=== PATIENT | male | born 1945 | race Caucasian/White ===

== ENCOUNTER → 2024-02-03 07:32 | Outpatient (REF) | payer OTHER, SELFPAY | LOC: MRI 07:32 | PROVIDERS: ATTENDING PHYSICIAN Podiatrist Foot & Ankle Surgery; FAMILY PHYSICIAN Family Medicine | DX: M86.171 Other acute osteomyelitis, right ankle and foot (principal); L97.413 Non-pressure chronic ulcer of right heel and midfoot with necrosis of muscle; L03.115 Cellulitis of right lower limb | CPT/HCPCS: 73720; A9575 ==

== ENCOUNTER → 2024-03-04 12:30 | Outpatient (REF) | payer OTHER, SELFPAY | LOC: WOUND 12:30 | PROVIDERS: ATTENDING PHYSICIAN Surgery; FAMILY PHYSICIAN Family Medicine | DX: L97.413 Non-pressure chronic ulcer of right heel and midfoot with necrosis of muscle (principal); M14.671 Charcot's joint, right ankle and foot; I87.2 Venous insufficiency (chronic) (peripheral); I73.9 Peripheral vascular disease, unspecified; I48.21 Permanent atrial fibrillation; Z79.01 Long term (current) use of anticoagulants | CPT/HCPCS: 99204 ==

== ENCOUNTER → 2024-03-04 13:36 | Outpatient (REF) | payer OTHER, SELFPAY | LOC: RAD 13:36 | PROVIDERS: ATTENDING PHYSICIAN Surgery; FAMILY PHYSICIAN Family Medicine | DX: L97.413 Non-pressure chronic ulcer of right heel and midfoot with necrosis of muscle (principal); M14.671 Charcot's joint, right ankle and foot | CPT/HCPCS: 73630 ==

== ENCOUNTER → 2024-03-05 10:43 | Outpatient (REF) | payer OTHER, SELFPAY ==
[2024-03-05 15:26] LABS: INR 2.66; PT 28.3 Sec (11.4-14.6)
== END ==
LOC: HWLAB 10:43
PROVIDERS: ATTENDING PHYSICIAN Student in an Organized Health Care Education/Training Program; FAMILY PHYSICIAN Family Medicine
DX: I48.0 Paroxysmal atrial fibrillation (principal)
CPT/HCPCS: 36415; 85610

== ENCOUNTER → 2024-03-12 10:28 | Outpatient (REF) | payer OTHER, SELFPAY ==
[2024-03-12 12:28] LABS: INR 1.78; PT 20.9 Sec (11.4-14.6)
== END ==
LOC: HWLAB 10:28
PROVIDERS: ATTENDING PHYSICIAN Student in an Organized Health Care Education/Training Program; FAMILY PHYSICIAN Family Medicine
DX: I48.0 Paroxysmal atrial fibrillation (principal)
CPT/HCPCS: 85610

== ENCOUNTER → 2024-04-16 09:59 | Outpatient (REF) | payer OTHER, SELFPAY | LOC: RAD 09:59 | PROVIDERS: ATTENDING PHYSICIAN Surgery; FAMILY PHYSICIAN Family Medicine | DX: L97.413 Non-pressure chronic ulcer of right heel and midfoot with necrosis of muscle (principal); I87.2 Venous insufficiency (chronic) (peripheral); I73.9 Peripheral vascular disease, unspecified | CPT/HCPCS: 93922; 93971 ==

== ENCOUNTER → 2024-04-27 10:22 | Outpatient (REF) | payer OTHER, SELFPAY | LOC: WOUND 10:22 | PROVIDERS: ATTENDING PHYSICIAN Surgery; FAMILY PHYSICIAN Family Medicine | DX: L97.413 Non-pressure chronic ulcer of right heel and midfoot with necrosis of muscle (principal); M14.671 Charcot's joint, right ankle and foot; I87.2 Venous insufficiency (chronic) (peripheral); I73.9 Peripheral vascular disease, unspecified; I48.21 Permanent atrial fibrillation; Z79.01 Long term (current) use of anticoagulants | CPT/HCPCS: 99214 ==

== ENCOUNTER → 2024-09-13 10:22 | Outpatient (REF) | payer OTHER, SELFPAY | LOC: HWRAD 10:22 | PROVIDERS: ATTENDING PHYSICIAN Podiatrist Foot & Ankle Surgery; FAMILY PHYSICIAN Family Medicine | DX: M14.671 Charcot's joint, right ankle and foot (principal) | CPT/HCPCS: 73600; 73630 ==

== ENCOUNTER → 2024-09-23 10:35 | Outpatient (REF) | payer OTHER, SELFPAY | LOC: PAVMRI 10:35 | PROVIDERS: ATTENDING PHYSICIAN Podiatrist Foot & Ankle Surgery; FAMILY PHYSICIAN Family Medicine | DX: M14.671 Charcot's joint, right ankle and foot (principal) | CPT/HCPCS: 73723; A9575 ==

== ENCOUNTER 2024-09-30 17:28 | Inpatient (IN) | payer OTHER, SELFPAY ==
[2024-09-30] VITALS (19 sets, daily range): BP systolic 40–163; BP diastolic 71–108; BMI 29.4
--- NOTE | 2024-09-30 11:58 | ED.GENMED ---
History of Present Illness
<Doroteo Garcia Jr., PA-C - Last Filed: 09/30/24 14:17>
General
Chief Complaint: Swelling
Source: patient, spouse and family
Exam Limitations: none
Time Seen by Provider: 09/30/24 11:46
Nursing documentation reviewed up to this point in time: agreed with
History of Present Illness
History of Present Illness:
The patient is a 78-year-old male with a past medical history of atrial fibrillation managed with warfarin, hypertension, and hyperlipidemia, who presents with left leg pain and swelling. He reports falling last night due to imbalance and noted
swelling and burning pain on the left side upon waking this morning. The pain is exacerbated by touch, and there is significant bruising noted. The leg is described as unusually hard compared to the non-affected side. The patient also mentions a
history of Charcot foot and a wound on the bottom of the foot, along with peripheral neuropathy limiting sensation.
Review of Systems
<Doroteo Garcia Jr., PA-C - Last Filed: 09/30/24 14:17>
Review of Systems
Allergies reviewed?: Yes
All Other Systems: ROS reviewed and negative except as documented in HPI and ROS
Phy Exam
<Doroteo Garcia Jr., PA-C - Last Filed: 09/30/24 14:17>
Physical Exam
Physical Exam:
GENERAL: Alert , in no apparent distress
EYE: pupils equal and reactive
NECK: Supple, no significant adenopathy.
ENT: o/p clr, mmm.
CARDIAC: Regular rate and rhythm .
LUNGS: Clear breath sounds bilaterally, no acute respiratory distress, no wheezes/rales/rhonchi
ABDOMEN: Soft, without focal tenderness, no r/g, no cvat
NEUROLOGICAL: Alert and oriented, no focal neuro deficits
SKIN: Warm and dry, skin intact.
MUSCULOSKELETAL: Significant swelling to the left lower extremity from the posterior knee into the circumferential lower leg sparing the ankle and foot. Tender to palpation throughout slightly ecchymotic mainly posteriorly somewhat firm to
palpation circumferentially of the lower leg. Able to bend at the knee able to move his toes does have general sensation distally does have distal pulses of dorsalis pedis and posterior tibialis.
PSYCH: Normal and appropriate interaction.
Scores
<Doroteo Garcia Jr., PA-C - Last Filed: 09/30/24 14:17>
Heart Failure Risk
Heart Failure Risk Score: Not Applicable
Course
<Doroteo Garcia Jr., PA-C - Last Filed: 09/30/24 14:17>
Orders/Labs/Results
Orders:
Orders
09/30/24 12:12
CBC/With Diff [Complete Blood Count/With Diff] Urgent
CMP [Comprehensive Metabolic Panel] Urgent
Creatine Phosphokinase Urgent
PT/INR [Prothrombin Time] Urgent
09/30/24 12:48
CT Angio Lower Ext W/Wo Iv Contrast [CT Lower Ext Angio W/wo Iv Con] Stat
Comment:
Reason For Exam: LLE swelling eval for active bleed
09/30/24 14:00
Fentanyl Citrate/Pf [Sublimaze] 100 mcg .ROUTE .STK-MED ONE
Lidocaine HCl/Pf [Xylocaine-Mpf 1% Vial] 50 mg .ROUTE .STK-MED ONE
Midazolam HCl [Versed] 2 mg .ROUTE .STK-MED ONE
Propofol [Diprivan] 40 ml .ROUTE .STK-MED
09/30/24 14:12
Protamine 50 mg .ROUTE .STK-MED ONE
09/30/24 14:20
EKG [Electrocardiogram (*1)] Stat
Reason for Study: PreOp
09/30/24 14:21
CeFAZolin 2 GRAM [Ancef] 2 grams in 10 ml IV PRE PROCEDURE
Chlorhexidine Oral Rinse 0.12% [Peridex 0.12% Oral Rinse] 15 ml PO ONCE ONE
Mupirocin [Bactroban 2% Ointment] See Dose Instructions NASAL ONCE ONE
09/30/24 14:24
Mupirocin Nasal [Bactroban Nasal] 1 gram .ROUTE .STK-MED ONE
09/30/24 14:59
Admit/Transfer Patient As Directed
Co-Sign Provider:
Level of Care: Inpatient admission
Assign to:: Telemetry
Physician / Group: htay
Diagnosis: large Large left calf soft tissue hematoma without evidence for active blee
Reason for Telemetry: Arrhythmia
Date to Stop Telemetry: 10/03/24
Time to Stop Telemetry: 11:00
Reason for Hospitalization: large Large left calf soft tissue hematoma without evidence for active bleeding.
Warfarin induced coagulopathy for AF
Expected length of stay greater than two midnights?: Yes
ELOS- Estimated Length of Stay in days: 5
I certify the patient meets the requirements for IP care: Yes
09/30/24 15:02
Code Status As Directed
Resuscitation Status: Full Code
10/03/24 11:00
DC Protocol for Telemetry ONCE
Abnormal Lab Results
09/30/24
12:12
RBC 3.60 L 10^6/uL
(4.70-6.10)
Hgb 11.4 L g/dL
(13.0-18.0)
Hct 34.1 L %
(39.0-52.0)
MCV 94.7 H fL
(80.0-94.0)
MCH 31.7 H pg
(27.0-31.0)
Absolute Lymphs (auto) 0.8 L 10^3/uL
(1.2-3.4)
Absolute Monos (auto) 1.3 H 10^3/uL
(0.1-0.6)
Lymphocytes % 11.4 L %
(20.5-51.1)
Monocytes % 19.5 H %
(1.7-9.3)
PT 23.3 H Sec
(11.4-14.6)
BUN 21 H mg/dl
(9-20)
Glucose 115 H mg/dl
(70-99)
09/30/24 12:12
09/30/24 12:12
Vital Signs
Initial and Last Documented VS:
Initial Vital Signs
Temp Pulse Resp BP Pulse Ox
97.7 F 82 15 153/88 97
09/30/24 11:44 09/30/24 11:44 09/30/24 11:44 09/30/24 11:44 09/30/24 11:44
Last Documented Vital Signs
Temp Pulse Resp BP Pulse Ox
97.3 F 80 15 163/91 100
09/30/24 14:39 09/30/24 15:15 09/30/24 15:15 09/30/24 14:39 09/30/24 15:00
<Dani Beltre, DO - Last Filed: 09/30/24 15:41>
Orders/Labs/Results
Orders:
Orders
09/30/24 12:12
CBC/With Diff [Complete Blood Count/With Diff] Urgent
CMP [Comprehensive Metabolic Panel] Urgent
Creatine Phosphokinase Urgent
PT/INR [Prothrombin Time] Urgent
09/30/24 12:48
CT Angio Lower Ext W/Wo Iv Contrast [CT Lower Ext Angio W/wo Iv Con] Stat
Comment:
Reason For Exam: LLE swelling eval for active bleed
09/30/24 14:00
Fentanyl Citrate/Pf [Sublimaze] 100 mcg .ROUTE .STK-MED ONE
Lidocaine HCl/Pf [Xylocaine-Mpf 1% Vial] 50 mg .ROUTE .STK-MED ONE
Midazolam HCl [Versed] 2 mg .ROUTE .STK-MED ONE
Propofol [Diprivan] 40 ml .ROUTE .STK-MED
09/30/24 14:12
Protamine 50 mg .ROUTE .STK-MED ONE
09/30/24 14:20
EKG [Electrocardiogram (*1)] Stat
Reason for Study: PreOp
09/30/24 14:21
CeFAZolin 2 GRAM [Ancef] 2 grams in 10 ml IV PRE PROCEDURE
Chlorhexidine Oral Rinse 0.12% [Peridex 0.12% Oral Rinse] 15 ml PO ONCE ONE
Mupirocin [Bactroban 2% Ointment] See Dose Instructions NASAL ONCE ONE
09/30/24 14:24
Mupirocin Nasal [Bactroban Nasal] 1 gram .ROUTE .STK-MED ONE
09/30/24 14:59
Admit/Transfer Patient As Directed
Co-Sign Provider:
Level of Care: Inpatient admission
Assign to:: Telemetry
Physician / Group: htay
Diagnosis: large Large left calf soft tissue hematoma without evidence for active blee
Reason for Telemetry: Arrhythmia
Date to Stop Telemetry: 10/03/24
Time to Stop Telemetry: 11:00
Reason for Hospitalization: large Large left calf soft tissue hematoma without evidence for active bleeding.
Warfarin induced coagulopathy for AF
Expected length of stay greater than two midnights?: Yes
ELOS- Estimated Length of Stay in days: 5
I certify the patient meets the requirements for IP care: Yes
09/30/24 15:02
Code Status As Directed
Resuscitation Status: Full Code
10/03/24 11:00
DC Protocol for Telemetry ONCE
Abnormal Lab Results
09/30/24
12:12
RBC 3.60 L 10^6/uL
(4.70-6.10)
Hgb 11.4 L g/dL
(13.0-18.0)
Hct 34.1 L %
(39.0-52.0)
MCV 94.7 H fL
(80.0-94.0)
MCH 31.7 H pg
(27.0-31.0)
Absolute Lymphs (auto) 0.8 L 10^3/uL
(1.2-3.4)
Absolute Monos (auto) 1.3 H 10^3/uL
(0.1-0.6)
Lymphocytes % 11.4 L %
(20.5-51.1)
Monocytes % 19.5 H %
(1.7-9.3)
PT 23.3 H Sec
(11.4-14.6)
BUN 21 H mg/dl
(9-20)
Glucose 115 H mg/dl
(70-99)
09/30/24 12:12
09/30/24 12:12
Vital Signs
Initial and Last Documented VS:
Initial Vital Signs
Temp Pulse Resp BP Pulse Ox
97.7 F 82 15 153/88 97
09/30/24 11:44 09/30/24 11:44 09/30/24 11:44 09/30/24 11:44 09/30/24 11:44
Last Documented Vital Signs
Temp Pulse Resp BP Pulse Ox
97.3 F 80 15 163/91 100
09/30/24 14:39 09/30/24 15:15 09/30/24 15:15 09/30/24 14:39 09/30/24 15:00
<Doroteo Garcia Jr., PA-C - Last Filed: 09/30/24 14:17>
MDM/Problems Addressed
MDM/Problems Addressed:
78-year-old male presenting to the emergency department today with concerns of left lower extremity swelling did not fall yesterday felt it was very mild injury at the time this morning woke up with worsening swelling and discomfort difficulty
ambulating. Last INR 1 week ago was normal.
Patient had some firmness to his distal lower extremity. This raises concerns of possible early compartment syndrome Case was then discussed with attending physician who also saw the case recommending discussing case with vascular. Vascular was
consulted came to see the patient recommending initial CT angiogram as well as going directly to the OR for drainage there. He was stable throughout ER stay did have distal pulses throughout ER stay.
<Doroteo Garcia Jr., PA-C - Last Filed: 09/30/24 14:17>
*Pulse Oximetry
SaO2: 97
Oxygen Mode of Delivery: Room air
*Critical Care Note
Total Time (30-74mins, 75-104mins- exclusive of procedures): See attending note
<Dani Beltre DO - Last Filed: 09/30/24 15:41>
*Critical Care Note
Total Time (30-74mins, 75-104mins- exclusive of procedures): 35
comment:
Critical care statement: A total of 35 minutes of critical care time was provided for this patient. This includes management of unstable vital signs, evaluation of the patient at bedside, reviewing the patient's pertinent medical records, discussion
with consultants, review of old EKGs and review of pertinent medical records. This time with separate from time utilized to perform the aforementioned documented procedures
ED Attending Note
<Doroteo Garcia Jr., PA-C - Last Filed: 09/30/24 14:17>
-
Portions of this chart may have been created with voice recognition software.� Occasional wrong word or��sound alike� substitutions may have occurred due to the inherent limitations of voice recognition software.
<DO Carmen Loaiza Last Filed: 09/30/24 15:41>
ED Attending Note
Patient seen and examined by attending physician: Yes
ED Attending Note:
I reviewed and agree with history and treatment plan by Chris Garcia. My exam revealed firm left lower extremity compartments normal pulses and lower leg sensation. Vascular surgery to take 2 OR for debridement of compartment syndrome.
Discharge Plan
Departure
Patient Disposition: Admit
Date of Disposition: 09/30/24
Time of Disposition: 14:11
Admit to: IMU
Admit to doctor: Kishorey
Presentation/result/management discussed w/ accepting MD/DO: Hospitalist
Patient with high blood pressure during this ER visit?: No
Condition: Good
Covid-19: Not Applicable
Discharge Problem:
Acute leg pain
Interventions
Interventions:
*Risk Screen - Suicide Last Done: 09/30/24 11:44
*General Assessment Last Done: 09/30/24 11:44
*Neglect/Abuse Screening Last Done: 09/30/24 11:44
*ED- Fall Risk Assessment Last Done: 09/30/24 12:17
*ED COVID-19 Vaccine History Last Done: 09/30/24 11:44
*Nursing Disposition Last Done: 09/30/24 14:21
ED- Cardiac Assessment Last Done: 09/30/24 12:17
ED- Pulmonary Assessment Last Done: 09/30/24 12:17
ED-Skin Assessment Last Done: 09/30/24 12:17
Discharge Date and Time
Discharge Date/Time: 09/30/24 14:21
[2024-09-30 12:21] LABS: % Basophils 0.7 % (0-2); % Eosinophils 0.9 % (0-6); % Immature Granulocytes 0.1 % (0-0.5); % Lymphocytes 11.4 % (20.5-51.1); % Monocytes 19.5 % (1.7-9.3); % Neutrophils 67.4 % (42.2-75.2); Absolute Basophils 0.1 10^3/uL (0-0.2); Absolute Eosinophils 0.1 10^3/uL (0-0.7); Absolute Lymphocytes 0.8 10^3/uL (1.2-3.4); Absolute Monocytes 1.3 10^3/uL (0.1-0.6); Absolute Neutrophils 4.6 10^3/uL (1.4-6.5); Hematocrit 34.1 % (39.0-52.0); Hemoglobin 11.4 g/dL (13.0-18.0); Mean Corp Hgb Conc. 33.4 g/dL (33.0-37.0); Mean Corpuscular Hgb 31.7 pg (27.0-31.0); Mean Corpuscular Volume 94.7 fL (80.0-94.0); Mean Platelet Volume 9.2 fL (7.4-10.4); Nucleated Red Blood Cells % 0 % (-); Platelet Count 190 10^3/uL (130-400); Red Cell Dist. Width 13.7 % (11.5-14.5); White Blood Cell Count 6.8 10^3/uL (4.8-10.8)
[2024-09-30 12:31] LABS: INR 2.05; PT 23.3 Sec (11.4-14.6)
[2024-09-30 12:47] LABS: ALT (SGPT) 24 U/L (0-50); AST (SGOT) 32 U/L (17-59); Albumin 3.8 g/dl (3.5-5.0); Alkaline Phosphatase 84 U/L (38-126); Blood Urea Nitrogen 21 mg/dl (9-20); Calcium 8.9 mg/dl (8.4-10.2); Carbon Dioxide 28 mmol/L (22-30); Chloride 105 mmol/L (98-107); Creatine Phosphokinase 95 U/L (55-170); Glucose 115 mg/dl (70-99); Potassium 4.2 mmol/L (3.5-5.1); Sodium 140 mmol/L (135-145); Total Bilirubin 0.6 mg/dl (0.2-1.3); Total Protein 7.2 g/dl (6.3-8.2); eGFR > 60.00
--- NOTE | 2024-09-30 13:34 | CON.VAS ---
Addendum entered and electronically signed by Denver Galvin MD 09/30/24 15:17:
Seen and examined with POWDERER. Agree with findings as noted below. 78-year-old male on anticoagulation injury to left leg with tense hematoma and subcutaneous tissues. Exam demonstrates no evidence of acute compartment syndrome (subcutaneous
hematoma). The hematoma is fairly tense with blistering of the overlying skin. I have reviewed his CT scan imaging that demonstrates no clear evidence of extravasation but does demonstrate a large left subcutaneous calf hematoma. I am
recommending urgent hematoma evacuation for prevention of further skin blistering/necrosis of the skin. Discussed this with the patient and his family at the bedside. Discussed plan for incision with evacuation hematoma and likely closure over
drains. Discussed possible concerns for wound healing when skin becomes necrotic/blistering. He understands that there could be long-term wound care problems, need for plastic surgery evaluation down the line. Discussed also possible placement of
wound VAC, but less likely. Urgent left calf hematoma plan. He is in agreement.
Original Note:
Consultation
Consultation Request
Date/Time Consultation Performed: 09/30/24 1230
Requesting Provider: Doroteo Garcia Jr., KURT-C
Performing Provider: Charlotte Patel NP-C for Denver Galvin M.D.
Reason for Consultation: Left lower extremity edema
Medical History
-
Chief Complaint: Left lower extremity edema
History of Present Illness:
This is a 78-year-old male with significant past medical history for hypertension, atrial fibrillation, Charcot foot, obesity, and hyperlipidemia who presents to [facility] ED reporting continued worsening of left lower extremity edema following
mechanical fall yesterday evening around roughly 11 PM. Patient endorses that he has been dealing with surgical interventions and nonhealing right foot from Charcot and is recently in a boot at the right lower extremity this caused him to have
imbalance and only fall bumping his left leg. Initially pain was mild as well as swelling so he was able to go back to sleep but upon awakening today and attempting to ambulate he noticed worsening pain prompting him to seek ED evaluation. He does
endorse history of atrial fibrillation and due to financial constraints utilizes Coumadin for oral anticoagulation. He does endorse that he has been recently started on a PO antibiotic (cannot recall name at this time) and is unsure if that might
have reacted with his Coumadin. He currently endorses full motor and sensation, denies pain at rest or at left foot. Does endorse that calf is tender to palpation at area of swelling, otherwise he is comfortable. Denies history of rest pain or
claudication. Denies prior vascular surgical intervention.
Past Medical History
Past Medical History: Arrhythmias (Atrial fibrillation), HTN, Valvular Disease (Nonrheumatic tricuspid valve vegetation) and Other (Obesity, hyperlipidemia, right foot Charcot)
Past Surgical History: Orthopedic (ORIF right distal radius.) and Other (Surgical repair of Charcot foot right lower extremity)
Social History
Tobacco: Non-Smoker
Allergies / Home Medications
Allergy/AdvReac Type Severity Reaction Status Date / Time
almond Allergy Anaphylaxis Verified 12/04/20 09:08
cats Allergy runny Uncoded 12/04/20 09:08
eyes,
sneeze
�Medication �Instructions �Recorded �Confirmed �Type
atenolol 50 mg tablet 50 mg PO DAILY 11/28/20 12/04/20 History
atorvastatin 20 mg tablet 20 mg PO DAILY 11/28/20 12/04/20 History
diltiazem HCl 120 mg 120 mg PO HS 11/28/20 12/04/20 History
capsule,extended release 24 hr
famotidine 20 mg tablet (Acid 20 mg PO HS 11/28/20 12/04/20 History
Controller)
hydrochlorothiazide 25 mg tablet 25 mg PO DAILY 11/28/20 12/04/20 History
warfarin 2.5 mg tablet (Jantoven) 2.5 mg PO TUFR 11/28/20 12/04/20 History
warfarin 5 mg tablet (Jantoven) 5 mg PO SUMOWETHSA 11/28/20 12/04/20 History
Review of Systems
-
History Source: Patient
Constitutional: Reports No Symptoms
EENT: Reports No Symptoms
Respiratory: Reports No Symptoms
Cardiac: Reports No Symptoms
Vascular: Denies Leg Pain / Claudication
Abdomen/GI: Reports No Symptoms
: Reports No Symptoms
Musculoskeletal: Reports Edema (Left lower extremity edema)
Skin: Reports Other (Left lower extremity calf with blistering skin evidence of serous weeping)
Physical Exam
Vital Signs
Temp Pulse Resp BP Pulse Ox
97.7 F 81 18 140/80 95
09/30/24 11:44 09/30/24 13:14 09/30/24 13:14 09/30/24 13:00 09/30/24 13:00
Lab Results
09/30/24 12:12
09/30/24 12:12
Physical Exam
General: No Apparent Distress
HEENT: Normocephalic, Anicteric and Atraumatic
Respiratory: Non Labored Respirations
Cardiac: Negative JVD
GI: Soft, Non Tender and Non Distended
Musculoskeletal: Edema (Left lower extremity with +2 Edema, skin taut, blistering evident with serous drainage)
Skin: Warm and Dry
Neuro: AO x 3, No Motor Deficits and Nonfocal/Grossly Intact
Pulses: Bilateral Femoral: +1, Bilateral Dorsalis Pedis: +1 (Confirmed by Doppler) and Bilateral Posterior Tibial: Doppler
Assessment / Plan
-
Assessment: 78-year-old male with significant past medical history of atrial fibrillation on oral anticoagulation with mechanical fall and subsequent left lower extremity edema suspect hematoma
Plan:
Stat CTA of left lower extremity to rule out active extravasation, final surgical plan pending results of CT although suspect he will need at least hematoma washout and evacuation given degree of tightness at cath and skin breakdown already
occurring with serous drainage. If active extravasation present may also require fasciotomy.
N.p.o.
Hospitalist admission given significant comorbidities
Reviewed plan with on-call attending. I performed this shared service with the attending. I evaluated the patient [id number] and have entered clinical documentation as shown in the encounter note. I performed the following component(s):�history
and physical exam. Note that medical decision making is not final until attested by vascular attending.
[2024-09-30] MEDS: BACTROBAN 2% OINTMENT 1 APPLIC NASAL (14:29)
[2024-09-30] MEDS: PERIDEX 0.12% ORAL RINSE 15 ML PO (14:29)
--- NOTE | 2024-09-30 14:33 | HPS.HSE ---
Family Physician
-
Family Physician: Boo Waite
Chief Complaint
-
Rt leg swelling
History of Present Illness
78M HX r hypertension, atrial fibrillation, Charcot foot, obesity, and hyperlipidemia seen at ER :
- worsening of left lower extremity edema following mechanical fall yesterday evening
- has been dealing with surgical interventions and nonhealing right foot from Charcot
- recently in a boot at the right lower extremity this caused him to have imbalance and only fall bumping his left leg.
- pain was mild as well as swelling so he was able to go back to sleep
- noticed worsening pain prompting him to seek ED evaluation.
- due to financial constraints utilizes Coumadin for AF
- recently started on a PO antibiotic (cannot recall name at this time) and is unsure if that might have reacted with his Coumadin. - full motor and sensation
- denies pain at rest or at left foot.
- Rt calf is tender to palpation at area of swelling, otherwise he is comfortable.
Medical History
Past Medical History
Past Medical History: Reports Arrhythmia (A Fib on Warfarin ), GERD, HTN, Hypercholesterolemia, Valvular Disease (Nonrheumatic tricuspid valve vegetation) ) and Other ((Obesity, right foot Charcot)
Past Surgical History: Reports Orthopedic (ORIF right distal radius.Surgical repair of Charcot foot right lower extremity)
Social History
Tobacco: Non-smoker
Alcohol: Occasional
Family History
Family History: Not pertinent
Allergies / Home Medications
Allergies reflects when Allergies were last updated in [employer].
Home Medications with original date entered in [employer]
Allergy/Medication List:
Allergies
Allergy/AdvReac Type Severity Reaction Status Date / Time
almond Allergy Anaphylaxis Verified 12/04/20 09:08
cats Allergy runny Uncoded 12/04/20 09:08
eyes,
sneeze
Home Medications
atenolol 50 mg tablet 50 mg PO DAILY 11/28/20
atorvastatin 20 mg tablet 20 mg PO DAILY 11/28/20
diltiazem HCl 120 mg capsule,extended release 24 hr 120 mg PO HS 11/28/20
famotidine 20 mg tablet (Acid Controller) 20 mg PO HS 11/28/20
hydrochlorothiazide 25 mg tablet 25 mg PO DAILY 11/28/20
warfarin 2.5 mg tablet (Jantoven) 2.5 mg PO TUFR 11/28/20
warfarin 5 mg tablet (Jantoven) 5 mg PO SUMOWETHSA 11/28/20
Review of Systems
-
Constitutional: Reports No Symptoms
EENT: Reports No Symptoms
Respiratory: Reports No Symptoms
Cardiac: Reports No Symptoms
Abdomen/GI: Reports No Symptoms
: Reports No Symptoms
Musculoskeletal: Reports See HPI
Skin: Reports No Symptoms
Neurological: Reports No Symptoms
Endocrine: Reports No Symptoms
Hematologic/Lymphatic: Reports No Symptoms
Psych: Reports No Symptoms
Physical Exam
Vital Signs
Vital Signs
Temp Pulse Resp BP Pulse Ox
97.7 F 77 18 161/96 99
09/30/24 11:44 09/30/24 14:18 09/30/24 13:14 09/30/24 14:00 09/30/24 14:18
Physical Exam
General: Well Developed, Well Nourished, No Apparent Distress, Comfortable and Conversant
HEENT: NormoCephalic, Moist mucous membranes and Atraumatic
Respiratory: Clear
Cardiac: S1/S2 and Regular Rhythm; No Murmur, Rub or JVD
GI: Soft, Non Tender, Non Distended and Normal Bowel Sounds; No Organomegaly
Rectal: Deferred by Provider
Musculoskeletal: No Clubbing, No Cyanosis, Edema, Left Lower Extremity (Left lower extremity with +2 Edema, skin taut, blistering evident with serous drainage) and No Edema
Skin: No Rash
Neuro: Nonfocal/grossly intact
Psych: Calm
Laboratory Results
-
09/30/24 12:12
09/30/24 12:12
Laboratory Results
PT 23.3 Sec (11.4-14.6) H 09/30/24 12:12
INR 2.05 09/30/24 12:12
Total Bilirubin 0.6 mg/dl (0.2-1.3) 09/30/24 12:12
AST 32 U/L (17-59) 09/30/24 12:12
ALT 24 U/L (0-50) 09/30/24 12:12
Alkaline Phosphatase 84 U/L (38-126) 09/30/24 12:12
Data Reviewed
-
CT Scan: Report Reviewed by me
Lab Data: Labs Reviewed by me
Impression/Plan
-
Selected Entries
09/30/24
11:44
Temp 97.7 F
Pulse 82
Resp Rate 15
Blood pressure 153/88
SaO2 97
Oxygen Mode of Delivery Room air
Laboratory Tests
09/30/24
12:12
WBC 6.8
Hgb 11.4 L
MCV 94.7 H
Plt Count 190
INR 2.05
Potassium 4.2
Carbon Dioxide 28
BUN 21 H
Creatinine 0.8
eGFR > 60.00
Total Bilirubin 0.6
AST 32
ALT 24
Alkaline Phosphatase 84
Creatine Kinase 95
CT Lower Ext Angio W/wo Iv Con
- Large left calf soft tissue hematoma without evidence for active bleeding.
NO Prior hospitalist admission:
ASSESSMENT & PLAN
large Large left calf soft tissue hematoma without evidence for active bleeding.
Associated with blunt trauma due to mechanical fall
Concern for compartment syndrome
- Vascular evaluated and consulted at ER- [place] as below
- for hematoma washout and evacuation given degree of tightness at cath and skin breakdown already occurring with serous drainage
- NPO and IVF
- PRN Narcotic analgesia
- INR is 2 - will give Vit K
Warfarin induced coagulopathy for AF
HX AF
- Hold Warfarin
- Vit K to reveres INR for OR
- daily INR
Pre exiting conditions
Benign HTN
HX Valvular Disease (Nonrheumatic tricuspid valve vegetation)
Obesity
hyperlipidemia
right foot Charcot under boot
- Pending Rx reconciliation
DVT Px: contraindicated
Code:Full
IP TLM
--- NOTE | 2024-09-30 15:18 | W.SUR.PREOP ---
Pre-Operative Surgical Note
-
I have examined this patient prior to the performance of the scheduled procedure.
The patient's condition is unchanged from the time of the current History and
Physical and the patient is able to undergo the scheduled procedure.
--- NOTE | 2024-09-30 16:38 | W.SUR.POST ---
Surgical Immediate Post Op
Note
Pre Op Diagnosis: Left lower extremity hematoma
Post Op Diagnosis: Same
Procedure Performed: Left lower extremity hematoma evacuation/washout
Primary Surgeon: Kamar
Assist: Kobe FARR
Anesthesia: LMA
Estimated Blood Loss: 45 cc
Fluids: See seizure flowsheet
Drains/Shunts: 2 MELODIE drains to the left leg
Specimens/Cultures: Hematoma
Doppler/Duplex/Angio (Y/N): No
Complications: None
Operative Findings: Successful hematoma evacuation
--- NOTE | 2024-09-30 17:04 | OR.RPT ---
Operative Report
Operative Report
PROCEDURE DATE: 09/30/2024
Preoperative diagnosis: Tense subcutaneous hematoma left calf.
Postoperative diagnosis: Same
Procedure:
1. Emergent evacuation left calf hematoma with closure over drains.
2. Pulse lavage irrigation left calf subcutaneous hematoma cavity with 3 L saline solution.
Surgeon: Kamar
Auto Body Estimator: CIELO Bullock, required prospects of procedure including assistance with traction/countertraction, assistance with closure.
Complications: None
Anesthesia: General
Indications for procedure:
Tense left calf hematoma. Patient on Coumadin for anticoagulation. Blistering skin changes noted. CT showed no active extravasation. Appeared to be in the subcutaneous space rather than the muscular compartment. Risk/benefits/alternatives also
discussed. Patient understood and wished to proceed.
Description of procedure:
Patient was identified brought to the operating room placed on the table in supine position. After the adequate administration of anesthesia he was prepped and draped in the standard surgical fashion. A standard preoperative timeout was undertaken
and everybody was in agreement the plan. I elected to make an incision in the medial calf as it appeared that the hematoma connected to both the medial and the lateral aspect posteriorly. And I felt staying away from the lateral skin may be
better. A longitudinal incision was made in the medial/posterior proximal left calf. This was carried through skin subcutaneous tissue. There was bulging of the muscles. However in the subcutaneous space I could not express a hematoma from this
vantage point even as I tracked more posteriorly. Now I was slightly confused as to whether the hematoma was in the muscular space or not. Therefore entering the muscle space, however, I elected to make a incision laterally/posteriorly as I
initially intended to do, but had to do it through the blistered skin (which I was trying to avoid). This incision was a longitudinal incision was carried through the skin subcutaneous tissue with electrocautery. I immediately in the subcutaneous
tissue encountered a large hematoma. I scooped out a large 1 inch ball sized hematoma. And then there was additional hematoma that I scooped out as well. Once I scooped all this out the cavities were all soft. All compartments were noted to be
very soft now. Even the medial side was very soft. I did not see any active extravasation. There is just diffuse mild oozing throughout the tissues. I pulse lavage irrigated 3 L of saline solution through the space. Next, I brought out to
drains (MELODIE and round Bill) through separate stab incisions in the skin and placed these drains in the subcutaneous hematoma space. Drains were secured to the skin with nylon suture. Next the medial calf incision was closed with 3-0 Vicryl deep
dermal layer followed by 4 Monocryl subcuticular stitch. The lateral incision site was closed with interrupted vertical mattress nylon suture. Dressings were applied. Compression wrap was applied. The patient tolerated procedure well.
[2024-09-30] MEDS: DILAUDID 0.5 MG IV (17:16)
[2024-09-30] MEDS: DILAUDID 0.25 MG IV (17:42)
[2024-09-30] MEDS: NSS 1000 IV (17:44)
[2024-09-30] MEDS: MEPHYTON 5 MG PO (18:29)
[2024-09-30] MEDS: TYLENOL 650 MG PO (20:37)
[2024-09-30] MEDS: PEPCID 20 MG PO (22:02)
[2024-09-30] MEDS: CARDIZEM CD 120 MG PO (22:02)
[2024-10-01 03:00] VITALS: BP 142/84
[2024-10-01] MEDS: DILAUDID 0.5 MG IV (04:54)
[2024-10-01] MEDS: NSS 1000 IV (07:12)
[2024-10-01 07:15] VITALS: BP 132/82
[2024-10-01 07:19] LABS: INR 1.57
[2024-10-01 07:20] LABS: APTT 40.1 Sec (23.4-35.0)
[2024-10-01 07:43] LABS: Blood Urea Nitrogen 17 mg/dl (9-20); Calcium 8.3 mg/dl (8.4-10.2); Carbon Dioxide 23 mmol/L (22-30); Chloride 108 mmol/L (98-107); Estimated Creatinine Clearance 84 ml/min; Glucose 150 mg/dl (70-99); Potassium 4.4 mmol/L (3.5-5.1); Sodium 137 mmol/L (135-145); eGFR > 60.00
[2024-10-01 08:41] LABS: Hematocrit 24.6 % (39.0-52.0); Hemoglobin 8.3 g/dL (13.0-18.0); Mean Corp Hgb Conc. 33.7 g/dL (33.0-37.0); Mean Corpuscular Hgb 31.8 pg (27.0-31.0); Mean Corpuscular Volume 94.3 fL (80.0-94.0); Mean Platelet Volume 9.6 fL (7.4-10.4); Platelet Count 175 10^3/uL (130-400); Red Blood Cell Count 2.61 10^6/uL (4.70-6.10); Red Cell Dist. Width 13.5 % (11.5-14.5); White Blood Cell Count 11.6 10^3/uL (4.8-10.8)
--- NOTE | 2024-10-01 08:56 | W.PN.HOSP.TC ---
Today's Communication/Plan
-
see bold
Assessment / Plan
Assessment / Plan
HPI: 78-year-old male with significant past medical history for hypertension, atrial fibrillation, Charcot foot, obesity, and hyperlipidemia who presents to [facility] ED reporting continued worsening of left lower extremity edema following
mechanical fall yesterday evening around roughly 11 PM. Patient endorses that he has been dealing with surgical interventions and nonhealing right foot from Charcot and is recently in a boot at the right lower extremity this caused him to have
imbalance and only fall bumping his left leg. Initially pain was mild as well as swelling so he was able to go back to sleep but upon awakening today and attempting to ambulate he noticed worsening pain prompting him to seek ED evaluation. He does
endorse history of atrial fibrillation and due to financial constraints utilizes Coumadin for oral anticoagulation. He does endorse that he has been recently started on a PO antibiotic (cannot recall name at this time) and is unsure if that might
have reacted with his Coumadin.
CT Lower Ext Angio W/wo Iv Con
- Large left calf soft tissue hematoma without evidence for active bleeding.
Assessment/plan:
Large Large left calf soft tissue hematoma without evidence for active bleeding
Associated with blunt trauma due to mechanical fall
- Appreciate vascular surgery input, status post emergent evacuation of left calf hematoma with closure over drains 09/30/2024
- Status post vitamin K for INR 2.0
- Vascular surgery recommends holding Coumadin for 24-48 hours
- Continue Reid wraps to left lower extremity as tolerated
- PT/OT, pain control, continue home gabapentin
Acute blood loss anemia
- From hematoma, trend hemoglobin, transfuse as needed
Chronic atrial fibrillation
- Status post vitamin K for INR 2.0
- Coumadin held due to the above
- Continue atenolol and diltiazem for rate control
Right foot Charcot arthropathy status post surgery
- Cast was due to be removed 10/01
- Discussed with podiatry, Dr. Waite, who recommends follow-up with patient's usual middle school resource teacher in the office for removal - Dr. Paresh George #[phone]
Essential hypertension
- Continue atenolol and diltiazem
Gastroesophageal reflux disease
- Continue Pepcid
Hyperlipidemia
- Continue statin
DVT prophylaxis�SCDs, resume Coumadin when okay with vascular surgery
Full code
Total time spent to see the patient on the floor, examine the patient, review data and lab results, discuss treatment plan with patient, nursing staff around 50 minutes.
Physical Exam
General: No acute distress
HEENT: Normocephalic, Atraumatic, EOMI, MMM
Respiratory: Clear to Auscultation bilaterally
Cardiac: Normal S1/S2, Regular Rate and Rhythm
GI: Soft, Nontender, Nondistended, Normal Bowel Sounds
Extremities: No Clubbing, Cyanosis
Right ankle casted and in boot
Left lower extremity dressed with drain in place
Neuro: Nonfocal/Grossly Intact
Psych: Calm, Cooperative
Anticipated Discharge: > 48 hours
Subjective/Interval History
-
Date of Service: October 01, 2024
Patient reports that his left calf pain is tolerable. Denies weakness. No chest pain, no shortness of breath. No fever, no vomiting.
Objective Data
-
Labs:
Laboratory Results
10/01/24 10/01/24
06:42 08:15
WBC Cancelled 11.6 H
Hgb Cancelled 8.3 L D
Hct Cancelled 24.6 L
Plt Count Cancelled 175
PT 19.0 H
INR 1.57
APTT 40.1 H
Sodium 137
Potassium 4.4
Chloride 108 H
Carbon Dioxide 23
BUN 17
Creatinine 0.8
Glucose 150 H
Calcium 8.3 L
Vital Signs:
Vital Signs
Temp Pulse Resp BP Pulse Ox
97.8 F 83 16 132/82 97
10/01/24 07:15 10/01/24 07:15 10/01/24 07:15 10/01/24 07:15 10/01/24 07:15
I&O
09/30/24 10/01/24 10/02/24
06:59 06:59 06:59
Intake Total 2370 / 2370
Output Total 1345 / 1345
Balance 1025 / 1025
--- NOTE | 2024-10-01 09:06 | W.PN.VS ---
Today's Communication / Plan
-
Discussed with Dr. Vazquez
Assessment/Plan
-
POD 1 left calf hematoma washout
Plan:
Keep JPs, patient education ordered
If okay with medical team recommend holding Coumadin for 24 to 48 hours
Continue Reid wraps to left lower extremity as tolerated
Out of bed/ambulate as tolerated
Subjective Data
-
Date of Service: October 01, 2024
Patient seen at bedside this a.m. Patient offers no complaints at this time. Dressing with moderate amount of serosanguineous drainage. Leg softer than prior. Patient denies pain at this time.
Objective Data
-
Vital Signs
Temp Pulse Resp BP Pulse Ox
97.8 F 83 16 132/82 97
10/01/24 07:15 10/01/24 07:15 10/01/24 07:15 10/01/24 07:15 10/01/24 07:15
Intake and Output
09/30/24 10/01/24 10/02/24
06:59 06:59 06:59
Intake Total 2370 / 2370
Output Total 1345 / 1345
Balance 1025 / 1025
Intake:
Oral fluids 1260 / 1260
IV fluids (Total) 1110 / 1110
Normosal 150 / 150
Output:
Drain Output (Total) 270 / 270
Left Lower Leg Sagar-Gary A 135 / 135
Left Lower Leg Sagar-Gary B 135 / 135
Urine, Voided 1075 / 1075
Lab Results
10/01/24 08:15
10/01/24 06:42
Calcium 8.3 mg/dl (8.4-10.2) L 10/01/24 06:42
Total Bilirubin 0.6 mg/dl (0.2-1.3) 09/30/24 12:12
AST 32 U/L (17-59) 09/30/24 12:12
ALT 24 U/L (0-50) 09/30/24 12:12
Alkaline Phosphatase 84 U/L (38-126) 09/30/24 12:12
Total Protein 7.2 g/dl (6.3-8.2) 09/30/24 12:12
Albumin 3.8 g/dl (3.5-5.0) 09/30/24 12:12
Physical Exam
-
AAO x 3
No tachypnea on room air
No tachycardia
Lower leg dressing removed
Sutures all intact with no drainage noted, lateral incision well-approximated. Skin all intact, coloring improved.
+2 edema to the foot, warm and pink, palpable pulses
MELODIE drains about 130 cc out of each since OR
[2024-10-01] MEDS: FLEXERIL 5 MG PO ×2 (09:47→17:00)
[2024-10-01] MEDS: NEURONTIN 300 MG PO ×3 (09:49→22:15)
[2024-10-01] MEDS: LIPITOR 20 MG PO (09:49)
[2024-10-01] MEDS: TENORMIN 50 MG PO (09:50)
--- NOTE | 2024-10-01 11:12 | CM ---
CM following re: discharge planning.
Reviewed pt's chart, met with pt.
Pt is a 78 year old male, admitted with primary dx of POD 1 left calf hematoma washout. Continue supportive care.
Pt reports he lives with spouse 2SH, 2 steps to enter, has 3 supportive children. Pt reports he is known to [facility] and was at [facility]. Pt expressed to me his negative feelings regarding his experience being in a longterm
environment. Pt stated that [facility] staff was wonderful, he just does not like longterm environment. Pt expressed his desire to return back home at discharge and expressed his oneness to discuss SNF level of care if strongly
recommended.
PT and OT will evaluate the pt to determine a level of care at discharge.
PCP: Tanner Waite
Pharmacy: [facility]
D/C plan: most likely home with [facility] vs preferred SNF if pt agrees and strongly recommended.
CM will follow with discharge plan updates as hospitalization progresses
[2024-10-01 11:22] VITALS: BP 135/78
--- NOTE | 2024-10-01 12:07 | PTCARENOTE ---
[address] Whitley regarding cast. is here stating per Sal/buffy we need to remove cast on RIGHT foot today. Dr. Paresh George #[phone] (this is the office) I spoke to a Lorena but she said to also ask for a [place]...I was not sure how
you wanted to proceed. It is a hard cast for a chronic wound. Dr. Waite was contacted after TT from Orthopedics (Gayle Donahue) Physician On-Call...Our ortho PAs don�t take casts off of other surgeons work while the patient is in the hospital.
Please have Dr. Waite call and let the railroad car truck builder know that he�ll follow up after he�s discharged for cast removal.....Dr. Waite LM with Dr. George regarding care after he is discharged and to please call pt.
[2024-10-01] MEDS: TYLENOL 1000 MG PO (14:57)
[2024-10-01 15:31] VITALS: BP 135/65
--- NOTE | 2024-10-01 16:43 | PTCARENOTE ---
spoke with and pt at lengthen regarding MELODIE drains and care of, what they are.... Use of wheelchair not recommended to keep up mobility but ok for appts longer trips, safety.
[2024-10-01 21:25] VITALS: BP 128/70
[2024-10-01] MEDS: CARDIZEM CD 180 MG PO (22:15)
[2024-10-01] MEDS: PEPCID 20 MG PO (22:15)
[2024-10-01] MEDS: SENOKOT-S 1 TABLET PO (22:15)
[2024-10-01 23:43] VITALS: BP 137/70
[2024-10-02 03:12] VITALS: BP 124/70
[2024-10-02 06:08] LABS: Hematocrit 22.5 % (39.0-52.0); Hemoglobin 7.6 g/dL (13.0-18.0); Mean Corp Hgb Conc. 33.8 g/dL (33.0-37.0); Mean Corpuscular Hgb 32.5 pg (27.0-31.0); Mean Corpuscular Volume 96.2 fL (80.0-94.0); Mean Platelet Volume 9.8 fL (7.4-10.4); Platelet Count 147 10^3/uL (130-400); Red Blood Cell Count 2.34 10^6/uL (4.70-6.10); Red Cell Dist. Width 14.1 % (11.5-14.5); White Blood Cell Count 8.1 10^3/uL (4.8-10.8)
[2024-10-02 06:18] LABS: INR 1.21; PT 15.6 Sec (11.4-14.6)
--- NOTE | 2024-10-02 06:59 | W.PN.HOSP.TC ---
Today's Communication/Plan
-
Monitor H&H
pain control
wound care
Lidocaine patches bengay-like cream lower back pain
Assessment / Plan
Assessment / Plan
Physical Exam
General: No acute distress
HEENT: Normocephalic, Atraumatic, EOMI, MMM
Respiratory: Clear to Auscultation bilaterally
Cardiac: Normal S1/S2, Regular Rate and Rhythm
GI: Soft, Nontender, Nondistended, Normal Bowel Sounds
Extremities: No Clubbing, Cyanosis
Right ankle casted and in boot
Left lower extremity dressed with drain in place
Neuro: AOx3 conversant coherent
Psych: Calm, Cooperative
HPI: 78-year-old male with significant past medical history for hypertension, atrial fibrillation, Charcot foot, obesity, and hyperlipidemia who presents to [place] ED reporting continued worsening of left lower extremity edema following
mechanical fall yesterday evening around roughly 11 PM. Patient endorses that he has been dealing with surgical interventions and nonhealing right foot from Charcot and is recently in a boot at the right lower extremity this caused him to have
imbalance and only fall bumping his left leg. Initially pain was mild as well as swelling so he was able to go back to sleep but upon awakening today and attempting to ambulate he noticed worsening pain prompting him to seek ED evaluation. He does
endorse history of atrial fibrillation and due to financial constraints utilizes Coumadin for oral anticoagulation. He does endorse that he has been recently started on a PO antibiotic (cannot recall name at this time) and is unsure if that might
have reacted with his Coumadin.
CT Lower Ext Angio W/wo Iv Con
- Large left calf soft tissue hematoma without evidence for active bleeding.
Assessment/plan:
Large Large left calf soft tissue hematoma without evidence for active bleeding
Associated with blunt trauma due to mechanical fall
- Appreciate vascular surgery input, status post emergent evacuation of left calf hematoma with closure over drains 09/30/2024
- Status post vitamin K for INR 2.0
- Vascular surgery recommends holding Coumadin for 24-48 hours
- Continue Reid wraps to left lower extremity as tolerated
- PT/OT, pain control, continue home gabapentin
Acute blood loss anemia
- From hematoma, trend hemoglobin, transfuse as needed
Chronic atrial fibrillation
- Status post vitamin K for INR 2.0
- Coumadin held due to the above
- Continue atenolol and diltiazem for rate control
Lower Back Pain
-lidocaine patches
-bengay cream
-cont pain control
Right foot Charcot arthropathy status post surgery
- Cast was due to be removed 10/01
- Discussed with podiatry, Dr. Waite, who recommends follow-up with patient's usual government documents librarian in the office for removal - Dr. Paresh George #[phone]
Essential hypertension
- Continue atenolol and diltiazem
Gastroesophageal reflux disease
- Continue Pepcid
Hyperlipidemia
- Continue statin
DVT prophylaxis�SCDs, resume Coumadin when okay with vascular surgery
Full code
Total time spent to see the patient on the floor, examine the patient, review data and lab results, discuss treatment plan with patient, nursing staff around 40 minutes.
Anticipated Discharge: > 48 hours
Subjective/Interval History
-
Date of Service: October 02, 2024
No acute distress, appears comfortable at this time. Overall reports feeling well. LLE pain well controlled at rest. Reports lower back pain.
Objective Data
-
Labs:
Laboratory Results
10/02/24
05:27
WBC 8.1
Hgb 7.6 L
Hct 22.5 L
Plt Count 147
PT 15.6 H
INR 1.21
Vital Signs:
Vital Signs
Temp Pulse Resp BP Pulse Ox
97.8 F 75 16 124/70 99
10/02/24 03:12 10/02/24 03:12 10/02/24 03:12 10/02/24 03:12 10/02/24 03:12
I&O
09/30/24 10/01/24 10/02/24
06:59 06:59 06:59
Intake Total 2370 / 2370 1620 / 1620
Output Total 1345 / 1345 773 / 773
Balance 1025 / 1025 847 / 847
[2024-10-02 07:25] VITALS: BP 134/78
[2024-10-02] MEDS: NEURONTIN 300 MG PO ×3 (07:46→22:15)
[2024-10-02] MEDS: TENORMIN 50 MG PO (07:46)
[2024-10-02] MEDS: LIPITOR 20 MG PO (07:46)
[2024-10-02] MEDS: MIRALAX 17 GRAMS PO (07:46)
[2024-10-02 11:20] VITALS: BP 136/68
[2024-10-02] MEDS: ROXICODONE 5 MG PO (11:29)
[2024-10-02] MEDS: LIDOCAINE 4% PATCH 2 PATCH TOPICAL (11:30)
[2024-10-02 11:46] LABS: Iron 52 ug/dl (49-181)
[2024-10-02 11:55] LABS: Percent Saturation 20 % (20-50); Total Iron Binding Capacity 253 ug/dl (261-462)
[2024-10-02 12:24] LABS: Hematocrit 24.4 % (39.0-52.0); Hemoglobin 8.2 g/dL (13.0-18.0)
[2024-10-02] MEDS: BenGay-Like 1 APPLIC TOPICAL ×3 (12:49→22:15)
--- NOTE | 2024-10-02 15:05 | W.PN.VS ---
Today's Communication / Plan
-
See plan below for today 10/02/2024.
Assessment/Plan
-
POD 1 left calf hematoma washout
Plan:
Continue JPs. Leg rewrapped by me. Continue Reid bandage. Likely okay to reinitiate Coumadin today. Hemoglobin appears stable. Would resume slowly. PT/OT.
-
Total Time Spent with Patient (in minutes): 15
Subjective Data
-
Date of Service: October 02, 2024
Patient without any new complaints.
Objective Data
-
Vital Signs
Temp Pulse Resp BP Pulse Ox
97.8 F 72 16 136/68 98
10/02/24 11:20 10/02/24 11:20 10/02/24 11:20 10/02/24 11:20 10/02/24 11:20
Intake and Output
10/01/24 10/02/24 10/03/24
06:59 06:59 06:59
Intake Total 2370 / 2370 1620 / 1620 720 / 720
Output Total 1345 / 1345 773 / 773 1379 / 1379
Balance 1025 / 1025 847 / 847 -659 / -659
Intake:
Oral fluids 1260 / 1260 1460 / 1460 720 / 720
IV fluids (Total) 1110 / 1110 160 / 160
Normosal 150 / 150
Output:
Drain Output (Total) 270 / 270 23 / 23 4 / 4
Left Lower Leg Sagar-Gary A 135 / 135 20 / 20 2 / 2
Left Lower Leg Sagar-Gary B 135 / 135 3 / 3 2 / 2
Urine, Vazquez 775 / 775
Urine, Voided 1075 / 1075 750 / 750 600 / 600
Other:
Number of approximated MODERATE 3
amounts of urine
Lab Results
10/02/24 11:47
10/01/24 06:42
Calcium 8.3 mg/dl (8.4-10.2) L 10/01/24 06:42
Total Bilirubin 0.6 mg/dl (0.2-1.3) 09/30/24 12:12
AST 32 U/L (17-59) 09/30/24 12:12
ALT 24 U/L (0-50) 09/30/24 12:12
Alkaline Phosphatase 84 U/L (38-126) 09/30/24 12:12
Total Protein 7.2 g/dl (6.3-8.2) 09/30/24 12:12
Albumin 3.8 g/dl (3.5-5.0) 09/30/24 12:12
Physical Exam
-
Afebrile.
Awake and alert.
Left lower extremity dressings all removed and site examined by me. Medial calf incision is clean dry and intact. Lateral calf incision is also clean dry and intact. Skin edges and skin blistering somewhat stable, not worsened. No obvious skin
necrosis. The calf is soft with mild fullness but very soft. JPs serosanguineous/scant. JPs have put out 22 and 5 cc.
[2024-10-02 15:30] VITALS: BP 112/59
[2024-10-02 19:05] VITALS: BP 124/66
[2024-10-02] MEDS: SENOKOT-S 1 TABLET PO (20:00)
[2024-10-02] MEDS: DILAUDID 0.5 MG IV (20:20)
[2024-10-02] MEDS: PEPCID 20 MG PO (21:15)
[2024-10-02] MEDS: CARDIZEM CD 180 MG PO (22:15)
[2024-10-02 23:05] VITALS: BP 123/68
[2024-10-03] VITALS (10 sets, daily range): BP systolic 107–151; BP diastolic 61–83; PULSE 88; O2SAT 98
[2024-10-03 04:59] LABS: Hematocrit 22.3 % (39.0-52.0); Hemoglobin 7.2 g/dL (13.0-18.0); Mean Corp Hgb Conc. 32.3 g/dL (33.0-37.0); Mean Corpuscular Hgb 31.3 pg (27.0-31.0); Mean Platelet Volume 9.5 fL (7.4-10.4); Platelet Count 153 10^3/uL (130-400); Red Cell Dist. Width 14.1 % (11.5-14.5)
[2024-10-03 05:08] LABS: INR 1.07; PT 14.2 Sec (11.4-14.6)
--- NOTE | 2024-10-03 07:02 | W.PN.HOSP.TC ---
Today's Communication/Plan
-
Pain Control
PT/OT
transfuse 1 PRBC for goal hgb 8, follow up post-transfusion response with AM labs
start low dose Coumadin
cont monitoring INR daily
check lumbar X-ray
Assessment / Plan
Assessment / Plan
Physical Exam
General: No acute distress, appears comfortable at this time
HEENT: Normocephalic, Atraumatic, EOMI, MMM
Respiratory: Clear to Auscultation bilaterally
Cardiac: Normal S1/S2, Regular Rate and Rhythm
GI: Soft, Nontender, Nondistended, Normal Bowel Sounds
Extremities:Right ankle casted and in boot, Left lower extremity dressed with drains in place
Neuro: AOx3 conversant coherent
Psych: Calm, Cooperative
HPI: 78-year-old male with significant past medical history for hypertension, atrial fibrillation, Charcot foot, obesity, and hyperlipidemia who presents to [place] ED reporting continued worsening of left lower extremity edema following
mechanical fall yesterday evening around roughly 11 PM. Patient endorses that he has been dealing with surgical interventions and nonhealing right foot from Charcot and is recently in a boot at the right lower extremity this caused him to have
imbalance and only fall bumping his left leg. Initially pain was mild as well as swelling so he was able to go back to sleep but upon awakening today and attempting to ambulate he noticed worsening pain prompting him to seek ED evaluation. He does
endorse history of atrial fibrillation and due to financial constraints utilizes Coumadin for oral anticoagulation. He does endorse that he has been recently started on a PO antibiotic (cannot recall name at this time) and is unsure if that might
have reacted with his Coumadin.
CT Lower Ext Angio W/wo Iv Con
- Large left calf soft tissue hematoma without evidence for active bleeding.
Assessment/plan:
Large Large left calf soft tissue hematoma without evidence for active bleeding
Associated with blunt trauma due to mechanical fall
- Appreciate vascular surgery input, status post emergent evacuation of left calf hematoma with closure over drains 09/30/2024
- received Vit K prior to surgical procedure as above
- Vascular surgery recommended holding Coumadin for 24-48 hours post-procedure since cleared to resume
- Continue Reid wraps to left lower extremity as tolerated
- PT/OT appreciated home health
- pain control, continue home gabapentin
Acute blood loss anemia
- From hematoma, trend hemoglobin, transfuse for goal hgb 8.0
-1prbc transfusion given 10/03/24 follow up post-transfusion cbc with AM labs
Chronic atrial fibrillation
- received Vit K for surgical procedure as above
- Coumadin held due to the above, since resumed following vascular clearance, starting low dose for now 2.5 mg qpm
- Continue atenolol and diltiazem for rate control
Lower Back Pain
-lidocaine patches
-bengay cream
-cont pain control
-check Lumbar X-ray
Right foot Charcot arthropathy status post surgery
- Cast was due to be removed 10/01
- Discussed with podiatry, Dr. Waite, who recommends follow-up with patient's usual tool or die drawing checker in the office for removal - Dr. Paresh George #[phone]
Essential hypertension
- Continue atenolol and diltiazem
Gastroesophageal reflux disease
- Continue Pepcid
Hyperlipidemia
- Continue statin
DVT prophylaxis�SCDs, Coumadin resumed low dose
Full code
Total time spent to see the patient on the floor, examine the patient, review data and lab results, discuss treatment plan with patient, nursing staff around 40 minutes.
Anticipated Discharge: 24 - 48 hours
Subjective/Interval History
-
Date of Service: October 03, 2024
No acute distress sitting up comfortably in chair. Pain relatively well controlled at this time with current pain regimen.
Objective Data
-
Labs:
Laboratory Results
10/03/24
04:16
WBC 7.0
Hgb 7.2 L
Hct 22.3 L
Plt Count 153
PT 14.2
INR 1.07
Vital Signs:
Vital Signs
Temp Pulse Resp BP Pulse Ox
97.9 F 82 18 128/64 100
10/03/24 03:00 10/03/24 03:00 10/03/24 03:00 10/03/24 03:00 10/03/24 03:00
I&O
10/02/24 10/03/24 10/04/24
06:59 06:59 06:59
Intake Total 1620 / 1620 970 / 970
Output Total 773 / 773 1389 / 1389
Balance 847 / 847 -419 / -419
[2024-10-03] MEDS: MIRALAX 17 GRAMS PO (08:04)
[2024-10-03] MEDS: BenGay-Like 1 APPLIC TOPICAL ×4 (08:05→22:12)
[2024-10-03] MEDS: THERAGRAN 1 TABLET PO (08:05)
[2024-10-03] MEDS: TENORMIN 50 MG PO (08:05)
[2024-10-03] MEDS: NEURONTIN 300 MG PO ×3 (08:05→22:11)
[2024-10-03] MEDS: LIPITOR 20 MG PO (08:05)
[2024-10-03] MEDS: LIDOCAINE 4% PATCH 2 PATCH TOPICAL (08:06)
--- NOTE | 2024-10-03 10:00 | W.PN.VS ---
Today's Communication / Plan
-
See plan below for today 10/03/2024.
Assessment/Plan
-
POD 2 left calf hematoma washout
Plan:
Continue JPs. Okay to ambulate. PT/OT. Agree with transfusion 1 unit blood. No signs of active bleeding.If scant drainage still tomorrow, will likely discontinue one of the JPs so he can go home with only 1.
-
Total Time Spent with Patient (in minutes): 15
Subjective Data
-
Date of Service: October 03, 2024
Seen and evaluated. Without complaints. Hemoglobin trended down, transfusion 1 unit packed red blood cells.
Objective Data
-
Vital Signs
Temp Pulse Resp BP Pulse Ox
97.9 F 81 12 131/78 98
10/03/24 07:00 10/03/24 08:05 10/03/24 07:00 10/03/24 08:05 10/03/24 08:26
Intake and Output
10/02/24 10/03/24 10/04/24
06:59 06:59 06:59
Intake Total 1620 / 1620 970 / 970
Output Total 773 / 773 1389 / 1389 500 / 500
Balance 847 / 847 -419 / -419 -500 / -500
Intake:
Oral fluids 1460 / 1460 970 / 970
IV fluids (Total) 160 / 160
Output:
Drain Output (Total)
Left Lower Leg Sagar-Gary A
Left Lower Leg Sagar-Gary B / 2 / 2
Urine, Vazquez 775 / 775
Urine, Voided 750 / 750 600 / 600 500 / 500
Other:
Number of approximated MODERATE 3
amounts of urine
How many times incontinent 2
MODERATE amount urine
Lab Results
10/01/24 06:42
Calcium 8.3 mg/dl (8.4-10.2) L 10/01/24 06:42
Total Bilirubin 0.6 mg/dl (0.2-1.3) 09/30/24 12:12
AST 32 U/L (17-59) 09/30/24 12:12
ALT 24 U/L (0-50) 09/30/24 12:12
Alkaline Phosphatase 84 U/L (38-126) 09/30/24 12:12
Total Protein 7.2 g/dl (6.3-8.2) 09/30/24 12:12
Albumin 3.8 g/dl (3.5-5.0) 09/30/24 12:12
Physical Exam
-
Afebrile.
Awake and alert.
Left lower extremity dressing is clean dry and intact. Calf is soft. MELODIE drainage is scant.
[2024-10-03 11:59] LABS: Hemoglobin 7.7 g/dL (13.0-18.0)
[2024-10-03] MEDS: COUMADIN 2.5 MG PO (17:02)
[2024-10-03] MEDS: ROXICODONE 5 MG PO ×2 (17:17→22:10)
[2024-10-03] MEDS: FLEXERIL 5 MG PO (22:08)
[2024-10-03] MEDS: SENOKOT-S 1 TABLET PO (22:08)
[2024-10-03] MEDS: PEPCID 20 MG PO (22:11)
[2024-10-03] MEDS: CARDIZEM CD 180 MG PO (22:11)
[2024-10-04 06:15] LABS: Hematocrit 24.5 % (39.0-52.0); Hemoglobin 8.2 g/dL (13.0-18.0); Mean Corp Hgb Conc. 33.5 g/dL (33.0-37.0); Mean Corpuscular Hgb 30.3 pg (27.0-31.0); Mean Corpuscular Volume 90.4 fL (80.0-94.0); Mean Platelet Volume 9.3 fL (7.4-10.4); Platelet Count 176 10^3/uL (130-400); Red Blood Cell Count 2.71 10^6/uL (4.70-6.10); Red Cell Dist. Width 19.1 % (11.5-14.5); White Blood Cell Count 6.3 10^3/uL (4.8-10.8)
[2024-10-04 06:22] LABS: INR 1.09; PT 14.4 Sec (11.4-14.6)
[2024-10-04 06:46] LABS: Blood Urea Nitrogen 14 mg/dl (9-20); Calcium 8.7 mg/dl (8.4-10.2); Carbon Dioxide 26 mmol/L (22-30); Chloride 106 mmol/L (98-107); Estimated Creatinine Clearance 84 ml/min; Glucose 110 mg/dl (70-99); Phosphorus 4.1 mg/dl (2.5-4.5); Potassium 4.1 mmol/L (3.5-5.1); Sodium 138 mmol/L (135-145); eGFR > 60.00
[2024-10-04 07:05] VITALS: BP 149/77
--- NOTE | 2024-10-04 07:25 | W.PN.HOSP.TC ---
Today's Communication/Plan
-
Pain control
coumadin increased to 5mg
PT/OT
monitor H&H INR
Assessment / Plan
Assessment / Plan
Physical Exam
General: No acute distress, appears comfortable at this time
HEENT: Normocephalic, Atraumatic, EOMI, MMM
Respiratory: Clear to Auscultation bilaterally
Cardiac: Normal S1/S2, Regular Rate and Rhythm
GI: Soft, Nontender, Nondistended, Normal Bowel Sounds
Extremities:Right ankle casted and in boot, Left lower extremity dressed with drains in place
Neuro: AOx3 conversant coherent
Psych: Calm, Cooperative
HPI: 78-year-old male with significant past medical history for hypertension, atrial fibrillation, Charcot foot, obesity, and hyperlipidemia who presents to [place] ED reporting continued worsening of left lower extremity edema following
mechanical fall yesterday evening around roughly 11 PM. Patient endorses that he has been dealing with surgical interventions and nonhealing right foot from Charcot and is recently in a boot at the right lower extremity this caused him to have
imbalance and only fall bumping his left leg. Initially pain was mild as well as swelling so he was able to go back to sleep but upon awakening today and attempting to ambulate he noticed worsening pain prompting him to seek ED evaluation. He does
endorse history of atrial fibrillation and due to financial constraints utilizes Coumadin for oral anticoagulation. He does endorse that he has been recently started on a PO antibiotic (cannot recall name at this time) and is unsure if that might
have reacted with his Coumadin.
CT Lower Ext Angio W/wo Iv Con
- Large left calf soft tissue hematoma without evidence for active bleeding.
Assessment/plan:
Large Large left calf soft tissue hematoma without evidence for active bleeding
Associated with blunt trauma due to mechanical fall
- Appreciate vascular surgery input, status post emergent evacuation of left calf hematoma with closure over drains 09/30/2024
- received Vit K prior to surgical procedure as above
- Vascular surgery recommended hold Coumadin for 24-48 hours post-procedure, since cleared to resume
- Continue Reid wraps to left lower extremity as tolerated
- PT/OT appreciated home health
- pain control, continue home gabapentin
Acute blood loss anemia
- From hematoma, trend hemoglobin, transfuse for goal hgb 8.0
-1prbc transfusion given 10/03/24 follow up post-transfusion cbc with AM labs
Chronic atrial fibrillation
- received Vit K for surgical procedure as above
- Coumadin held due to the above, since resumed following vascular clearance, starting low dose 2.5 mg increased to 5 mg qpm
- Continue atenolol and diltiazem for rate control
Lower Back Pain
-lidocaine patches
-bengay cream
-cont pain control
-Lumbar X-ray appreciated moderate discogenic degenerative dz, severe facet joint arthrosis, diffuse bone demineralization, severe calcific atherosclerotic plaque abd aorta and common iliac arteries
Right foot Charcot arthropathy status post surgery
- Cast was due to be removed 10/01
- Discussed with podiatry, Dr. Waite, who recommends follow-up with patient's usual spout tender in the office for removal - Dr. Paresh George #[phone]
Essential hypertension
- Continue atenolol and diltiazem
Gastroesophageal reflux disease
- Continue Pepcid
Hyperlipidemia
- Continue statin
DVT prophylaxis�SCDs, Coumadin
Full code
Total time spent to see the patient on the floor, examine the patient, review data and lab results, discuss treatment plan with patient, nursing staff around 40 minutes.
Anticipated Discharge: 24 - 48 hours
Subjective/Interval History
-
Date of Service: October 04, 2024
no acute distress resting comfortably in bed. back pain persists but relatively well controlled at this time with current pain regimen
Objective Data
-
Labs:
Laboratory Results
10/04/24
05:30
WBC 6.3
Hgb 8.2 L
Hct 24.5 L
Plt Count 176
PT 14.4
INR 1.09
Sodium 138
Potassium 4.1
Chloride 106
Carbon Dioxide 26
BUN 14
Creatinine 0.8
Glucose 110 H
Calcium 8.7
Vital Signs:
Vital Signs
Temp Pulse Resp BP Pulse Ox
97.1 F 91 17 147/83 96
10/03/24 23:05 10/03/24 23:05 10/03/24 23:05 10/03/24 23:05 10/03/24 23:05
I&O
10/03/24 10/04/24 10/05/24
06:59 06:59 06:59
Intake Total 970 / 970 1450 / 1450
Output Total 1389 / 1389 1415 / 1415
Balance -419 / -419 35 / 35
[2024-10-04] MEDS: ROXICODONE 5 MG PO ×2 (07:45→20:52)
[2024-10-04] MEDS: LIPITOR 20 MG PO (07:45)
[2024-10-04] MEDS: LIDOCAINE 4% PATCH 2 PATCH TOPICAL (07:46)
[2024-10-04] MEDS: THERAGRAN 1 TABLET PO (07:46)
[2024-10-04] MEDS: TENORMIN 50 MG PO (07:46)
[2024-10-04] MEDS: NEURONTIN 300 MG PO ×3 (07:47→21:00)
[2024-10-04] MEDS: BenGay-Like 1 APPLIC TOPICAL ×3 (07:47→21:00)
[2024-10-04] MEDS: MIRALAX 17 GRAMS PO (07:47)
--- NOTE | 2024-10-04 08:16 | W.PN.VS ---
Today's Communication / Plan
-
Seen and assessed with Dr. Galvin
Assessment/Plan
-
POD 4 left calf hematoma washout
Plan:
MELODIE B removed at bedside by Dr. Galvin
Continue MELODIE A
Patient okay for discharge from vascular standpoint, we will add follow-up to discharge instructions
Subjective Data
-
Date of Service: October 04, 2024
Patient seen at bedside this a.m. with Dr. Galvin. Patient offers no complaints. No events overnight.
Objective Data
-
Vital Signs
Temp Pulse Resp BP Pulse Ox
97.8 F 73 14 149/77 97
10/04/24 07:05 10/04/24 07:46 10/04/24 07:05 10/04/24 07:46 10/04/24 07:05
Intake and Output
10/03/24 10/04/24 10/05/24
06:59 06:59 06:59
Intake Total 970 / 970 1450 / 1450
Output Total 1389 / 1389 1415 / 1415
Balance -419 / -419 35 / 35
Intake:
Oral fluids 970 / 970 1200 / 1200
Blood Product Amount Infused ( 250 / 250
mL)
Packed Rbc Leukoreduced Unit 250 / 250
[id number]
Output:
Drain Output (Total)
Left Lower Leg Sagar-Gary A
Left Lower Leg Sagar-Gary B 2 / 2 0 / 0
Urine, Vazquez 775 / 775
Urine, Voided 600 / 600 1400 / 1400
Other:
Number of approximated SMALL 1
amounts of urine
Number of approximated MODERATE 2
amounts of urine
How many times incontinent 2
MODERATE amount urine
Lab Results
10/04/24 05:30
10/04/24 05:30
Calcium 8.7 mg/dl (8.4-10.2) 10/04/24 05:30
Phosphorus 4.1 mg/dl (2.5-4.5) 10/04/24 05:30
Magnesium 2.0 mg/dl (1.6-2.3) 10/04/24 05:30
Total Bilirubin 0.6 mg/dl (0.2-1.3) 09/30/24 12:12
AST 32 U/L (17-59) 09/30/24 12:12
ALT 24 U/L (0-50) 09/30/24 12:12
Alkaline Phosphatase 84 U/L (38-126) 09/30/24 12:12
Total Protein 7.2 g/dl (6.3-8.2) 09/30/24 12:12
Albumin 3.8 g/dl (3.5-5.0) 09/30/24 12:12
Physical Exam
-
AAO x 3
No tachypnea on room air
No tachycardia
Lower leg dressing removed
Sutures all intact with no drainage noted, lateral incision well-approximated. Skin all intact, small amount of blistering on the posterior knee
+1 edema to the foot, warm and pink, palpable pulses
MELODIE drains with minimal output
--- NOTE | 2024-10-04 10:40 | CM ---
Patient seen at bedside on . Patient stated that he would like [facility] as he did not want to go to a [facility]. CM will continue to follow for discharge planning needs.
Plan; home with [facility] pending acceptance
[2024-10-04 11:23] LABS: Vitamin D, 25-OH*** 32.8 ng/mL (30-80)
[2024-10-04] MEDS: BenGay-Like TOPICAL (14:04)
[2024-10-04 14:45] LABS: Folate 15.3 ng/ml (2.76-20); Vitamin B12 402 pg/ml (239-931)
[2024-10-04 15:05] VITALS: BP 126/74
[2024-10-04] MEDS: COUMADIN 5 MG PO (17:34)
[2024-10-04] MEDS: SENOKOT-S 1 TABLET PO (20:45)
[2024-10-04] MEDS: PEPCID 20 MG PO (21:00)
[2024-10-04] MEDS: CARDIZEM CD 180 MG PO (21:00)
[2024-10-04] MEDS: FLEXERIL 5 MG PO (22:13)
[2024-10-04 23:05] VITALS: BP 141/80
[2024-10-05 06:30] LABS: Hematocrit 25.2 % (39.0-52.0); Hemoglobin 8.4 g/dL (13.0-18.0); Mean Corp Hgb Conc. 33.3 g/dL (33.0-37.0); Mean Corpuscular Hgb 29.9 pg (27.0-31.0); Mean Corpuscular Volume 89.7 fL (80.0-94.0); Mean Platelet Volume 9.2 fL (7.4-10.4); Platelet Count 209 10^3/uL (130-400); Red Blood Cell Count 2.81 10^6/uL (4.70-6.10); White Blood Cell Count 6.6 10^3/uL (4.8-10.8)
[2024-10-05] MEDS: MILK OF MAGNESIA 30 ML PO (06:39)
[2024-10-05 06:45] LABS: INR 1.14; PT 14.9 Sec (11.4-14.6)
[2024-10-05 06:55] LABS: Blood Urea Nitrogen 15 mg/dl (9-20); Calcium 9.1 mg/dl (8.4-10.2); Carbon Dioxide 27 mmol/L (22-30); Chloride 106 mmol/L (98-107); Estimated Creatinine Clearance 74 ml/min; Glucose 114 mg/dl (70-99); Phosphorus 4.1 mg/dl (2.5-4.5); Sodium 136 mmol/L (135-145); eGFR > 60.00
[2024-10-05 07:00] VITALS: BP 141/85
--- NOTE | 2024-10-05 07:38 | W.PN.HOSP.TC ---
Today's Communication/Plan
-
cont pain control
coumadin
monitor H&H and INR
possible discharge tomorrow home with home services
Assessment / Plan
Assessment / Plan
Physical Exam
General: No acute distress, appears comfortable at this time
HEENT: Normocephalic, Atraumatic, EOMI, MMM
Respiratory: Clear to Auscultation bilaterally
Cardiac: Normal S1/S2, Regular Rate and Rhythm
GI: Soft, Nontender, Nondistended, Normal Bowel Sounds
Extremities:Right ankle casted and in boot, Left lower extremity dressed with drains in place
Neuro: AOx3 conversant coherent
Psych: Calm, Cooperative
HPI: 78-year-old male with significant past medical history for hypertension, atrial fibrillation, Charcot foot, obesity, and hyperlipidemia who presents to [place] ED reporting continued worsening of left lower extremity edema following
mechanical fall yesterday evening around roughly 11 PM. Patient endorses that he has been dealing with surgical interventions and nonhealing right foot from Charcot and is recently in a boot at the right lower extremity this caused him to have
imbalance and only fall bumping his left leg. Initially pain was mild as well as swelling so he was able to go back to sleep but upon awakening today and attempting to ambulate he noticed worsening pain prompting him to seek ED evaluation. He does
endorse history of atrial fibrillation and due to financial constraints utilizes Coumadin for oral anticoagulation. He does endorse that he has been recently started on a PO antibiotic (cannot recall name at this time) and is unsure if that might
have reacted with his Coumadin.
CT Lower Ext Angio W/wo Iv Con
- Large left calf soft tissue hematoma without evidence for active bleeding.
Assessment/plan:
Large Large left calf soft tissue hematoma without evidence for active bleeding
Associated with blunt trauma due to mechanical fall
- Appreciate vascular surgery input, status post emergent evacuation of left calf hematoma with closure over drains 09/30/2024
- received Vit K prior to surgical procedure as above
- Vascular surgery recommended hold Coumadin for 24-48 hours post-procedure, since cleared to resume
- Continue Reid wraps to left lower extremity as tolerated
- PT/OT appreciated home health
- pain control, continue home gabapentin
Acute blood loss anemia
- From hematoma, trend hemoglobin, transfuse for goal hgb 8.0
-1prbc transfusion given 10/03/24 follow up post-transfusion cbc with AM labs
Chronic atrial fibrillation
- received Vit K for surgical procedure as above
- Coumadin held due to the above, since resumed following vascular clearance, starting low dose 2.5 mg increased to 5 mg qpm
- Continue atenolol and diltiazem for rate control
Lower Back Pain
-lidocaine patches
-bengay cream
-K-pad
-cont pain control
-Lumbar X-ray appreciated moderate discogenic degenerative dz, severe facet joint arthrosis, diffuse bone demineralization, severe calcific atherosclerotic plaque abd aorta and common iliac arteries
Right foot Charcot arthropathy status post surgery
- Cast was due to be removed 10/01
- Discussed with podiatry, Dr. Waite, who recommends follow-up with patient's usual psych arnp in the office for removal - Dr. Paresh George #[phone]
- Case was also discussed with Dr. Paresh George 10/05/24 in agreement with current care and plan for outpt follow up.
Essential hypertension
- Continue atenolol and diltiazem
Gastroesophageal reflux disease
- Continue Pepcid
Hyperlipidemia
- Continue statin
DVT prophylaxis�SCDs, Coumadin
Full code
Total time spent to see the patient on the floor, examine the patient, review data and lab results, discuss treatment plan with patient, nursing staff around 40 minutes.
Anticipated Discharge: Within 24 hours
Subjective/Interval History
-
Date of Service: October 05, 2024
No acute distress. Back pain persists but improving. Appears comfortable at rest
Objective Data
-
Labs:
Laboratory Results
10/05/24
05:39
WBC 6.6
Hgb 8.4 L
Hct 25.2 L
Plt Count 209
PT 14.9 H
INR 1.14
Sodium 136
Potassium 4.0
Chloride 106
Carbon Dioxide 27
BUN 15
Creatinine 0.9
Glucose 114 H
Calcium 9.1
Vital Signs:
Vital Signs
Temp Pulse Resp BP Pulse Ox
98.1 F 90 16 141/85 97
10/05/24 07:00 10/05/24 07:00 10/05/24 07:00 10/05/24 07:00 10/05/24 07:00
I&O
10/04/24 10/05/24 10/06/24
06:59 06:59 06:59
Intake Total 1450 / 1450 1380 / 1380
Output Total 1415 / 1415 1375 / 1375 575 / 575
Balance 35 / 35 5 / 5 -575 / -575
[2024-10-05] MEDS: THERAGRAN 1 TABLET PO (07:51)
[2024-10-05] MEDS: TENORMIN 50 MG PO (07:51)
[2024-10-05] MEDS: NEURONTIN 300 MG PO ×3 (07:51→20:58)
[2024-10-05] MEDS: LIPITOR 20 MG PO (07:51)
[2024-10-05] MEDS: BenGay-Like 1 APPLIC TOPICAL ×4 (07:52→22:37)
[2024-10-05] MEDS: LIDOCAINE 4% PATCH 2 PATCH TOPICAL (07:52)
[2024-10-05] MEDS: MIRALAX 17 GRAMS PO (07:52)
[2024-10-05] MEDS: FLEXERIL 5 MG PO (14:59)
[2024-10-05 15:00] VITALS: BP 125/70
[2024-10-05] MEDS: DULCOLAX 10 MG RECTAL (16:48)
[2024-10-05] MEDS: COUMADIN 5 MG PO (17:43)
[2024-10-05] MEDS: TYLENOL 1000 MG PO (17:53)
[2024-10-05] MEDS: PEPCID 20 MG PO (20:58)
[2024-10-05] MEDS: CARDIZEM CD 180 MG PO (20:59)
[2024-10-05] MEDS: ROXICODONE 5 MG PO (22:37)
[2024-10-05 23:10] VITALS: BP 127/76
[2024-10-06 06:06] LABS: Hematocrit 26.2 % (39.0-52.0); Hemoglobin 8.7 g/dL (13.0-18.0); Mean Corp Hgb Conc. 33.2 g/dL (33.0-37.0); Mean Corpuscular Hgb 30.6 pg (27.0-31.0); Mean Corpuscular Volume 92.3 fL (80.0-94.0); Mean Platelet Volume 9.3 fL (7.4-10.4); Platelet Count 223 10^3/uL (130-400); Red Blood Cell Count 2.84 10^6/uL (4.70-6.10); Red Cell Dist. Width 18.7 % (11.5-14.5); White Blood Cell Count 6.8 10^3/uL (4.8-10.8)
[2024-10-06 06:15] LABS: INR 1.19; PT 15.6 Sec (11.4-14.6)
[2024-10-06 06:37] LABS: Blood Urea Nitrogen 17 mg/dl (9-20); Calcium 9.2 mg/dl (8.4-10.2); Carbon Dioxide 28 mmol/L (22-30); Chloride 106 mmol/L (98-107); Estimated Creatinine Clearance 74 ml/min; Glucose 107 mg/dl (70-99); Magnesium 2.2 mg/dl (1.6-2.3); Potassium 4.2 mmol/L (3.5-5.1); Sodium 139 mmol/L (135-145); eGFR > 60.00
[2024-10-06 07:20] VITALS: BP 137/69
[2024-10-06] MEDS: LIDOCAINE 4% PATCH 2 PATCH TOPICAL (07:47)
[2024-10-06] MEDS: MIRALAX 17 GRAMS PO (07:47)
[2024-10-06] MEDS: LIPITOR 20 MG PO (07:48)
[2024-10-06] MEDS: NEURONTIN 300 MG PO ×3 (07:48→22:07)
--- NOTE | 2024-10-06 07:48 | W.PN.HOSP.TC ---
Today's Communication/Plan
-
cont pain control
scheduled Tylenol and Baclofen
K-pad
cont coumadin dosing monitor cbc INR daily
Discussed with podiatry sales consultant residential manager and pt's outpt nitro man, tentative plan for cast removal 10/08 while pt is here
Assessment / Plan
Assessment / Plan
Physical Exam
General: No acute distress, appears comfortable at this time
HEENT: Normocephalic, Atraumatic, EOMI, MMM
Respiratory: Clear to Auscultation bilaterally
Cardiac: Normal S1/S2, Regular Rate and Rhythm
GI: Soft, Nontender, Nondistended, Normal Bowel Sounds
Extremities:Right ankle casted and in boot, Left lower extremity dressed with drain in place
Neuro: AOx3 conversant coherent
Psych: Calm, Cooperative
HPI: 78-year-old male with significant past medical history for hypertension, atrial fibrillation, Charcot foot, obesity, and hyperlipidemia who presents to [place] ED reporting continued worsening of left lower extremity edema following
mechanical fall yesterday evening around roughly 11 PM. Patient endorses that he has been dealing with surgical interventions and nonhealing right foot from Charcot and is recently in a boot at the right lower extremity this caused him to have
imbalance and only fall bumping his left leg. Initially pain was mild as well as swelling so he was able to go back to sleep but upon awakening today and attempting to ambulate he noticed worsening pain prompting him to seek ED evaluation. He does
endorse history of atrial fibrillation and due to financial constraints utilizes Coumadin for oral anticoagulation. He does endorse that he has been recently started on a PO antibiotic (cannot recall name at this time) and is unsure if that might
have reacted with his Coumadin.
CT Lower Ext Angio W/wo Iv Con
- Large left calf soft tissue hematoma without evidence for active bleeding.
Assessment/plan:
Large Large left calf soft tissue hematoma without evidence for active bleeding
Associated with blunt trauma due to mechanical fall
- Appreciate vascular surgery input, status post emergent evacuation of left calf hematoma with closure over drains 09/30/2024
- received Vit K prior to surgical procedure as above
- Vascular surgery recommended hold Coumadin for 24-48 hours post-procedure, since cleared to resume
- Continue Reid wraps to left lower extremity as tolerated
- PT/OT appreciated home health
- pain control, continue home gabapentin
Acute blood loss anemia
- From hematoma, trend hemoglobin, transfuse for goal hgb 8.0
-1prbc transfusion given 10/03/24 follow up post-transfusion cbc with AM labs
Chronic atrial fibrillation
- received Vit K for surgical procedure as above
- Coumadin held due to the above, since resumed following vascular clearance, starting low dose 2.5 mg increased to 5 mg qpm
- Continue atenolol and diltiazem for rate control
Lower Back Pain
-lidocaine patches
-bengay cream
-K-pad
-Tylenol Q4HWA
-Baclofen 5mg TID
-Oxycodone 5mg Q4HPRN moderate pain
-Dilaudid 0.5 mg Q4HPRN severe pain (has not required)
-cont pain control
-Lumbar X-ray appreciated moderate discogenic degenerative dz, severe facet joint arthrosis, diffuse bone demineralization, severe calcific atherosclerotic plaque abd aorta and common iliac arteries
Right foot Charcot arthropathy status post surgery
- Prolonged stay subtherapeutic INR, case discussed with on-call podiatry Dr Jennings and patient's outpt nitro man Dr. Paresh George #[phone], cast removal tentatively planned for Friday10/08/24 while patient is here.
Essential hypertension
- Continue atenolol and diltiazem
Gastroesophageal reflux disease
- Continue Pepcid
Hyperlipidemia
- Continue statin
DVT prophylaxis�SCDs, Coumadin
Full code
Total time spent to see the patient on the floor, examine the patient, review data and lab results, discuss treatment plan with patient, nursing staff around 40 minutes.
Anticipated Discharge: 24 - 48 hours
Subjective/Interval History
-
Date of Service: October 06, 2024
No acute distress sitting up comfortably in bed. Back pain tolerable with current pain regimen.
Objective Data
-
Labs:
Laboratory Results
10/06/24
05:24
WBC 6.8
Hgb 8.7 L
Hct 26.2 L
Plt Count 223
PT 15.6 H
INR 1.19
Sodium 139
Potassium 4.2
Chloride 106
Carbon Dioxide 28
BUN 17
Creatinine 0.9
Glucose 107 H
Calcium 9.2
Vital Signs:
Vital Signs
Temp Pulse Resp BP Pulse Ox
98.2 F 85 17 127/76 97
10/05/24 23:10 10/05/24 23:10 10/05/24 23:10 10/05/24 23:10 10/05/24 23:10
I&O
10/05/24 10/06/24 10/07/24
06:59 06:59 06:59
Intake Total 1380 / 1380 2100 / 2100
Output Total 1378 / 1378 1423 / 1423
Balance 2 / 677 / 677
[2024-10-06] MEDS: THERAGRAN 1 TABLET PO (07:49)
[2024-10-06] MEDS: TENORMIN 50 MG PO (07:49)
[2024-10-06] MEDS: BenGay-Like 1 APPLIC TOPICAL ×4 (08:10→22:09)
--- NOTE | 2024-10-06 09:57 | CM ---
Addendum entered by Dania Rodriguez 10/06/24 12:39:
IMM completed and placed on chart. Patient also present and comfortable with plan for discharge and VN with [facility].
Original Note:
Patient seen at bedside, possible discharge home with VN; [facility] and IMM provided to patient for review. Family to provide transportation home. CM will continue to follow for discharge planning needs.
Plan; home with [facility]; referral form pending acceptance.
[2024-10-06] MEDS: TYLENOL 650 MG PO ×3 (11:57→19:58)
[2024-10-06 15:15] VITALS: BP 105/58
[2024-10-06] MEDS: LIORESAL 5 MG PO ×2 (16:21→22:07)
[2024-10-06] MEDS: COUMADIN 5 MG PO (17:45)
[2024-10-06] MEDS: MILK OF MAGNESIA 30 ML PO (20:06)
[2024-10-06] MEDS: CARDIZEM CD 180 MG PO (22:07)
[2024-10-06] MEDS: PEPCID 20 MG PO (22:08)
[2024-10-06 23:10] VITALS: BP 133/79
[2024-10-07] MEDS: TYLENOL PO ×2 (01:01→04:02)
[2024-10-07 06:45] LABS: INR 1.16; PT 15.3 Sec (11.4-14.6)
[2024-10-07 06:49] LABS: Hematocrit 28.5 % (39.0-52.0); Hemoglobin 9.3 g/dL (13.0-18.0); Mean Corp Hgb Conc. 32.6 g/dL (33.0-37.0); Mean Corpuscular Volume 91.9 fL (80.0-94.0); Mean Platelet Volume 9.3 fL (7.4-10.4); Platelet Count 274 10^3/uL (130-400); Red Cell Dist. Width 18.3 % (11.5-14.5); White Blood Cell Count 7.5 10^3/uL (4.8-10.8)
[2024-10-07 07:10] LABS: Blood Urea Nitrogen 16 mg/dl (9-20); Calcium 9.1 mg/dl (8.4-10.2); Carbon Dioxide 24 mmol/L (22-30); Chloride 107 mmol/L (98-107); Estimated Creatinine Clearance 74 ml/min; Glucose 106 mg/dl (70-99); Magnesium 2.5 mg/dl (1.6-2.3); Phosphorus 3.6 mg/dl (2.5-4.5); Potassium 4.5 mmol/L (3.5-5.1); Sodium 140 mmol/L (135-145); eGFR > 60.00
[2024-10-07 07:20] VITALS: BP 142/75
[2024-10-07] MEDS: LIORESAL 5 MG PO ×3 (08:03→21:15)
[2024-10-07] MEDS: TENORMIN 50 MG PO (08:03)
[2024-10-07] MEDS: TYLENOL 650 MG PO ×5 (08:03→23:31)
[2024-10-07] MEDS: THERAGRAN 1 TABLET PO (08:03)
[2024-10-07] MEDS: LIDOCAINE 4% PATCH 2 PATCH TOPICAL (08:04)
[2024-10-07] MEDS: LIPITOR 20 MG PO (08:04)
[2024-10-07] MEDS: BenGay-Like 1 APPLIC TOPICAL ×4 (08:04→21:15)
[2024-10-07] MEDS: MIRALAX 17 GRAMS PO (08:04)
[2024-10-07] MEDS: NEURONTIN 300 MG PO ×3 (08:05→21:15)
--- NOTE | 2024-10-07 09:17 | W.PN.HOSP.TC ---
Today's Communication/Plan
-
see a/p
Assessment / Plan
Assessment / Plan
Physical Exam
General: No acute distress, appears comfortable at this time
HEENT: Normocephalic, Atraumatic, EOMI, MMM
Respiratory: Clear to Auscultation bilaterally
Cardiac: Normal S1/S2, Regular Rate and Rhythm
GI: Soft, Nontender, Nondistended, Normal Bowel Sounds
Extremities:Right ankle casted and in boot, Left lower extremity dressed with drain in place
Neuro: AOx3 conversant coherent
Psych: Calm, Cooperative
HPI: 78-year-old male with significant past medical history for hypertension, atrial fibrillation, Charcot foot, obesity, and hyperlipidemia who presents to [place] ED reporting continued worsening of left lower extremity edema following
mechanical fall yesterday evening around roughly 11 PM. Patient endorses that he has been dealing with surgical interventions and nonhealing right foot from Charcot and is recently in a boot at the right lower extremity this caused him to have
imbalance and only fall bumping his left leg. Initially pain was mild as well as swelling so he was able to go back to sleep but upon awakening today and attempting to ambulate he noticed worsening pain prompting him to seek ED evaluation. He does
endorse history of atrial fibrillation and due to financial constraints utilizes Coumadin for oral anticoagulation. He does endorse that he has been recently started on a PO antibiotic (cannot recall name at this time) and is unsure if that might
have reacted with his Coumadin.
CT Lower Ext Angio W/wo Iv Con
- Large left calf soft tissue hematoma without evidence for active bleeding.
Assessment/plan:
Large Large left calf soft tissue hematoma without evidence for active bleeding
Associated with blunt trauma due to mechanical fall
- Appreciate vascular surgery input, status post emergent evacuation of left calf hematoma with closure over drains 09/30/2024
- received Vit K prior to surgical procedure as above
- Vascular surgery recommended hold Coumadin for 24-48 hours post-procedure, since cleared to resume
- Continue Reid wraps to left lower extremity as tolerated
- PT/OT appreciated home health
- pain control, continue home gabapentin
Acute blood loss anemia
- From hematoma, trend hemoglobin, transfuse for goal hgb 8.0
-1prbc transfusion given 10/03/24 follow up post-transfusion cbc with AM labs
Chronic atrial fibrillation
- received Vit K for surgical procedure as above
- Coumadin held due to the above, since resumed following vascular clearance, starting low dose 2.5 mg increased to 5 mg qpm
- Continue atenolol and diltiazem for rate control
Lower Back Pain
-lidocaine patches
-bengay cream
-K-pad
-Tylenol Q4HWA
-Baclofen 5mg TID
-Oxycodone 5mg Q4HPRN moderate pain
-Dilaudid 0.5 mg Q4HPRN severe pain (has not required)
-K-pad
-cont pain control
-Lumbar X-ray appreciated moderate discogenic degenerative dz, severe facet joint arthrosis, diffuse bone demineralization, severe calcific atherosclerotic plaque abd aorta and common iliac arteries
Constipation
bowel regimen
consider enema if patient agreeable
Right foot Charcot arthropathy status post surgery
- Prolonged stay subtherapeutic INR, case discussed with on-call podiatry Dr Jennings and patient's outpt eligibility supervisor Dr. Paresh George #[phone], cast removal tentatively planned for Friday10/08/24 while patient is here.
Essential hypertension
- Continue atenolol and diltiazem
Gastroesophageal reflux disease
- Continue Pepcid
Hyperlipidemia
- Continue statin
DVT prophylaxis�SCDs, Coumadin
Full code
discussed with patient and patient's Dania
Total time spent to see the patient on the floor, examine the patient, review data and lab results, discuss treatment plan with patient, nursing staff around 40 minutes.
Anticipated Discharge: Within 24 hours
Subjective/Interval History
-
Date of Service: October 07, 2024
No acute distress sitting up comfortably in chair. Constipation persists.
Objective Data
-
Labs:
Laboratory Results
10/07/24 10/07/24
05:44 05:45
WBC 7.5
Hgb 9.3 L
Hct 28.5 L
Plt Count 274 D
PT 15.3 H
INR 1.16
Sodium 140
Potassium 4.5
Chloride 107
Carbon Dioxide 24
BUN 16
Creatinine 0.9
Glucose 106 H
Calcium 9.1
Vital Signs:
Vital Signs
Temp Pulse Resp BP Pulse Ox
98.0 F 73 18 133/79 98
10/07/24 07:20 10/07/24 08:03 10/07/24 07:20 10/07/24 08:03 10/07/24 07:20
I&O
10/06/24 10/07/24 10/08/24
06:59 06:59 06:59
Intake Total 2099 / 2099 2960 / 2960
Output Total 1423 / 1423 1100 / 1100
Balance 677 / 677 1860 / 1860
[2024-10-07 15:00] VITALS: BP 121/56
--- NOTE | 2024-10-07 16:04 | CM ---
CM following re:L discharge planning.
Reviewed pt's chart, met with pt.
PT and OT continue recommending home PT/OT. Pt is known to [facility]. A referral to [facility] noted. [facility] accepted the pt. CM asked to whether or not [facility] needs [facility] approval or pt is resumptions of VN services. .
[facility]. Spouse to transport at discharge.
[2024-10-07] MEDS: COUMADIN 5 MG PO (17:30)
--- NOTE | 2024-10-07 19:10 | CON.MD ---
Consultation - Medical
-
Chief Complaint
Rt leg Total Contact Cast
History of Present Illness
78M HX atrial fibrillation, Charcot foot w/neurotrophic ulcers, obesity, and hyperlipidemia asked to see to remove TCC and evaluate wounds RLE
He was placed in a TCC at [facility] last Friday prior to admission for chronic non healing wound and acute charcot RLE confirmed on MRI- no osteomyelitis right foot
Admitted here for Hematoma requiring I&D LLE post fall, Pt denies F/C/N/V
Medical History
Past Medical History
Past Medical History: Reports Arrhythmia (A Fib on Warfarin ), GERD, HTN, Hypercholesterolemia, Valvular Disease (Nonrheumatic tricuspid valve vegetation) ) and Other ((Obesity, right foot Charcot)
Past Surgical History: Reports Orthopedic (ORIF right distal radius.Surgical repair of Charcot foot right lower extremity)
Social History
Tobacco: Non-smoker
Alcohol: Occasional
Family History
Family History: Not pertinent
Allergies / Home Medications
Allergies reflects when Allergies were last updated in [facility].
Home Medications with original date entered in [facility]
Allergy/Medication List:
Allergies
Allergy/AdvReac Type Severity Reaction Status Date / Time
almond Allergy Anaphylaxis Verified 10/07/20241909
cats Allergy runny Uncoded 10/07/20241909
eyes,
sneeze
Home Medications
atenolol 50 mg tablet 50 mg PO DAILY
atorvastatin 20 mg tablet 20 mg PO DAILY
diltiazem HCl 120 mg capsule,extended release
famotidine 20 mg tablet (Acid Controller) 20 mg PO HS
hydrochlorothiazide 25 mg tablet 25 mg PO DAILY
warfarin 5 mg tablet (Jantoven) 5 mg PO
Review of Systems
-
Constitutional: Reports No Symptoms
EENT: Reports No Symptoms
Respiratory: Reports No Symptoms
Cardiac: Reports No Symptoms
Abdomen/GI: Reports No Symptoms
: Reports No Symptoms
Musculoskeletal: Reports See HPI
Skin: Reports No Symptoms
Neurological: Reports No Symptoms
Endocrine: Reports No Symptoms
Hematologic/Lymphatic: Reports No Symptoms
Psych: Reports No Symptoms
Physical Exam
Vital Signs : VSS and afeb
General appearance- AAx3 in NAD, conversant
LE focused- RLE TCC intact, no strike through however there is malodor noted.
LLE with ANASTASIIA to LLE
A/P
1-DM2 with DPN and LOPS
2-h/o failed charcot recon > 1 year ago
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
--> Pt in TCC > 1 week (last friday) Upon removal of the outer boot patient asked if I was going to replace the TCC.
I informed him that this is not something we have here at the hospital but is available at the wound center. I have recommended that
we consult the wound center to remove and reapply or send him there for this. I did state the wound needs to be seen and cleansed and redressed and I am here to do that and he stated he does not want the TCC removed UNLESS it is going to be
reapplied.
Consultation
-
Date/Time Consultation Requested: 10/06/2024 @ 1800
Date/Time Consultation Performed: 10/07/2024 @1900
Requesting Provider: Dr Curtis
Performing Provider: Dr Jennings
Reason for Consultation: TCC removal and wound eval
[2024-10-07] MEDS: CARDIZEM CD 180 MG PO (21:15)
[2024-10-07] MEDS: PEPCID 20 MG PO (21:15)
[2024-10-07] MEDS: MILK OF MAGNESIA 30 ML PO (21:40)
[2024-10-07 23:00] VITALS: BP 137/81
[2024-10-08] MEDS: TYLENOL 650 MG PO ×5 (03:57→21:28)
[2024-10-08] MEDS: SENOKOT-S 1 TABLET PO (04:08)
[2024-10-08 06:32] LABS: Hemoglobin 9.1 g/dL (13.0-18.0); Mean Corp Hgb Conc. 32.5 g/dL (33.0-37.0); Mean Corpuscular Hgb 29.7 pg (27.0-31.0); Mean Corpuscular Volume 91.5 fL (80.0-94.0); Mean Platelet Volume 9.2 fL (7.4-10.4); Platelet Count 277 10^3/uL (130-400); Red Blood Cell Count 3.06 10^6/uL (4.70-6.10); Red Cell Dist. Width 17.7 % (11.5-14.5); White Blood Cell Count 6.7 10^3/uL (4.8-10.8)
[2024-10-08 06:41] LABS: INR 1.24; PT 15.8 Sec (11.4-14.6)
[2024-10-08 06:55] LABS: Blood Urea Nitrogen 17 mg/dl (9-20); Carbon Dioxide 25 mmol/L (22-30); Chloride 108 mmol/L (98-107); Estimated Creatinine Clearance 74 ml/min; Glucose 108 mg/dl (70-99); Magnesium 2.7 mg/dl (1.6-2.3); Phosphorus 3.8 mg/dl (2.5-4.5); Potassium 4.4 mmol/L (3.5-5.1); Sodium 140 mmol/L (135-145); eGFR > 60.00
--- NOTE | 2024-10-08 06:56 | W.PN.HOSP.TC ---
Today's Communication/Plan
-
wound care
cast removal
Enema
PT/OT
cont coumadin
Assessment / Plan
Assessment / Plan
Physical Exam
General: No acute distress, appears comfortable at this time
HEENT: Normocephalic, Atraumatic, EOMI, MMM
Respiratory: Clear to Auscultation bilaterally
Cardiac: Normal S1/S2, Regular Rate and Rhythm
GI: Soft, Nontender, Nondistended, Normal Bowel Sounds
Extremities:Right ankle casted and in boot, Left lower extremity dressed with drain in place
Neuro: AOx3 conversant coherent
Psych: Calm, Cooperative
HPI: 78-year-old male with significant past medical history for hypertension, atrial fibrillation, Charcot foot, obesity, and hyperlipidemia who presents to [place] ED reporting continued worsening of left lower extremity edema following
mechanical fall yesterday evening around roughly 11 PM. Patient endorses that he has been dealing with surgical interventions and nonhealing right foot from Charcot and is recently in a boot at the right lower extremity this caused him to have
imbalance and only fall bumping his left leg. Initially pain was mild as well as swelling so he was able to go back to sleep but upon awakening today and attempting to ambulate he noticed worsening pain prompting him to seek ED evaluation. He does
endorse history of atrial fibrillation and due to financial constraints utilizes Coumadin for oral anticoagulation. He does endorse that he has been recently started on a PO antibiotic (cannot recall name at this time) and is unsure if that might
have reacted with his Coumadin.
CT Lower Ext Angio W/wo Iv Con
- Large left calf soft tissue hematoma without evidence for active bleeding.
Assessment/plan:
Large Large left calf soft tissue hematoma without evidence for active bleeding
Associated with blunt trauma due to mechanical fall
- Appreciate vascular surgery input, status post emergent evacuation of left calf hematoma with closure over drains 09/30/2024
- received Vit K prior to surgical procedure as above
- Vascular surgery recommended hold Coumadin for 24-48 hours post-procedure, since cleared to resume
- Continue Reid wraps to left lower extremity as tolerated
- PT/OT appreciated home health
- pain control, continue home gabapentin
Acute blood loss anemia
- From hematoma, trend hemoglobin, transfuse for goal hgb 8.0
-1prbc transfusion given 10/03/24 good response noted
-Hgb continues to improve since transfusion
Chronic atrial fibrillation
- received Vit K for surgical procedure as above
- Coumadin held due to the above, since resumed following vascular clearance, starting low dose 2.5 mg increased to 5 mg qpm
- Continue atenolol and diltiazem for rate control
Lower Back Pain
-lidocaine patches
-bengay cream
-K-pad
-Tylenol Q4HWA
-Baclofen 5mg TID
-Oxycodone 5mg Q4HPRN moderate pain
-Dilaudid 0.5 mg Q4HPRN severe pain (has not required)
-K-pad
-cont pain control
-Lumbar X-ray appreciated moderate discogenic degenerative dz, severe facet joint arthrosis, diffuse bone demineralization, severe calcific atherosclerotic plaque abd aorta and common iliac arteries
Constipation
bowel regimen
attempted fleet enema with no improvement noted
Resolved with milk and molasses enema 10/08
Right foot Charcot arthropathy status post surgery
- Prolonged stay subtherapeutic INR, case discussed with on-call podiatry Dr Jennings and patient's outpt mortuary beautician Dr. Paresh George #[phone]
-Wound care appreciated cast removed Friday10/08/24
Essential hypertension
- Continue atenolol and diltiazem
Gastroesophageal reflux disease
- Continue Pepcid
Hyperlipidemia
- Continue statin
DVT prophylaxis�SCDs, Coumadin
Full code
discussed with patient and patient's Dania
Total time spent to see the patient on the floor, examine the patient, review data and lab results, discuss treatment plan with patient, nursing staff around 40 minutes.
Anticipated Discharge: 24 - 48 hours
Subjective/Interval History
-
Date of Service: October 08, 2024
constipation persists. No acute distress. Pain control continues to improve.
Objective Data
-
Labs:
Laboratory Results
10/08/24
05:52
WBC 6.7
Hgb 9.1 L
Hct 28.0 L
Plt Count 277
PT 15.8 H
INR 1.24
Sodium 140
Potassium 4.4
Chloride 108 H
Carbon Dioxide 25
BUN 17
Creatinine 0.9
Glucose 108 H
Calcium 9.0
Vital Signs:
Vital Signs
Temp Pulse Resp BP Pulse Ox
97.6 F 81 18 137/81 96
10/07/24 23:00 10/07/24 23:00 10/07/24 23:00 10/07/24 23:00 10/07/24 23:00
I&O
10/06/24 10/07/24 10/08/24
06:59 06:59 06:59
Intake Total 2100 / 2099 2960 / 2960 960 / 960
Output Total 1423 / 1423 1100 / 1100 608 / 608
Balance 677 / 677 1860 / 1860 352 / 352
[2024-10-08 07:10] VITALS: BP 136/75
[2024-10-08] MEDS: TENORMIN 50 MG PO (07:37)
[2024-10-08] MEDS: THERAGRAN 1 TABLET PO (07:37)
[2024-10-08] MEDS: NEURONTIN 300 MG PO ×3 (07:37→21:29)
[2024-10-08] MEDS: LIORESAL 5 MG PO ×3 (07:37→21:30)
[2024-10-08] MEDS: LIDOCAINE 4% PATCH 2 PATCH TOPICAL (07:38)
[2024-10-08] MEDS: BenGay-Like 1 APPLIC TOPICAL ×4 (07:38→21:28)
[2024-10-08] MEDS: LIPITOR 20 MG PO (07:38)
[2024-10-08] MEDS: MIRALAX PO (07:39)
[2024-10-08] MEDS: FLEET MINERAL OIL ENEMA 133 ML RECTAL (07:56)
--- NOTE | 2024-10-08 14:31 | WOUNDNOTE ---
WO RN NOTE: WOC RN consult for removal of TCC and wound care recommendations for left medial leg hematoma washout from 10/01. TCC cast removed by RN, Faviola. Right plantar foot wound with communicating wounds which were packed with Iodoform gauze.
Slight odor noted when TCC removed by odor dissipated after cleansing. Left lateral leg wound with MELODIE intact with serosanguineous drainage. Wound was cleaned with Vashe and Xeroform and clean dressing applied. Left leg gently dressing gently secured
with ANASTASIIA wrap. CIELO Porter from vascular requested patient follow up at [facility] for left leg wound. Family has made appointment at [facility] for October 13. Hospitalist given update and Charlotte Patel given update. Wound care taught to as well and
all questions answered. Supplies given for home use after discharge. Plan is for discharge this weekend.
--- NOTE | 2024-10-08 14:44 | WOUNDNOTE ---
LEFT LATERAL LOWER LEG
--- NOTE | 2024-10-08 14:45 | WOUNDNOTE ---
LEFT LATERAL LOWER LEG
--- NOTE | 2024-10-08 14:45 | WOUNDNOTE ---
RIGHT PLANTAR FOOT
--- NOTE | 2024-10-08 14:46 | WOUNDNOTE ---
RIGHT PLANTAR FOOT
--- NOTE | 2024-10-08 14:46 | WOUNDNOTE ---
RIGHT PLANTAR FOOT [id number] #:[id number]
--- NOTE | 2024-10-08 14:48 | WOUNDNOTE ---
LEFT MEDIAL LOWER LEG
--- NOTE | 2024-10-08 14:49 | WOUNDNOTE ---
RIGHT PLANTAR FOOT
[2024-10-08 15:00] VITALS: BP 130/68
[2024-10-08] MEDS: COUMADIN 5 MG PO (17:27)
[2024-10-08] MEDS: PEPCID 20 MG PO (21:30)
[2024-10-08] MEDS: CARDIZEM CD 180 MG PO (21:30)
[2024-10-08] MEDS: FLUSH (NSS) 1 FLUSH IV (21:31)
[2024-10-08 23:00] VITALS: BP 149/80
[2024-10-09] MEDS: TYLENOL PO ×2 (01:14→04:32)
[2024-10-09 06:18] LABS: Hemoglobin 9.6 g/dL (13.0-18.0); Mean Corp Hgb Conc. 33.1 g/dL (33.0-37.0); Mean Corpuscular Hgb 30.2 pg (27.0-31.0); Mean Corpuscular Volume 91.2 fL (80.0-94.0); Mean Platelet Volume 9.1 fL (7.4-10.4); Platelet Count 289 10^3/uL (130-400); Red Blood Cell Count 3.18 10^6/uL (4.70-6.10); Red Cell Dist. Width 17.5 % (11.5-14.5); White Blood Cell Count 7.3 10^3/uL (4.8-10.8)
[2024-10-09 06:26] LABS: INR 1.31; PT 16.5 Sec (11.4-14.6)
[2024-10-09 06:45] LABS: Blood Urea Nitrogen 16 mg/dl (9-20); Calcium 8.8 mg/dl (8.4-10.2); Carbon Dioxide 22 mmol/L (22-30); Chloride 108 mmol/L (98-107); Estimated Creatinine Clearance 74 ml/min; Glucose 108 mg/dl (70-99); Magnesium 2.3 mg/dl (1.6-2.3); Phosphorus 3.6 mg/dl (2.5-4.5); Potassium 4.3 mmol/L (3.5-5.1); Sodium 138 mmol/L (135-145); eGFR > 60.00
[2024-10-09] MEDS: LIDOCAINE 4% PATCH 2 PATCH TOPICAL (07:51)
[2024-10-09] MEDS: BenGay-Like 1 APPLIC TOPICAL ×4 (07:52→21:03)
[2024-10-09] MEDS: NEURONTIN 300 MG PO ×3 (07:53→20:29)
[2024-10-09] MEDS: LIORESAL 5 MG PO ×3 (07:53→20:29)
[2024-10-09] MEDS: TYLENOL 650 MG PO ×4 (07:54→20:29)
[2024-10-09] MEDS: THERAGRAN 1 TABLET PO (07:54)
[2024-10-09] MEDS: SENOKOT-S PO ×3 (07:54→21:01)
[2024-10-09] MEDS: LIPITOR 20 MG PO (07:56)
[2024-10-09 08:00] VITALS: BP 141/83
[2024-10-09] MEDS: TENORMIN 50 MG PO (08:06)
--- NOTE | 2024-10-09 09:35 | W.PN.HOSP.TC ---
Today's Communication/Plan
-
cont current care
pain control
Coumadin
likely discharge tomorrow, home with home services, if remains stable/cont to improve and INR cont trend toward goal 2-3
Assessment / Plan
Assessment / Plan
Physical Exam
General: No acute distress, appears comfortable at this time
HEENT: Normocephalic, Atraumatic, EOMI, MMM
Respiratory: Clear to Auscultation bilaterally
Cardiac: Normal S1/S2, Regular Rate and Rhythm
GI: Soft, Nontender, Nondistended, Normal Bowel Sounds
Extremities:Right ankle casted and in boot, Left lower extremity dressed with drain in place
Neuro: AOx3 conversant coherent
Psych: Calm, Cooperative
HPI: 78-year-old male with significant past medical history for hypertension, atrial fibrillation, Charcot foot, obesity, and hyperlipidemia who presents to [place] ED reporting continued worsening of left lower extremity edema following
mechanical fall yesterday evening around roughly 11 PM. Patient endorses that he has been dealing with surgical interventions and nonhealing right foot from Charcot and is recently in a boot at the right lower extremity this caused him to have
imbalance and only fall bumping his left leg. Initially pain was mild as well as swelling so he was able to go back to sleep but upon awakening today and attempting to ambulate he noticed worsening pain prompting him to seek ED evaluation. He does
endorse history of atrial fibrillation and due to financial constraints utilizes Coumadin for oral anticoagulation. He does endorse that he has been recently started on a PO antibiotic (cannot recall name at this time) and is unsure if that might
have reacted with his Coumadin.
CT Lower Ext Angio W/wo Iv Con
- Large left calf soft tissue hematoma without evidence for active bleeding.
Assessment/plan:
Large Large left calf soft tissue hematoma without evidence for active bleeding
Associated with blunt trauma due to mechanical fall
- Appreciate vascular surgery input, status post emergent evacuation of left calf hematoma with closure over drains 09/30/2024
- received Vit K prior to surgical procedure as above
- Vascular surgery recommended hold Coumadin for 24-48 hours post-procedure, since cleared to resume
- Continue Reid wraps to left lower extremity as tolerated
- PT/OT appreciated home health
- pain control, continue home gabapentin
Acute blood loss anemia
- From hematoma, trend hemoglobin, transfuse for goal hgb 8.0
-1prbc transfusion given 10/03/24 good response noted
-Hgb continues to improve since transfusion
Chronic atrial fibrillation
Subtherapeutic INR
- received Vit K for surgical procedure as above
- Coumadin held due to the above, since resumed following vascular clearance, starting low dose 2.5 mg increased to 5 mg qpm
- Continue atenolol and diltiazem for rate control
-INR improving
Lower Back Pain
-lidocaine patches
-bengay cream
-K-pad
-Tylenol Q4HWA
-Baclofen 5mg TID
-Oxycodone 5mg Q4HPRN moderate pain (has not required since 10/05/24)
-Dilaudid 0.5 mg Q4HPRN severe pain (has not required since 10/02/24)
-K-pad
-cont pain control
-Lumbar X-ray appreciated moderate discogenic degenerative dz, severe facet joint arthrosis, diffuse bone demineralization, severe calcific atherosclerotic plaque abd aorta and common iliac arteries
Constipation
bowel regimen
attempted fleet enema with no improvement noted
Resolved with milk and molasses enema 10/08
Right foot Charcot arthropathy status post surgery
- Prolonged stay subtherapeutic INR, case discussed with on-call podiatry Dr Jennings and patient's outpt pinking machine operator Dr. Paresh George #[phone]
-Wound care appreciated cast removed Friday10/08/24
Essential hypertension
- Continue atenolol and diltiazem
Gastroesophageal reflux disease
- Continue Pepcid
Hyperlipidemia
- Continue statin
DVT prophylaxis�SCDs, Coumadin
Full code
Total time spent to see the patient on the floor, examine the patient, review data and lab results, discuss treatment plan with patient, nursing staff around 37 minutes.
Anticipated Discharge: Within 24 hours
Subjective/Interval History
-
Date of Service: October 09, 2024
No acute distress, reports feeling well, pain well controlled with current pain regimen. Constipation resolved.
Objective Data
-
Labs:
Laboratory Results
10/09/24
05:50
WBC 7.3
Hgb 9.6 L
Hct 29.0 L
Plt Count 289
PT 16.5 H
INR 1.31
Sodium 138
Potassium 4.3
Chloride 108 H
Carbon Dioxide 22
BUN 16
Creatinine 0.9
Glucose 108 H
Calcium 8.8
Vital Signs:
Vital Signs
Temp Pulse Resp BP Pulse Ox
98.3 F 91 16 141/83 98
10/09/24 08:00 10/09/24 08:06 10/09/24 08:00 10/09/24 08:06 10/09/24 08:00
I&O
10/08/24 10/09/24 10/10/24
06:59 06:59 06:59
Intake Total 960 / 960 480 / 480
Output Total 608 / 608 720 / 720
Balance 352 / 352 -240 / -240
[2024-10-09 15:00] VITALS: BP 127/76
[2024-10-09] MEDS: COUMADIN 5 MG PO (17:21)
[2024-10-09] MEDS: CARDIZEM CD 180 MG PO (20:29)
[2024-10-09] MEDS: PEPCID 20 MG PO (20:29)
[2024-10-09 23:03] VITALS: BP 140/71
[2024-10-10] MEDS: TYLENOL PO ×2 (01:09→05:09)
--- NOTE | 2024-10-10 06:27 | W.PN.HOSP.TC ---
Today's Communication/Plan
-
discharge
Assessment / Plan
Assessment / Plan
Physical Exam
General: No acute distress, appears comfortable at this time
HEENT: Normocephalic, Atraumatic, EOMI, MMM
Respiratory: Clear to Auscultation bilaterally
Cardiac: Normal S1/S2, Regular Rate and Rhythm
GI: Soft, Nontender, Nondistended, Normal Bowel Sounds
Extremities:Right ft dressing clean dry intact, Left lower extremity dressed with drain in place
Neuro: AOx3 conversant coherent
Psych: Calm, Cooperative
HPI: 78-year-old male with significant past medical history for hypertension, atrial fibrillation, Charcot foot, obesity, and hyperlipidemia who presents to [place] ED reporting continued worsening of left lower extremity edema following
mechanical fall yesterday evening around roughly 11 PM. Patient endorses that he has been dealing with surgical interventions and nonhealing right foot from Charcot and is recently in a boot at the right lower extremity this caused him to have
imbalance and only fall bumping his left leg. Initially pain was mild as well as swelling so he was able to go back to sleep but upon awakening today and attempting to ambulate he noticed worsening pain prompting him to seek ED evaluation. He does
endorse history of atrial fibrillation and due to financial constraints utilizes Coumadin for oral anticoagulation. He does endorse that he has been recently started on a PO antibiotic (cannot recall name at this time) and is unsure if that might
have reacted with his Coumadin.
CT Lower Ext Angio W/wo Iv Con
- Large left calf soft tissue hematoma without evidence for active bleeding.
Assessment/plan:
Large Large left calf soft tissue hematoma without evidence for active bleeding
Associated with blunt trauma due to mechanical fall
- Appreciate vascular surgery input, status post emergent evacuation of left calf hematoma with closure over drains 09/30/2024
- received Vit K prior to surgical procedure as above
- Vascular surgery recommended hold Coumadin for 24-48 hours post-procedure, since cleared to resume
- Continue Reid wraps to left lower extremity as tolerated
- PT/OT appreciated home health
- pain control, continue home gabapentin
Acute blood loss anemia
- From hematoma, trend hemoglobin, transfuse for goal hgb 8.0
-1prbc transfusion given 10/03/24 good response noted
-Hgb continues to improve since transfusion
Chronic atrial fibrillation
Subtherapeutic INR
- received Vit K for surgical procedure as above
- Coumadin held due to the above, since resumed following vascular clearance, starting low dose 2.5 mg increased to 5 mg qpm
- Continue atenolol and diltiazem for rate control
-INR overall trending up, will provide patient with script to repeat INR outpt in 1-2 days of discharge, with results to be forwarded to his Business Objects Developer Dr Parker.
Lower Back Pain
-lidocaine patches
-bengay cream
-K-pad
-Tylenol Q4HWA
-Baclofen 5mg TID
-Oxycodone 5mg Q4HPRN moderate pain (has not required since 10/05/24)
-Dilaudid 0.5 mg Q4HPRN severe pain (has not required since 10/02/24)
-K-pad
-Lumbar X-ray appreciated moderate discogenic degenerative dz, severe facet joint arthrosis, diffuse bone demineralization, severe calcific atherosclerotic plaque abd aorta and common iliac arteries
Constipation
bowel regimen
attempted fleet enema with no improvement noted
Resolved with milk and molasses enema 10/08
Right foot Charcot arthropathy status post surgery
- Prolonged stay subtherapeutic INR, case discussed with on-call podiatry Dr Jennings and patient's outpt county bailiff Dr. Paresh George #[phone]
-Wound care appreciated cast removed Friday10/08/24
Essential hypertension
- Continue atenolol and diltiazem
Gastroesophageal reflux disease
- Continue Pepcid
Hyperlipidemia
- Continue statin
DVT prophylaxis�SCDs, Coumadin
Full code
Medically stable for discharge home with home services and outpatient follow up recommendations.
Total Time Preparing Discharge __40 minutes including examination of the patient, summary of the hospital stay, instructions for continuing care to all relevant caregivers; and preparation of discharge records, prescriptions, and referral
forms if necessary.
Anticipated Discharge: Today
Subjective/Interval History
-
Date of Service: October 10, 2024
No acute distress. Overall reports feeling well. Denies new acute issues at this time. Eager to go home.
Objective Data
-
Labs:
Laboratory Results
10/10/24
06:01
PT Pending
INR Pending
Vital Signs:
Vital Signs
Temp Pulse Resp BP Pulse Ox
97.5 F 74 18 140/71 98
10/09/24 23:03 10/09/24 23:03 10/09/24 23:03 10/09/24 23:03 10/10/24 00:51
I&O
10/08/24 10/09/24 10/10/24
06:59 06:59 06:59
Intake Total 960 / 960 480 / 480 960 / 960
Output Total 608 / 608 720 / 720
Balance 352 / 352 -240 / -240 950 / 950
[2024-10-10 06:47] LABS: INR 1.27; PT 16.2 Sec (11.4-14.6)
[2024-10-10 07:05] VITALS: BP 161/86
[2024-10-10] MEDS: LIORESAL 5 MG PO ×2 (09:05→14:34)
[2024-10-10] MEDS: NEURONTIN 300 MG PO ×2 (09:06→14:34)
[2024-10-10] MEDS: TENORMIN 50 MG PO (09:06)
[2024-10-10] MEDS: LIDOCAINE 4% PATCH 2 PATCH TOPICAL (09:08)
[2024-10-10] MEDS: LIPITOR 20 MG PO (09:08)
[2024-10-10] MEDS: BenGay-Like 1 APPLIC TOPICAL ×2 (09:09→12:20)
[2024-10-10] MEDS: TYLENOL 650 MG PO ×3 (09:10→14:34)
[2024-10-10] MEDS: THERAGRAN 1 TABLET PO (09:10)
[2024-10-10] MEDS: SENOKOT-S PO (09:14)
[2024-10-10] MEDS: SENOKOT-S 1 TABLET PO (09:20)
--- NOTE | 2024-10-10 13:24 | CM ---
Addendum entered by Zenia Rivera 10/10/24 14:43:
Discharge Instructions faxed to [facility] via [facility]
Awaiting determination
Original Note:
CM reviewed chart and noted dc order
Bedside meeting with pt, spouse and son
Plan for home with [facility]
IMM verbally reviewed and copy provided
Call with [facility]
Pt will be SOC
[facility] referral sent via [facility]
Awaiting discharge instructions to send to [facility]
Discharge Disposition- home with [facility]- family transport
fax- [phone]
--- NOTE | 2024-10-10 14:28 | W.DCSUMMARY ---
Discharge Summary
Discharge Data
Date of Admission: 09/30/24
Date of Discharge: 10/10/24
-
Pending Results: No
Discharge Plan
-
Patient Disposition: Home with Home Care
Discharge Diagnosis/Procedures: Large Large left calf soft tissue hematoma without evidence for active bleeding
Associated with blunt trauma due to mechanical fall
Acute blood loss anemia
Chronic atrial fibrillation
Subtherapeutic INR
Lower Back Pain
History Right foot Charcot Arthropathy status post surgery
Hypertension
Gastroesophageal reflux disease
Hyperlipidemia
Condition: Fair
Diet: Low Cholesterol
Activity: No strenuous activity
Driving Restrictions: No driving for 2 weeks
Bathing Restrictions: OK to Shower
Blood Work: Repeat CBC and BMP with primary care provider in 1 week of discharge.
Repeat INR in 1-2 days of discharge with results to be forwarded to your Automatic Vulcanizing Operator. Script provided to facilitate
Other Services: VN, PT and OT
Activity Restrictions/Additional Instructions:
Wound Care Instructions Left Lateral Leg Wound- Clean with Vashe moistened gauze for 5 min. Cover open area with Xeroform or adaptic and then secure with ABD and wrap with indigo or kerlix. Lightly wrap with ANASTASIIA bandage. Change BID and as needed
for drainage.
Left Medial Leg Wound- Apply Betadine daily or gently clean with Vashe moistened gauze.
Right for Ulcer - Clean with Vashe moistened gauze. Pack open areas with 1/4 inch Iodoform gauze. Secure with ABD and indigo. Change daily or as needed for drainage.
Follow up at [facility] as scheduled for October 13.
Follow up with primary care provider and podiatry in 1 week of discharge and keep your appointment with [facility]. Follow up with [facility]opedic [facility] Coordinator in 2-4 weeks of discharge.
Bengay-like cream and baclofen as needed prescribed for back pain. Lidocaine patches also prescribed for back pain.
Home warfarin changed to 5 mg daily. Script provided for repeat INR in 1-2 days of discharge with results to be forwarded to your program support assistant. Follow up with Cardiology for further dosing recommendations.
Please take medications as prescribed/recommended and follow up with primary care provider and/or other healthcare provider involved in your care for refills and/or further adjustment to your medication regimen as necessary.
Stand Alone Forms: Vascular Surg Discharge Instr
Referrals:
Boo Waite MD [Family Provider, Family Practice] - in one week
Dawson Esquivel MD [Active, Orthopedics] - in two to four weeks
Ana Mena CRNP [Specified Professional Personl, Vascular Surgery] - 10/25/24 11:30 am
Referral Note: Vascular surgery office follow-up
Prescriptions:
New
Analgesic [place] (mAshleysalic-menth) 15-10 % Cream
1 applic topical QID PRN (Reason: back pain) Qty: 85 0RF
Rx Instructions:
back pain
lidocaine 4 % Adhesive Patch,Medicated
2 patch topical DAILY Qty: 15 0RF
Rx Instructions:
back pain
baclofen 5 mg Tablet
5 mg PO TID PRN (Reason: muscle spasm/back pain) Qty: 90 0RF
Continued
atorvastatin 20 MG tablet
20 mg PO DAILY
famotidine [Acid Controller] 20 MG tablet
20 mg PO HS
atenolol 50 MG tablet
50 mg PO DAILY
multivitamin Tablet
1 tab PO DAILY
diltiazem HCl 180 mg Capsule,Extended Release 24 Hr
180 mg PO HS
sildenafil 100 mg Tablet
100 mg PO DAILY PRN (Reason: ed)
gabapentin 300 mg Capsule
300 mg PO TID
PreserVision AREDS-2 250-90-40-1 mg Capsule
1 tab PO BID
acetaminophen 500 mg Tablet
1,000 mg PO Q6H PRN (Reason: pain)
Changed
warfarin [Jantoven] 5 MG tablet
5 mg PO DAILY Qty: 0 0RF
Discontinued
warfarin [Jantoven] 2.5 MG tablet
2.5 mg PO TUFR
cyclobenzaprine 5 mg Tablet
5 mg PO TID PRN (Reason: BACK SPASM)
amoxicillin-pot clavulanate [Augmentin] 875-125 mg Tablet
1 tab PO BID
Discharge Orders:
Discharge Patient (As Directed); Ordered 10/10/24
Ordered By: Donald Curtis
Discharge Date and Time
Print Language: TAIWANESE
[2024-10-10 14:45] VITALS: BP 132/65
== END 2024-10-10 15:07 | disposition home health service (06) | DRG 580 ==
LOC: 2 SOUTH 17:28
PROVIDERS: Family Medicine; Physician Assistant; ADMITTING PHYSICIAN Internal Medicine; ATTENDING PHYSICIAN Internal Medicine; CONSULT PHYSICIAN Podiatrist Foot & Ankle Surgery; EMERGENCY PHYSICIAN Emergency Medicine; FAMILY PHYSICIAN Family Medicine; OTHER PHYSICIAN Surgery Vascular Surgery
PROC: 0JCP0ZZ Extirpation of Matter from Left Lower Leg Subcutaneous Tissue and Fascia, Open Approach (ICD-10-PCS; 2024-09-30)
PROC: 0JDP0ZZ Extraction of Left Lower Leg Subcutaneous Tissue and Fascia, Open Approach (ICD-10-PCS; 2024-09-30)
PROC: 30233N1 Transfusion of Nonautologous Red Blood Cells into Peripheral Vein, Percutaneous Approach (ICD-10-PCS; 2024-10-03)
DX: S80.12XA Contusion of left lower leg, initial encounter (principal); D62 Acute posthemorrhagic anemia; I48.20 Chronic atrial fibrillation, unspecified; D68.32 Hemorrhagic disorder due to extrinsic circulating anticoagulants; I10 Essential (primary) hypertension; E78.00 Pure hypercholesterolemia, unspecified; G62.9 Polyneuropathy, unspecified; M14.671 Charcot's joint, right ankle and foot; K21.9 Gastro-esophageal reflux disease without esophagitis; M54.50 Low back pain, unspecified; T45.515A Adverse effect of anticoagulants, initial encounter; W01.0XXA Fall on same level from slipping, tripping and stumbling without subsequent striking against object, initial encounter; Y93.9 Activity, unspecified; Y92.9 Unspecified place or not applicable; Z79.01 Long term (current) use of anticoagulants
CPT/HCPCS: 88304; 10140; 72100; 73706; 80048; 80053; 82306; 82550; 82607; 82728; 82746; 83540; 83550; 83735; 84100; 85014; 85018; 85025; 85027; 85610; 85730; 86850; 86900; 86901; 86920; 87070; 93005; 97116; 97163; 97166; 99291; P9016; Q9967

== ENCOUNTER 2024-10-13 04:52 | Emergency (ER) | payer OTHER, SELFPAY ==
[2024-10-13] VITALS (8 sets, daily range): BP systolic 105–154; BP diastolic 69–85; BMI 29.1
--- NOTE | 2024-10-13 05:15 | EDRN ---
Pt woke around 0330 and took tylenol and a muscle relaxer and pt noted tightness in his chest radiating into his teeth. After 45 minutes of constant chest tightness pt decided to come to ED. No sob, abd pain, n/v, diaphoresis, dizziness, weakness,
fever/chills/cough. Chest tightness has lessened since it started. Nothing changes chest tightness. No pain medications for chest tightness.
[2024-10-13 05:32] LABS: Hematocrit 29.0 % (39.0-52.0); Hemoglobin 9.6 g/dL (13.0-18.0); Mean Corp Hgb Conc. 33.1 g/dL (33.0-37.0); Mean Corpuscular Volume 89.5 fL (80.0-94.0); Nucleated Red Blood Cells % 0 % (-); Platelet Count 306 10^3/uL (130-400); Red Cell Dist. Width 16.9 % (11.5-14.5)
[2024-10-13 05:42] LABS: INR 1.76; PT 20.7 Sec (11.4-14.6)
[2024-10-13 05:56] LABS: ALT (SGPT) 27 U/L (0-50); AST (SGOT) 38 U/L (17-59); Albumin 3.9 g/dl (3.5-5.0); Alkaline Phosphatase 107 U/L (38-126); Blood Urea Nitrogen 17 mg/dl (9-20); Calcium 8.2 mg/dl (8.4-10.2); Carbon Dioxide 18 mmol/L (22-30); Chloride 106 mmol/L (98-107); Estimated Creatinine Clearance 84 ml/min; Glucose 145 mg/dl (70-99); Potassium 4.6 mmol/L (3.5-5.1); Sodium 134 mmol/L (135-145); Total Protein 7.1 g/dl (6.3-8.2); eGFR > 60.00
[2024-10-13 06:06] LABS: Troponin I < 0.012 ng/ml
--- NOTE | 2024-10-13 06:28 | ED.GENMED ---
History of Present Illness
General
Chief Complaint: Chest Pain
Source: patient, records, spouse and family
Exam Limitations: none
Time Seen by Provider: 10/13/24 06:09
Nursing documentation reviewed up to this point in time: agreed with
History of Present Illness
History of Present Illness:
78-year-old male presents emergency department complaining of chest tightness that began at about 4 AM. He is on warfarin for atrial fibrillation, but was recently taken off of the to have a hematoma evacuated from his left calf.
Past History
Past History
ED Past Medical History: Arrthythmia (Atrial fibrillation), GERD and HTN
Social History
Tobacco: Non-smoker
Alcohol: None
Drug: None
Personal:
Living: with family
Review of Systems
Review of Systems
Allergies reviewed?: Yes
All Other Systems: Not applicable
Constitutional: Reports no symptoms
EENT: Reports no symptoms
Respiratory: Reports trouble breathing
Cardiac: Reports chest pain
ABD/GI: Reports no symptoms
: Reports no symptoms
Musculoskeletal: Reports no symptoms
Skin: Reports no symptoms
Neurological: Reports no symptoms
Endocrine: Reports no symptoms
Hematologic/Lymphatic: Reports no symptoms
Psychiatric: Reports no symptoms
Phy Exam
Physical Exam
Physical Exam:
Physical Exam
General: no apparent distress, not acutely ill
Neck: supple. no meningeal signs. normal posterior pharynx
Heart: s1/s2 regular rate and rhythm, no murmur. equal radial
pulses.
HEENT: Pupils equal round reactive to light, EOMI
Lungs: no acute respiratory distress. clear bilaterally
Abdomen: normal bowel sounds. not tender. no CVAT
Neuro: alert and oriented. no focal neurological deficits cranial nerves II through XII intact
Skin: no rash
Psychiatric: well kept. interactive and cooperative
Extremities: no edema. no calf tenderness. negative homans. good distal pulses, surgical drain in place left lower leg
Scores
Heart Score for Chest Pain Patients
STEMI patient?: No
History: Slightly or Non-Suspicious
ECG: Nonspecific Repolarization
Age: >/= 65 years
Risk Factors: 1 or 2 Risk Factors
Troponin: </= Normal Limit
Heart Score for Chest Pain Patients: 4
Heart Score Risk: 20.3% MACE over next 6 weeks
Course
Orders/Labs/Results
Orders:
Orders
10/13/24 05:01
Electrocardiogram (*1) Urgent
Reason for Study: Other
Other Reason for Exam: Respiratory Distress
Cardiac Monitoring- Treatment ONCE
EKG- Treatment ONCE
IV Insert/Care/Rem.- Treatment PRN
CR Chest - 2 Views Urgent
Comment:
Reason For Exam: respiratory distress
O2 Therapy [RESP] Urgent
Titrate/Wean O2 to maintain O2 sat greater than (%): 93
Special Instructions: TO MAINTAIN CONTINUOUS O2 SATS >/= 93%
Pulse Ox/cont/shift [RESP] Urgent
Quantity: 1
Special Instructions: continuous pulse ox
10/13/24 05:22
Complete Blood Count/With Diff Urgent
Comprehensive Metabolic Panel Urgent
D-Dimer Urgent
Comment: ADD ON
NT-proBNP Urgent
PT/INR [Prothrombin Time] Urgent
Troponin I Urgent
10/13/24 06:30
Add On- LAB Urgent
Tests Added?: ddimer
10/13/24 07:01
CT Chest PE Study Urgent
Comment:
Reason For Exam: chest tightness, elevated ddimer
10/13/24 08:52
Troponin I Urgent
Abnormal Lab Results
10/13/24
05:22
WBC 13.5 H 10^3/uL
(4.8-10.8)
RBC 3.24 L 10^6/uL
(4.70-6.10)
Hgb 9.6 L g/dL
(13.0-18.0)
Hct 29.0 L %
(39.0-52.0)
RDW 16.9 H %
(11.5-14.5)
Abs Immat Gran (auto) 0.1 H 10^3/uL
(0-0.05)
Absolute Neuts (auto) 11.2 H 10^3/uL
(1.4-6.5)
Absolute Lymphs (auto) 0.6 L 10^3/uL
(1.2-3.4)
Absolute Monos (auto) 1.6 H 10^3/uL
(0.1-0.6)
Neutrophils % 82.9 H %
(42.2-75.2)
Lymphocytes % 4.3 L %
(20.5-51.1)
Monocytes % 11.6 H %
(1.7-9.3)
PT 20.7 H Sec
(11.4-14.6)
D-Dimer 1.70 H ug/mlFEU
(0.00-0.50)
Sodium 134 L mmol/L
(135-145)
Carbon Dioxide 18 L mmol/L
(22-30)
Glucose 145 H mg/dl
(70-99)
Calcium 8.2 L mg/dl
(8.4-10.2)
10/13/24 05:22
10/13/24 05:22
Vital Signs
Initial and Last Documented VS:
Initial Vital Signs
Temp Pulse Resp BP Pulse Ox
98.4 F 87 20 105/72 97
10/13/24 04:56 10/13/24 04:56 10/13/24 04:56 10/13/24 04:56 10/13/24 04:56
Last Documented Vital Signs
Temp Pulse Resp BP Pulse Ox
98.4 F 106 21 136/85 98
10/13/24 04:56 10/13/24 10:00 10/13/24 10:00 10/13/24 10:00 10/13/24 10:00
MDM/Problems Addressed
Differential Diagnosis Includes:
ACS, PE, pneumonia
MDM/Problems Addressed:
78-year-old male with chest tightness, relieved with time. No signs of PE or ACS or pneumonia. Stable for discharge. Follow-up with cardiology
Chronic conditions affecting care: Cardiomyopathy and Arrhythmia
Acute Exacerbation and/or Progression of Chronic Illness: Cardiomyopathy and Arrhythmia
*Radiology
Radiology exam reviewed: preliminary read by ED provider (Chest x-ray no acute findings)
*Pulse Oximetry
SaO2: 96
Oxygen Mode of Delivery: Room air
Patient hypoxic: no
*EKG
Interpreted by ED Provider?: Yes
EKG Intrepretation Date: 10/13/24
EKG Intrepretation Time: 05:06
Interpretation: abnormal
Comparison EKG: no changes
Heart Rate: 88
Rate: normal
Rhythm: a-fib
[place]: normal axis
Interval: normal interval
QRS Pattern: right bundle branch block
Ischemia: no ischemia
*Contact Clerk Interpretation
Rate: tachycardiac
Interpretation: abnormal
Heart Rate: 105
Rhythm: a-fib
*Critical Care Note
Total Time (30-74mins, 75-104mins- exclusive of procedures): Not Applicable
Data Reviewed
Review of Other/Old Records Reveals: Operative Reports (Recent hematoma evacuation left calf)
Source: records
Patient Management
Social determinants of health affecting care: Living situation and Strong social support
Escalation/DeEscalation of care consider admission/obs:
Admit not indicated
ED Attending Note
-
Portions of this chart may have been created with voice recognition software.� Occasional wrong word or��sound alike� substitutions may have occurred due to the inherent limitations of voice recognition software.
Discharge Plan
Departure
Patient Disposition: Home (Routine Discharge)
Date of Disposition: 10/13/24
Time of Disposition: 10:38
Patient with high blood pressure during this ER visit?: Yes
Condition: Good
Discharge Problem:
Chest pain
Instructions: Chest Pain CBC Follow Up, BLOOD PRESSURE
Prescriptions:
No Action
atorvastatin 20 MG tablet
20 mg PO DAILY
atenolol 50 MG tablet
50 mg PO DAILY
multivitamin Tablet
1 tab PO DAILY
diltiazem HCl 180 mg Capsule,Extended Release 24 Hr
180 mg PO QPM
gabapentin 300 mg Capsule
300 mg PO TID
acetaminophen 500 mg Tablet
1,000 mg PO Q6HPRN PRN (Reason: mild pain)
baclofen 5 mg Tablet
5 mg PO TID PRN (Reason: muscle spasm/back pain) Qty: 90 0RF
famotidine 20 mg Tablet
20 mg PO QPM
docusate sodium [Stool Softener] 100 mg Capsule
200 mg PO DAILYPRN PRN (Reason: constipation)
PreserVision AREDS 2,148 mcg-113 mg-45 mg-17.4mg Tablet
1 tab PO BID
BenGay cream
1 applic topical QIDPRN PRN (Reason: apply to middle & lower back)
warfarin [Jantoven] 5 MG tablet
5 mg PO .SEE BELOW
Patient Comments:
10/13/2024, originally prescribed for pt. to take 5 mg on and 0.5 tab (2.5 mg) on ; however, since pt.'s surgery, he has been taking 5 mg QPM since 10/04/2024; pt.'s last dose of 2.5 mg was 10/03/2024 per pt.
Referrals:
UNKNOWN - PT DOES,NOT KNOW [Family Provider]
Activity Restrictions/Additional Instructions:
Return for any concerns. F/u with primary care and cardiology.
Interventions
Interventions:
*Risk Screen - Suicide Last Done: 10/13/24 04:56
*General Assessment Last Done: 10/13/24 04:56
*Neglect/Abuse Screening Last Done: 10/13/24 04:56
*ED- Fall Risk Assessment Last Done: 10/13/24 04:56
*ED COVID-19 Vaccine History Last Done: 10/13/24 04:56
*Nursing Disposition Last Done: 10/13/24 11:01
ED- Cardiac Assessment Last Done: 10/13/24 07:23
Discharge Date and Time
Discharge Date/Time: 10/13/24 11:02
Print Language: STATELESS
[2024-10-13 06:59] LABS: D-Dimer 1.70 ug/mlFEU (0.00-0.50)
[2024-10-13 09:37] LABS: Troponin I < 0.012 ng/ml
== END 2024-10-13 11:02 | disposition home or self-care (01) ==
LOC: EMR 04:52
PROVIDERS: Student in an Organized Health Care Education/Training Program; EMERGENCY PHYSICIAN Emergency Medicine
DX: R07.89 Other chest pain (principal); I10 Essential (primary) hypertension; I48.91 Unspecified atrial fibrillation; Z79.01 Long term (current) use of anticoagulants; I45.10 Unspecified right bundle-branch block
CPT/HCPCS: 99285; 71046; 71275; 80053; 83880; 84484; 85025; 85379; 85610; 93005; Q9967

== ENCOUNTER 2024-10-23 18:56 | Inpatient (IN) | payer OTHER, SELFPAY ==
[2024-10-23 13:54] VITALS: BP 127/89
[2024-10-23 14:17] LABS: Hematocrit 29.7 % (39.0-52.0); Hemoglobin 9.7 g/dL (13.0-18.0); Mean Corp Hgb Conc. 32.7 g/dL (33.0-37.0); Mean Corpuscular Volume 89.5 fL (80.0-94.0); Nucleated Red Blood Cells % 0 % (-); Platelet Count 281 10^3/uL (130-400); Red Cell Dist. Width 16.3 % (11.5-14.5)
[2024-10-23 14:38] LABS: ALT (SGPT) 63 U/L (0-50); AST (SGOT) 48 U/L (17-59); Albumin 3.6 g/dl (3.5-5.0); Alkaline Phosphatase 164 U/L (38-126); Blood Urea Nitrogen 15 mg/dl (9-20); Calcium 8.9 mg/dl (8.4-10.2); Carbon Dioxide 26 mmol/L (22-30); Chloride 102 mmol/L (98-107); Glucose 180 mg/dl (70-99); Potassium 4.4 mmol/L (3.5-5.1); Sodium 134 mmol/L (135-145); Total Protein 6.9 g/dl (6.3-8.2); eGFR > 60.00
[2024-10-23 15:27] VITALS: BMI 30.8
--- NOTE | 2024-10-23 15:34 | ED.GENMED ---
History of Present Illness
General
Chief Complaint: Post Operative Problem(s)
Source: patient
Exam Limitations: none
Time Seen by Provider: 10/23/24 14:59
Nursing documentation reviewed up to this point in time: agreed with
History of Present Illness
History of Present Illness:
Patient is a 78-year-old male past medical history of A-fib on Coumadin hypertension hyperlipidemia presents to the ER for evaluation. Patient is status post hematoma evacuation by Dr. Galvin. Patient was hospitalized in September 30, 2028. He has been
closely followed for this however for the past several days he has had increasing redness and swelling to the area. He was seen by his shot man for his other foot who started him on Augmentin and doxycycline. He took 1 dose on Friday however
did not take a dose and Friday and has been on antibiotics for the past 48 hours without improvement. He actually reports redness is now worse. He denies any fever or chills.
Past History
Past History
ED Past Medical History: Arrthythmia (Atrial fibrillation), GERD and HTN
Social History
Tobacco: Non-smoker
Alcohol: None
Drug: None
Personal:
Living: with family
Phy Exam
General Physical Exam
General Presentation: well appearing
General age: appears stated age
General Skin: warm and dry
General Habitus: normal
General Mental: alert
General Hydration: appears well hydrated
Neurological Exam
Neurological Exam: alert and oriented x3
Musculoskeletal Exam
Musculoskeletal Exam: other (Left lower extremity with obvious swelling and redness to the lower leg below the level of the knee. Patient has sutures in place with hematoma however significant induration and circumferential redness no extension of
redness to thigh)
Skin Exam
Skin Exam: normal color and warm/dry
Psychiatric Exam
Psychiatric Exam: normal mood/affect
Course
Orders/Labs/Results
Orders:
Orders
10/23/24 13:59
Complete Blood Count/With Diff Urgent
Comprehensive Metabolic Panel Urgent
10/23/24 16:05
PT/INR [Prothrombin Time] Urgent
10/23/24 16:15
Blood Culture Q30M
LISA Source: Blood/Venous
Specimen Description:
10/23/24 16:45
Blood Culture Q30M
LISA Source: Blood/Venous
Specimen Description:
Abnormal Lab Results
10/23/24
13:59
RBC 3.32 L 10^6/uL
(4.70-6.10)
Hgb 9.7 L g/dL
(13.0-18.0)
Hct 29.7 L %
(39.0-52.0)
MCHC 32.7 L g/dL
(33.0-37.0)
RDW 16.3 H %
(11.5-14.5)
Abs Immat Gran (auto) 0.1 H 10^3/uL
(0-0.05)
Absolute Lymphs (auto) 0.9 L 10^3/uL
(1.2-3.4)
Absolute Monos (auto) 1.2 H 10^3/uL
(0.1-0.6)
Immature Gran % 0.6 H %
(0-0.5)
Lymphocytes % 11.6 L %
(20.5-51.1)
Monocytes % 15.1 H %
(1.7-9.3)
Sodium 134 L mmol/L
(135-145)
Glucose 180 H mg/dl
(70-99)
ALT 63 H U/L
(0-50)
Alkaline Phosphatase 164 H U/L
(38-126)
10/23/24 13:59
10/23/24 13:59
Vital Signs
Initial and Last Documented VS:
Initial Vital Signs
Temp Pulse Resp BP Pulse Ox
97.4 F 94 16 127/89 98
10/23/24 13:54 10/23/24 13:54 10/23/24 13:54 10/23/24 13:54 10/23/24 13:54
Last Documented Vital Signs
Temp Pulse Resp BP Pulse Ox
97.4 F 94 16 127/89 98
10/23/24 13:54 10/23/24 13:54 10/23/24 13:54 10/23/24 13:54 10/23/24 15:35
MDM/Problems Addressed
Differential Diagnosis Includes:
Not limited to cellulitis, wound infection
MDM/Problems Addressed:
As documented patient is a 78-year-old male status post evacuation of hematoma to left leg 09/30 presents with acute cellulitis of this leg. As documented patient has induration redness of this left leg despite being on 48 hours of Augmentin and
doxycycline. Patient does have sutures currently in place Dr Conrad (vascular made aware ) Case reviewed ED physician .
we will order IV antibiotics for broad-spectrum .
IV vancomycin and Zosyn
Patient is afebrile white count is normal however with increasing redness and worsening cellulitis would recommend admission for close monitoring
Chronic conditions affecting care:
On Coumadin for A-fib recent hematoma evacuation of left lower leg
*Pulse Oximetry
SaO2: 98
Oxygen Mode of Delivery: Room air
Patient hypoxic: no
*Critical Care Note
Total Time (30-74mins, 75-104mins- exclusive of procedures): Not Applicable
Patient Management
Discussion with other providers: Personnel Security Specialist ([place] )
ED Attending Note
-
Portions of this chart may have been created with voice recognition software.� Occasional wrong word or��sound alike� substitutions may have occurred due to the inherent limitations of voice recognition software.
Discharge Plan
Departure
Patient Disposition: Admit
Date of Disposition: 07/12/25
Time of Disposition: 16:27
Admit to: Med/Surg
Admit to doctor: hospitalist
Presentation/result/management discussed w/ accepting MD/DO: Hospitalist
Patient with high blood pressure during this ER visit?: No
Condition: Fair
Covid-19: Not Applicable
Discharge Problem:
Cellulitis, wound, post-operative
Prescriptions:
No Action
atorvastatin 20 MG tablet
20 mg PO DAILY
atenolol 50 MG tablet
50 mg PO DAILY
multivitamin Tablet
1 tab PO DAILY
diltiazem HCl 180 mg Capsule,Extended Release 24 Hr
180 mg PO QPM
gabapentin 300 mg Capsule
300 mg PO TID
acetaminophen 500 mg Tablet
1,000 mg PO Q6HPRN PRN (Reason: mild pain)
baclofen 5 mg Tablet
5 mg PO TID PRN (Reason: muscle spasm/back pain) Qty: 90 0RF
famotidine 20 mg Tablet
20 mg PO QPM
docusate sodium [Stool Softener] 100 mg Capsule
200 mg PO DAILYPRN PRN (Reason: constipation)
PreserVision AREDS 2,148 mcg-113 mg-45 mg-17.4mg Tablet
1 tab PO BID
BenGay cream
1 applic topical QIDPRN PRN (Reason: apply to middle & lower back)
warfarin [Jantoven] 5 MG tablet
5 mg PO .SEE BELOW
Patient Comments:
10/13/2024, originally prescribed for pt. to take 5 mg on and 0.5 tab (2.5 mg) on ; however, since pt.'s surgery, he has been taking 5 mg QPM since 10/04/2024; pt.'s last dose of 2.5 mg was 10/03/2024 per pt.
Referrals:
Boo Waite MD [Family Provider, Family Practice]
Interventions
Interventions:
*Risk Screen - Suicide Last Done: 10/23/24 13:54
*General Assessment Last Done: 10/23/24 15:27
*Neglect/Abuse Screening Last Done: 10/23/24 13:54
*ED- Fall Risk Assessment Last Done: 10/23/24 15:27
*ED COVID-19 Vaccine History Last Done: 10/23/24 15:27
Discharge Date and Time
Print Language: [place]
[2024-10-23] MEDS: ZOSYN 50 IV (16:34)
[2024-10-23 16:42] LABS: INR 2.87; PT 30.0 Sec (11.4-14.6)
--- NOTE | 2024-10-23 17:11 | HPS.HSE ---
Addendum entered and electronically signed by Mel Weinstein, DO 10/23/24 22:50:
DC order for Lovenox- patient is already on Coumadin. holding Coumadin for now, repeat INR in am.
Addendum entered and electronically signed by Mel Weinstein, DO 10/23/24 18:41:
Discussed the patient with Vascular Sx- rec is for CT LLE w IV contrast to rule out a drainable collection-order placed.
Discussed DVT proph and added DVT proph per Vascular recs- Lovenox 40 mg SQ nightly
Original Note:
Family Physician
-
Family Physician: Boo Waite
Chief Complaint
-
cellulitis
History of Present Illness
Patient is a 78-year-old male with past medical history significant for atrial fibrillation on Coumadin, hypertension, hyperlipidemia, GERD who presents to the emergency department secondary to several days of worsening erythema and swelling to his
left calf , purulent drainage, following recent surgical intervention on September [address] Galvin. The patient was admitted to the hospital on September 30 and required an emergent evacuation of a left calf hematoma with closure over drains by Dr. Galvin. The
reason for this nonhealing right foot was from Charcot and boot placed causing him to have imbalance and fall bumping his left leg. The patient was discharged from the hospital on October 10, with plan for Wound care and RLE cast removed Friday
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 The patient was seen by podiatry outpatient and started on oral doxycycline and Augmentin secondary to suspected cellulitis in the area of surgery, however the region has been worsening since that
time and not improving despite oral antibiotics. He had a culture by Podiatry taken on Friday, and has been on oral abx since Friday, with worsening of demarcation line. He was recommended to come into the hospital secondary to developing
cellulitis. He denies fevers, no chills, no n/v/d, no CP, no SOB, no dysuria, no abdominal pain.
ED treatment
Vasc Sx contacted
Blood cultures
IV vancomycin
IV Zosyn
Medical History
Past Medical History
Past Medical History: Reports Arrhythmia (A Fib on Warfarin ), GERD, HTN, Hypercholesterolemia, Valvular Disease (Nonrheumatic tricuspid valve vegetation) ) and Other ((Obesity, right foot Charcot)
Past Surgical History: Reports Orthopedic (ORIF right distal radius.Surgical repair of Charcot foot right lower extremity)
Social History
Tobacco: Non-smoker
Alcohol: Occasional
Family History
Family History: Not pertinent
Allergies / Home Medications
Allergies reflects when Allergies were last updated in [facility].
Home Medications with original date entered in [facility]
Allergy/Medication List:
Allergies
Allergy/AdvReac Type Severity Reaction Status Date / Time
almond Allergy Anaphylaxis Verified 10/23/24 13:56
cat dander Allergy runny Verified 10/23/24 13:56
eyes,
sneeze
Home Medications
atenolol 50 mg tablet 50 mg PO DAILY Blood Pressure 11/28/20
atorvastatin 20 mg tablet 20 mg PO DAILY High Cholesterol 11/28/20
acetaminophen 500 mg tablet 1,000 mg PO DAILYPRN PRN mild pain 09/30/24
diltiazem HCl 180 mg capsule,24 hr,extended release 180 mg PO QPM Arrhythmia 09/30/24
gabapentin 300 mg capsule 300 mg PO TID Pain 09/30/24
multivitamin 1 tab PO DAILY Supplement 09/30/24
famotidine 20 mg tablet 20 mg PO QPM Gastrointestinal Issue 10/13/24
vitamins A,C,A-ozol-vffttr 2,148 mcg-113 mg-45 mg-17.4 mg tablet (PreserVision AREDS) 1 tab PO BID Supplement 10/13/24
warfarin 5 mg tablet (Jantoven) 5 mg PO .SEE BELOW Blood Clot Prevention/Tx 10/13/24
amoxicillin 875 mg-potassium clavulanate 125 mg tablet 1 tab PO BID 10/23/24
camphor 4 %-methyl salicylate 30 %-menthol 10 % topical cream (Bengay Ultra Strength) 1 applic topical DAILY PRN mild pain 10/23/24
doxycycline hyclate 100 mg capsule 100 mg PO BID 10/23/24
Review of Systems
-
A 12 point ROS was completed and negative except as noted: Yes
Physical Exam
Vital Signs
Vital Signs
Temp Pulse Resp BP Pulse Ox
97.4 F 94 16 127/89 98
10/23/24 13:54 10/23/24 13:54 10/23/24 13:54 10/23/24 13:54 10/23/24 15:35
Physical Exam
General: Well Developed, Well Nourished, No Apparent Distress, Comfortable and Conversant
HEENT: NormoCephalic, Anicteric and Moist mucous membranes
Respiratory: Clear
Cardiac: S1/S2 and Regular Rhythm
GI: Soft, Non Tender, Non Distended and Normal Bowel Sounds
Musculoskeletal: No Clubbing, No Cyanosis, Edema, Left Lower Extremity and Edema, Right Lower Extremity
Skin: Warm, Dry and Other (LLE erythema, swelling, edema, skin breakdown with purulent discharge at wound post-surgical site, line of demarcation proximal to the knee on the left side)
Neuro: AO x 3
Psych: Calm
Laboratory Results
-
10/23/24 13:59
10/23/24 13:59
Laboratory Results
PT 30.0 Sec (11.4-14.6) H 10/23/24 16:13
INR 2.87 10/23/24 16:13
Total Bilirubin 0.4 mg/dl (0.2-1.3) 10/23/24 13:59
AST 48 U/L (17-59) 10/23/24 13:59
ALT 63 U/L (0-50) H 10/23/24 13:59
Alkaline Phosphatase 164 U/L (38-126) H 10/23/24 13:59
Impression/Plan
-
IMPRESSION:Patient is a 78-year-old male with past medical history significant for atrial fibrillation on Coumadin, hypertension, hyperlipidemia, GERD who presents to the emergency department secondary to several days of worsening erythema and
swelling to his left calf , purulent drainage, following recent surgical intervention on September [address] Galvin. The patient was admitted to the hospital on September 30 and required an emergent evacuation of a left calf hematoma with closure over drains by
Dr. Galvin. The reason for this nonhealing right foot was from Charcot and boot placed causing him to have imbalance and fall bumping his left leg. The patient was discharged from the hospital on October 10, with plan for Wound care and RLE cast removed
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 The patient was seen by podiatry outpatient and started on oral doxycycline and Augmentin secondary to suspected cellulitis in the area of surgery, however the region has been worsening
since that time and not improving despite oral antibiotics. He had a culture by Podiatry taken on Friday, and has been on oral abx since Friday, with worsening of demarcation line. He was recommended to come into the hospital secondary to
developing cellulitis. He denies fevers, no chills, no n/v/d, no CP, no SOB, no dysuria, no abdominal pain.
ED treatment
Vasc Sx contacted
Blood cultures
IV vancomycin
IV Zosyn
#LLE wound infection with surrounding cellulitis, severe and rapidly progressing
-IVF
-IV Vanc/IV Zosyn
-blood cx, wound cx results pending
-Vasc Sx notified in ED and their consultation is appreciated
#Large left calf soft tissue hematoma without evidence for active bleeding s/p surgical intervention by Dr. Galvin on 09/30
-serial neurovascular checks
-Vasc Sx consulted
#Anemia, history- hgb stable at 9.7
Chronic atrial fibrillation
-on Coumadin, INR 2.87 - hold dose today, repeat INR in am, monitor closely while on abx, daily INR
#Lower Back Pain , stable
#History Right foot Charcot Arthropathy status post surgery
# Essential Hypertension
-cont home meds, diltiazem/atenolol, hold parameters
#Gastroesophageal reflux disease
#Hyperlipidemia
-atorvastatin
DVT proph
Full Code
[2024-10-23] MEDS: VANCOCIN 540 MG IV (17:22)
[2024-10-23 17:26] VITALS: BP 153/79
[2024-10-23 20:32] VITALS: BMI 29.5
[2024-10-23 20:49] VITALS: BP 163/83
[2024-10-23] MEDS: NEURONTIN 300 MG PO (21:18)
[2024-10-23] MEDS: NSS 1000 IV (21:18)
[2024-10-23 23:19] VITALS: BP 155/86
--- NOTE | 2024-10-23 23:22 | PHA.VAN.IN ---
Assessment
- Assessment
Renal Function: Appears similar to baseline
Maximum Temperature: 98.8
Concomitant Antimicrobials: piperacillin-tazobactam
AUC Dosing Plan
- Dosing Variables
Dosing Weight (kg): 96
Dosing CrCl (ml/min): 96
Vd coefficient (L/kg): 0.7
- Empiric Dosing
Initial / Loading Dose: 2000 mg 10/23 17:22
Maintenance Regimen: vanc 1250 mg q12
Estimated AUC (mcg*h/mL): 470
Estimated Peak (mcg*h/mL): 29.3
Estimated Trough (mcg/ml): 12
Estimated Half Life (H): 8.2
- Monitoring
No levels ordered at this time: consider in the upcoming days
Pharmacokinetics Vancomycin I
- -
Patient Age: 78
Patient Sex: Male
Vancomycin Day #: 1
Indication: Skin And Soft Tissue
Requesting Provider: Dr Weinstein
Pertinent Antimicrobial Allergies:
no pertinent allergies
Height / Weight:
Height 5 ft 11 in
Actual Weight 95.935 kg
Pertinent Past Medical History: recent vascular procedure 09/2024
- Vital Signs / Lab Results
Temp Pulse Resp BP Pulse Ox
98.8 F 93 16 155/86 97
10/23/24 23:19 10/23/24 23:19 10/23/24 23:19 10/23/24 23:19 10/23/24 23:19
Lab Results - Hematology
10/23/24
13:59
WBC 8.1
Lab Results - Chemistry
10/23/24
13:59
BUN 15
Creatinine 0.7
Albumin 3.6
[2024-10-24] MEDS: ZOSYN 100 IV ×5 (00:15→23:38)
[2024-10-24 03:08] VITALS: BP 152/95
[2024-10-24] MEDS: VANCOCIN 275 MG IV (06:13)
[2024-10-24 06:41] LABS: INR 2.48; PT 26.9 Sec (11.4-14.6)
[2024-10-24 06:42] LABS: Hematocrit 26.1 % (39.0-52.0); Hemoglobin 8.7 g/dL (13.0-18.0); Mean Corp Hgb Conc. 33.3 g/dL (33.0-37.0); Mean Corpuscular Volume 88.8 fL (80.0-94.0); Nucleated Red Blood Cells % 0 % (-); Platelet Count 261 10^3/uL (130-400); Red Cell Dist. Width 16.0 % (11.5-14.5)
[2024-10-24 06:56] LABS: ALT (SGPT) 57 U/L (0-50); AST (SGOT) 44 U/L (17-59); Albumin 3.2 g/dl (3.5-5.0); Alkaline Phosphatase 166 U/L (38-126); Blood Urea Nitrogen 13 mg/dl (9-20); Calcium 8.6 mg/dl (8.4-10.2); Carbon Dioxide 25 mmol/L (22-30); Chloride 106 mmol/L (98-107); Estimated Creatinine Clearance 96 ml/min; Glucose 112 mg/dl (70-99); Potassium 4.1 mmol/L (3.5-5.1); Sodium 135 mmol/L (135-145); Total Protein 6.2 g/dl (6.3-8.2); eGFR > 60.00
[2024-10-24 07:30] VITALS: BP 166/92
[2024-10-24] MEDS: LIPITOR 20 MG PO (07:44)
[2024-10-24] MEDS: OCUVITE SOFTGEL 1 CAP PO (07:44)
[2024-10-24] MEDS: THERAGRAN 1 TABLET PO (07:44)
[2024-10-24] MEDS: NEURONTIN 300 MG PO ×3 (07:44→21:10)
--- NOTE | 2024-10-24 08:00 | W.PN.HOSP.TC ---
Today's Communication/Plan
-
cont abx as per ID
wound care
pain control
IR eval Friday for possible benefit drain placement
cont home Cardizem Atenolol with holding parameters
Fall precautions
Assessment / Plan
Assessment / Plan
Physical Exam
General: No acute distress, appears comfortable at this time
HEENT: NormoCephalic, Anicteric and Moist mucous membranes
Respiratory: Clear
Cardiac: S1/S2 and Regular Rhythm
GI: Soft, Non Tender, Non Distended and Normal Bowel Sounds
Musculoskeletal: No Clubbing, No Cyanosis
Skin: Warm, Dry, LLE erythema, swelling improving, dressing clean dry intact
Neuro: AO x 3
Psych: Calm
78M atrial fibrillation on Coumadin, hypertension, hyperlipidemia, GERD Charcot foot p/w several days of worsening erythema and swelling to his left calf, purulent drainage. Recent emergent surgical intervention, Lt calf hematoma evacuation, September [address] Galvin. The patient was seen by podiatry outpatient and started on oral doxycycline and Augmentin secondary to suspected cellulitis in the area of surgery, however the region had since worsen despite oral abx. VSS, afebrile, no significant
Leukocytosis.
#LLE wound infection with surrounding cellulitis, failed outpt treatment
#recent hx LT calf emergent hematoma evacuation with Dr Galvin 09/30
-ID eval appreciated IV Zosyn cont, empiric IV Vanc discontinued
-blood cx, wound cx results pending
-monitor H&H
-CT LLE appreciated Complex rim-enhancing fluid collection of the posterolateral left lower leg soft tissues at the site of the evacuated hematoma, now suspicious for an infected hematoma/abscess
-Vasc Sx consult appreciated IR to be consulted 10/25 for possible benefit drain placement
#Anemia, history
#Possible Acute Blood Loss anemia
Monitor H&H
#Chronic atrial fibrillation INR goal 2-3
# Essential Hypertension
-hold Coumadin at this time in case of need for intervention
-currently therapeutic
-daily INR checks
-cont home Cardizem Atenolol w/ holding parameters
#Lower Back Pain
#Recent fall in bathroom 10/24 fell on bottom without head trauma per RN
Lidocaine patches
bengay like cream
Tylenol Tramadol prn
#History Right foot Charcot Arthropathy status post surgery
#Gastroesophageal reflux disease
cont home pepcid
#Hyperlipidemia
-atorvastatin
PT/OT eval
DVT ppx Therapeutic INR
Full Code
Discussed with patient and patient's Dania
I spent a total of 45 minutes with the patient or on the floor. More than 50% of this time involved counseling and coordination of care.
Anticipated Discharge: 24 - 48 hours
Subjective/Interval History
-
Date of Service: October 24, 2024
Seen and examined at bedside in no acute distress sitting up comfortably in bed. Dania present during evaluation. Overall reports feeling well. Erythema swelling tenderness LLE significantly improved following start IV abx/
Objective Data
-
Labs:
Laboratory Results
10/24/24
06:00
WBC 7.3
Hgb 8.7 L
Hct 26.1 L
Plt Count 261
PT 26.9 H
INR 2.48
Sodium 135
Potassium 4.1
Chloride 106
Carbon Dioxide 25
BUN 13
Creatinine 0.7
Glucose 112 H
Calcium 8.6
Total Bilirubin 0.5
AST 44
ALT 57 H
Alkaline Phosphatase 166 H
Vital Signs:
Vital Signs
Temp Pulse Resp BP Pulse Ox
98.5 F 106 16 152/95 96
10/24/24 03:08 10/24/24 03:08 10/24/24 03:08 10/24/24 03:08 10/24/24 03:08
I&O
10/23/24 10/24/24 10/25/24
06:59 06:59 06:59
Intake Total 1759
Balance 1759
--- NOTE | 2024-10-24 08:45 | CON.VAS ---
Consultation
Consultation Request
Date/Time Consultation Performed: 10/24/24 8:46
Performing Provider: [place]
Reason for Consultation: Cellulitis
Medical History
-
Chief Complaint: Left lower extremity swelling/redness
History of Present Illness:
78-year-old male with significant past medical history for hypertension, atrial fibrillation (on Coumadin), Charcot foot, obesity, and hyperlipidemia who was recently admitted for left lower extremity hematoma. On 09/30/2024 Dr. Galvin performed
emergent evacuation of the left calf hematoma. Patient was discharged on 10/10/2024. Patient now presenting for increasing redness and swelling to the left lower extremity over the past few days. Patient was seen by his kitchen operator for his opposite
foot at which time he started him on Augmentin and doxycycline. Patient reports to the emergency room for increasing and redness. Patient admitted for IV antibiotics and cellulitis.
Vascular consult placed, patient seen by Dr. Conrad at bedside. Possible small collection on CT. left leg with +2 edema, mild erythema, no fluctuance.
Vascular procedural history:
09/30/24: Emergent evacuation left calf hematoma with closure over drains. Pulse lavage irrigation left calf subcutaneous hematoma cavity with 3 L saline solution.-Dr. Galvin
Past Medical History
Past Medical History: Arrhythmias (A-fib on Coumadin), HTN, Valvular Disease (Nonrheumatic tricuspid valve vegetation) and Other (Obesity, hyperlipidemia, right foot Charcot)
Past Surgical History: Other (Surgical repair of Charcot foot right lower extremity)
Social History
Tobacco: Non-Smoker
Family History
Family History: Reviewed & Not Pertinent
Allergies / Home Medications
Allergy/AdvReac Type Severity Reaction Status Date / Time
almond Allergy Anaphylaxis Verified 10/23/24 13:56
cat dander Allergy runny Verified 10/23/24 13:56
eyes,
sneeze
�Medication �Instructions �Recorded �Confirmed �Type
atenolol 50 mg tablet 50 mg PO DAILY Blood Pressure 11/28/20 10/23/24 History
atorvastatin 20 mg tablet 20 mg PO DAILY High Cholesterol 11/28/20 10/23/24 History
acetaminophen 500 mg tablet 1,000 mg PO DAILYPRN PRN mild pain 09/30/24 10/23/24 History
diltiazem HCl 180 mg capsule,24 180 mg PO QPM Arrhythmia 09/30/24 10/23/24 History
hr,extended release
gabapentin 300 mg capsule 300 mg PO TID Pain 09/30/24 10/23/24 History
multivitamin 1 tab PO DAILY Supplement 09/30/24 10/23/24 History
famotidine 20 mg tablet 20 mg PO QPM Gastrointestinal Issue 10/13/24 10/23/24 History
vitamins A,C,I-lusm-verhvx 2,148 1 tab PO BID Supplement 10/13/24 10/23/24 History
mcg-113 mg-45 mg-17.4 mg tablet
(PreserVision AREDS)
warfarin 5 mg tablet (Jantoven) 5 mg PO .SEE BELOW Blood 10/13/24 10/23/24 History
Clot Prevention/Tx
amoxicillin 875 mg-potassium 1 tab PO BID Infection 10/23/24 10/23/24 History
clavulanate 125 mg tablet
camphor 4 %-methyl salicylate 30 1 applic topical DAILY PRN mild 10/23/24 10/23/24 History
%-menthol 10 % topical cream pain
(Bengay Ultra Strength)
doxycycline hyclate 100 mg capsule 100 mg PO BID Infection 10/23/24 10/23/24 History
Review of Systems
-
History Source: Patient
All other systems: Negative unless noted
Physical Exam
Vital Signs
Temp Pulse Resp BP Pulse Ox
97.5 F 110 18 162/81 97
10/24/24 23:59 10/25/24 05:52 10/24/24 23:59 10/25/24 05:52 10/24/24 23:59
Lab Results
10/25/24 06:53
10/25/24 06:53
Physical Exam
General: No Apparent Distress
Skin: Other (left leg edema - 2+, mild erythema, no fluctuance)
Neuro: Awake, Alert and Oriented
Psych: Calm
Assessment / Plan
-
78-year-old male status post left lower extremity hematoma evacuation now here with cellulitis of the left lower extremity
Plan:
- ? small collection
- will ask ir to eval on friday to see if they can drain
- antbx
- wrap leg with samuel wrap
Data Reviewed
-
CT Scan: Discussed with Patient
--- NOTE | 2024-10-24 08:46 | W.PN.VS ---
Today's Communication / Plan
-
ir for eval and possible drainage collection
wrap leg with samuel
antbx
Assessment/Plan
-
calf cellulitis
- ? small collection
- will ask ir to eval on friday to see if they can drain
- antbx
- wrap leg with samuel wrap
Subjective Data
-
Date of Service: October 24, 2024
asked to eval patient for cellulitis for his left leg
s/p hematoma evacuation
placed on po antbx as outpatient by his anthropology and archeology instructor
Objective Data
-
Vital Signs
Temp Pulse Resp BP Pulse Ox
98 F 102 16 166/92 97
10/24/24 07:30 10/24/24 07:30 10/24/24 07:30 10/24/24 07:30 10/24/24 07:30
Intake and Output
10/23/24 10/24/24 10/25/24
06:59 06:59 06:59
Intake Total 1760 / 1760
Balance 1760 / 1760
Intake:
Oral fluids 960 / 960
IV fluids (Total) 800 / 800
Other:
Number of approximated MODERATE 2
amounts of urine
Lab Results
10/24/24 06:00
10/24/24 06:00
Calcium 8.6 mg/dl (8.4-10.2) 10/24/24 06:00
Total Bilirubin 0.5 mg/dl (0.2-1.3) 10/24/24 06:00
AST 44 U/L (17-59) 10/24/24 06:00
ALT 57 U/L (0-50) H 10/24/24 06:00
Alkaline Phosphatase 166 U/L (38-126) H 10/24/24 06:00
Total Protein 6.2 g/dl (6.3-8.2) L 10/24/24 06:00
Albumin 3.2 g/dl (3.5-5.0) L 10/24/24 06:00
Physical Exam
-
left leg edema - 2+
mild erythema
no fluctuance
ct - ? posterior calf collection
--- NOTE | 2024-10-24 09:31 | PHA.VAN.FU ---
Vancomycin Assessment / Plan
- Assessment
Renal Function: Stable
WBC's are: WNL
In the past 24 hrs, patient has been: Afebrile
Concomitant Antimicrobials: piperacillin/tazobactam
- Dosing Plan
Continue: vancomycin 1250 mg Q12H
- Monitoring Plan
No level(s) ordered at this time: consider levels in next few days
- Follow Up
Pharmacy will continue to follow.
Vancomycin Follow UP
- -
Patient Age: 78
Patient Sex: Male
Vancomycin Day #: 2
Indication: Skin And Soft Tissue
Requesting Provider: Dr Weinstein
Pertinent Antimicrobial Allergies:
no pertinent allergies
Height / Weight:
Height 5 ft 11 in
Actual Weight 95.935 kg
IBW in k.3
Adjusted BW in k.6
Pertinent Past Medical History: recent vascular procedure 09/2024
- Vital Signs / Lab Results
Temp Pulse Resp BP Pulse Ox
98 F 102 16 166/92 97
10/24/24 07:30 10/24/24 07:30 10/24/24 07:30 10/24/24 07:30 10/24/24 07:30
Lab Results - Hematology
10/23/24 10/24/24
13:59 06:00
WBC 8.1 7.3
Lab Results - Chemistry
10/23/24 10/24/24
13:59 06:00
BUN 15 13
Creatinine 0.7 0.7
Estimated Creat Clear 96
Albumin 3.6 3.2 L
[2024-10-24 11:34] VITALS: BP 164/86
--- NOTE | 2024-10-24 12:06 | CM ---
KATIE reviewed chart, patient seen bedside with , initial assessment completed. Patient resides with in a two story home, one step to enter. Patient is current with [facility] for nursing, therapy. Patient has a cane and walker at home, bed
currently on first floor, powder room downstairs. Patient has been to [facility], plan to return home with services, does not want to return to rehab. Patient reports recently admitted to Hospital for 11 days. Patient PCP B[facility] [place], pharmacy
[facility], confirms prescription coverage. Patient denies insecurities at home. Will send [facility] referral to [facility]. CHRISTA moore, patient on IV antibiotics. CM will continue to follow for all discharge planning needs.
Plan; home with , [facility]
[place]
--- NOTE | 2024-10-24 12:21 | CON.ID ---
Consultation
-
Date/Time Consultation Requested: October 24, 2024 0832
Date/Time Consultation Performed: October 24, 2024 1230
Requesting Provider: Dr. Donald Curtis
Performing Provider: Dr. Charlotte Zavala
Reason for Consultation: LLE cellulitis
Chief Complaint / Past History
Chief Complaint
Worsening left leg swelling and redness.
History of Present Illness
78-year-old male with history of atrial fibrillation on Coumadin, right foot Charcot arthropathy who was recently hospitalized from September 30 -October 10 due to mechanical fall sustaining left calf tense hematoma requiring emergent OR I&D with closure
September 30. Coumadin was resumed upon discharge. Patient and his report to calf wound did not heal with persistent thick bloody drainage. Continued to have redness around the area. He had follow-up with his supervisor enrobing on Friday, October 20.
Commercial Horticulture Instructor cultured the area and also started him on Augmentin plus doxycycline. However the erythema continued to progress down to his ankle and up to his knee. No fevers or chills. He came to the ER yesterday October 23. CT of the leg showed 7.8
cm complex rim-enhancing fluid collection at site of evacuated hematoma. He was seen by vascular who recommended IR drainage of the fluid collection tomorrow.
Past History
Additional Past Medical History:
Hypertension
Atrial fibrillation on Coumadin
HLD
Left calf hematoma evacuation 09/30/24
Right foot Charcot arthropathy surgeries
Right distal radius ORIF
Allergy History:
almond Allergy (Verified 10/23/24 13:56)
Anaphylaxis
cat dander Allergy (Verified 10/23/24 13:56)
runny eyes, sneeze
Medications Reviewed: Yes
Current Antibiotics:
Zosyn
Vancomycin
Social History
Tobacco: Non-Smoker
Alcohol: None
Drug: None
Personal:
Living: With Family
Family History
Family History: Not Pertinent
Review of Systems
Review of Systems
General: Negative Fever, Chills or Change in Appetite
HEENT: Negative Sinus Problems or Headache
Cardiovascular: Negative Chest Pain
Respiratory: Negative Dyspnea or Cough
Gasteroenterology: Negative Nausea, Vomiting or Diarrhea
Genital / Urological: Negative Dysuria
Endocrine: Negative Weakness
All systems: All other systems were reviewed and were negative
Vital Signs
Temp Pulse Resp BP Pulse Ox
98.3 F 102 16 164/86 97
10/24/24 11:34 10/24/24 11:34 10/24/24 11:34 10/24/24 11:34 10/24/24 07:30
Physical Exam
Physical Exam
Constitutional: No Acute Distress and Comfortable
Eyes: No Conjunctival Hemorrhage and Sclera Anicteric
Cardiovascular: Irregular Rate and S1/S2
Pulmonary: Clear
Gastrointestinal: Soft, Non Tender, Non Distended and Normal Bowel Sounds
Extremities: Other (LLE: 2-3+edema, + induration calf with draining wound, serous-bloody; + warmth, erythema whole leg ankle to below knee)
Neurological: AO x 3
Lab / Diagnostic Study Results
10/24/24 06:00
10/24/24 06:00
Abs Immat Gran (auto) 0.0 10^3/uL (0-0.05) 10/24/24 06:00
Absolute Neuts (auto) 4.8 10^3/uL (1.4-6.5) 10/24/24 06:00
Absolute Lymphs (auto) 0.8 10^3/uL (1.2-3.4) L 10/24/24 06:00
Absolute Monos (auto) 1.3 10^3/uL (0.1-0.6) H 10/24/24 06:00
Absolute Basos (auto) 0.1 10^3/uL (0-0.2) 10/24/24 06:00
Immature Gran % 0.4 % (0-0.5) 10/24/24 06:00
Neutrophils % 66.1 % (42.2-75.2) 10/24/24 06:00
Lymphocytes % 11.4 % (20.5-51.1) L 10/24/24 06:00
Monocytes % 17.7 % (1.7-9.3) H 10/24/24 06:00
Eosinophils % 3.7 % (0-6) 10/24/24 06:00
Basophils % 0.7 % (0-2) 10/24/24 06:00
PT 26.9 Sec (11.4-14.6) H 10/24/24 06:00
INR 2.48 10/24/24 06:00
Microbiology Results
Micro:
10/23/24 21:04 MRSA Screen - Pending
Nose
10/23/24 16:13 Blood Culture - Pending
Blood/Venous
10/23/24 16:13 Blood Culture - Pending
Blood/Venous
10/23/24 CT LLE: Complex rim-enhancing fluid collection of the posterolateral left lower leg soft tissues at the site of the evacuated hematoma, now suspicious for an infected hematoma/abscess given the provided clinical information.
Assessment / Plan
# LLE infected hematoma vs abscess
# Recent large left calf hematoma evacuation 09/30/24
- 10/21/24 Outside wound swab - gram stain, GPC pairs/chains, GPR. Cx pending
- will need drainage of fluid collection; send cultures
- DC Vancomycin
- Continue Zosyn for now pending cx data.
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
Hypertension
Atrial fibrillation on Coumadin
HLD
Left calf hematoma evacuation 09/30/24
Right foot Charcot arthropathy surgeries
Right distal radius ORIF
[2024-10-24 15:48] VITALS: BP 146/78
[2024-10-24] MEDS: CARDIZEM CD 180 MG PO (17:15)
[2024-10-24] MEDS: PEPCID 20 MG PO (17:16)
--- NOTE | 2024-10-24 17:54 | FALL ---
Description of Fall:
At approximately 1710, pt was using the bathroom and accidently pulled string to alert nursing that he needed assistance. nursing knocked on bathroom door and opened before pt could respond. pt was startled by door opening but did not fall at that
moment. the pt was not finished in bathroom and wanted privacy so nurse closed the door without turning off the call larkin. a different nurse responded to the call larkin within the minute and as nurse was opening the door, the patient was falling onto
his buttock. pt did not hit head when he fell and only visible injury is light abrasion to left hand. pt was lifted off of ground with assistance of 3 people and pt walked back to bed. pt reported 8/10 lower back pain when standing, and 5/10 lower
back pain once sitting down. notified of fall and ordered received.
Injuries Noted:
small abrasions to knuckles of left hand
Action Taken:
MD notified, pain meds ordered
Name of Provider Notified: Dr Curtis
[2024-10-24] MEDS: LIDOCAINE 4% PATCH 2 PATCH TOPICAL (18:29)
[2024-10-24] MEDS: ULTRAM 25 MG PO (18:32)
[2024-10-24 20:38] VITALS: BP 150/86
[2024-10-24] MEDS: BenGay-Like 1 APPLIC TOPICAL (21:10)
[2024-10-24 23:59] VITALS: BP 141/76
[2024-10-25] VITALS (11 sets, daily range): BP systolic 81–162; BP diastolic 64–95; PULSE 87–113; O2SAT 96
--- NOTE | 2024-10-25 05:32 | PTCARENOTE ---
Patient 35 beat run of [place]. per patient no chest pain and did not feel any palpitations. Mag level already order for am. BP 162/81 with HR 110. Manager Medical Writing made aware and ok to give him is 8 am Atenolol.
[2024-10-25] MEDS: ZOSYN 100 IV ×4 (05:36→23:43)
[2024-10-25] MEDS: TENORMIN 50 MG PO (05:52)
[2024-10-25 07:36] LABS: Hematocrit 26.8 % (39.0-52.0); Hemoglobin 8.8 g/dL (13.0-18.0); Mean Corp Hgb Conc. 32.8 g/dL (33.0-37.0); Mean Corpuscular Volume 88.4 fL (80.0-94.0); Platelet Count 251 10^3/uL (130-400); Red Cell Dist. Width 16.4 % (11.5-14.5)
[2024-10-25 07:44] LABS: INR 1.96; PT 22.5 Sec (11.4-14.6)
[2024-10-25 08:17] LABS: Blood Urea Nitrogen 9 mg/dl (9-20); Calcium 8.5 mg/dl (8.4-10.2); Carbon Dioxide 25 mmol/L (22-30); Chloride 106 mmol/L (98-107); Estimated Creatinine Clearance 84 ml/min; Glucose 116 mg/dl (70-99); Iron 28 ug/dl (49-181); Magnesium 1.8 mg/dl (1.6-2.3); Potassium 3.7 mmol/L (3.5-5.1); Sodium 138 mmol/L (135-145); eGFR > 60.00
[2024-10-25 08:26] LABS: Total Iron Binding Capacity 234 ug/dl (261-462)
[2024-10-25] MEDS: LIDOCAINE 4% PATCH 2 PATCH TOPICAL (08:35)
[2024-10-25] MEDS: BenGay-Like 1 APPLIC TOPICAL ×3 (08:37→20:59)
[2024-10-25] MEDS: OCUVITE SOFTGEL 1 CAP PO (08:38)
[2024-10-25] MEDS: THERAGRAN 1 TABLET PO (08:39)
[2024-10-25] MEDS: NEURONTIN 300 MG PO ×3 (08:39→20:59)
[2024-10-25] MEDS: LIPITOR 20 MG PO (08:39)
--- NOTE | 2024-10-25 08:41 | W.PN.HOSP.TC ---
Today's Communication/Plan
-
See plan
Assessment / Plan
Assessment / Plan
Physical Exam
General: No acute distress, appears comfortable at this time
HEENT: NormoCephalic, Anicteric and Moist mucous membranes
Respiratory: Clear
Cardiac: S1/S2 and Regular Rhythm
GI: Soft, Non Tender, Non Distended and Normal Bowel Sounds
Musculoskeletal: No Clubbing, No Cyanosis
Skin: Warm, Dry, LLE dressing clean dry intact
Neuro: AO x 3
Psych: Calm
78M atrial fibrillation on Coumadin, hypertension, hyperlipidemia, GERD Charcot foot p/w several days of worsening erythema and swelling to his left calf, purulent drainage. Recent emergent surgical intervention, Lt calf hematoma evacuation, September [address] Galvin. The patient was seen by podiatry outpatient and started on oral doxycycline and Augmentin secondary to suspected cellulitis in the area of surgery, however the region had since worsen despite oral abx. VSS, afebrile, no significant
Leukocytosis.
#LLE wound infection with surrounding cellulitis, failed outpt treatment
#recent hx LT calf emergent hematoma evacuation with Dr Galvin 09/30/24
-ID eval appreciated IV Zosyn continued; empiric IV Vancomycin discontinued
-blood cx, wound cx results pending
-Follow cultures from IR aspiration performed on 10/25/24
-monitor H&H
-CT LLE appreciated Complex rim-enhancing fluid collection of the posterolateral left lower leg soft tissues at the site of the evacuated hematoma, now suspicious for an infected hematoma/abscess
-Vasc Sx consult appreciated IR to be consulted Mon 10/25 for possible benefit drain placement
-IR consulted for aspiration, which was done on 10/25/24 -- confirmed with IR on 10/25/24 that it is okay to resume Coumadin
#Anemia, history
#Possible Acute Blood Loss anemia
Monitor H&H
#Chronic atrial fibrillation INR goal 2-3
# Essential Hypertension
-Okay to resume Coumadin today
-daily INR checks
-cont home Cardizem Atenolol w/ holding parameters
#Lower Back Pain
#Recent fall in bathroom 10/24 fell on bottom without head trauma per RN
Lidocaine patches
bengay like cream
Tylenol Tramadol prn
#History Right foot Charcot Arthropathy status post surgery
#Gastroesophageal reflux disease
cont home pepcid
#Hyperlipidemia
-Atorvastatin
#Right distal radius ORIF
PT/OT eval
DVT ppx Coumadin
Full Code
Discussed with patient and patient's Dania
Anticipated Discharge: > 48 hours
Subjective/Interval History
-
Date of Service: October 25, 2024
Patient was seen and examined. He was doing okay, no new significant symptoms or complaints.
Objective Data
-
Labs:
Laboratory Results
10/25/24
06:53
WBC 7.9
Hgb 8.8 L
Hct 26.8 L
Plt Count 251
PT 22.5 H
INR 1.96
Sodium 138
Potassium 3.7
Chloride 106
Carbon Dioxide 25
BUN 9
Creatinine 0.8
Glucose 116 H
Calcium 8.5
Vital Signs:
Vital Signs
Temp Pulse Resp BP Pulse Ox
97.5 F 110 18 162/81 97
10/24/24 23:59 10/25/24 05:52 10/24/24 23:59 10/25/24 05:52 10/24/24 23:59
I&O
10/24/24 10/25/24 10/26/24
06:59 06:59 06:59
Intake Total 1760 / 1760 1160 / 1160
Output Total 2475 / 2475
Balance 1760 / 1760 -1315 / -1315
[2024-10-25 09:14] LABS: Folate > 20.0 ng/ml (2.76-20); Vitamin B12 411 pg/ml (239-931)
--- NOTE | 2024-10-25 10:53 | WOUNDNOTE ---
LEFT POSTERIOR LEG WOUND
--- NOTE | 2024-10-25 10:53 | WOUNDNOTE ---
RIGHT ANTERIOR LEG WOUND
--- NOTE | 2024-10-25 10:55 | WOUNDNOTE ---
RIGHT PLANTAR HEEL
--- NOTE | 2024-10-25 10:59 | WOUNDNOTE ---
[facility] RN note: Patient admitted with left LE cellulitis.
See H&P for complete history.
PMH: Per Physician note, atrial fibrillation on Coumadin, hypertension, hyperlipidemia, GERD, Charcot of feet, blood clots, falls. Most recent fall was in hospital on 10/24.
Wound Location and type/assessment: Patient known from prior admission regarding left leg wound. Patient admitted to [facility] form 09/30-10/10 s/p fall resulting in left leg hematoma. During admission vascular performed evacuation of left calf hematoma.
Per patient, he had MELODIE drain removed from wound by vascular a few weeks ago. He has been receiving wound care at home from [facility] and . [place] RN noticed increased erythema of leg and patient came to ER. At time of assessment, left leg wound was
covered with 70% black eschar and is currently being treated for cellulitis in this leg. Patient also admitted with right plantar foot wound, managed by [facility]. Wound feels closed when palpated, but a scant amount of drainage was noted on
bandage. See worklist for measurements and details. Heels and sacrum intact. Patient reports good appetite.
Pressure redistribution devices in place: Versa Care with Accumax. Patient turns easily in bed and ambulates with walker.
Plan: Per chart review, plan is for patient to go IR today for draining of left leg wound. At time of assessment wound was cleaned and covered with adaptic and dry dressing and wrapped with ANASTASIIA per vascular order. Will follow up with vascular and
patient s/p IR procedure for next steps. Dr. Boss aware of plan and confirmed orders. Local wound care provided to right plantar foot as ordered. Will confirm orders with hospitalist and update nurse. Updated care plan and will follow as
needed.
Note to case management of equipment requested for discharge:
Recommend follow up at wound care center upon discharge.
--- NOTE | 2024-10-25 15:06 | W.PN.ID1 ---
Date of Service
Date of Service: October 25, 2024
Today's Communication
Continue Zosyn
Assessment / Plan
# LLE infected hematoma vs abscess
# Recent large left calf hematoma evacuation 09/30/24
- 10/21/24 Outside wound swab - gram stain, GPC pairs/chains, GPR. Cx still pending
-IR drainage of fluid collection; send cultures
- Continue Zosyn (d2)
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
Hypertension
Atrial fibrillation on Coumadin
HLD
Left calf hematoma evacuation 09/30/24
Right foot Charcot arthropathy surgeries
Right distal radius ORIF
Chief Complaint
-: Cellulitis
Vital Signs / Physical Exam
Vital Signs
Vital Signs
Temp Pulse Resp BP Pulse Ox
98.3 F 99 16 123/64 97
10/25/24 13:45 10/25/24 13:45 10/25/24 13:45 10/25/24 13:45 10/25/24 13:45
Physical Exam
Constitutional: No Acute Distress
Cardiovascular: Regular Rate and S1/S2
Pulmonary: Clear
Gastrointestinal: Soft, Non Tender and Non Distended
Extremities: Other (LLE: 2+edema, + induration calf with draining wound, serous-bloody; + warmth, erythema )
Objective Data
Lab Data
Lab Results
10/25/24 06:53
10/25/24 06:53
PT 22.5 Sec (11.4-14.6) H 10/25/24 06:53
INR 1.96 10/25/24 06:53
Estimated Creat Clear 84 ml/min 10/25/24 06:53
Total Bilirubin 0.5 mg/dl (0.2-1.3) 10/24/24 06:00
AST 44 U/L (17-59) 10/24/24 06:00
ALT 57 U/L (0-50) H 10/24/24 06:00
Alkaline Phosphatase 166 U/L (38-126) H 10/24/24 06:00
Most recent labs reviewed.
Micro Results:
10/23/24 21:04 MRSA Screen - Final
Nose No Methicillin Resistant Staphylococcus aureus isolated.
10/23/24 16:13 Blood Culture - Preliminary
Blood/Venous No Growth in 24 hours- Final report to follow
10/23/24 16:13 Blood Culture - Preliminary
Blood/Venous No Growth in 24 hours- Final report to follow
10/23/24 CT LLE: Complex rim-enhancing fluid collection of the posterolateral left lower leg soft tissues at the site of the evacuated hematoma, now suspicious for an infected hematoma/abscess given the provided clinical information.
[2024-10-25] MEDS: PEPCID 20 MG PO (15:47)
[2024-10-25] MEDS: CARDIZEM CD 180 MG PO (15:47)
[2024-10-25] MEDS: COUMADIN 5 MG PO (17:48)
[2024-10-25] MEDS: ULTRAM 25 MG PO (21:09)
[2024-10-26 03:16] VITALS: BP 153/90
[2024-10-26] MEDS: ZOSYN 100 IV ×4 (05:21→23:35)
[2024-10-26 07:37] LABS: Hematocrit 28.2 % (39.0-52.0); Hemoglobin 9.1 g/dL (13.0-18.0); Mean Corp Hgb Conc. 32.3 g/dL (33.0-37.0); Mean Corpuscular Volume 89.5 fL (80.0-94.0); Platelet Count 208 10^3/uL (130-400); Red Cell Dist. Width 16.4 % (11.5-14.5)
[2024-10-26 08:00] LABS: INR 1.83; PT 21.4 Sec (11.4-14.6)
[2024-10-26] MEDS: LIDOCAINE 4% PATCH 2 PATCH TOPICAL (08:10)
[2024-10-26] MEDS: BenGay-Like 1 APPLIC TOPICAL ×3 (08:11→21:59)
[2024-10-26] MEDS: OCUVITE SOFTGEL 1 CAP PO (08:12)
[2024-10-26] MEDS: TENORMIN 50 MG PO (08:12)
[2024-10-26] MEDS: NEURONTIN 300 MG PO ×3 (08:12→21:59)
[2024-10-26] MEDS: LIPITOR 20 MG PO (08:12)
[2024-10-26] MEDS: THERAGRAN 1 TABLET PO (08:12)
[2024-10-26 08:15] VITALS: BP 141/84
[2024-10-26 08:34] LABS: Blood Urea Nitrogen 12 mg/dl (9-20); Calcium 8.3 mg/dl (8.4-10.2); Carbon Dioxide 25 mmol/L (22-30); Chloride 105 mmol/L (98-107); Estimated Creatinine Clearance 84 ml/min; Glucose 107 mg/dl (70-99); Magnesium 1.9 mg/dl (1.6-2.3); Potassium 3.8 mmol/L (3.5-5.1); Sodium 137 mmol/L (135-145); eGFR > 60.00
--- NOTE | 2024-10-26 09:45 | W.PN.ID1 ---
Date of Service
Date of Service: October 26, 2024
Today's Communication
Continue Zosyn.
Assessment / Plan
# LLE infected hematoma vs abscess
# Recent large left calf hematoma evacuation 09/30/24
- 10/21/24 Outside wound swab - gram stain, GPC pairs/chains, GPR.
Cx: Pseudomonas stutzeri (sensitive to cipro, meropenem, Zosyn, t/sulfa; resistant to cefepime, ceftaz, aminoglycosides)
E.faecalis
Corynebacterium striatum
-10/25 s,p IR drainage of old blood.
cultures pending
- Continue Zosyn (d3)
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
Hypertension
Atrial fibrillation on Coumadin
HLD
Left calf hematoma evacuation 09/30/24
Right foot Charcot arthropathy surgeries
Right distal radius ORIF
Chief Complaint
-: Cellulitis
Subjective / Review of Systems
Feeling better.
Vital Signs / Physical Exam
Vital Signs
Vital Signs
Temp Pulse Resp BP Pulse Ox
98.0 F 95 14 141/84 95
10/26/24 08:15 10/26/24 08:15 10/26/24 08:15 10/26/24 08:15 10/26/24 08:15
Physical Exam
Constitutional: No Acute Distress
Cardiovascular: Regular Rate and S1/S2
Pulmonary: Clear
Gastrointestinal: Soft, Non Tender and Non Distended
Extremities: Edema (LLE) and Erythema (LLE decreaseing erythema and receding)
Neurological: AO x 3
Objective Data
Lab Data
Lab Results
10/26/24 07:21
10/26/24 07:21
PT 21.4 Sec (11.4-14.6) H 10/26/24 07:21
INR 1.83 10/26/24 07:21
Estimated Creat Clear 84 ml/min 10/26/24 07:21
Total Bilirubin 0.5 mg/dl (0.2-1.3) 10/24/24 06:00
AST 44 U/L (17-59) 10/24/24 06:00
ALT 57 U/L (0-50) H 10/24/24 06:00
Alkaline Phosphatase 166 U/L (38-126) H 10/24/24 06:00
Most recent labs reviewed.
Micro Results:
10/25/24 14:55 Body Fluid Culture - Pending
Fluid Gram Stain - Preliminary
10/23/24 16:13 Blood Culture - Preliminary
Blood/Venous No Growth in 48 hours- Final report to follow
10/23/24 16:13 Blood Culture - Preliminary
Blood/Venous No Growth in 48 hours- Final report to follow
10/23/24 21:04 MRSA Screen - Final
Nose No Methicillin Resistant Staphylococcus aureus isolated.
10/23/24 CT LLE: Complex rim-enhancing fluid collection of the posterolateral left lower leg soft tissues at the site of the evacuated hematoma, now suspicious for an infected hematoma/abscess given the provided clinical information.
--- NOTE | 2024-10-26 09:49 | PN.CDI ---
CDI
- -
CDI:
Physician Documentation Request
Admit Date: 10/23/24 18:56
Dear Vascular Surgery,
Patient admitted for cellulitis.
ER Physician Documentation: 'status post evacuation of hematoma to left leg 09/30 presents with acute cellulitis of this leg.'
H&P: 'worsening erythema and swelling to his left calf, purulent drainage, following recent surgical intervention on September 30'
Please clarify the following:
Cellulitis is a complication of the surgery
Cellulitis is unexpected but is NOT a complication of the surgery
Cellulitis is an expected occurrence and is not a complication of surgery
Cellulitis is inherent to/unavoidable during the surgery and is not a complication
Other
Use of terms such as suspected, likely, concern for, or probable (associated with a specific diagnosis that is being evaluated, monitored, or treated as if it exists) are acceptable and can be coded in the inpatient setting, when documented at the
time of discharge.
Thank you,
Chantell Chou RN, BSN
CDI Specialist
Available via [place] text
Please use your independent medical judgment in providing your response.
[2024-10-26 12:07] VITALS: BP 134/79
--- NOTE | 2024-10-26 12:50 | CM ---
Chart reviewed. Plan of care ongoing.
Patient is current w/ VN and PT. Wound care from [facility]
Cont IV abx at this time
Therapy rec HH, will resume w/ [facility] at d/c. Update to [facility] yesterday. [facility] referral prev completed.
Plan: Home, [facility] w/ [facility] when medically stable
[2024-10-26 15:53] VITALS: BP 130/79
--- NOTE | 2024-10-26 16:26 | W.PN.HOSP.TC ---
Today's Communication/Plan
-
Continue Zosyn
Follow cultures
Assessment / Plan
Assessment / Plan
Physical Exam
General: No acute distress, appears comfortable at this time
HEENT: NormoCephalic, Anicteric and Moist mucous membranes
Respiratory: Clear
Cardiac: S1/S2 and Regular Rhythm
GI: Soft, Non Tender, Non Distended and Normal Bowel Sounds
Musculoskeletal: No Cyanosis
Skin: Warm, Dry, LLE dressing clean dry intact
Neuro: AO x 3
Psych: Calm
78M atrial fibrillation on Coumadin, hypertension, hyperlipidemia, GERD Charcot foot p/w several days of worsening erythema and swelling to his left calf, purulent drainage. Recent emergent surgical intervention, Lt calf hematoma evacuation, September [address] Galvin. The patient was seen by podiatry outpatient and started on oral doxycycline and Augmentin secondary to suspected cellulitis in the area of surgery, however the region had since worsen despite oral abx. VSS, afebrile, no significant
Leukocytosis.
#LLE wound infection with surrounding cellulitis, failed outpt treatment
#recent hx LT calf emergent hematoma evacuation with Dr Galvin 09/30/24
-ID eval appreciated IV Zosyn continued; empiric IV Vancomycin discontinued
-blood cx here with NGTD
-10/21/24 Outside wound culture - gram stain, GPC pairs/chains, GPR.
Cx: Pseudomonas stutzeri (sensitive to cipro, meropenem, Zosyn, t/sulfa; resistant to cefepime, ceftaz, aminoglycosides)
E.faecalis
Corynebacterium striatum
-Follow cultures from IR aspiration performed on 10/25/24
-Continue Zosyn
-CT LLE appreciated Complex rim-enhancing fluid collection of the posterolateral left lower leg soft tissues at the site of the evacuated hematoma, now suspicious for an infected hematoma/abscess
-IR consulted for aspiration, which was done on 10/25/24 -- confirmed with IR on 10/25/24 that it is okay to resume Coumadin
#Anemia, history
#Possible Acute Blood Loss anemia
Monitor H&H
Although iron studies suggest iron deficiency anemia, no IV iron for now given infection
Will consider oral iron
#Chronic atrial fibrillation INR goal 2-3
# Essential Hypertension
-Okay to resume Coumadin today
-daily INR checks
-cont home Cardizem Atenolol w/ holding parameters
#Lower Back Pain
#Recent fall in bathroom 10/24 fell on bottom without head trauma per RN
Lidocaine patches
bengay like cream
Tylenol Tramadol prn
#History Right foot Charcot Arthropathy status post surgery
#Gastroesophageal reflux disease
cont home pepcid
#Hyperlipidemia
-Atorvastatin
#Right distal radius ORIF
PT/OT eval
DVT ppx Coumadin
Full Code
Anticipated Discharge: 24 - 48 hours
Subjective/Interval History
-
Date of Service: October 26, 2024
Patient was seen and examined. He denied any new symptoms or complaints.
Objective Data
-
Labs:
Laboratory Results
10/26/24
07:21
WBC 9.0
Hgb 9.1 L
Hct 28.2 L
Plt Count 208
PT 21.4 H
INR 1.83
Sodium 137
Potassium 3.8
Chloride 105
Carbon Dioxide 25
BUN 12
Creatinine 0.8
Glucose 107 H
Calcium 8.3 L
Vital Signs:
Vital Signs
Temp Pulse Resp BP Pulse Ox
97.2 F 83 16 130/79 96
10/26/24 15:53 10/26/24 15:53 10/26/24 15:53 10/26/24 15:53 10/26/24 15:53
I&O
10/25/24 10/26/24 10/27/24
06:59 06:59 06:59
Intake Total 1160 / 1160 1480 / 1480
Output Total 2475 / 2475 1000 / 1000
Balance -1315 / -1315 480 / 480
[2024-10-26] MEDS: PEPCID 20 MG PO (17:35)
[2024-10-26] MEDS: COUMADIN 2.5 MG PO (17:35)
[2024-10-26] MEDS: CARDIZEM CD 180 MG PO (17:35)
[2024-10-26] MEDS: ULTRAM 25 MG PO (20:57)
[2024-10-26 23:17] VITALS: BP 148/82
[2024-10-27] MEDS: ZOSYN 100 IV ×4 (05:40→23:20)
[2024-10-27 06:22] LABS: Hematocrit 26.2 % (39.0-52.0); Hemoglobin 8.5 g/dL (13.0-18.0); Mean Corp Hgb Conc. 32.4 g/dL (33.0-37.0); Mean Corpuscular Volume 88.8 fL (80.0-94.0); Platelet Count 232 10^3/uL (130-400); Red Cell Dist. Width 16.3 % (11.5-14.5)
[2024-10-27 06:28] LABS: INR 1.90; PT 21.9 Sec (11.4-14.6)
[2024-10-27 06:51] LABS: Blood Urea Nitrogen 14 mg/dl (9-20); Calcium 8.2 mg/dl (8.4-10.2); Carbon Dioxide 25 mmol/L (22-30); Chloride 105 mmol/L (98-107); Estimated Creatinine Clearance 84 ml/min; Glucose 108 mg/dl (70-99); Magnesium 1.8 mg/dl (1.6-2.3); Potassium 3.6 mmol/L (3.5-5.1); Sodium 135 mmol/L (135-145); eGFR > 60.00
[2024-10-27] MEDS: LIPITOR 20 MG PO (08:02)
[2024-10-27] MEDS: BenGay-Like 1 APPLIC TOPICAL ×3 (08:02→21:35)
[2024-10-27] MEDS: NEURONTIN 300 MG PO ×3 (08:02→21:35)
[2024-10-27] MEDS: OCUVITE SOFTGEL 1 CAP PO (08:02)
[2024-10-27] MEDS: LIDOCAINE 4% PATCH 2 PATCH TOPICAL (08:02)
[2024-10-27] MEDS: THERAGRAN 1 TABLET PO (08:03)
[2024-10-27 08:04] VITALS: BP 137/80
[2024-10-27] MEDS: TENORMIN 50 MG PO (08:05)
--- NOTE | 2024-10-27 12:08 | W.PN.ID1 ---
Date of Service
Date of Service: October 27, 2024
Today's Communication
- Continue Zosyn (d4)
- Anticipate transition to po abx's tomorrow. Check QTc in am.
Assessment / Plan
# LLE infected hematoma vs abscess
# Recent large left calf hematoma evacuation 09/30/24
- 10/21/24 Outside wound cx
Cx: Pseudomonas stutzeri (sensitive to cipro, meropenem, Zosyn, t/sulfa; resistant to cefepime, ceftaz, aminoglycosides)
E.faecalis
Corynebacterium striatum
-10/25 s/p IR drainage of old blood.
cx GNR, Enteroccocus, Diphtheroid
- Continue Zosyn (d4)
- Anticipate transition to po abx's tomorrow. Check QTc in am.
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
Hypertension
Atrial fibrillation on Coumadin
HLD
Left calf hematoma evacuation 09/30/24
Right foot Charcot arthropathy surgeries
Right distal radius ORIF
Chief Complaint
-: Cellulitis
Subjective / Review of Systems
Left calf was oozing blood last night. Better this am.
Vital Signs / Physical Exam
Vital Signs
Vital Signs
Temp Pulse Resp BP Pulse Ox
98.7 F 91 14 137/80 96
10/27/24 08:04 10/27/24 08:04 10/27/24 08:04 10/27/24 08:05 10/27/24 08:04
Physical Exam
Constitutional: No Acute Distress
Cardiovascular: Regular Rate and S1/S2
Pulmonary: Clear
Gastrointestinal: Soft, Non Tender and Non Distended
Extremities: Edema (LLE decreased) and Erythema (LLE decreased)
Wound: Other (left calf scant blood)
Neurological: AO x 3
Objective Data
Lab Data
Lab Results
10/27/24 05:33
10/27/24 05:33
PT 21.9 Sec (11.4-14.6) H 10/27/24 05:33
INR 1.90 10/27/24 05:33
Estimated Creat Clear 84 ml/min 10/27/24 05:33
Total Bilirubin 0.5 mg/dl (0.2-1.3) 10/24/24 06:00
AST 44 U/L (17-59) 10/24/24 06:00
ALT 57 U/L (0-50) H 10/24/24 06:00
Alkaline Phosphatase 166 U/L (38-126) H 10/24/24 06:00
Most recent labs reviewed.
Micro Results:
10/25/24 14:55 Body Fluid Culture - Preliminary
Fluid Enterococcus species
Gram negative bacilli
Diptheroids
Gram Stain - Preliminary
10/27/24 06:25 Wound Culture - Pending
Abscess Gram Stain - Preliminary
10/23/24 16:13 Blood Culture - Preliminary
Blood/Venous No Growth in 72 hours- Final report to follow
10/23/24 16:13 Blood Culture - Preliminary
Blood/Venous No Growth in 72 hours- Final report to follow
10/23/24 21:04 MRSA Screen - Final
Nose No Methicillin Resistant Staphylococcus aureus isolated.
10/23/24 CT LLE: Complex rim-enhancing fluid collection of the posterolateral left lower leg soft tissues at the site of the evacuated hematoma, now suspicious for an infected hematoma/abscess given the provided clinical information.
[2024-10-27 14:53] VITALS: BP 124/71
[2024-10-27 15:19] VITALS: BP 123/74
[2024-10-27] MEDS: ULTRAM 25 MG PO ×2 (16:42→23:20)
[2024-10-27] MEDS: COUMADIN 5 MG PO (17:17)
[2024-10-27] MEDS: PEPCID 20 MG PO (17:18)
[2024-10-27] MEDS: CARDIZEM CD 180 MG PO (17:18)
[2024-10-27 18:11] VITALS: BP 139/81; PULSE 88; O2SAT 97
--- NOTE | 2024-10-27 18:15 | W.PN.HOSP.TC ---
Today's Communication/Plan
-
Check QTc in the morning in anticipation of transitioning to oral antibiotics tomorrow
Continue Zosyn for now
Assessment / Plan
Assessment / Plan
Physical Exam
General: No acute distress, appears comfortable at this time
HEENT: NormoCephalic, Anicteric and Moist mucous membranes
Respiratory: Clear
Cardiac: S1/S2 and Regular Rhythm
GI: Soft, Non Tender, Non Distended and Normal Bowel Sounds
Musculoskeletal: No Cyanosis
Skin: Warm, Dry, LLE dressing clean dry intact
Neuro: AO x 3
Psych: Calm
78M atrial fibrillation on Coumadin, hypertension, hyperlipidemia, GERD Charcot foot p/w several days of worsening erythema and swelling to his left calf, purulent drainage. Recent emergent surgical intervention, Lt calf hematoma evacuation, September [address] Galvin. The patient was seen by podiatry outpatient and started on oral doxycycline and Augmentin secondary to suspected cellulitis in the area of surgery, however the region had since worsen despite oral abx. VSS, afebrile, no significant
Leukocytosis.
#LLE wound infection with surrounding cellulitis, failed outpt treatment
#recent hx LT calf emergent hematoma evacuation with Dr Galvin 09/30/24
-ID eval appreciated IV Zosyn continued; empiric IV Vancomycin discontinued
-blood cx here with NGTD
-10/21/24 Outside wound culture - gram stain, GPC pairs/chains, GPR.
Cx: Pseudomonas stutzeri (sensitive to cipro, meropenem, Zosyn, t/sulfa; resistant to cefepime, ceftaz, aminoglycosides)
E.faecalis
Corynebacterium striatum
-Follow cultures from IR aspiration performed on 10/25/24: cx GNR, Enteroccocus, Diphtheroid
-Continue Zosyn
-CT LLE appreciated Complex rim-enhancing fluid collection of the posterolateral left lower leg soft tissues at the site of the evacuated hematoma, now suspicious for an infected hematoma/abscess
-IR consulted for aspiration, which was done on 10/25/24
#Anemia, history
#Possible Acute Blood Loss anemia
Monitor H&H
Although iron studies suggest iron deficiency anemia, no IV iron for now given infection
Will consider oral iron
#Chronic atrial fibrillation INR goal 2-3
# Essential Hypertension
-Continue Coumadin
-daily INR checks
-cont home Cardizem Atenolol w/ holding parameters
#Lower Back Pain
#Recent fall in bathroom 10/24 fell on bottom without head trauma per RN
Lidocaine patches
bengay like cream
Tylenol Tramadol prn
#History Right foot Charcot Arthropathy status post surgery
#Gastroesophageal reflux disease
cont home pepcid
#Hyperlipidemia
-Atorvastatin
#Right distal radius ORIF
PT/OT eval
DVT ppx Coumadin
Full Code
Anticipated Discharge: Within 24 hours
Subjective/Interval History
-
Date of Service: October 27, 2024
Patient was seen and examined. He denied any new symptoms or complaints.
Objective Data
-
Labs:
Laboratory Results
10/27/24
05:33
WBC 8.2
Hgb 8.5 L
Hct 26.2 L
Plt Count 232
PT 21.9 H
INR 1.90
Sodium 135
Potassium 3.6
Chloride 105
Carbon Dioxide 25
BUN 14
Creatinine 0.8
Glucose 108 H
Calcium 8.2 L
Vital Signs:
Vital Signs
Temp Pulse Resp BP Pulse Ox
97.5 F 74 16 123/74 98
10/27/24 15:19 10/27/24 15:19 10/27/24 15:19 10/27/24 17:18 10/27/24 15:19
I&O
10/26/24 10/27/24 10/28/24
06:59 06:59 06:59
Intake Total 1480 / 1480 2440 / 2440 180 / 180
Output Total 1000 / 1000 1075 / 1075 1325 / 1325
Balance 480 / 480 1365 / 1365 -1145 / -1145
[2024-10-27 22:49] VITALS: BP 129/73
[2024-10-28] MEDS: ZOSYN 100 IV ×3 (05:14→17:35)
[2024-10-28 06:06] LABS: Hematocrit 25.8 % (39.0-52.0); Hemoglobin 8.4 g/dL (13.0-18.0); Mean Corp Hgb Conc. 32.6 g/dL (33.0-37.0); Mean Corpuscular Volume 89.3 fL (80.0-94.0); Platelet Count 231 10^3/uL (130-400); Red Cell Dist. Width 16.2 % (11.5-14.5)
[2024-10-28 06:14] LABS: INR 1.80; PT 21.4 Sec (11.4-14.6)
[2024-10-28 06:31] LABS: Blood Urea Nitrogen 14 mg/dl (9-20); Calcium 8.4 mg/dl (8.4-10.2); Carbon Dioxide 24 mmol/L (22-30); Chloride 105 mmol/L (98-107); Estimated Creatinine Clearance 74 ml/min; Glucose 107 mg/dl (70-99); Magnesium 2.0 mg/dl (1.6-2.3); Potassium 3.8 mmol/L (3.5-5.1); Sodium 136 mmol/L (135-145); eGFR > 60.00
[2024-10-28 07:00] VITALS: BP 136/75
[2024-10-28] MEDS: BenGay-Like 1 APPLIC TOPICAL ×3 (08:53→22:46)
[2024-10-28] MEDS: OCUVITE SOFTGEL 1 CAP PO (08:54)
[2024-10-28] MEDS: THERAGRAN 1 TABLET PO (08:54)
[2024-10-28] MEDS: LIPITOR 20 MG PO (08:54)
[2024-10-28] MEDS: NEURONTIN 300 MG PO ×3 (08:54→22:45)
[2024-10-28] MEDS: TENORMIN 50 MG PO (08:54)
[2024-10-28] MEDS: LIDOCAINE 4% PATCH 2 PATCH TOPICAL (08:54)
[2024-10-28] MEDS: ULTRAM 25 MG PO ×2 (09:11→17:47)
--- NOTE | 2024-10-28 13:25 | W.PN.ID1 ---
Date of Service
Date of Service: October 28, 2024
Today's Communication
Continue Zosyn
Assessment / Plan
# LLE infected hematoma vs abscess
# Recent large left calf hematoma evacuation 09/30/24
- 10/21/24 Outside wound cx
Cx: Pseudomonas stutzeri (sensitive to cipro, meropenem, Zosyn, t/sulfa; resistant to cefepime, ceftaz, aminoglycosides)
E.faecalis
Corynebacterium striatum
-10/25 s/p IR drainage of old blood.
cx GNR, Enteroccocus, Diphtheroid
- Continue Zosyn (d5)
- Anticipate transition to po abx's tomorrow when final cx data available. QTc 493
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
Hypertension
Atrial fibrillation on Coumadin
HLD
Left calf hematoma evacuation 09/30/24
Right foot Charcot arthropathy surgeries
Right distal radius ORIF
Chief Complaint
-: Cellulitis
Subjective / Review of Systems
No new complaints.
Vital Signs / Physical Exam
Vital Signs
Vital Signs
Temp Pulse Resp BP Pulse Ox
98.5 F 97 18 136/75 96
10/28/24 07:00 10/28/24 07:00 10/28/24 07:00 10/28/24 07:00 10/28/24 07:00
Physical Exam
Constitutional: No Acute Distress
Cardiovascular: Regular Rate and S1/S2
Pulmonary: Clear
Gastrointestinal: Soft, Non Tender and Non Distended
Extremities: Edema (LLE decreased edema), Erythema (LLE decreased erythema and warmth) and Other (LLE lateral and posterior calf incisional wound with yellow fibrinous slough and dried blood; old blood on calf)
Neurological: AO x 3
Objective Data
Lab Data
Lab Results
10/28/24 05:08
10/28/24 05:08
PT 21.4 Sec (11.4-14.6) H 10/28/24 05:08
INR 1.80 10/28/24 05:08
Estimated Creat Clear 74 ml/min 10/28/24 05:08
Total Bilirubin 0.5 mg/dl (0.2-1.3) 10/24/24 06:00
AST 44 U/L (17-59) 10/24/24 06:00
ALT 57 U/L (0-50) H 10/24/24 06:00
Alkaline Phosphatase 166 U/L (38-126) H 10/24/24 06:00
Most recent labs reviewed.
Micro Results:
10/25/24 14:55 Body Fluid Culture - Preliminary
Fluid Enterococcus faecalis
Gram negative bacilli
Diptheroids
Gram Stain - Preliminary
10/27/24 06:25 Wound Culture - Preliminary
Abscess Gram Stain - Preliminary
10/23/24 16:13 Blood Culture - Preliminary
Blood/Venous No Growth in 4 days- Final report to follow
10/23/24 16:13 Blood Culture - Preliminary
Blood/Venous No Growth in 4 days- Final report to follow
10/23/24 21:04 MRSA Screen - Final
Nose No Methicillin Resistant Staphylococcus aureus isolated.
10/23/24 CT LLE: Complex rim-enhancing fluid collection of the posterolateral left lower leg soft tissues at the site of the evacuated hematoma, now suspicious for an infected hematoma/abscess given the provided clinical information.
--- NOTE | 2024-10-28 14:38 | CM ---
Chart reviewed. Care ongoing at this time.
Cont IV abx, possibly will transition to po abx tomorrow
Patient is current w/ [facility] VN and PT. Wound care from [facility]
Therapy rec HH, will resume w/ [facility] at d/c
Plan: Home, [facility] w/ [facility] when medically stable
[2024-10-28 15:07] VITALS: BP 140/77
--- NOTE | 2024-10-28 15:19 | W.PN.HOSP.TC ---
Today's Communication/Plan
-
MRI of spine given progressively worsening back pain
Continue IV antibiotics, follow cultures
Assessment / Plan
Assessment / Plan
Physical Exam
General: No acute distress, appears comfortable at this time
HEENT: Normocephalic, Anicteric and Moist mucous membranes
Respiratory: Clear
Cardiac: S1/S2 and Regular Rhythm
GI: Soft, Non Tender, Non Distended and Normal Bowel Sounds
Musculoskeletal: No Cyanosis
Skin: Warm, Dry, LLE dressing clean dry intact
Neuro: AO x 3. Bilateral lower extremities with 5/5 strength, sensation grossly intact bilaterally
Psych: Calm
Assessment/Plan
78M atrial fibrillation on Coumadin, hypertension, hyperlipidemia, GERD Charcot foot p/w several days of worsening erythema and swelling to his left calf, purulent drainage. Recent emergent surgical intervention, Lt calf hematoma evacuation, September [address] Galvin. The patient was seen by podiatry outpatient and started on oral doxycycline and Augmentin secondary to suspected cellulitis in the area of surgery, however the region had since worsen despite oral abx. VSS, afebrile, no significant
Leukocytosis.
#LLE wound infection with surrounding cellulitis, failed outpt treatment
#recent hx LT calf emergent hematoma evacuation with Dr Galvin 09/30/24
-ID eval appreciated IV Zosyn continued; empiric IV Vancomycin discontinued
-blood cx here with NGTD
-10/21/24 Outside wound culture - gram stain, GPC pairs/chains, GPR.
Cx: Pseudomonas stutzeri (sensitive to cipro, meropenem, Zosyn, t/sulfa; resistant to cefepime, ceftaz, aminoglycosides)
E.faecalis
Corynebacterium striatum
-Follow cultures from IR aspiration performed on 10/25/24: cx GNR, Enteroccocus, Diphtheroid
-Continue Zosyn
-CT LLE appreciated Complex rim-enhancing fluid collection of the posterolateral left lower leg soft tissues at the site of the evacuated hematoma, now suspicious for an infected hematoma/abscess
-IR consulted for aspiration, which was done on 10/25/24
Progressively worsening back pain following recent falls
-Patient reported mid back and lower back progressively worsening pain
-Patient denied saddle anesthesia, urinary of fecal incontinence, or any numbness or weakness in his lower extremities
-Check MRI of T spine and L spine
#Anemia, history
#Possible Acute Blood Loss anemia
Monitor H&H
Check ferritin, based on iron study results will decide on PO iron supplementation. No IV iron given infection currently.
#Chronic atrial fibrillation INR goal 2-3
# Essential Hypertension
-Continue Coumadin
-daily INR checks
-cont home Cardizem Atenolol w/ holding parameters
#Lower Back Pain
#Recent fall in bathroom 10/24 fell on bottom without head trauma per RN
Lidocaine patches
bengay like cream
Tylenol Tramadol prn
#History Right foot Charcot Arthropathy status post surgery
#Gastroesophageal reflux disease
cont home pepcid
#Hyperlipidemia
-Atorvastatin
#Right distal radius ORIF
PT/OT eval
DVT ppx Coumadin
Full Code
Anticipated Discharge: 24 - 48 hours
Subjective/Interval History
-
Date of Service: October 28, 2024
Patient was seen and examined. He reported progressively worsening mid and lower back pain which started after his recent falls. He denied any saddle anesthesia, urinary or bowel incontinence, or any numbness or tingling.
Objective Data
-
Labs:
Laboratory Results
10/28/24
05:08
WBC 7.5
Hgb 8.4 L
Hct 25.8 L
Plt Count 231
PT 21.4 H
INR 1.80
Sodium 136
Potassium 3.8
Chloride 105
Carbon Dioxide 24
BUN 14
Creatinine 0.9
Glucose 107 H
Calcium 8.4
Vital Signs:
Vital Signs
Temp Pulse Resp BP Pulse Ox
98.5 F 97 18 136/75 96
10/28/24 07:00 10/28/24 07:00 10/28/24 07:00 10/28/24 07:00 10/28/24 07:00
I&O
10/27/24 10/28/24 10/29/24
06:59 06:59 06:59
Intake Total 2440 / 2440 300 / 300
Output Total 1075 / 1075 1974 / 1974
Balance 1365 / 1365 -1675 / -1675
[2024-10-28 15:33] VITALS: BP 122/70
[2024-10-28] MEDS: CARDIZEM CD 180 MG PO (17:34)
[2024-10-28] MEDS: PEPCID 20 MG PO (17:34)
[2024-10-28] MEDS: COUMADIN 5 MG PO (17:38)
[2024-10-28 22:40] VITALS: BP 143/82
[2024-10-29] MEDS: ULTRAM 25 MG PO ×3 (00:07→13:01)
[2024-10-29] MEDS: ZOSYN 100 IV ×3 (00:07→12:55)
[2024-10-29 07:40] LABS: Hematocrit 27.3 % (39.0-52.0); Hemoglobin 8.7 g/dL (13.0-18.0); Mean Corp Hgb Conc. 31.9 g/dL (33.0-37.0); Mean Corpuscular Volume 89.2 fL (80.0-94.0); Platelet Count 253 10^3/uL (130-400); Red Cell Dist. Width 16.1 % (11.5-14.5)
[2024-10-29 07:55] VITALS: BP 144/78
[2024-10-29 07:55] LABS: INR 2.04; PT 23.2 Sec (11.4-14.6)
[2024-10-29 08:01] LABS: Blood Urea Nitrogen 10 mg/dl (9-20); Calcium 8.4 mg/dl (8.4-10.2); Carbon Dioxide 25 mmol/L (22-30); Chloride 104 mmol/L (98-107); Estimated Creatinine Clearance 84 ml/min; Glucose 113 mg/dl (70-99); Magnesium 2.0 mg/dl (1.6-2.3); Potassium 3.7 mmol/L (3.5-5.1); Sodium 135 mmol/L (135-145); eGFR > 60.00
[2024-10-29] MEDS: BenGay-Like 1 APPLIC TOPICAL (08:35)
[2024-10-29 08:36] LABS: Ferritin 177.0 ng/ml (17.9-464.0)
[2024-10-29] MEDS: LIDOCAINE 4% PATCH 2 PATCH TOPICAL (08:40)
[2024-10-29] MEDS: OCUVITE SOFTGEL 1 CAP PO (08:40)
[2024-10-29] MEDS: NEURONTIN 300 MG PO (08:41)
[2024-10-29] MEDS: THERAGRAN 1 TABLET PO (08:41)
[2024-10-29] MEDS: TENORMIN 50 MG PO (08:42)
[2024-10-29] MEDS: LIPITOR 20 MG PO (08:42)
[2024-10-29] MEDS: MIRALAX 17 GRAMS PO (08:43)
--- NOTE | 2024-10-29 13:12 | W.PN.ID1 ---
Date of Service
Date of Service: October 29, 2024
Today's Communication
Transition Zosyn to Linezolid 600mg po bid and doxycycline 100mg po bid through 11/11/24
Assessment / Plan
# LLE infected hematoma vs abscess
# Recent large left calf hematoma evacuation 09/30/24
- 10/21/24 Outside wound cx
Cx: Pseudomonas stutzeri (sensitive to cipro, meropenem, Zosyn, t/sulfa; resistant to cefepime, ceftaz, aminoglycosides)
E.faecalis
Corynebacterium striatum
-10/25 s/p IR drainage of old blood.
cx Pseudomonas stutzeri, Enterococcus, Diphtheroid
- Transition Zosyn to Linezolid 600mg po bid and doxycycline 100mg po bid through 11/11/24
Avoid tyramine-rich foods while on linezolid.
DC prn tramadol while on linezolid
# Back pain after fall
- MRI T/L spine: acute T10, T12 compression fracture with bone marrow edema
non-displaced fracture left 7th rib
L4-L5, L5-S1 bone marrow edema/enhancement -> due to DJD/contusion; does not clinically correlate with discitis/osteo
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
Hypertension
Atrial fibrillation on Coumadin
HLD
Left calf hematoma evacuation 09/30/24
Right foot Charcot arthropathy surgeries
Right distal radius ORIF
Chief Complaint
-: Cellulitis
Vital Signs / Physical Exam
Vital Signs
Vital Signs
Temp Pulse Resp BP Pulse Ox
98.1 F 87 18 144/78 97
10/29/24 07:55 10/29/24 07:55 10/29/24 07:55 10/29/24 07:55 10/29/24 07:55
Physical Exam
Constitutional: No Acute Distress
Cardiovascular: Regular Rate and S1/S2
Pulmonary: Clear
Gastrointestinal: Soft, Non Tender and Non Distended
Extremities: Erythema (LLE decreased erythema/edema) and Other
Neurological: AO x 3
Objective Data
Lab Data
Lab Results
10/29/24 07:05
10/29/24 07:05
PT 23.2 Sec (11.4-14.6) H 10/29/24 07:05
INR 2.04 10/29/24 07:05
Estimated Creat Clear 84 ml/min 10/29/24 07:05
Total Bilirubin 0.5 mg/dl (0.2-1.3) 10/24/24 06:00
AST 44 U/L (17-59) 10/24/24 06:00
ALT 57 U/L (0-50) H 10/24/24 06:00
Alkaline Phosphatase 166 U/L (38-126) H 10/24/24 06:00
Most recent labs reviewed.
Micro Results:
10/27/24 06:25 Wound Culture - Final
Abscess Pseudomonas stutzeri
Diptheroids
Gram Stain - Final
10/25/24 14:55 Body Fluid Culture - Final
Fluid Enterococcus faecalis
Pseudomonas stutzeri
Diptheroids
Gram Stain - Final
10/23/24 16:13 Blood Culture - Final
Blood/Venous No Growth - Final Report
10/23/24 16:13 Blood Culture - Final
Blood/Venous No Growth - Final Report
10/23/24 21:04 MRSA Screen - Final
Nose No Methicillin Resistant Staphylococcus aureus isolated.
10/23/24 CT LLE: Complex rim-enhancing fluid collection of the posterolateral left lower leg soft tissues at the site of the evacuated hematoma, now suspicious for an infected hematoma/abscess given the provided clinical information.
Care Review
Plan reviewed with: Physician (Dr. Boss)
--- NOTE | 2024-10-29 13:30 | W.PN.HOSP.TC ---
Addendum entered and electronically signed by Alonso Boss MD 11/08/24 14:10:
Fracture from falls
Original Note:
Today's Communication/Plan
-
Discharge today
Assessment / Plan
Assessment / Plan
Physical Exam
General: No acute distress, appears comfortable at this time
HEENT: Normocephalic, Anicteric and Moist mucous membranes
Respiratory: Clear
Cardiac: S1/S2 and Regular Rhythm
GI: Soft, Non Tender, Non Distended and Normal Bowel Sounds
Musculoskeletal: No Cyanosis
Skin: Warm, Dry, LLE dressing clean dry intact
Neuro: AO x 3. Bilateral lower extremities with 5/5 strength, sensation grossly intact bilaterally
Psych: Calm
Assessment/Plan
78M atrial fibrillation on Coumadin, hypertension, hyperlipidemia, GERD Charcot foot p/w several days of worsening erythema and swelling to his left calf, purulent drainage. Recent emergent surgical intervention, Lt calf hematoma evacuation, [address] Galvin. The patient was seen by podiatry outpatient and started on oral doxycycline and Augmentin secondary to suspected cellulitis in the area of surgery, however the region had since worsen despite oral abx. VSS, afebrile, no significant
Leukocytosis.
#LLE wound infection with surrounding cellulitis, failed outpt treatment
#LLE infected hematoma vs abscess
#Recent large left calf hematoma evacuation 09/30/24
#Recent hx LT calf emergent hematoma evacuation with Dr Galvin 09/30/24
-ID eval appreciated IV Zosyn continued; empiric IV Vancomycin discontinued
-blood cx here with NGTD
- 10/21/24 Outside wound cx
Cx: Pseudomonas stutzeri (sensitive to cipro, meropenem, Zosyn, t/sulfa; resistant to cefepime, ceftaz, aminoglycosides)
E.faecalis
Corynebacterium striatum
-10/25 s/p IR drainage of old blood.
cx Pseudomonas stutzeri, Enterococcus, Diphtheroid
-Follow cultures from IR aspiration performed on 10/25/24: cx GNR, Enteroccocus, Diphtheroid
-Stop Zosyn. Transition to Linezolid 600 mg PO BID and Doxycycline 100 mg PO BID through 11/11/24
-Avoid tyramine-rich foods while on Linezolid.
-CT LLE appreciated Complex rim-enhancing fluid collection of the posterolateral left lower leg soft tissues at the site of the evacuated hematoma, now suspicious for an infected hematoma/abscess
-IR consulted for aspiration, which was done on 10/25/24
#Progressively worsening back pain following recent falls
#Recent fall in bathroom 10/24 fell on bottom without head trauma per RN
#MRI T/L spine: acute T10, T12 compression fracture with bone marrow edema
#L4-L5, L5-S1 bone marrow edema/enhancement -> due to DJD/contusion; does not clinically correlate with discitis/osteo
#Non-displaced fracture left 7th rib
-Patient reported mid back and lower back progressively worsening pain
-Patient denied saddle anesthesia, urinary of fecal incontinence, or any numbness or weakness in his lower extremities
-MRI of T spine and L spine as above
-Outpatient physical therapy, I offered to the patient consideration of kyphoplasty/vertebroplasty by IR but patient declined it
-Lidocaine patches
-Bengay
-Tylenol
-Oxycodone
-Avoid NSAIDs -- patient is aware of this
#Anemia, history
#Concern for Iron Deficiency Anemia
#Possible Acute Blood Loss anemia
Monitor H&H
Discharge on oral iron
Bowel regimen while on iron
Follow-up with PCP
#Chronic atrial fibrillation INR goal 2-3
#Essential Hypertension
-Continue Coumadin
-daily INR checks
-cont home Cardizem Atenolol w/ holding parameters
#History Right foot Charcot Arthropathy status post surgery
#Gastroesophageal reflux disease
-Continue home Pepcid
#Hyperlipidemia
-Atorvastatin
#Right distal radius ORIF
PT/OT eval
DVT ppx Coumadin
Full Code
More than 30 minutes spent in discharge including
Final examination of the patient
Summarizing hospital stay
Instructions for continuing care to all relevant caregivers
Preparation of discharge records, prescriptions, and referral forms
Total time spent (in minutes): 37
Anticipated Discharge: Today
Subjective/Interval History
-
Date of Service: October 29, 2024
Patient was seen and examined. He reported still having back pain from the falls. No new symptoms and no new neurologic symptoms.
Objective Data
-
Labs:
Laboratory Results
10/29/24
07:05
WBC 6.4
Hgb 8.7 L
Hct 27.3 L
Plt Count 253
PT 23.2 H
INR 2.04
Sodium 135
Potassium 3.7
Chloride 104
Carbon Dioxide 25
BUN 10
Creatinine 0.8
Glucose 113 H
Calcium 8.4
Vital Signs:
Vital Signs
Temp Pulse Resp BP Pulse Ox
98.1 F 87 18 144/78 97
10/29/24 07:55 10/29/24 07:55 10/29/24 07:55 10/29/24 07:55 10/29/24 07:55
I&O
10/28/24 10/29/24 10/30/24
06:59 06:59 06:59
Intake Total 300 / 300 1280 / 1280
Output Total 1974 / 1974 2299 / 2299
Balance -1675 / -1675 -1020 / -1020
[2024-10-29 15:19] VITALS: BP 156/81
--- NOTE | 2024-10-29 15:23 | CM ---
Per hospitalist, patient will d/c today
Therapy rec HH, patient is current w/ [facility]. CM updated [facility] on d/c today
Met w/ patient and spouse bedside, aware of d/c
IMM verbally reviewed, copy provided, copy on chart
[facility]

Plan: Home, [facility] w/ [facility]
--- NOTE | 2024-10-29 15:50 | W.DCSUMMARY ---
Discharge Summary
Discharge Data
Date of Admission: 10/23/24
Date of Discharge: 10/29/24
Total time spent discharging patient (in min): 37
-
Pending Results: No
Hospital Course
78-year-old male with past medical history significant for atrial fibrillation on Coumadin, hypertension, hyperlipidemia, GERD who presented to the emergency department secondary to several days of worsening erythema and swelling to his left calf ,
purulent drainage, following recent surgical intervention on September 30, [address] Galvin. The patient was admitted to the hospital on September 30, 2024 and required an emergent evacuation of a left calf hematoma with closure over drains by Dr. Galvin. The
reason for this nonhealing right foot was from Charcot and boot placed causing him to have imbalance and fall bumping his left leg. The patient was discharged from the hospital on October 10, 2024 with plan for Wound care and Right Lower Extremity
cast removed Friday10/08/24 as per pt's liquid compounder's recommendations. The patient was seen by podiatry outpatient and started on oral doxycycline and Augmentin secondary to suspected cellulitis in the area of surgery, however the region has been
worsening since that time and not improving despite oral antibiotics. He had a culture by Podiatry taken on Friday, and has been on oral antibiotics since Friday, with worsening of demarcation line. He was recommended to come into the hospital
secondary to developing cellulitis. Patient was started on intravenous antibiotics. Vascular surgery was consulted and recommended consulting interventional radiology for drainage. Infectious Disease was consulted. On 10/25/24, patient had
ultrasound-guided aspiration of left calf collection with minimal return of dark hemorrhagic fluid grossly most consistent with old blood, approximately 2 mL and the sample was sent for microbiology. Patient's Coumadin was resumed. Patient reported
progressively worsening mid and lower back pain following his recent falls and was found to have compression fractures, I discussed with Dr. Zavala of infectious diseases and she confirmed there is no spine infection. Patient would do physical therapy
and pain control outpatient. Patient was stable for discharge.
Discharge Plan
-
Patient Disposition: Home with Home Care
Discharge Diagnosis/Procedures: #Left Lower Extremity (LLE) wound infection with surrounding cellulitis, failed outpt treatment
#LLE infected hematoma vs abscess
#Recent large left calf hematoma evacuation 09/30/24
#Recent history of left calf emergent hematoma evacuation with Dr. Galvin 09/30/24
#Progressively worsening back pain following recent falls
#Recent fall in bathroom 10/24 fell on bottom without head trauma per RN
#MRI Thoracic/Lumbar spine: acute T10, T12 compression fracture with bone marrow edema
#Compression Fractures of Spine
#L4-L5, L5-S1 bone marrow edema/enhancement -> due to DJD/contusion; does not clinically correlate with discitis/osteo
#Non-displaced fracture of left 7th rib
#Anemia, history
#Concern for Iron Deficiency Anemia
#Possible Acute Blood Loss anemia
#Chronic atrial fibrillation INR goal 2-3
#Essential Hypertension
#History Right foot Charcot Arthropathy status post surgery
#Gastroesophageal reflux disease
#Hyperlipidemia
#Right distal radius ORIF

MRI of Thoracic and Lumbar Spine (as per radiologist's report)
'FINDINGS:
THORACIC SPINE:
Mild to moderate compression fractures at the superior endplates of T10 and T12. Bone marrow edema and enhancement in the T10 and T12 vertebral bodies indicating acute compression fractures. No significant retropulsion of T10. Minimal retropulsion
of T12 by 2 mm, without significant secondary spinal canal stenosis. Minimal chronic appearing loss of height at the superior endplate of T4. Chronic mild multilevel degenerative disc space narrowing, disc desiccation, and endplate osteophytes. No
spondylolisthesis.
The thoracic spinal cord is normal in signal and morphology.
Tiny central disc protrusion at T4-T5. Trace disc bulges elsewhere in the thoracic spine. Small disc bulge at T12-L1. No significant thoracic spinal canal stenosis or neuroforaminal stenosis.
Partially imaged degenerative changes in the cervical spine including degenerative disc disease with multilevel disc osteophyte complexes, uncovertebral arthrosis, and facet arthrosis. Grade 1 degenerative anterolisthesis of C7 on T1.
Bone marrow edema and enhancement at the posterior medial aspect of the left seventh rib, with a suspected nondisplaced linear hypointense fracture plane (series 701, image 26).
LUMBAR SPINE:
The lumbar vertebral body heights are maintained. No suspicious marrow lesion. STIR hyperintense edema in the L4-L5 and L5-S1 disc spaces. Bone marrow edema of the left lateral L5 inferior endplate and S1 superior endplate. Chronic multilevel
degenerative disc desiccation and endplate osteophytes. No spondylolisthesis.
The conus medullaris terminates at the L1 level and is normal in signal and morphology.
Multilevel disc bulges, ligamentum flavum hypertrophy, and facet arthrosis in the lumbar spine. Mild spinal canal stenosis at L2-L3. Minimal bilateral neuroforaminal stenoses at L2-L3 and L3-L4. Mild bilateral neuroforaminal stenosis L4-L5. Moderate
right and mild left neuroforaminal stenosis at L5-S1.
Presumed bilateral renal cysts, including characterized on this exam.
IMPRESSION:
Mild to moderate acute compression fractures of the T10 and T12 vertebral bodies with bone marrow edema. Minimal retropulsion of T12. No significant secondary spinal canal stenosis.
Probable nondisplaced fracture at the posterior medial aspect of the left seventh rib near the costovertebral junction.
Chronic degenerative changes of the thoracolumbar spine.
Intervertebral disc edema at L4-L5 and L5-S1. Bone marrow edema/enhancement in the adjacent left lateral inferior endplate of L5 and superior endplate of S1. Findings could reflect degenerative intervertebral disc edema with adjacent degenerative
endplate signal changes (Modic type I). Discitis-osteomyelitis would be an alternative consideration if there are signs and symptoms of infection. Clinical correlation is recommended. No epidural fluid collection.'
Condition: Good
Diet: Low Cholesterol
Activity: No strenuous activity
Driving Restrictions: Not until seen by your Dr
Blood Work: CBC, CMP, Magnesium, INR with your primary care provider's office within 3 to 4 days
Other Services: PT
Activity Restrictions/Additional Instructions:
YOUR PHARMACY CAN PROVIDE YOU WITH NARCAN/NALOXONE IN CASE OF OPIOID (E.G. OXYCODONE) SIDE EFFECTS -- PLEASE OBTAIN NARCAN/NALOXONE FROM YOUR PHARMACY
Avoid tyramine-rich foods while on Linezolid.
Wound Care Instructions Right Foot- Clean with normal saline, apply adaptic, ABD and wrap with indigo. Change daily and PRN drainage.
Left Calf Wound- Clean with saline, apply adaptic and cover with ABD and wrap with indigo and ANASTASIIA. Change daily and PRN drainage.
Instructions: Lidocaine (Topical), Oxycodone and Naloxone, Doxycycline, Ferrous Sulfate, Linezolid, Oxycodone
Referrals:
Wound Care Center [Outside]
Boo Waite MD [Family Provider, [facility]] - in 4 days
Referral Note: Hospitalization follow-up
Mina Foley MD [Active, Plastic Surgery] - in less than 1 week
Referral Note: Needs wound care follow-up
Denver Galvin MD [Active, Vascular Surgery] - in three to four days
Referral Note: Follow-up of left calf hematoma evacuation. Needs removal of stitches.
Charlotte Zavala MD [Active, Infectious Diseases] - As needed
Additional Discharge Medication Instructions: Acetaminophen 1000 mg Q8H is a new medication.
Oxycodone 5 mg PO Q6H as needed for severe pain is a new medication.
Linezolid and Doxycycline are new medications.
Ferrous Sulfate (Iron) is a new medication.
Lidocaine Patch is a new medication.
Polyethylene Glycol is a new medication to help prevent and treat constipation.
Your Amoxicillin-Clavulanate has been stopped.
You can stop your old Doxycycline from before, BUT START taking the new Doxycycline that is being sent to your pharmacy on 10/29/24.
Prescriptions:
New
acetaminophen [Tylenol Extra Strength] 500 mg tablet
1,000 mg PO Q8H Qty: 90 0RF
lidocaine 4 % Adhesive Patch,Medicated
1 patch topical DAILY Qty: 15 0RF
Rx Instructions:
Apply to lower back. Remove patch every evening.
polyethylene glycol 3350 17 gram Powder In Packet
17 g PO DAILY Qty: 30 1RF
oxycodone 5 mg Tablet
5 mg PO Q6HPRN PRN (Reason: severe pain) Qty: 10 0RF
doxycycline hyclate 100 mg Capsule
100 mg PO Q12 14 Days Qty: 28 0RF
linezolid 600 mg Tablet
600 mg PO BID 14 Days Qty: 28 0RF
ferrous sulfate 325 mg (65 mg iron) tablet
325 mg PO Q48H Qty: 14 0RF
Continued
atorvastatin 20 MG tablet
20 mg PO DAILY
atenolol 50 MG tablet
50 mg PO DAILY
multivitamin Tablet
1 tab PO DAILY
diltiazem HCl 180 mg Capsule,Extended Release 24 Hr
180 mg PO QPM
gabapentin 300 mg Capsule
300 mg PO TID
famotidine 20 mg Tablet
20 mg PO QPM
PreserVision AREDS 2,148 mcg-113 mg-45 mg-17.4mg Tablet
1 tab PO BID
warfarin [Jantoven] 5 MG tablet
5 mg PO .SEE BELOW
Patient Comments:
5mg MOWETHFRSASU and 2.5mg TU
Bengay Ultra Strength 4-30-10 % Cream
1 applic TOPICAL DAILY PRN (Reason: mild pain)
Rx Instructions:
apply to middle & lower back
Discontinued
acetaminophen 500 mg Tablet
1,000 mg PO DAILYPRN PRN (Reason: mild pain)
doxycycline hyclate 100 mg capsule
100 mg PO BID
Patient Comments:
started 10/20/24
amoxicillin-pot clavulanate 875-125 mg tablet
1 tab PO BID
Patient Comments:
started 10/20/24
Discharge Orders:
Discharge Patient (As Directed); Ordered 10/29/24
Ordered By: Alonso Boss
Discharge Date and Time
Discharge Date/Time: 10/29/24 16:50
Print Language: AFGHAN
== END 2024-10-29 16:50 | disposition home health service (06) | DRG 863 ==
LOC: 4 WEST ACU 18:56
PROVIDERS: Emergency Medicine; Internal Medicine; Nurse Practitioner; Radiology Vascular & Interventional Radiology; ADMITTING PHYSICIAN Internal Medicine; ATTENDING PHYSICIAN Hospitalist; CONSULT PHYSICIAN Internal Medicine Infectious Disease; CONSULT PHYSICIAN Surgery; EMERGENCY PHYSICIAN Student in an Organized Health Care Education/Training Program; FAMILY PHYSICIAN Family Medicine
PROC: 0J9P3ZX Drainage of Left Lower Leg Subcutaneous Tissue and Fascia, Percutaneous Approach, Diagnostic (ICD-10-PCS; 2024-10-25)
DX: T81.41XA Infection following a procedure, superficial incisional surgical site, initial encounter (principal); S22.32XA Fracture of one rib, left side, initial encounter for closed fracture; S22.088A Other fracture of T11-T12 vertebra, initial encounter for closed fracture; L03.116 Cellulitis of left lower limb; I48.20 Chronic atrial fibrillation, unspecified; D62 Acute posthemorrhagic anemia; I10 Essential (primary) hypertension; E78.00 Pure hypercholesterolemia, unspecified; K21.9 Gastro-esophageal reflux disease without esophagitis; E66.9 Obesity, unspecified; J30.81 Allergic rhinitis due to animal (cat) (dog) hair and dander; B96.5 Pseudomonas (aeruginosa) (mallei) (pseudomallei) as the cause of diseases classified elsewhere; Y83.8 Other surgical procedures as the cause of abnormal reaction of the patient, or of later complication, without mention of misadventure at the time of the procedure; Y92.9 Unspecified place or not applicable; D50.9 Iron deficiency anemia, unspecified; R29.6 Repeated falls; W01.0XXA Fall on same level from slipping, tripping and stumbling without subsequent striking against object, initial encounter; Y93.89 Activity, other specified; Y92.231 Patient bathroom in hospital as the place of occurrence of the external cause; Z68.29 Body mass index [BMI] 29.0-29.9, adult; Z91.018 Allergy to other foods; Z79.01 Long term (current) use of anticoagulants
CPT/HCPCS: 10160; 72157; 72158; 73701; 76942; 80048; 80053; 82607; 82728; 82746; 83540; 83550; 83735; 84100; 85025; 85027; 85610; 86850; 86900; 86901; 87015; 87040; 87070; 87077; 87186; 87205; 93005; 96365; 96366; 96367; 97110; 97116; 97163; 97167; 97530; 99284; A9575; Q9967

== ENCOUNTER → 2024-11-11 12:33 | Outpatient (REF) | payer OTHER, SELFPAY | LOC: WOUND 12:33 | PROVIDERS: ATTENDING PHYSICIAN Surgery; FAMILY PHYSICIAN Family Medicine | DX: L97.222 Non-pressure chronic ulcer of left calf with fat layer exposed (principal); L97.412 Non-pressure chronic ulcer of right heel and midfoot with fat layer exposed; M14.671 Charcot's joint, right ankle and foot; I48.0 Paroxysmal atrial fibrillation; I10 Essential (primary) hypertension; Z79.01 Long term (current) use of anticoagulants | CPT/HCPCS: 99214 ==

== ENCOUNTER 2024-11-14 17:39 | Inpatient (IN) | payer OTHER, SELFPAY ==
[2024-11-14 14:03] VITALS: BP 185/96
[2024-11-14] MEDS: DILAUDID 0.5 MG IV (15:21)
[2024-11-14 15:27] VITALS: BMI 28.8
[2024-11-14 15:38] LABS: Hematocrit 26.6 % (39.0-52.0); Hemoglobin 9.0 g/dL (13.0-18.0); Mean Corp Hgb Conc. 33.8 g/dL (33.0-37.0); Mean Corpuscular Volume 84.7 fL (80.0-94.0); Nucleated Red Blood Cells % 0 % (-); Platelet Count 132 10^3/uL (130-400); Red Cell Dist. Width 15.6 % (11.5-14.5)
[2024-11-14 15:55] LABS: C-Reactive Protein 26.00 mg/L (0.0-10.00)
[2024-11-14 16:00] VITALS: BP 189/94
[2024-11-14 16:16] LABS: ALT (SGPT) 21 U/L (0-50); AST (SGOT) 30 U/L (17-59); Albumin 4.3 g/dl (3.5-5.0); Alkaline Phosphatase 129 U/L (38-126); Blood Urea Nitrogen 15 mg/dl (9-20); Calcium 9.2 mg/dl (8.4-10.2); Carbon Dioxide 24 mmol/L (22-30); Chloride 95 mmol/L (98-107); Estimated Creatinine Clearance 112 ml/min; Glucose 132 mg/dl (70-99); Potassium 3.9 mmol/L (3.5-5.1); Sodium 127 mmol/L (135-145); Total Protein 7.8 g/dl (6.3-8.2); eGFR > 60.00
[2024-11-14 16:58] VITALS: BP 186/92
--- NOTE | 2024-11-14 17:04 | ED.GENMED ---
History of Present Illness
General
Chief Complaint: Back Pain
Source: patient
Exam Limitations: none
Time Seen by Provider: 11/14/24 14:39
History of Present Illness
History of Present Illness:
78-year-old male presents complaining of lower back pain worse over time. He was here 2 weeks ago for cellulitis. He was on oral antibiotics. While here in the hospital he fell and suffered a back injury. He had an MRI of his back which showed
compression fractures and questioned involvement of the intervertebral discs. It was thought not to be discitis at that time. He finished his oral antibiotics 2 days ago and presents today with severe low back pain preventing him from sleeping.
No new neurologic symptoms of the legs. No bowel or bladder dysfunction. No fevers. No other complaints
Past History
Past History
ED Past Medical History: Arrthythmia (Atrial fibrillation), GERD and HTN
Social History
Tobacco: Non-smoker
Alcohol: None
Drug: None
Personal:
Living: with family
Phy Exam
Physical Exam
Physical Exam:
General: Well-appearing male no acute respiratory distress does appear to be quite uncomfortable
Heart: Regular rate and rhythm
Lungs: Clear no wheeze
Musculoskeletal exam: The patient is tender over the lower thoracic spine and mid lumbar spine. No overlying skin changes
Extremities: No cyanosis
Neurologic exam: Alert and oriented slightly decreased sensation to bilateral lower extremities, patient does have a history of neuropathy
Vascular: Palpable pulses dorsal aspects bilateral feet
Course
Orders/Labs/Results
Orders:
Orders
11/14/24 14:59
HYDROmorphone [Dilaudid] 0.5 mg IV NOW STA
11/14/24 15:22
CRP [C-Reactive Protein] Urgent
Complete Blood Count/With Diff Urgent
Comprehensive Metabolic Panel Urgent
Sed Rate [Erythrocyte Sed Rate] Urgent
11/14/24 17:03
Urine Sodium Urgent
11/14/24 17:04
Add On- LAB Urgent
Tests Added?: serum osmolality
Osmolality, Random Urine Urgent
Urinalysis Reflex To Culture Urgent
Abnormal Lab Results
11/14/24
15:22
RBC 3.14 L 10^6/uL
(4.70-6.10)
Hgb 9.0 L g/dL
(13.0-18.0)
Hct 26.6 L %
(39.0-52.0)
RDW 15.6 H %
(11.5-14.5)
Absolute Neuts (auto) 7.4 H 10^3/uL
(1.4-6.5)
Absolute Lymphs (auto) 0.9 L 10^3/uL
(1.2-3.4)
Absolute Monos (auto) 1.4 H 10^3/uL
(0.1-0.6)
Neutrophils % 76.1 H %
(42.2-75.2)
Lymphocytes % 9.1 L %
(20.5-51.1)
Monocytes % 14.0 H %
(1.7-9.3)
ESR 62 H mm/hour
(0-20)
Sodium 127 L mmol/L
(135-145)
Chloride 95 L mmol/L
(98-107)
Creatinine 0.6 L mg/dL
(0.7-1.3)
Glucose 132 H mg/dl
(70-99)
Alkaline Phosphatase 129 H U/L
(38-126)
C-Reactive Protein 26.00 H mg/L
(0.0-10.00)
11/14/24 15:22
11/14/24 15:22
Vital Signs
Initial and Last Documented VS:
Initial Vital Signs
Temp Pulse Resp BP Pulse Ox
97.6 F 95 18 185/96 98
11/14/24 14:03 11/14/24 14:03 11/14/24 14:03 11/14/24 14:03 11/14/24 14:03
Last Documented Vital Signs
Temp Pulse Resp BP Pulse Ox
97.6 F 84 19 185/96 98
11/14/24 14:03 11/14/24 16:45 11/14/24 16:45 11/14/24 14:03 11/14/24 17:05
MDM/Problems Addressed
Differential Diagnosis Includes:
Severe low back pain unrelieved with oxycodone at home. Consider worsening pain from compression fracture versus lumbar strain. While here in the hospital 2 weeks ago he had an MRI that showed abnormalities of the intervertebral discs and question
the possibility of discitis. This was thought not to be the case at the time
Will check labs here today for inflammatory markers and try to treat pain. Dilaudid was
*Pulse Oximetry
SaO2: 98
Oxygen Mode of Delivery: Room air
Patient hypoxic: no
*Critical Care Note
Total Time (30-74mins, 75-104mins- exclusive of procedures): Not Applicable
Update Note
Update Note:
Sed rate and CRP are both elevated. Sodium is low in the blood work. This is a new issue for him. Given the intractable pain, increased inflammatory markers and acute hyponatremia will keep patient in hospital for further evaluation
ED Attending Note
-
Portions of this chart may have been created with voice recognition software.� Occasional wrong word or��sound alike� substitutions may have occurred due to the inherent limitations of voice recognition software.
Discharge Plan
Departure
Patient Disposition: Admit
Date of Disposition: 11/14/24
Time of Disposition: 17:12
Presentation/result/management discussed w/ accepting MD/DO: Hospitalist
Discharge Problem:
Acute back pain, Acute hyponatremia
Prescriptions:
No Action
atorvastatin 20 MG tablet
20 mg PO DAILY
atenolol 50 MG tablet
50 mg PO DAILY
multivitamin Tablet
1 tab PO DAILY
diltiazem HCl 180 mg Capsule,Extended Release 24 Hr
180 mg PO QPM
gabapentin 300 mg Capsule
300 mg PO TID
famotidine 20 mg Tablet
20 mg PO QPM
PreserVision AREDS 2,148 mcg-113 mg-45 mg-17.4mg Tablet
1 tab PO BID
warfarin [Jantoven] 5 MG tablet
5 mg PO .SEE BELOW
Patient Comments:
5mg MOWETHFRSASU and 2.5mg TU
Bengay Ultra Strength 4-30-10 % Cream
1 applic TOPICAL DAILY PRN (Reason: mild pain)
Rx Instructions:
apply to middle & lower back
acetaminophen [Tylenol Extra Strength] 500 mg tablet
1,000 mg PO Q8H Qty: 90 0RF
lidocaine 4 % Adhesive Patch,Medicated
1 patch topical DAILY Qty: 15 0RF
Rx Instructions:
Apply to lower back. Remove patch every evening.
polyethylene glycol 3350 17 gram Powder In Packet
17 g PO DAILY Qty: 30 1RF
oxycodone 5 mg Tablet
5 mg PO Q6HPRN PRN (Reason: severe pain) Qty: 10 0RF
doxycycline hyclate 100 mg Capsule
100 mg PO Q12 14 Days Qty: 28 0RF
linezolid 600 mg Tablet
600 mg PO BID 14 Days Qty: 28 0RF
ferrous sulfate 325 mg (65 mg iron) tablet
325 mg PO Q48H Qty: 14 0RF
Referrals:
Boo Waite MD [Family Provider, Family Practice]
Interventions
Interventions:
*Risk Screen - Suicide Last Done: 11/14/24 14:03
*General Assessment Last Done: 11/14/24 14:03
*Neglect/Abuse Screening Last Done: 11/14/24 14:03
Discharge Date and Time
Print Language: CAMBODIAN
--- NOTE | 2024-11-14 17:32 | HPS.HSE ---
Family Physician
-
Family Physician: Boo Waite
Chief Complaint
-
worsening back pain
History of Present Illness
78M atrial fibrillation on Coumadin, hypertension, hyperlipidemia, GERD Charcot foot, left lower extremity infected hematoma versus abscess with evacuation and evidence of bacteria discharged on linezolid and doxycycline until 11/11, fall during last
admission sustaining mild to moderate acute compression fractures of the T10 and T12 vertebral bodies along with L4-L5 and L5-S1 disc edema and treated conservatively with pain management now presents for lower back pain since discharge on 10/29.
Patient's pain on imaging was questionable for discitis although clinically did not appear displaced. Patient's lower back pain is severe with him inability of the patient to rest adequately. No sensorimotor neural loss, with no urinary or bowel
incontinence. Further denies any fever, chills, nausea, vomiting. Patient hypertensive although in pain, white count 9.7, sodium noted to be 127 which is new, CRP 26 and ESR 62.
Medical History
Past Medical History
Past Medical History: Reports Arrhythmia (A Fib on Warfarin ), GERD, HTN, Hypercholesterolemia, Valvular Disease (Nonrheumatic tricuspid valve vegetation) ) and Other ((Obesity, right foot Charcot)
Past Surgical History: Reports Orthopedic (ORIF right distal radius.Surgical repair of Charcot foot right lower extremity)
Social History
Tobacco: Non-smoker
Alcohol: Occasional
Family History
Family History: Not pertinent
Allergies / Home Medications
Allergies reflects when Allergies were last updated in [employer].
Home Medications with original date entered in [employer]
Allergy/Medication List:
Allergies
Allergy/AdvReac Type Severity Reaction Status Date / Time
almond Allergy Anaphylaxis Verified 11/14/24 14:03
cat dander Allergy runny Verified 11/14/24 14:03
eyes,
sneeze
Home Medications
atenolol 50 mg tablet 50 mg PO DAILY Blood Pressure 11/28/20
atorvastatin 20 mg tablet 20 mg PO DAILY High Cholesterol 11/28/20
diltiazem HCl 180 mg capsule,24 hr,extended release 180 mg PO QPM Arrhythmia 09/30/24
gabapentin 300 mg capsule 300 mg PO TID Pain 09/30/24
multivitamin 1 tab PO DAILY Supplement 09/30/24
famotidine 20 mg tablet 20 mg PO QPM Gastrointestinal Issue 10/13/24
vitamins A,C,U-fqcf-tuoakj 2,148 mcg-113 mg-45 mg-17.4 mg tablet (PreserVision AREDS) 1 tab PO BID Supplement 10/13/24
warfarin 5 mg tablet (Jantoven) 5 mg PO .SEE BELOW Blood Clot Prevention/Tx 10/13/24
camphor 4 %-methyl salicylate 30 %-menthol 10 % topical cream (Bengay Ultra Strength) 1 applic topical DAILY PRN mild pain 10/23/24
acetaminophen 500 mg tablet (Tylenol Extra Strength) 1,000 mg (2 x 500 mg) PO Q8H #90 tabs 10/29/24
doxycycline hyclate 100 mg capsule 100 mg PO Q12 14 days #28 caps 10/29/24
ferrous sulfate 325 mg (65 mg iron) tablet 325 mg PO Q48H #14 tabs 10/29/24
lidocaine 4 % topical patch 1 patch topical DAILY #15 ea 10/29/24
linezolid 600 mg tablet 600 mg PO BID 14 days #28 tabs 10/29/24
oxycodone 5 mg tablet 5 mg PO Q6HPRN PRN severe pain #10 tabs 10/29/24
polyethylene glycol 3350 17 gram oral powder packet 17 g PO DAILY #30 ea 10/29/24
Review of Systems
-
A 12 point ROS was completed and negative except as noted: Yes
Physical Exam
Vital Signs
Vital Signs
Temp Pulse Resp BP Pulse Ox
97.6 F 84 19 185/96 98
11/14/24 14:03 11/14/24 16:45 11/14/24 16:45 11/14/24 14:03 11/14/24 17:05
Physical Exam
General: Well Developed, Well Nourished, No Apparent Distress, Comfortable and Conversant
HEENT: NormoCephalic, Anicteric and Moist mucous membranes
Respiratory: Clear
Cardiac: S1/S2, Regular Rhythm and Other (pulses present dorsal aspect of feet b/l)
GI: Soft, Non Tender, Non Distended and Normal Bowel Sounds
Musculoskeletal: No Clubbing, No Cyanosis and Other (tender over the lower thoracic spine and mid lumbar spine.)
Skin: Warm, Dry and Other (LLE erythema, swelling, edema, skin breakdown with purulent discharge at wound post-surgical site, line of demarcation proximal to the knee on the left side)
Neuro: AO x 3 and Other ( Alert and oriented slightly decreased sensation to bilateral lower extremities, patient does have a history of neuropathy)
Psych: Calm
Laboratory Results
-
11/14/24 15:22
11/14/24 15:22
Laboratory Results
Total Bilirubin 0.8 mg/dl (0.2-1.3) 11/14/24 15:22
AST 30 U/L (17-59) 11/14/24 15:22
ALT 21 U/L (0-50) 11/14/24 15:22
Alkaline Phosphatase 129 U/L (38-126) H 11/14/24 15:22
Data Reviewed
-
Lab Data: Labs Reviewed by me
Impression/Plan
-
IMPRESSION:
78M atrial fibrillation on Coumadin, hypertension, hyperlipidemia, GERD Charcot foot, left lower extremity infected hematoma versus abscess with evacuation and evidence of bacteria discharged on linezolid and doxycycline until 11/11, fall during last
admission sustaining mild to moderate acute compression fractures of the T10 and T12 vertebral bodies along with L4-L5 and L5-S1 disc edema and treated conservatively with pain management now presents for lower back pain since discharge on 10/29.
PLAN:
#Lower back pain
� I suspect this is secondary to the compression fractures along with edema although with the history of recent bacterial infection/abscess,, elevated ESR, CRP will obtain imaging
� Fell last hospital stay 10/24 without head trauma
� Follow-up MRI lumbar/thoracic spine
� Pain control
� Will hold off on steroids until no evidence of bacterial infection found
� PT/OT
� Can consider engagement of neurosurgery depending on MRI findings although at this time, no urinary or bladder incontinence, saddle anesthesia
#Hyponatremia
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
� Pain control
� Fluid restriction
� Follow-up urine osmolality, urine sodium
#Recent LLE wound infection with surrounding cellulitis, failed outpt treatment
#recent hx LT calf emergent hematoma evacuation with Dr Galvin 09/30/24
completed abx course of linezolid and doxycycline on 11/11
#Chronic atrial fibrillation INR goal 2-3
# Essential Hypertension
-Continue Coumadin
-daily INR checks
-cont home Cardizem Atenolol w/ holding parameters
#History Right foot Charcot Arthropathy status post surgery
#Gastroesophageal reflux disease- cont home pepcid
#Hyperlipidemia -Atorvastatin
#Right distal radius ORIF
#Anemia, chronic history �Monitor
DVT ppx Coumadin
Full Code
[2024-11-14 17:35] LABS: Urine Character Clear (Clear)
[2024-11-14 17:42] LABS: Urine Squamous Cell 0-2 /LPF (Few); Urine White Cell 0-2 /HPF (0-5)
[2024-11-14 18:00] VITALS: BP 185/89
[2024-11-14] MEDS: MORPHINE SULFATE 4 MG IV ×2 (18:41→23:09)
[2024-11-14 20:10] VITALS: BP 179/97; BMI 26.3
[2024-11-14] MEDS: CARDIZEM CD 180 MG PO (20:59)
[2024-11-14] MEDS: FEOSOL 325 MG PO (20:59)
[2024-11-14] MEDS: TYLENOL 1000 MG PO (20:59)
[2024-11-14] MEDS: PEPCID 20 MG PO (20:59)
[2024-11-14 21:22] VITALS: BMI 26.3
[2024-11-14] MEDS: COUMADIN 5 MG PO (21:50)
[2024-11-14] MEDS: NEURONTIN 300 MG PO (21:52)
[2024-11-14 23:00] VITALS: BP 189/93
[2024-11-15] VITALS (8 sets, daily range): BP systolic 143–193; BP diastolic 72–107; PULSE 94; BMI 26.3
[2024-11-15] MEDS: HEPARIN SC (00:23)
[2024-11-15] MEDS: ROXICODONE 5 MG PO (02:30)
[2024-11-15] MEDS: TYLENOL 1000 MG PO ×3 (03:33→19:38)
[2024-11-15] MEDS: MORPHINE SULFATE 2 MG IV (03:33)
--- NOTE | 2024-11-15 06:26 | PTCARENOTE ---
Oral care was not performed on patient because he stated that he previously brushed his teeth before coming to our floor and that he would prefere to brush them in the morning.
--- NOTE | 2024-11-15 07:10 | PTCARENOTE ---
Patient arrived on unit @2001 via stretcher from ED, ambulate to bed with assist x1 with RW. Patient AAOX3, c/o discomfort to mid and lower back. Patient oriented to unit, skin assessment completed, med rec completed, call larkin within reach.
[2024-11-15] MEDS: LIDOCAINE 4% PATCH 1 PATCH TOPICAL (07:48)
[2024-11-15] MEDS: MORPHINE SULFATE 4 MG IV (07:49)
[2024-11-15 07:57] LABS: Hematocrit 27.9 % (39.0-52.0); Hemoglobin 9.4 g/dL (13.0-18.0); Mean Corp Hgb Conc. 33.7 g/dL (33.0-37.0); Mean Corpuscular Volume 83.3 fL (80.0-94.0); Platelet Count 131 10^3/uL (130-400); Red Cell Dist. Width 15.1 % (11.5-14.5)
[2024-11-15 08:32] LABS: ALT (SGPT) 22 U/L (0-50); AST (SGOT) 33 U/L (17-59); Albumin 4.2 g/dl (3.5-5.0); Alkaline Phosphatase 141 U/L (38-126); Blood Urea Nitrogen 10 mg/dl (9-20); Calcium 8.8 mg/dl (8.4-10.2); Carbon Dioxide 25 mmol/L (22-30); Chloride 87 mmol/L (98-107); Estimated Creatinine Clearance 112 ml/min; Glucose 129 mg/dl (70-99); Magnesium 1.6 mg/dl (1.6-2.3); Potassium 3.6 mmol/L (3.5-5.1); Sodium 122 mmol/L (135-145); Total Protein 7.6 g/dl (6.3-8.2); eGFR > 60.00
[2024-11-15 09:14] LABS: INR 2.65; PT 28.3 Sec (11.4-14.6)
[2024-11-15] MEDS: DAKIN'S SOLUTION 0.125% 1/4 STRENGTH 1 ML TOPICAL (11:16)
[2024-11-15] MEDS: DILAUDID 0.25 MG IV ×2 (11:16→19:39)
[2024-11-15] MEDS: MAGNESIUM SULFATE 50 IV (12:03)
[2024-11-15] MEDS: MIRALAX 17 GRAMS PO (12:05)
[2024-11-15] MEDS: LIPITOR 20 MG PO (12:05)
[2024-11-15] MEDS: THERAGRAN 1 TABLET PO (12:05)
[2024-11-15] MEDS: OCUVITE SOFTGEL 1 CAP PO (12:05)
[2024-11-15] MEDS: NEURONTIN 300 MG PO ×3 (12:05→22:08)
[2024-11-15] MEDS: HEPARIN 5000 UNITS SC ×2 (12:05→16:13)
[2024-11-15] MEDS: TENORMIN 50 MG PO (12:06)
--- NOTE | 2024-11-15 12:06 | WOUNDNOTE ---
[facility] RN note: Patient admitted with worsening back pain
See H&P for complete history.
PMH: Per Physician note, atrial fibrillation on Coumadin, hypertension, hyperlipidemia, GERD, Charcot of feet, blood clots, falls. Most recent fall was in hospital on 10/24.
Wound Location and type/assessment: Patient known from prior admission regarding left leg wound. Patient admitted to [facility] form 09/30-10/10 s/p fall resulting in left leg hematoma. During admission vascular performed evacuation of left calf hematoma.
Patient has been following up at [facility]. Dr. Foley consulted today by this entry writer. Patient last seen at [facility] on 11/11. Left leg wound with sloughy and necrotic areas. Tunnelling is present in the wound, which is consistent with assessment
at [facility]. Patient also admitted with right plantar foot wound, managed by [facility]. Wound feels closed when palpated, but a scant amount of drainage was noted on bandage. See worklist for measurements and details. Heels and sacrum intact. Patient
reports good appetite. Patient medicated for pain prior to assessment by RN, Bernie. Heels and sacrum are intact.
Pressure redistribution devices in place: Static air overlay added to bed as mobility is limited due to back pain. Heels off-loaded with pillows under calves.
Plan: present during wound care and explained how wound care is performed at home. Left leg wound cleaned and packed with Dakins moistened gauze. Local wound care provided to right plantar foot as ordered. Will confirm orders with hospitalist
and update nurse. Updated care plan and will follow as needed.
[2024-11-15] MEDS: BenGay-Like 1 APPLIC TOPICAL (12:09)
--- NOTE | 2024-11-15 12:15 | CM ---
Patient seen at bedside with
IA completed
Lives in a 2 story home with , 1 CIRILO, bedroom on 1st floor, powder room 1st floor
PLOF: independent
DME: nita lui
Current with [facility] for wound care, has been at [facility] in past
Denies insecurities
PCP: Boo Waite
Pharmacy: [facility]
PLAN: Home, [facility] when stable
--- NOTE | 2024-11-15 12:47 | W.PN.HOSP.TC ---
Addendum entered and electronically signed by Tevin Lubin MD 11/15/24 12:49:
Unable to reach
Original Note:
Today's Communication/Plan
-
nephro
FR
BMP BID
MRI
pain mgmt - increase oxycodone, Dilaudid for breakthrough
Assessment / Plan
Assessment / Plan
78yo M with PMHx of Afib on Coumadin, HTN, HLD, GERD, charcot foot, recent L calf hematoma s/p evacualtion 2 weeks ago in , also fall at that time with acute T10, T12 compression Fx and L4-L5, L5-S1 bone marrow edema came with worsening lower back
pain without new focal neurological deficit. Also found acute hyponatremia
A/P:
#Acute T10, T12 compression Fx with worsening back pain
MRI toraco-lumbar spine
pain mgmt
PT/OT
#hyponatremia
most liekly 2/2 pain-mediated ADH
Uosm and Sandra elevated
FR and nephrology consult
serial BMP
#JAIME
#Afib, chronic
#GERD
#HLD
#Essential HTN
cont home meds
daily INR
DVT ppx on Coumadin
Full code
I have spent at least 57min reviewing chart, test results, communication with consultants and providing direct patient care
Anticipated Discharge: 24 - 48 hours
Subjective/Interval History
-
Date of Service: November 15, 2024
Objective Data
-
Labs:
Laboratory Results
11/15/24 11/15/24 11/15/24
07:32 08:49 12:32
WBC 11.6 H
Hgb 9.4 L
Hct 27.9 L
Plt Count 131
PT 28.3 H
INR 2.65
Sodium 122 L Pending
Potassium 3.6 Pending
Chloride 87 L Pending
Carbon Dioxide 25 Pending
BUN 10 Pending
Creatinine 0.6 L Pending
Glucose 129 H Pending
Calcium 8.8 Pending
Total Bilirubin 1.1
AST 33
ALT 22
Alkaline Phosphatase 141 H
Vital Signs:
Vital Signs
Temp Pulse Resp BP Pulse Ox
97.6 F 79 18 182/97 98
11/15/24 11:00 11/15/24 11:00 11/15/24 11:00 11/15/24 11:00 11/15/24 11:00
I&O
11/14/24 11/15/24 11/16/24
06:59 06:59 06:59
Intake Total 720 / 720
Output Total 1145 / 1145
Balance -425 / -425
[2024-11-15 13:04] LABS: Blood Urea Nitrogen 11 mg/dl (9-20); Calcium 9.1 mg/dl (8.4-10.2); Carbon Dioxide 24 mmol/L (22-30); Chloride 87 mmol/L (98-107); Estimated Creatinine Clearance 112 ml/min; Glucose 128 mg/dl (70-99); Potassium 3.7 mmol/L (3.5-5.1); Sodium 121 mmol/L (135-145); eGFR > 60.00
--- NOTE | 2024-11-15 13:18 | WOUNDNOTE ---
LEFT LATERAL LEG
--- NOTE | 2024-11-15 13:18 | WOUNDNOTE ---
LEFT LATERAL LEG WOUND
--- NOTE | 2024-11-15 13:19 | WOUNDNOTE ---
LEFT LATERAL LEG
--- NOTE | 2024-11-15 15:18 | W.CON.NEPH ---
Consultation
-
Date/Time Consultation Requested: 11/15/24 0842
Date/Time Consultation Performed: 11/15/24 1530
Requesting Provider: Tevin Adams
Performing Provider: Kierra Birmingham
Reason for Consultation: hyponatremia
Medical History
-
Chief Complaint: worsening back pain
History of Present Illness:
78y/o M atrial fibrillation on Coumadin, rate control with Atenolol,diltiazem hypertension, hyperlipidemia on statin, GERD on pepcid, Charcot foot, left lower extremity infected hematoma versus abscess with evacuation and evidence of infection and
was discharged on linezolid and doxycycline until 11/11, fall during last admission 2weeks ago had caused sustaining mild to moderate acute compression fractures of the T10 and T12 vertebral bodies along with L4-L5 and L5-S1 disc edema and it was
treated conservatively with pain management presented back on 11/15 for persistence of lower back pain since discharge on 10/29 and worsening since Friday, 3days ago. pt had tried many meds but no relief. Reportedly no sensorimotor neural loss, with no
urinary or bowel incontinence. No reported fever, chills, nausea, vomiting, abd pain or diarrhea. he has constipation but taking stool softeners. Due ot pain his appetie is less but was drinking water, typically drinks a lot of water. On admit his
sodium was at 127 which is new, CRP 26 and ESR 62. this morning sodium decreased to 121 even with FR. nephrology consulted for worsening hyponatremia.
Past Medical History
A Fib on Warfarin, GERD, HTN, Hypercholesterolemia, Nonrheumatic tricuspid valve vegetation,Obesity, right foot Charcot, back pain from vertebrall fracture
Past Surgical History: Other (ORIF right distal radius.Surgical repair of Charcot foot right lower extremity, large left calf hematoma evacuation 09/30/24 )
Social History
Tobacco: Non-Smoker
Alcohol: Occasional
Drug: None
Personal:
Living: With Family
Family History
Family History: Not Pertinent
Allergies / Home Medications
Allergy/AdvReac Type Severity Reaction Status Date / Time
almond Allergy Anaphylaxis Verified 11/14/24 14:03
cat dander Allergy runny Verified 11/14/24 14:03
eyes,
sneeze
�Medication �Instructions �Recorded �Confirmed �Type
atenolol 50 mg tablet 50 mg PO DAILY Blood Pressure 11/28/20 11/15/24 History
atorvastatin 20 mg tablet 20 mg PO DAILY High Cholesterol 11/28/20 11/15/24 History
diltiazem HCl 180 mg capsule,24 180 mg PO QPM Arrhythmia 09/30/24 11/15/24 History
hr,extended release
gabapentin 300 mg capsule 300 mg PO TID Pain 09/30/24 11/15/24 History
multivitamin 1 tab PO DAILY Supplement 09/30/24 11/15/24 History
famotidine 20 mg tablet 20 mg PO QPM Gastrointestinal Issue 10/13/24 11/15/24 History
vitamins A,C,J-eqbr-gtdwao 2,148 1 tab PO BID Supplement 10/13/24 11/15/24 History
mcg-113 mg-45 mg-17.4 mg tablet
(PreserVision AREDS)
warfarin 5 mg tablet (Jantoven) 5 mg PO .SEE BELOW Blood 10/13/24 11/15/24 History
Clot Prevention/Tx
camphor 4 %-methyl salicylate 30 1 applic topical DAILY PRN mild 10/23/24 11/15/24 History
%-menthol 10 % topical cream pain
(Bengay Ultra Strength)
acetaminophen 500 mg tablet 1,000 mg (2 x 500 mg) PO Q8H #90 10/29/24 11/15/24 Rx
(Tylenol Extra Strength) tabs
ferrous sulfate 325 mg (65 mg 325 mg PO Q48H #14 tabs 10/29/24 11/15/24 Rx
iron) tablet
oxycodone 5 mg tablet 5 mg PO Q6HPRN PRN severe pain #10 10/29/24 11/15/24 Rx
tabs
polyethylene glycol 3350 17 gram 17 g PO DAILY #30 ea 10/29/24 11/15/24 Rx
oral powder packet
doxycycline hyclate 100 mg capsule 100 mg PO Q12 Infection 11/15/24 11/15/24 History
linezolid 600 mg tablet 600 mg PO BID Infection 11/15/24 11/15/24 History
Review of Systems
-
All other systems: Negative unless noted
Physical Exam
Vital Signs
Vital Signs
Temp Pulse Resp BP Pulse Ox
97.6 F 79 18 182/97 98
11/15/24 11:00 11/15/24 11:00 11/15/24 11:00 11/15/24 11:00 11/15/24 11:00
Lab Results
WBC 11.6 10^3/uL (4.8-10.8) H 11/15/24 07:32
RBC 3.35 10^6/uL (4.70-6.10) L 11/15/24 07:32
Hgb 9.4 g/dL (13.0-18.0) L 11/15/24 07:32
Hct 27.9 % (39.0-52.0) L 11/15/24 07:32
Plt Count 131 10^3/uL (130-400) 11/15/24 07:32
eGFR > 60.00 11/15/24 12:32
Albumin 4.2 g/dl (3.5-5.0) 11/15/24 07:32
Physical Exam
General: Awake, Alert, Oriented, AOx3, No Distress and Nontoxic
HEENT: EOMI, Anicteric, Conjunctivae Clear, Ear/Nose Intact, Dentition Intact, Facial Symmetry and No JVD
Respiratory: Clear, Normal Excursion and Nonlabored Respirations
Cardiac: S1/S2, Regular Rate/Rhythm and Murmur
Breast: Deferred by me
Abdomen: Soft, Nontender and Nondistended
Musculoskeletal: No Edema (trace) and Other (right charcot foot )
Skin: No Rash
Neuro: Nonfocal/Grossly Intact
Psych: Mood/afflect pleasant, Insight/judgement good and Appropriate
Data Reviewed
-
Labs: Labs Reviewed by me, Discussed with Patient and Discussed with Family
Assessment/Plan
-
IMP:
Acute T10, T12 compression Fx with worsening back pain
Acute hyponatremia
JAIME
Afib, chronic
GERD
HLD
Essential HTN
History Right foot Charcot Arthropathy status post surgery
Recent LLE wound infection with surrounding cellulitis, failed outpt treatment
recent hx LT calf emergent hematoma evacuation with Dr Galvin 09/30/24
completed abx course of linezolid and doxycycline on 11/11
Plan:
A/w worsening back pain
hyponatremia likely from SIADH from pain
U osmo high 551, but U na high too 197 -no clear reason
given that sodium decreasing will start HTS and check q4hr labs
if no improvement try lasix
he eventually need smasca
maintain FR , check TSH
encourage solute intake
Bp are high end likely from pain
pain control
d/w pt and at bedside
[2024-11-15] MEDS: APRESOLINE 25 MG PO ×2 (16:17→22:08)
[2024-11-15] MEDS: SODIUM CHLORIDE 3% 250 IV (16:18)
[2024-11-15] MEDS: PEPCID 20 MG PO (18:04)
[2024-11-15] MEDS: CARDIZEM CD 180 MG PO (18:04)
[2024-11-15] MEDS: COUMADIN 5 MG PO (18:05)
[2024-11-15 18:39] LABS: Blood Urea Nitrogen 14 mg/dl (9-20); Calcium 8.9 mg/dl (8.4-10.2); Carbon Dioxide 25 mmol/L (22-30); Chloride 86 mmol/L (98-107); Estimated Creatinine Clearance 112 ml/min; Glucose 141 mg/dl (70-99); Potassium 4.0 mmol/L (3.5-5.1); Sodium 120 mmol/L (135-145); eGFR > 60.00
[2024-11-15] MEDS: REMOVE LIDOCAINE PATCH REMOVE (19:39)
[2024-11-16] VITALS (7 sets, daily range): BP systolic 121–160; BP diastolic 50–88
[2024-11-16 00:09] LABS: Sodium 123 mmol/L (135-145)
--- NOTE | 2024-11-16 00:11 | PTCARENOTE ---
STEAM TRAP WORKER made aware of NA level of [address] Torres. No new orders, maintain IV 3% Sodium chloride rate @30ml/hr.
--- NOTE | 2024-11-16 00:32 | W.PN.UPDATE ---
Update Note
Progress Note Update
Na level is 123 previously 120, will continue 3% rate 30cc and recheck in 4 hrs.
-Patient is bradycardia with hr in 30s -50s, asymptomatic. bp 144/77, RR 18, temp 97.8 .Patient is known a-fib and currently on 180mg of diltiazem qpm.
-Pain meds increased recently for uncontrol pain.
-Ekg done.
-Hr improved after patient placed on 2 L of O2.
-Will continue monitoring and consult cardiology as needed.
[2024-11-16] MEDS: SODIUM CHLORIDE 3% 250 IV (01:26)
[2024-11-16] MEDS: HEPARIN 5000 UNITS SC ×3 (01:28→17:51)
[2024-11-16] MEDS: TYLENOL 1000 MG PO ×3 (05:42→20:37)
[2024-11-16 05:47] LABS: INR 3.21; PT 32.7 Sec (11.4-14.6)
[2024-11-16 05:48] LABS: Hematocrit 25.0 % (39.0-52.0); Hemoglobin 8.9 g/dL (13.0-18.0); Mean Corp Hgb Conc. 35.6 g/dL (33.0-37.0); Mean Corpuscular Volume 79.1 fL (80.0-94.0); Platelet Count 128 10^3/uL (130-400); Red Cell Dist. Width 15.1 % (11.5-14.5)
[2024-11-16 06:05] LABS: ALT (SGPT) 20 U/L (0-50); AST (SGOT) 30 U/L (17-59); Albumin 3.7 g/dl (3.5-5.0); Alkaline Phosphatase 126 U/L (38-126); Blood Urea Nitrogen 14 mg/dl (9-20); Calcium 8.6 mg/dl (8.4-10.2); Carbon Dioxide 25 mmol/L (22-30); Chloride 93 mmol/L (98-107); Estimated Creatinine Clearance 112 ml/min; Glucose 122 mg/dl (70-99); Magnesium 2.0 mg/dl (1.6-2.3); Potassium 3.5 mmol/L (3.5-5.1); Sodium 124 mmol/L (135-145); Total Protein 6.9 g/dl (6.3-8.2); eGFR > 60.00
[2024-11-16 06:34] LABS: TSH 0.76 uIU/ml (0.47-4.68)
--- NOTE | 2024-11-16 07:27 | PTCARENOTE ---
Patient isacc @0000 with hr in 30s -50s, asymptomatic. bp 144/77, RR 18, temp 97.8 .Board Design Engineer on unit and made aware , Ekg completed, pt placed on 2l O2, HR improved to 60s - 70s, plan of care continues.
[2024-11-16 07:31] LABS: Absolute Neutrophils -Man Diff 9.5 10^3/uL (1.4-6.5); Platelets Checked Yes
[2024-11-16 07:32] LABS: Anisocytosis Slight; Normal RBC Morphology No; Ovalocytes Slight; Target Cells Slight; Total Cells Counted 100
[2024-11-16] MEDS: LIDOCAINE 4% PATCH 1 PATCH TOPICAL (08:54)
[2024-11-16] MEDS: NEURONTIN 300 MG PO ×3 (08:55→22:35)
[2024-11-16] MEDS: LIPITOR 20 MG PO (08:55)
[2024-11-16] MEDS: APRESOLINE 25 MG PO (08:55)
[2024-11-16] MEDS: ROXICODONE 10 MG PO ×2 (08:55→17:48)
[2024-11-16] MEDS: OCUVITE SOFTGEL 1 CAP PO (08:55)
[2024-11-16] MEDS: THERAGRAN 1 TABLET PO (08:55)
[2024-11-16] MEDS: TENORMIN 50 MG PO (08:55)
[2024-11-16] MEDS: DAKIN'S SOLUTION 0.125% 1/4 STRENGTH 473 ML TOPICAL (08:56)
[2024-11-16] MEDS: MIRALAX 17 GRAMS PO (08:56)
--- NOTE | 2024-11-16 09:40 | PTCARENOTE ---
Pt c/o nausea, made aware, new order provided, see MAR.
--- NOTE | 2024-11-16 09:45 | CM ---
Patient chart reviewed
Patient was current with [facility]
PT rec Home Health
[facility] referral added in [facility]-accepted
on oxygen currently-watch for needs
PLAN: home with [facility] when stable
[facility] Fax #: [phone]
[2024-11-16] MEDS: ZOFRAN 4 MG IV (10:03)
--- NOTE | 2024-11-16 11:02 | W.PN.HOSP.TC ---
Today's Communication/Plan
-
BMP serial
TLSO brace
MRI pending
Pain mgmt seems to be sufficient
Assessment / Plan
Assessment / Plan
78yo M with PMHx of Afib on Coumadin, HTN, HLD, GERD, charcot foot, recent L calf hematoma s/p evacuation 2 weeks ago in , also fall at that time with acute T10, T12 compression Fx and L4-L5, L5-S1 bone marrow edema came with worsening lower back
pain without new focal neurological deficit. Also found acute hyponatremia
A/P:
#Acute T10, T12 compression Fx with worsening back pain
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
MRI thoracolumbar spine
TLSO brace
pain mgmt
PT/OT
#mild leukocytosis
without fever
most likely stress induced 2/2 pain
#hyponatremia
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
Uosm and Sandra elevated
FR and nephrology consult: on 3% saline
serial BMP
#JAIME
#Afib, chronic
#GERD
#HLD
#Essential HTN
cont home meds
daily INR
DVT ppx on Coumadin
Full code
I have spent at least 37min reviewing chart, test results, communication with consultants and providing direct patient care
Anticipated Discharge: > 48 hours
Subjective/Interval History
-
Date of Service: November 16, 2024
Objective Data
-
Labs:
Laboratory Results
11/15/24 11/16/24 11/16/24
23:34 05:17 05:18
WBC 11.6 H
Hgb 8.9 L
Hct 25.0 L
Plt Count 128 L
PT 32.7 H
INR 3.21
Sodium 123 L 124 L
Potassium
Chloride
Carbon Dioxide
BUN
Creatinine
Glucose
Calcium
Total Bilirubin
AST
ALT
Alkaline Phosphatase
11/16/24
05:18
WBC
Hgb
Hct
Plt Count
PT
INR
Sodium Cancelled
Potassium 3.5
Chloride 93 L
Carbon Dioxide 25
BUN 14
Creatinine 0.6 L
Glucose 122 H
Calcium 8.6
Total Bilirubin 0.9
AST 30
ALT 20
Alkaline Phosphatase 126
Vital Signs:
Vital Signs
Temp Pulse Resp BP Pulse Ox
99.0 F 91 18 156/88 99
11/16/24 07:35 11/16/24 08:55 11/16/24 07:35 11/16/24 08:55 11/16/24 07:35
I&O
11/15/24 11/16/24 11/17/24
06:59 06:59 06:59
Intake Total 720 / 720 840 / 840
Output Total 1145 / 1145 240 / 240 520 / 520
Balance -425 / -425 600 / 600 -520 / -520
Review of Systems
-
History Source: Patient
All other systems: Reviewed and negative
Musculoskeletal: Reports Other (lower back pain)
Physical Exam
-
General: No Apparent Distress and Comfortable
HEENT: Normocephalic
GI: Soft, Nontender and Nondistended
Musculoskeletal: No Clubbing, No Cyanosis and No Edema
Neuro: Awake, Alert, Oriented, AO x 3 and No Motor Deficits
Psych: Calm
--- NOTE | 2024-11-16 12:34 | W.PN.NEPH.PH ---
Today's Communication / Plan
-
follow labs
Assessment/Plan
-
IMP:
Acute T10, T12 compression Fx with worsening back pain
Acute hyponatremia
JAIME
Afib, chronic
GERD
HLD
Essential HTN
History Right foot Charcot Arthropathy status post surgery
Recent LLE wound infection with surrounding cellulitis, failed outpt treatment
recent hx LT calf emergent hematoma evacuation with Dr Galvin 09/30/24
completed abx course of linezolid and doxycycline on 11/11
Plan:
check iron studies add on
await BMP from this morning
may benefit from samsca today
follow BMP
-
-
Date of Service: November 16, 2024
CC / HPI / ROS
-
Chief Complaint:
hyponatremia
History of Present Illness:
Na up to 124 with 3%NaCl
BP stable
K normal
Hgb lower 8.9
Review of Systems:
no CP/SOB
Labs
-
Labs:
WBC 11.6 10^3/uL (4.8-10.8) H 11/16/24 05:17
RBC 3.16 10^6/uL (4.70-6.10) L 11/16/24 05:17
Hgb 8.9 g/dL (13.0-18.0) L 11/16/24 05:17
Hct 25.0 % (39.0-52.0) L 11/16/24 05:17
Plt Count 128 10^3/uL (130-400) L 11/16/24 05:17
eGFR > 60.00 11/16/24 05:18
Albumin 3.7 g/dl (3.5-5.0) 11/16/24 05:18
Physical Exam
-
Vital Signs:
Vital Signs
Temp Pulse Resp BP Pulse Ox
97.8 F 70 14 121/69 97
11/16/24 11:05 11/16/24 11:05 11/16/24 11:05 11/16/24 11:05 11/16/24 11:05
Cardiovascular:: Regular rate and rhythm
Respiratory:: Bilateral: CTA
Lung Excursion:: Normal
Abdomen:: Nontender and Soft
Bowel Sounds:: Normal
Extremity Edema:: None: Bilateral:
--- NOTE | 2024-11-16 12:37 | PN.CDI ---
Addendum entered and electronically signed by Tevin Lubin MD 11/16/24 17:49:
already detailed
Original Note:
CDI
- -
CDI:
Physician Documentation Request
Admit Date: 11/14/24 17:39
Dear Doctor,
Please review the following and provide your response in the progress notes.
Clinical Indicators:
Pt admitted for Acute T10, T12 compression Fx with worsening back pain.
11/16 Progress Note: 'PMHx of Afib on Coumadin...Afib, chronic..'
A-fib noted throughout vital sign records.
If possible, please provide further specificity regarding atrial fibrillation, such as:
Paroxysmal atrial fibrillation - terminates spontaneously or with intervention within 7 days of onset
Persistent atrial fibrillation - episodes of continuous AF that last more than 7 days and do not self-terminate
Permanent atrial fibrillation - when a decision has been made to accept the presence of AF and there is no further attempt to restore or maintain sinus rhythm
Other - please specify
Unable to further specify
Use of terms such as suspected, likely, concern for, or probable (associated with a specific diagnosis that is being evaluated, monitored, or treated as if it exists) are acceptable and can be coded in the inpatient setting, when documented at the
time of discharge.
Thank you,
Charmaine Millard RN, BSN
CDI Specialist
[place] [employer]
Please use your independent medical judgment in providing your response.
--- NOTE | 2024-11-16 12:43 | PN.CDI ---
Addendum entered and electronically signed by Tevin Lubin MD 11/16/24 17:50:
not apparent clinically
Original Note:
CDI
- -
CDI:
Physician Documentation Request
Admit Date: 11/14/24 17:39
Dear Doctor,
Please review the following and provide your response in the progress notes.
Clinical Indicators:
Pt admitted for Acute T10, T12 compression Fx with worsening back pain.
11/15 Registered Dietitian Note: 'CBW: 188 lbs 11.2 oz BMI 26.3 overweight range (11/14)
Pts weight previous admission listed as 211 lbs 10/23 reflective of a 11% weight loss in 1 month signficant.
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 '
Based on the above information and your assessment, which of the following most accurately represents the patient's nutritional status?
Moderate protein calorie Malnutrition
Other (please specify)
[place] Criteria (ACP Hospitalist 2017)
2 or more criteria must be present for either
non severe or severe malnutrition
Note that the criteria differs related to the
presence of an acute or chronic illness
Chronic Illness
Energy Intake Non Severe: <75% for >1 month
Severe: <75% for >1 month
Weight Loss Non Severe: 5% over 1 month
7.5% over 3 months
10% over 6 months
20% over 1 year
Severe: >5% over 1 month
>7.5% over 3 months
>10% over 6 months
>20% over 1 year
Body Fat Non Severe: Mild Loss
Severe: Severe Loss
Muscle Mass Non Severe: Mild Loss
Severe: Severe Loss
Fluid Accumulation Non Severe: Mild Accumulation
Severe: Moderate to severe
accumulation
Reduced Site Physician Strength Non Severe: N/A
Severe: Measurably reduced
Additional criteria that can be used to Determine if Mild or Moderate Malnutrition (Merck Manual 2018)
Use of terms such as suspected, likely, concern for, or probable (associated with a specific diagnosis that is being evaluated, monitored, or treated as if it exists) are acceptable and can be coded in the inpatient setting, when documented at the
time of discharge.
Thank you,
Charmaine Millard RN, BSN
CDI Specialist
[facility]
Please use your independent medical judgment in providing your response.
[2024-11-16 12:54] LABS: Blood Urea Nitrogen 15 mg/dl (9-20); Calcium 8.3 mg/dl (8.4-10.2); Carbon Dioxide 22 mmol/L (22-30); Chloride 93 mmol/L (98-107); Estimated Creatinine Clearance 96 ml/min; Glucose 121 mg/dl (70-99); Potassium 3.9 mmol/L (3.5-5.1); Sodium 122 mmol/L (135-145); eGFR > 60.00
[2024-11-16 13:48] LABS: Iron 36 ug/dl (49-181)
[2024-11-16 13:57] LABS: Total Iron Binding Capacity 232 ug/dl (261-462)
[2024-11-16 16:04] LABS: Ferritin 343.0 ng/ml (17.9-464.0)
[2024-11-16] MEDS: PEPCID 20 MG PO (17:50)
[2024-11-16] MEDS: CARDIZEM CD 180 MG PO (17:51)
[2024-11-16] MEDS: APRESOLINE 50 MG PO ×2 (17:54→22:35)
[2024-11-16] MEDS: COUMADIN 2.5 MG PO (18:17)
[2024-11-16] MEDS: SAMSCA 15 MG PO (18:18)
--- NOTE | 2024-11-16 18:40 | PTCARENOTE ---
informed to call patient with update.
[2024-11-16] MEDS: REMOVE LIDOCAINE PATCH 1 PATCH REMOVE (20:36)
[2024-11-16] MEDS: FEOSOL 325 MG PO (20:37)
[2024-11-17] VITALS (8 sets, daily range): BP systolic 87–149; BP diastolic 48–68; PULSE 75–76
[2024-11-17] MEDS: HEPARIN 5000 UNITS SC ×2 (00:27→09:13)
[2024-11-17] MEDS: TYLENOL PO (04:20)
[2024-11-17 06:44] LABS: Hematocrit 29.0 % (39.0-52.0); Hemoglobin 9.8 g/dL (13.0-18.0); Mean Corp Hgb Conc. 33.8 g/dL (33.0-37.0); Mean Corpuscular Volume 83.1 fL (80.0-94.0); Platelet Count 144 10^3/uL (130-400); Red Cell Dist. Width 15.3 % (11.5-14.5)
[2024-11-17 06:45] LABS: INR 3.01; PT 31.1 Sec (11.4-14.6)
[2024-11-17 06:56] LABS: ALT (SGPT) 20 U/L (0-50); AST (SGOT) 27 U/L (17-59); Albumin 3.7 g/dl (3.5-5.0); Alkaline Phosphatase 126 U/L (38-126); Blood Urea Nitrogen 21 mg/dl (9-20); Calcium 9.1 mg/dl (8.4-10.2); Carbon Dioxide 25 mmol/L (22-30); Chloride 96 mmol/L (98-107); Estimated Creatinine Clearance 84 ml/min; Glucose 104 mg/dl (70-99); Potassium 3.7 mmol/L (3.5-5.1); Sodium 129 mmol/L (135-145); Total Protein 6.9 g/dl (6.3-8.2); eGFR > 60.00
[2024-11-17 08:38] LABS: Absolute Neutrophils -Man Diff 7.9 10^3/uL (1.4-6.5); Anisocytosis 1+; Hypochromasia 1+; Normal RBC Morphology No; Platelets Checked Yes; Polychromasia 1+
[2024-11-17 08:39] LABS: Ovalocytes FEW; Total Cells Counted 100
[2024-11-17] MEDS: OCUVITE SOFTGEL 1 CAP PO (09:12)
[2024-11-17] MEDS: LIPITOR 20 MG PO (09:12)
[2024-11-17] MEDS: NEURONTIN 300 MG PO ×3 (09:12→21:11)
[2024-11-17] MEDS: THERAGRAN 1 TABLET PO (09:12)
[2024-11-17] MEDS: APRESOLINE 50 MG PO (09:12)
[2024-11-17] MEDS: TENORMIN 25 MG PO (09:13)
[2024-11-17] MEDS: MIRALAX PO (09:14)
[2024-11-17] MEDS: BenGay-Like 1 APPLIC TOPICAL (09:14)
[2024-11-17] MEDS: LIDOCAINE 4% PATCH TOPICAL (09:15)
[2024-11-17] MEDS: ROXICODONE 10 MG PO (10:05)
[2024-11-17] MEDS: TYLENOL 1000 MG PO ×2 (11:10→21:10)
--- NOTE | 2024-11-17 11:43 | CM ---
Patient seen at bedside
Current with [facility]
brought in RLE surgical shoe
PLAN: home, [facility] when stable
--- NOTE | 2024-11-17 11:44 | PTCARENOTE ---
attending notified pt had PRN Oxy BP was then 94/48, concern for IV break through pain medication causing further hypotension. N/O Attending notified pt already received PO dose of tylenol, ordered to continue with IV. family at [facility] asking for
update. Dr. Lambert also aware
--- NOTE | 2024-11-17 12:10 | W.PN.NEPH.PH ---
Today's Communication / Plan
-
cotn FR, follow labs
may benefit from low dose lasix towards d/c
Assessment/Plan
-
IMP:
Acute T10, T12 compression Fx with worsening back pain
Acute hyponatremia
JAIME
Afib, chronic
GERD
HLD
Essential HTN
History Right foot Charcot Arthropathy status post surgery
Recent LLE wound infection with surrounding cellulitis, failed outpt treatment
recent hx LT calf emergent hematoma evacuation with Dr Galvin 09/30/24
completed abx course of linezolid and doxycycline on 11/11
Plan:
sodium improving to 130 post sasmca 11/15
cont FR and encourage solute intake
no samsca today, labs recheck in am
hb better, Fe sat 15% on po fe
Bps table
Pt wants no surgical intervention
-
-
Date of Service: November 17, 2024
CC / HPI / ROS
-
Chief Complaint:
hyponatremia
History of Present Illness:
Na up to 130with samsca 11/16
BP stable
K normal
Hgb better at 9.8
Review of Systems:
no CP/SOB
pain fair control with meds
Labs
-
Labs:
WBC 11.8 10^3/uL (4.8-10.8) H 11/17/24 06:15
RBC 3.49 10^6/uL (4.70-6.10) L 11/17/24 06:15
Hgb 9.8 g/dL (13.0-18.0) L 11/17/24 06:15
Hct 29.0 % (39.0-52.0) L 11/17/24 06:15
Plt Count 144 10^3/uL (130-400) 11/17/24 06:15
eGFR > 60.00 11/17/24 06:15
Albumin 3.7 g/dl (3.5-5.0) 11/17/24 06:15
Physical Exam
-
Vital Signs:
Vital Signs
Temp Pulse Resp BP Pulse Ox
98.9 F 93 16 136/67 96
11/17/24 11:05 11/17/24 11:05 11/17/24 11:05 11/17/24 11:05 11/17/24 11:05
Cardiovascular:: Regular rate and rhythm
Respiratory:: Bilateral: CTA
Lung Excursion:: Normal
Abdomen:: Nontender and Soft
Bowel Sounds:: Normal
Extremity Edema:: None: Bilateral: (trace)
Vazquez Catheter: No
Other Findings::
left leg in ANASTASIIA wrap
--- NOTE | 2024-11-17 12:12 | PTCARENOTE ---
per pharmacy IV Tylenol not appropriate with time of PO, reaching out for alternatives with considerations of BP
[2024-11-17] MEDS: TORADOL 15 MG IV (12:39)
--- NOTE | 2024-11-17 13:03 | W.PN.HOSP.TC ---
Addendum entered and electronically signed by Tevin Lubin MD 11/17/24 17:09:
#L calf wound
s/p hematoma evacuation 3 weeks ago
persistent leukocytosis
VascSx and ID follow up
Original Note:
Today's Communication/Plan
-
NeuroSx consult
cont same coumadin dose, cont to follow INR
Assessment / Plan
Assessment / Plan
78yo M with PMHx of Afib on Coumadin, HTN, HLD, GERD, charcot foot, recent L calf hematoma s/p evacuation 2 weeks ago in , also fall at that time with acute T10, T12 compression Fx and L4-L5, L5-S1 bone marrow edema came with worsening lower back
pain without new focal neurological deficit. Also found acute hyponatremia
A/P:
#Acute T10, T12 compression Fx with worsening back pain
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
MRI thoracolumbar spine: progressive loss of height with increased edema of the T12 vertebral body and increased associated retropulsion. hyperintense signal and enhancement within the L4-L5 and L5-S1 intervertebral disks which extends into the
adjacent endplates at the L5-S1 level. This is overall similar in appearance to prior and favored to represent edema over discitis/osteomyelitis given the similar appearance and lack of paraspinal soft tissue changes.
NeuroSx consult
TLSO brace
pain mgmt
PT/OT
#mild leukocytosis
without fever
most likely stress induced 2/2 pain
#hyponatremia
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
Uosm and Sandra elevated
FR and nephrology consult: did not improve on 3% saline, s/p Samca on 11/16/24
serial BMP
#JAIME
#Afib, chronic
#GERD
#HLD
#Essential HTN
cont home meds
daily INR
DVT ppx on Coumadin
Full code
I have spent at least 37min reviewing chart, test results, communication with consultants and providing direct patient care
Anticipated Discharge: > 48 hours
Subjective/Interval History
-
Date of Service: November 17, 2024
Objective Data
-
Labs:
Laboratory Results
11/17/24 11/17/24 11/17/24
00:15 06:15 11:56
WBC 11.8 H
Hgb 9.8 L
Hct 29.0 L
Plt Count 144
PT 31.1 H
INR 3.01
Sodium Cancelled 129 L Pending
Potassium Cancelled 3.7 Pending
Chloride Cancelled 96 L Pending
Carbon Dioxide Cancelled 25 Pending
BUN Cancelled 21 H Pending
Creatinine Cancelled 0.8 Pending
Glucose Cancelled 104 H Pending
Calcium Cancelled 9.1 Pending
Total Bilirubin 0.8
AST 27
ALT 20
Alkaline Phosphatase 126
Vital Signs:
Vital Signs
Temp Pulse Resp BP Pulse Ox
98.9 F 93 16 136/67 96
11/17/24 11:05 11/17/24 11:05 11/17/24 11:05 11/17/24 11:05 11/17/24 11:05
I&O
11/16/24 11/17/24 11/18/24
06:59 06:59 06:59
Intake Total 840 / 840 480 / 480
Output Total 240 / 240 1270 / 1270
Balance 600 / 600 -790 / -790
Review of Systems
-
History Source: Patient
All other systems: Reviewed and negative
Physical Exam
-
General: No Apparent Distress
HEENT: Normocephalic
Cardiac: Regular Rhythm
GI: Soft, Nontender and Nondistended
Musculoskeletal: Other (back pain)
Skin: Warm
Neuro: Awake, Alert, Oriented and AO x 3
Psych: Calm
[2024-11-17 13:12] LABS: Blood Urea Nitrogen 23 mg/dl (9-20); Calcium 8.6 mg/dl (8.4-10.2); Carbon Dioxide 25 mmol/L (22-30); Chloride 97 mmol/L (98-107); Estimated Creatinine Clearance 67 ml/min; Glucose 104 mg/dl (70-99); Potassium 3.8 mmol/L (3.5-5.1); Sodium 130 mmol/L (135-145); eGFR > 60.00
--- NOTE | 2024-11-17 15:42 | CON.NS ---
Consultation
-
Date/Time Consultation Performed: 11/17/2024
Performing Provider: Chacorta
Reason for Consultation: back pain
Chief Complaint
History of Present Illness
This is a neurosurgical consultation on a 78-year-old gentleman with active medical issues including atrial fibrillation on Coumadin, left leg infected hematoma versus abscess, who was on antibiotics till the end of October, who was admitted in mid
October and was found to have acute compression fractures of T10, T12. At that time, he had imaging studies that demonstrated L4-5, L5-S1 disc edema. He presented again on 11/14/2024 with ongoing back pain with inability to rest. he also has like based
neuropathy stating that he He was admitted for further evaluation and workup. He also his noted to be hyponatremic. He was started on hypertonic saline. He underwent a repeat MRI scan which demonstrated persistent edema within the disc base at
L4-5, L5-S1. Neurosurgery asked to further evaluate.
Patient seen and examined. During our encounter, patient's , daughter, was available at bedside, and son were available to discuss via telephone.
Patient reports that he has had ongoing mid back and low back pain. Denies any misael radiculopathy.
Review of Systems
-
10 point review of systems including constitutional, ENT, cardiovascular, respiratory, GI, , neurologic, musculoskeletal, hematologic, endocrinologic was performed, and was negative except for as stated in HPI.
Medication and Allergies
Home Medications
Home Medications
�Medication �Instructions �Recorded
atenolol 50 mg tablet 50 mg PO DAILY Blood Pressure 11/28/20
atorvastatin 20 mg tablet 20 mg PO DAILY High Cholesterol 11/28/20
diltiazem HCl 180 mg capsule,24 180 mg PO QPM Arrhythmia 09/30/24
hr,extended release
gabapentin 300 mg capsule 300 mg PO TID Pain 09/30/24
multivitamin 1 tab PO DAILY Supplement 09/30/24
famotidine 20 mg tablet 20 mg PO QPM Gastrointestinal Issue 10/13/24
vitamins A,C,U-acgt-oxgmmw 2,148 1 tab PO BID Supplement 10/13/24
mcg-113 mg-45 mg-17.4 mg tablet
(PreserVision AREDS)
warfarin 5 mg tablet (Jantoven) 5 mg PO .SEE BELOW Blood 10/13/24
Clot Prevention/Tx
camphor 4 %-methyl salicylate 30 1 applic topical DAILY PRN mild 10/23/24
%-menthol 10 % topical cream pain
(Bengay Ultra Strength)
acetaminophen 500 mg tablet 1,000 mg (2 x 500 mg) PO Q8H #90 10/29/24
(Tylenol Extra Strength) tabs
ferrous sulfate 325 mg (65 mg 325 mg PO Q48H #14 tabs 10/29/24
iron) tablet
oxycodone 5 mg tablet 5 mg PO Q6HPRN PRN severe pain #10 10/29/24
tabs
polyethylene glycol 3350 17 gram 17 g PO DAILY #30 ea 10/29/24
oral powder packet
doxycycline hyclate 100 mg capsule 100 mg PO Q12 Infection 11/15/24
linezolid 600 mg tablet 600 mg PO BID Infection 11/15/24
Allergies
Allergies
Allergy/AdvReac Type Severity Reaction Status Date / Time
almond Allergy Anaphylaxis Verified 11/14/24 14:03
cat dander Allergy runny Verified 11/14/24 14:03
eyes,
sneeze
Physical Exam
-
Exam:
Awake, alert, no apparent distress.
Pupils are equal round reactive to light.
Extraocular movements are full without any nystagmus.
Face is symmetric, tongue is midline.
Motor: 5/5 strength bilaterally in upper extremities, lower extremities in all muscle groups. Fixed deformity of right distal foot, limiting EHL movement.
Tenderness to palpation in midline over thoracolumbar junction. Minimal tenderness at lumbosacral junction.
Head is normocephalic atraumatic
breathing nonlabored
Abdomen is soft
Extremities are warm
Thoracic and lumbar MRI performed on 11/16/2024 is available for review. Images were personally viewed and interpreted by me. There is evidence of STIR signal hyperintensity within the T12 vertebral body, consistent with acute compression fracture.
There is very minimal retropulsion with no evidence of cord compression or neural compression noted. There is also a subtle posterior signal hyperintensity noted along the left aspect of the L5-S1 disc space. There is some enhancement of the disc
space noted at L5-S1, which could be reactive, but early discitis cannot be ruled out. MRI of the thoracic spine also demonstrated STIR signal hyperdensity within the T10 vertebral body, more consistent with compression fracture than infectious
etiology.
Problems
-
Problem Status Onset Code
Acute hyponatremia Acute E87.1
Acute back pain Acute M54.9
Assessment / Plan
-
This is a 78-year-old gentleman, who was recently treated for infection, who presents with ongoing back pain. Imaging does demonstrate T10, T12 acute compression fractures without any neurological compression.
Additionally, MRI of the lumbar spine does demonstrate faint contrast-enhancement, STIR signal hyperintensity within the L4-L5, and L5-S1 disc levels and adjacent endplates.
While this may be reactive/inflammatory, cannot completely rule out infectious etiology.
Would recommend follow-up ESR/CRP and if this is downtrending, compared with prior, less likely that this is infectious.
Would recommend close interval MRI scan in 4 to 6 weeks.
For T12, T10 compression fractures, continue with TLSO bracing. If pain is refractory, and infectious workup is negative, can consider kyphoplasty at both these levels by interventional radiology for pain control.
[2024-11-17] MEDS: COUMADIN 5 MG PO (17:25)
[2024-11-17] MEDS: CARDIZEM CD 180 MG PO (17:25)
[2024-11-17] MEDS: PEPCID 20 MG PO (17:28)
[2024-11-17] MEDS: DAKIN'S SOLUTION 0.125% 1/4 STRENGTH TOPICAL (21:09)
[2024-11-17] MEDS: REMOVE LIDOCAINE PATCH 1 PATCH REMOVE (21:10)
[2024-11-18] VITALS (14 sets, daily range): BP systolic 94–144; BP diastolic 51–83; PULSE 85–95; O2SAT 97
[2024-11-18] MEDS: TYLENOL PO ×2 (04:32→12:43)
[2024-11-18 05:53] LABS: Hematocrit 25.6 % (39.0-52.0); Hemoglobin 8.6 g/dL (13.0-18.0); Mean Corp Hgb Conc. 33.6 g/dL (33.0-37.0); Mean Corpuscular Volume 83.9 fL (80.0-94.0); Platelet Count 145 10^3/uL (130-400); Red Cell Dist. Width 15.7 % (11.5-14.5)
[2024-11-18 05:58] LABS: INR 2.61; PT 28.3 Sec (11.4-14.6)
[2024-11-18 06:14] LABS: Blood Urea Nitrogen 40 mg/dl (9-20); Calcium 8.3 mg/dl (8.4-10.2); Carbon Dioxide 23 mmol/L (22-30); Chloride 98 mmol/L (98-107); Estimated Creatinine Clearance 39 ml/min; Glucose 95 mg/dl (70-99); Potassium 3.8 mmol/L (3.5-5.1); Sodium 131 mmol/L (135-145); eGFR 41.26
[2024-11-18 06:28] LABS: Absolute Neutrophils -Man Diff 7.8 10^3/uL (1.4-6.5)
[2024-11-18 06:29] LABS: Anisocytosis 1+; Normal RBC Morphology No; Ovalocytes 2+; Platelets Checked Yes; Total Cells Counted 100
[2024-11-18] MEDS: THERAGRAN 1 TABLET PO (08:58)
[2024-11-18] MEDS: LIPITOR 20 MG PO (08:58)
[2024-11-18] MEDS: TENORMIN 25 MG PO (08:58)
[2024-11-18] MEDS: OCUVITE SOFTGEL 1 CAP PO (08:58)
[2024-11-18] MEDS: NEURONTIN 300 MG PO ×3 (08:58→22:17)
[2024-11-18] MEDS: LIDOCAINE 4% PATCH 1 PATCH TOPICAL (08:58)
[2024-11-18] MEDS: DAKIN'S SOLUTION 0.125% 1/4 STRENGTH 473 ML TOPICAL (09:00)
[2024-11-18] MEDS: ROXICODONE 10 MG PO ×2 (09:02→16:06)
[2024-11-18] MEDS: MIRALAX 17 GRAMS PO (09:04)
[2024-11-18] MEDS: NSS 1000 IV (09:05)
[2024-11-18] MEDS: BenGay-Like 1 APPLIC TOPICAL (09:08)
--- NOTE | 2024-11-18 10:52 | W.PN.HOSP.TC ---
Today's Communication/Plan
-
with JONATHAN start hydration
Assessment / Plan
Assessment / Plan
78yo M with PMHx of Afib on Coumadin, HTN, HLD, GERD, charcot foot, recent L calf hematoma s/p evacuation 2 weeks ago in , also fall at that time with acute T10, T12 compression Fx and L4-L5, L5-S1 bone marrow edema came with worsening lower back
pain without new focal neurological deficit. Also found acute hyponatremia
A/P:
#Acute T10, T12 compression Fx with worsening back pain
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
MRI thoracolumbar spine: progressive loss of height with increased edema of the T12 vertebral body and increased associated retropulsion. hyperintense signal and enhancement within the L4-L5 and L5-S1 intervertebral disks which extends into the
adjacent endplates at the L5-S1 level. This is overall similar in appearance to prior and favored to represent edema over discitis/osteomyelitis given the similar appearance and lack of paraspinal soft tissue changes.
NeuroSx consult: eventual vertebroplasty if pain worsens, close interval MRI scan in 4 to 6 weeks for lumbar findings with ESR/CRP trend
TLSO brace
pain mgmt
PT/OT
Check vit D 0.25 - start Oscal if low vit D
#mild leukocytosis
without fever
most likely stress induced 2/2 pain
with lumbar disk edema - and recent Hx of L calf infection with persistent wound - ID and VascSx consult
#Mild hyponatremia
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
Uosm and Sandra elevated
FR and nephrology consult: did not improve on 3% saline, s/p Samca on 11/16/24
serial BMP
#JONATHAN
might be 2/2 episodes of hypotension and fluid restriction
since sodium improved - gentle hydration with frequent BMP
Increase FR to 1.5L
#JAIME
#Afib, chronic
#GERD
#HLD
#Essential HTN
cont home meds
daily INR
DVT ppx on Coumadin
Full code
I have spent at least 57min reviewing chart, test results, communication with consultants and providing direct patient care
Anticipated Discharge: 24 - 48 hours
Subjective/Interval History
-
Date of Service: November 18, 2024
Objective Data
-
Labs:
Laboratory Results
11/18/24 11/18/24 11/18/24
05:26 05:27 16:00
WBC 10.6
Hgb 8.6 L
Hct 25.6 L
Plt Count 145
PT 28.3 H
INR 2.61
Sodium 131 L Pending
Potassium 3.8 Pending
Chloride 98 Pending
Carbon Dioxide 23 Pending
BUN 40 H Pending
Creatinine 1.7 H Pending
Glucose 95 Pending
Calcium 8.3 L Pending
Vital Signs:
Vital Signs
Temp Pulse Resp BP Pulse Ox
99.1 F 89 16 117/58 97
11/18/24 07:15 11/18/24 08:58 11/18/24 07:15 11/18/24 08:58 11/18/24 07:15
I&O
11/17/24 11/18/24 11/19/24
06:59 06:59 06:59
Intake Total 480 / 480 1680 / 1680 740 / 740
Output Total 1270 / 1270 1800 / 1800
Balance -790 / -790 -120 / -120 740 / 740
Review of Systems
-
History Source: Patient
All other systems: Reviewed and negative
Physical Exam
-
General: No Apparent Distress
HEENT: Normocephalic
Respiratory: Clear to Auscultation
Cardiac: Regular Rhythm
GI: Soft
Musculoskeletal: No Clubbing, No Cyanosis, No Edema and Other (back pain)
Skin: Warm
Neuro: Awake, Alert, Oriented and AO x 3
Psych: Calm
[2024-11-18 11:17] LABS: Vitamin D, 25-OH*** 33.2 ng/mL (30-80)
--- NOTE | 2024-11-18 12:01 | CON.ID ---
Consultation
-
Date/Time Consultation Requested: November 17, 2024 1657
Date/Time Consultation Performed: November 18, 2024 1200
Requesting Provider: Dr. Tevin Lubin
Performing Provider: Dr. Charlotte Zavala
Reason for Consultation: Review MRI findings
Chief Complaint / Past History
Chief Complaint
Severe back pain
History of Present Illness
78-year-old male with history of atrial fibrillation on Coumadin, right foot Charcot arthropathy who was recently hospitalized from September 30 -October 10 due to mechanical fall sustaining left calf tense hematoma requiring emergent OR I&D with closure
September 30. Coumadin was resumed upon discharge. Patient and his report to calf wound did not heal with persistent thick bloody drainage. Continued to have redness around the area. Admitted ER October 23 - for infected hematoma. CT of the
leg showed 7.8 cm complex rim-enhancing fluid collection at site of evacuated hematoma s/p IR drainage without drain placed. Cx grew polymicrobial organisms treated with appropriate antibiotics. During that hospital stay, he fell while in bathroom
and developed new back pain. MRI T/L spine: acute mild T10, T12 compression fracture with bone marrow edema, non-displaced fracture left 7th rib, L4-L5, L5-S1 bone marrow edema/enhancement, treated conservatively.
He returned to the hospital November 14 for significantly worse mid back pain. He was not able to sleep at night. Pain mostly positional. No fevers or chills. The leg wound is improving. In the ER, afebrile, normal white count which increased
slightly the next day. Repeat MRI of the T/L-spine showed progressive loss of height T12 vertebral body and increase retropulsion and now moderate canal stenosis. The lumbar spine findings stable. Sed rate 62 , CRP 26. He was seen by
neurosurgery who deemed pain due to compression fracture rather than infectious discitis and to trend sed rate/CRP. TLSO brace recommended for the patient. He was also seen by vascular today who will debride the necrotic calf wound.
Past History
Additional Past Medical History:
Hypertension
Atrial fibrillation on Coumadin
HLD
Left calf hematoma evacuation 09/30/24
Right foot Charcot arthropathy surgeries
Right distal radius ORIF
T10, T12 compression fracture after fall
Allergy History:
almond Allergy (Verified 11/14/24 14:03)
Anaphylaxis
cat dander Allergy (Verified 11/14/24 14:03)
runny eyes, sneeze
Medications Reviewed: Yes
Current Antibiotics:
none
Social History
Tobacco: Non-Smoker
Alcohol: None
Drug: None
Personal:
Living: With Family
Family History
Family History: Not Pertinent
Review of Systems
Review of Systems
General: Negative Fever, Chills or Change in Appetite
HEENT: Negative Stiff Neck, Sinus Problems or Headache
Cardiovascular: Negative Chest Pain, Dyspnea or Edema
Respiratory: Negative Dyspnea or Cough
Gasteroenterology: Negative Nausea, Vomiting or Diarrhea
Genital / Urological: Negative Dysuria or Flank Pain
Endocrine: Negative Weakness
All systems: All other systems were reviewed and were negative
Vital Signs
Temp Pulse Resp BP Pulse Ox
99.1 F 89 16 117/58 97
11/18/24 07:15 11/18/24 08:58 11/18/24 07:15 11/18/24 08:58 11/18/24 07:15
Physical Exam
Physical Exam
Constitutional: No Acute Distress and Comfortable
Eyes: No Conjunctival Hemorrhage and Sclera Anicteric
Cardiovascular: Regular Rate and S1/S2
Pulmonary: Clear
Gastrointestinal: Soft, Non Tender, Non Distended and Normal Bowel Sounds
Genito-Urinary: Negative CVA Tenderness
Extremities: Edema (LLE 1+)
Musculoskeletal: Negative Spinal Tenderness (No point tenderness T/L spine)
Wound: Other (Review of wound photos: Left lateral leg wound with 50% vu slough, calf wound with necrotic tissue)
Neurological: AO x 3
Lab / Diagnostic Study Results
11/18/24 05:26
Abs Immat Gran (auto) 0.0 10^3/uL (0-0.05) 11/14/24 15:22
Absolute Neuts (auto) 7.4 10^3/uL (1.4-6.5) H 11/14/24 15:22
Absolute Lymphs (auto) 0.9 10^3/uL (1.2-3.4) L 11/14/24 15:22
Absolute Monos (auto) 1.4 10^3/uL (0.1-0.6) H 11/14/24 15:22
Absolute Basos (auto) 0.1 10^3/uL (0-0.2) 11/14/24 15:22
Total Counted 100 11/18/24 05:26
Immature Gran % 0.2 % (0-0.5) 11/14/24 15:22
Neutrophils % 76.1 % (42.2-75.2) H 11/14/24 15:22
Lymphocytes % 9.1 % (20.5-51.1) L 11/14/24 15:22
Monocytes % 14.0 % (1.7-9.3) H 11/14/24 15:22
Eosinophils % 0.1 % (0-6) 11/14/24 15:22
Basophils % 0.5 % (0-2) 11/14/24 15:22
Abs Neuts (Manual) 7.8 10^3/uL (1.4-6.5) H 11/18/24 05:26
Segmented Neutrophils 74 % (42-75) 11/18/24 05:26
Band Neutrophils 0 % (0-3) 11/18/24 05:26
Lymphocytes (Manual) 13 % (20-51) L 11/18/24 05:26
Eosinophils (Manual) 1 % (0-6) 11/18/24 05:26
ESR 62 mm/hour (0-20) H 11/14/24 15:22
PT 28.3 Sec (11.4-14.6) H 11/18/24 05:27
INR 2.61 11/18/24 05:27
C-Reactive Protein 26.00 mg/L (0.0-10.00) H 11/14/24 15:22
Ur Squamous Epith Cells 0-2 /LPF (Few) 11/14/24 17:21
Microbiology Results
Micro:
11/14/24 21:42 MRSA Screen - Final
Nose No Methicillin Resistant Staphylococcus aureus isolated.
11/16/24 MRI thoracic spine: There is progressive loss of height with increased edema of the T12 vertebral body and increased associated retropulsion. There is now moderate canal stenosis at the T12 level secondary to the retropulsion. Mild
compression fracture of the T10 vertebral body, similar to prior.
11/16/24 MRI lumbar spine: There is STIR hyperintense signal and enhancement within the L4-L5 and L5-S1 intervertebral disks which extends into the adjacent endplates at the L5-S1 level. This is overall similar in appearance to prior and favored to
represent edema over discitis/osteomyelitis given the similar appearance and lack of paraspinal soft tissue changes.
Assessment / Plan
#Worsening back pain.
- Due to recent fall and now progression of T12 compression fracture with moderate canal stenosis
Lumbar spine MRI stable edema L4-L5 and L5-S1 disks
- Zero to minimal suspicion for infectious discitis.
a. Recent fall explains MRI findings.
b. Recent hospitalization with negative blood cultures and therefore could not have seeded the spine.
c. Pain is positional
d. Afebrile
e. Reactive leukocytosis spontaneously resolved off antibiotic
f. ESR and CRP ARE NOT SPECIFIC tests. Use clinical judgement and correlation.
# Recent LLE infected hematoma s/p IR drainage of old blood 10/25/24 completed course of abx.
# Wounds overall improved but still with necrotic tissues.
- Agree with debridement to promote healing.
--- NOTE | 2024-11-18 12:06 | W.PN.UPDATE ---
Addendum entered and electronically signed by Denver Galvin MD 11/18/24 13:03:
Discussed also with patient heightened risk of bleeding with INR elevated due to Coumadin. He understands and wishes to proceed.
Original Note:
Update Note
Progress Note Update
Seen and evaluated. Known to me status post washout of tense hematoma with skin changes about a month or so ago. Had presented back with small collection that was drained by IR. Now presents back with concern for infection of the left posterior
calf. In addition he has significant back pain and is being evaluated for those issues. Neurosurgery had seen him yesterday. They are favoring this not being an infectious process, but cannot be sure. Recommending follow-up interval MRI.
Patient following up with wound care regularly regarding the left calf. There is an open cavity that is being packed.
On exam/dressing removed in the left lower extremity. Packing deeply appears clean. There is no purulence. However superficially more so or subcutaneous area in the posterior calf has black necrotic tissue that has a slightly wet necrotic look to
it.
The prior medial calf incision is healed.
Plan/concern for infection of the skin/subcutaneous tissue/wound. Especially given concern for possible spine infection (though seems less likely), would favor debriding this not only because of concern for wet gangrene but also for potential if it
is a septic source (though that would seem less likely). Discussed with the patient and his family washing this down debriding all the tissue. They understand all wished to proceed. Will try to get him added onto the OR now.
--- NOTE | 2024-11-18 12:08 | CON.VAS ---
Consultation
Consultation Request
Date/Time Consultation Performed: 11/18/24 12:00
Performing Provider: Kamar
Reason for Consultation: LLE wound/infection
Medical History
-
Chief Complaint: Back pain
History of Present Illness:
78-year-old male with past medical history significant for hypertension, A-fib on Coumadin, Charcot foot, obesity, hyperlipidemia who was recently admitted on 10/25/2024 for cellulitis of the left lower extremity. Patient is status post hematoma
evacuation with Dr. Galvin on 09/30/2024. On last admission patient had a drain placed by IR to the old hematoma evacuation site. Patient went home on antibiotics. Patient presenting now with concern for infection of the left posterior calf. In
addition he has significant back pain and is being evaluated for those issues. Neurosurgery had seen him yesterday. They are favoring this not being an infectious process, but cannot be sure. Recommending follow-up interval MRI.
Patient following up with wound care regularly regarding the left calf. There is an open cavity that is being packed.
On exam/dressing removed in the left lower extremity. Packing deeply appears clean. There is no purulence. However superficially more so or subcutaneous area in the posterior calf has black necrotic tissue that has a slightly wet necrotic look to
it.
The prior medial calf incision is healed.
Vascular procedural history:
10/25/2024: IR for drainage of fluid collection at left lower extremity old hematoma evacuation site
09/30/24: Emergent evacuation left calf hematoma with closure over drains. Pulse lavage irrigation left calf subcutaneous hematoma cavity with 3 L saline solution.-Dr. Galvin
Past Medical History
Past Medical History: Other (Arrhythmias (A-fib on Coumadin), HTN, Valvular Disease (Nonrheumatic tricuspid valve vegetation) and Other (Obesity, hyperlipidemia, right foot Charcot))
Past Surgical History: Other (Surgical repair of Charcot foot right lower extremity)
Family History
Family History: Reviewed & Not Pertinent
Allergies / Home Medications
Allergy/AdvReac Type Severity Reaction Status Date / Time
almond Allergy Anaphylaxis Verified 11/14/24 14:03
cat dander Allergy runny Verified 11/14/24 14:03
eyes,
sneeze
�Medication �Instructions �Recorded �Confirmed �Type
atenolol 50 mg tablet 50 mg PO DAILY Blood Pressure 11/28/20 11/15/24 History
atorvastatin 20 mg tablet 20 mg PO DAILY High Cholesterol 11/28/20 11/15/24 History
diltiazem HCl 180 mg capsule,24 180 mg PO QPM Arrhythmia 09/30/24 11/15/24 History
hr,extended release
gabapentin 300 mg capsule 300 mg PO TID Pain 09/30/24 11/15/24 History
multivitamin 1 tab PO DAILY Supplement 09/30/24 11/15/24 History
famotidine 20 mg tablet 20 mg PO QPM Gastrointestinal Issue 10/13/24 11/15/24 History
vitamins A,C,H-abih-tuzflq 2,148 1 tab PO BID Supplement 10/13/24 11/15/24 History
mcg-113 mg-45 mg-17.4 mg tablet
(PreserVision AREDS)
warfarin 5 mg tablet (Jantoven) 5 mg PO .SEE BELOW Blood 10/13/24 11/15/24 History
Clot Prevention/Tx
camphor 4 %-methyl salicylate 30 1 applic topical DAILY PRN mild 10/23/24 11/15/24 History
%-menthol 10 % topical cream pain
(Bengay Ultra Strength)
acetaminophen 500 mg tablet 1,000 mg (2 x 500 mg) PO Q8H #90 10/29/24 11/15/24 Rx
(Tylenol Extra Strength) tabs
ferrous sulfate 325 mg (65 mg 325 mg PO Q48H #14 tabs 10/29/24 11/15/24 Rx
iron) tablet
oxycodone 5 mg tablet 5 mg PO Q6HPRN PRN severe pain #10 10/29/24 11/15/24 Rx
tabs
polyethylene glycol 3350 17 gram 17 g PO DAILY #30 ea 10/29/24 11/15/24 Rx
oral powder packet
doxycycline hyclate 100 mg capsule 100 mg PO Q12 Infection 11/15/24 11/15/24 History
linezolid 600 mg tablet 600 mg PO BID Infection 11/15/24 11/15/24 History
Review of Systems
-
History Source: Patient and Family
All other systems: Negative unless noted
Constitutional: Reports Chills
EENT: Reports No Symptoms
Respiratory: Reports No Symptoms
Cardiac: Reports No Symptoms
Vascular: Denies Leg Pain / Claudication
Abdomen/GI: Reports No Symptoms
: Reports No Symptoms
Musculoskeletal: Reports Edema
Skin: Reports Other (Nonhealing left lower extremity wound)
Neurological: Reports No Symptoms
Physical Exam
Vital Signs
Temp Pulse Resp BP Pulse Ox
99.1 F 89 16 117/58 97
11/18/24 07:15 11/18/24 08:58 11/18/24 07:15 11/18/24 08:58 11/18/24 07:15
Lab Results
11/18/24 05:26
Physical Exam
General: No Apparent Distress
HEENT: Normocephalic and Atraumatic
Respiratory: Non Labored Respirations
Cardiac: Negative JVD
GI: Soft
Musculoskeletal: Edema
Skin: Warm and Other (See wound care notes for images)
Neuro: Awake, Alert and Oriented
Psych: Calm
Assessment / Plan
-
Plan/concern for infection of the skin/subcutaneous tissue/wound. Especially given concern for possible spine infection (though seems less likely), would favor debriding this not only because of concern for wet gangrene but also for potential if it
is a septic source (though that would seem less likely). Discussed with the patient and his family washing this down debriding all the tissue. They understand all wished to proceed. Will try to get him added onto the OR now.
Data Reviewed
-
Labs: Labs Reviewed by me
--- NOTE | 2024-11-18 13:44 | W.SUR.POST ---
Surgical Immediate Post Op
Note
Pre Op Diagnosis: Left lower extremity nonhealing wound/infection
Post Op Diagnosis: Same
Procedure Performed: Left lower extremity debridement
Primary Surgeon: Kamar
Marine Diver: Kobe FARR
Anesthesia: General
Estimated Blood Loss: 25 cc
Fluids: See anesthesia flowsheet
Drains/Shunts: None
Specimens/Cultures: Tissue for micro
Doppler/Duplex/Angio (Y/N): N
Complications: None
Operative Findings: Debridement to healthy tissue
--- NOTE | 2024-11-18 14:03 | CM ---
Pt to OR today for LLE debridement.
Pt has surgical shoes.
PT indicated VN at in.
[facility] VN set up as per care port.
PLAN Home with VN
--- NOTE | 2024-11-18 14:13 | OR.RPT ---
Operative Report
Operative Report
PROCEDURE DATE: 11/18/2024
Preoperative diagnosis: Infected left calf wound
Postoperative diagnosis: Same
Procedure: Excisional debridement of left posterior calf wound (skin and subcutaneous tissue) with area of debrided skin and subcutaneous tissue measuring approximately 8 cm x 4 cm. Pulse lavage irrigation left calf.
Surgeon: Kamar
Forepart Rounder: CIELO Bullock, required for vascular procedure including assistance with traction countertraction.
Complications: None
Anesthesia: General
Indications for procedure:
History of tense hematoma that had disrupted the skin subcutaneous tissue from the fascial beds. I had washed out the hematoma and discussed extensively with the patient and his family that he may require extensive wound management and/or should
see plastic surgery. Patient had once return to the emergency room and had a small collection that was drained by IR. Now with continued wound and skin necrosis with concern for skin wet necrosis. Risk/benefits/alternatives of washout/debridement
were also discussed. Patient understood all wished to proceed.
Description of procedure:
Patient was identified brought to the operating room placed on the table in supine position. After the adequate administration of anesthesia he was prepped and draped in the standard surgical fashion. A standard preoperative timeout was undertaken
and everybody was in agreement the plan. The posterior wound that had been packed prior probed subcutaneously under this island of skin that was not actually adherent at all to the open portion. The island of skin actually was the necrotic
portion. Therefore this was all devitalized skin. I felt this needed to be debrided given that it was necrotic/infected. Sharp debridement was undertaken with a 15 blade scalpel. The area of the skin/subcutaneous tissue that was excised was
approximately 8 cm x 4 cm. In addition I had to sharply debride little bit of skin superiorly. There was slight tracking superiorly in the subcutaneous bed but the skin looks viable. Once this was all debrided off, the deeper tissue overlying the
muscle demonstrated to be a good granulation bed. I curetted all this sharply with a 15 blade as well. Once we did this, we pulse lavage irrigated with 3 L of saline solution. Wound looks clean at this point. Electrocautery was used to achieve
full hemostasis. We then packed the wound with wet-to-dry packing and applied compressive wraps. The patient tolerated the procedure well. He was transported the recovery room in stable condition.
--- NOTE | 2024-11-18 14:14 | CM ---
Pt to OR today for LLE debridement.
Pt has surgical shoes.
PT indicated VN at ut.
[facility] VN set up as per care port.
[place]
--- NOTE | 2024-11-18 14:35 | W.PN.NEPH.PH ---
Today's Communication / Plan
-
see plan
Assessment/Plan
-
IMP:
Acute T10, T12 compression Fx with worsening back pain
Acute hyponatremia
JONATHAN onset 11/18
JAIME
Afib, chronic
GERD
HLD
Essential HTN
History Right foot Charcot Arthropathy status post surgery
Recent LLE wound infection with surrounding cellulitis, failed outpt treatment
recent hx LT calf emergent hematoma evacuation with Dr Galvin 09/30/24
completed abx course of linezolid and doxycycline on 11/11
Plan:
sodium improving to 131, post [facility] 11/15
liberate FR 50ounces/day and encourage solute intake
JONATHAN-cr up at 1.7, NS started per primary
follow repeat labs, check bladder scan
s/p I&D of left leg wound today
hb low 8.6, Fe sat 15% on po fe, likely benefit from Iv Fe
Bps table
back pain better
-
-
Date of Service: November 18, 2024
CC / HPI / ROS
-
Chief Complaint:
hyponatremia
History of Present Illness:
[facility]
BP stable
K normal
Hgb down to 8.6
Review of Systems:
no CP/SOB
pain fair control with meds
Labs
-
Labs:
WBC 10.6 10^3/uL (4.8-10.8) 11/18/24 05:26
RBC 3.05 10^6/uL (4.70-6.10) L 11/18/24 05:26
Plt Count 145 10^3/uL (130-400) 11/18/24 05:26
eGFR 41.26 11/18/24 05:27
Albumin 3.7 g/dl (3.5-5.0) 11/17/24 06:15
Physical Exam
-
Vital Signs:
Vital Signs
Temp Pulse Resp BP Pulse Ox
98.8 F 72 10 99/57 95
11/18/24 14:20 11/18/24 14:20 11/18/24 14:20 11/18/24 14:20 11/18/24 14:20
Cardiovascular:: Regular rate and rhythm
Respiratory:: Bilateral: CTA
Lung Excursion:: Normal
Abdomen:: Nontender and Soft
Bowel Sounds:: Normal
Extremity Edema:: None: Bilateral: (trace)
Vazquez Catheter: No
Other Findings::
left leg in ANASTASIIA wrap bandage
--- NOTE | 2024-11-18 15:00 | PTCARENOTE ---
Received pt from vascular procedure, no complaints of pain.
--- NOTE | 2024-11-18 16:00 | PTCARENOTE ---
Initial bladder ezac=486. Repeat bladder scanned post void of 175 mL, residual urine= 411 mL. Pt refused straight cath after education provided, will perform bladder scan in one hour. Brian made aware.
--- NOTE | 2024-11-18 16:02 | PTCARENOTE ---
Lab informed this RN of critical preliminary gram stain from tissue culture, result= few WBC and gram negative rods. made aware.
[2024-11-18 17:44] LABS: Hematocrit 26.3 % (39.0-52.0); Hemoglobin 9.0 g/dL (13.0-18.0)
[2024-11-18 18:01] LABS: Blood Urea Nitrogen 41 mg/dl (9-20); Calcium 8.6 mg/dl (8.4-10.2); Carbon Dioxide 23 mmol/L (22-30); Chloride 97 mmol/L (98-107); Estimated Creatinine Clearance 48 ml/min; Glucose 140 mg/dl (70-99); Potassium 4.5 mmol/L (3.5-5.1); Sodium 129 mmol/L (135-145); eGFR 52.09
[2024-11-18 18:02] LABS: Urine Character Clear (Clear)
[2024-11-18] MEDS: COUMADIN 5 MG PO (18:05)
[2024-11-18] MEDS: PEPCID 20 MG PO (18:06)
[2024-11-18] MEDS: CARDIZEM CD PO (18:07)
--- NOTE | 2024-11-18 18:08 | PTCARENOTE ---
TT cross coverage about 1800 dose of Cardizem. Pt BP was 102/72 and HR of 90. Dr. Hunter informed to hold 1800 dose of Cardizem. See JUN.
[2024-11-18 19:00] LABS: Urine Red Blood Cell 0-2 /HPF (0-2); Urine Squamous Cell 0-2 /LPF (Few); Urine White Cell 0-2 /HPF (0-5)
[2024-11-18] MEDS: FEOSOL 325 MG PO (20:36)
[2024-11-18] MEDS: REMOVE LIDOCAINE PATCH REMOVE (20:36)
[2024-11-18] MEDS: TYLENOL 1000 MG PO (20:36)
[2024-11-19 01:04] LABS: Blood Urea Nitrogen 44 mg/dl (9-20); Estimated Creatinine Clearance 48 ml/min; Glucose 224 mg/dl (70-99); Sodium 128 mmol/L (135-145); eGFR 52.09
[2024-11-19 01:05] LABS: Calcium 8.2 mg/dl (8.4-10.2); Carbon Dioxide 22 mmol/L (22-30); Chloride 100 mmol/L (98-107); Potassium 4.2 mmol/L (3.5-5.1)
[2024-11-19 03:06] VITALS: BP 141/84
[2024-11-19] MEDS: NSS 1000 IV (04:36)
[2024-11-19] MEDS: TYLENOL 1000 MG PO ×3 (04:36→21:41)
[2024-11-19 07:00] VITALS: BP 139/74
[2024-11-19] MEDS: NEURONTIN 300 MG PO ×3 (09:12→21:42)
[2024-11-19] MEDS: OCUVITE SOFTGEL 1 CAP PO (09:12)
[2024-11-19] MEDS: THERAGRAN 1 TABLET PO (09:12)
[2024-11-19] MEDS: TENORMIN 25 MG PO (09:12)
[2024-11-19] MEDS: LIPITOR 20 MG PO (09:13)
[2024-11-19] MEDS: MIRALAX PO (09:14)
[2024-11-19] MEDS: LIDOCAINE 4% PATCH TOPICAL (09:15)
[2024-11-19 09:16] LABS: Hematocrit 26.5 % (39.0-52.0); Hemoglobin 8.7 g/dL (13.0-18.0); Mean Corp Hgb Conc. 32.8 g/dL (33.0-37.0); Mean Corpuscular Volume 84.4 fL (80.0-94.0); Nucleated Red Blood Cells % 0 % (-); Platelet Count 240 10^3/uL (130-400); Red Cell Dist. Width 15.9 % (11.5-14.5)
[2024-11-19] MEDS: BenGay-Like 1 APPLIC TOPICAL (09:16)
[2024-11-19 09:21] LABS: INR 2.54; PT 27.4 Sec (11.4-14.6)
[2024-11-19 09:22] LABS: APTT 61.6 Sec (23.4-35.0)
[2024-11-19 09:59] LABS: ALT (SGPT) 28 U/L (0-50); AST (SGOT) 32 U/L (17-59); Albumin 3.9 g/dl (3.5-5.0); Alkaline Phosphatase 138 U/L (38-126); Blood Urea Nitrogen 42 mg/dl (9-20); Calcium 8.9 mg/dl (8.4-10.2); Carbon Dioxide 23 mmol/L (22-30); Chloride 102 mmol/L (98-107); Estimated Creatinine Clearance 56 ml/min; Glucose 131 mg/dl (70-99); Potassium 4.2 mmol/L (3.5-5.1); Sodium 133 mmol/L (135-145); Total Protein 7.1 g/dl (6.3-8.2); eGFR > 60.00
[2024-11-19 11:00] VITALS: BP 125/70
--- NOTE | 2024-11-19 11:11 | W.PN.HOSP.TC ---
Today's Communication/Plan
-
Pain is well controlled on oxycodone alone
stop IVF
Remove FR
follow labs
ID for opinion on wound Cx
Assessment / Plan
Assessment / Plan
78yo M with PMHx of Afib on Coumadin, HTN, HLD, GERD, charcot foot, recent L calf hematoma s/p evacuation 2 weeks ago in , also fall at that time with acute T10, T12 compression Fx and L4-L5, L5-S1 bone marrow edema came with worsening lower back
pain without new focal neurological deficit. Also found acute hyponatremia
A/P:
#Acute T10, T12 compression Fx with worsening back pain
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
MRI thoracolumbar spine: progressive loss of height with increased edema of the T12 vertebral body and increased associated retropulsion. hyperintense signal and enhancement within the L4-L5 and L5-S1 intervertebral disks which extends into the
adjacent endplates at the L5-S1 level. This is overall similar in appearance to prior and favored to represent edema over discitis/osteomyelitis given the similar appearance and lack of paraspinal soft tissue changes.
NeuroSx consult: eventual vertebroplasty if pain worsens, close interval MRI scan in 4 to 6 weeks for lumbar findings with ESR/CRP trend
TLSO brace
pain mgmt
PT/OT
vit D 0.25 WNL
#mild leukocytosis
#L calf wound
without fever
most likely stress induced 2/2 pain
with lumbar disk edema - and recent Hx of L calf infection with persistent wound - ID consult
VascSx s/p I&D of L calf wound on 11/18/24
#Mild hyponatremia
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
nephrology consult: did not improve on 3% saline, s/p Samca on 11/16/24
serial BMP
Sodium improving with better pain control - liberalize fluid intake on 8/8/25
#JONATHAN
resolving
FeNa 0.2% - liberalize fluid intake and as sodium remains in mildly range
might be 2/2 episodes of hypotension and fluid restriction
#JAIME
#Afib, chronic
#GERD
#HLD
#Essential HTN
cont home meds
daily INR
DVT ppx on Coumadin
Full code
I have spent at least 57min reviewing chart, test results, communication with consultants and providing direct patient care
Anticipated Discharge: 24 - 48 hours
Subjective/Interval History
-
Date of Service: November 19, 2024
Objective Data
-
Labs:
Laboratory Results
11/19/24 11/19/24 11/19/24
00:34 08:18 08:18
WBC 13.7 H
Hgb 8.7 L
Hct 26.5 L
Plt Count 240 D
PT 27.4 H
INR 2.54
APTT 61.6 H
Sodium 128 L Cancelled 133 L
Potassium 4.2 Cancelled
Chloride 100
Carbon Dioxide 22
BUN 44 H
Creatinine 1.4 H
Glucose 224 H
Calcium 8.2 L
Total Bilirubin
AST
ALT
Alkaline Phosphatase
11/19/24 11/19/24 11/19/24
08:18 08:18 08:18
WBC
Hgb
Hct
Plt Count
PT
INR
APTT
Sodium
Potassium 4.2
Chloride Cancelled 102
Carbon Dioxide Cancelled 23
BUN Cancelled
Creatinine
Glucose
Calcium
Total Bilirubin
AST
ALT
Alkaline Phosphatase
11/19/24 11/19/24 11/19/24
08:18 08:18 08:18
WBC
Hgb
Hct
Plt Count
PT
INR
APTT
Sodium
Potassium
Chloride
Carbon Dioxide
BUN 42 H
Creatinine Cancelled 1.2
Glucose Cancelled 131 H
Calcium Cancelled
Total Bilirubin
AST
ALT
Alkaline Phosphatase
11/19/24
08:18
WBC
Hgb
Hct
Plt Count
PT
INR
APTT
Sodium
Potassium
Chloride
Carbon Dioxide
BUN
Creatinine
Glucose
Calcium 8.9
Total Bilirubin 0.5
AST 32
ALT 28
Alkaline Phosphatase 138 H
Vital Signs:
Vital Signs
Temp Pulse Resp BP Pulse Ox
98.0 F 96 18 139/74 96
11/19/24 07:00 11/19/24 07:00 11/19/24 07:00 11/19/24 07:00 11/19/24 07:00
I&O
11/18/24 11/19/24 11/20/24
06:59 06:59 06:59
Intake Total 1680 / 1680 1420 / 1420
Output Total 1800 / 1800 1000 / 1000
Balance -120 / -120 420 / 420
Review of Systems
-
History Source: Patient
All other systems: Reviewed and negative
Physical Exam
-
General: No Apparent Distress
HEENT: Normocephalic
Cardiac: Regular Rhythm
GI: Soft, Nontender and Nondistended
Skin: Warm
Neuro: Awake, Alert, Oriented and AO x 3
Psych: Calm
--- NOTE | 2024-11-19 11:20 | W.PN.ID1 ---
Date of Service
Date of Service: November 19, 2024
Today's Communication
Doxycycline pending cx data.
Assessment / Plan
# Recent LLE infected hematoma s/p IR drainage of old blood 10/25/24 completed course of abx.
# LLE with necrotic tissue s/p OR I+D to healthy tissue 11/18/24
- Tissue gram stain few GNR; cx pending
Suspect Pseudomonas stutzeri as previous
- Start Doxycycline 100mg po bid pending cx data.
- Yldugb-cssx-fx leukocytosis
#Worsening back pain.
- Due to recent fall and now progression of T12 compression fracture with moderate canal stenosis
Lumbar spine MRI stable edema L4-L5 and L5-S1 disks
- Zero to minimal suspicion for infectious discitis.
a. Recent fall explains MRI findings.
b. Recent hospitalization with negative blood cultures and therefore could not have seeded the spine.
c. Pain is positional
d. Afebrile
e. Reactive leukocytosis spontaneously resolved off antibiotic
f. ESR and CRP ARE NOT SPECIFIC tests. Use clinical judgement and correlation.
- Supportive care
# Conditions RIVETER
Additional Past Medical History:
Hypertension
Atrial fibrillation on Coumadin
HLD
Left calf hematoma evacuation 09/30/24
Right foot Charcot arthropathy surgeries
Right distal radius ORIF
T10, T12 compression fracture after fall
Chief Complaint
-: Other (leg wound)
Subjective / Review of Systems
Stable
Vital Signs / Physical Exam
Vital Signs
Vital Signs
Temp Pulse Resp BP Pulse Ox
98.0 F 96 18 139/74 96
11/19/24 07:00 11/19/24 07:00 11/19/24 07:00 11/19/24 07:00 11/19/24 07:00
Physical Exam
Constitutional: No Acute Distress and Comfortable
Cardiovascular: Regular Rate and S1/S2
Pulmonary: Clear
Gastrointestinal: Soft, Non Tender and Non Distended
Musculoskeletal: Negative Spinal Tenderness
Wound: Other (LLE dressing dry)
Neurological: AO x 3
Objective Data
Lab Data
Lab Results
11/19/24 08:18
11/19/24 08:18
ESR 62 mm/hour (0-20) H 11/14/24 15:22
PT 27.4 Sec (11.4-14.6) H 11/19/24 08:18
INR 2.54 11/19/24 08:18
APTT 61.6 Sec (23.4-35.0) H 11/19/24 08:18
Estimated Creat Clear 56 ml/min 11/19/24 08:18
Estimated Creat Clear Cancelled 11/19/24 08:18
Total Bilirubin 0.5 mg/dl (0.2-1.3) 11/19/24 08:18
AST 32 U/L (17-59) 11/19/24 08:18
ALT 28 U/L (0-50) 11/19/24 08:18
Alkaline Phosphatase 138 U/L (38-126) H 11/19/24 08:18
C-Reactive Protein 26.00 mg/L (0.0-10.00) H 11/14/24 15:22
Most recent labs reviewed.
Micro Results:
11/18/24 13:24 Tissue Culture - Pending
Leg - Left Gram Stain - Preliminary
11/18/24 13:24 Anaerobic Culture - Pending
Leg - Left
11/14/24 21:42 MRSA Screen - Final
Nose No Methicillin Resistant Staphylococcus aureus isolated.
11/16/24 MRI thoracic spine: There is progressive loss of height with increased edema of the T12 vertebral body and increased associated retropulsion. There is now moderate canal stenosis at the T12 level secondary to the retropulsion. Mild
compression fracture of the T10 vertebral body, similar to prior.
11/16/24 MRI lumbar spine: There is STIR hyperintense signal and enhancement within the L4-L5 and L5-S1 intervertebral disks which extends into the adjacent endplates at the L5-S1 level. This is overall similar in appearance to prior and favored to
represent edema over discitis/osteomyelitis given the similar appearance and lack of paraspinal soft tissue changes.
Care Review
Plan reviewed with: Physician (Dr. Lubin)
[2024-11-19] MEDS: DAKIN'S SOLUTION 0.125% 1/4 STRENGTH TOPICAL ×2 (11:37→11:56)
--- NOTE | 2024-11-19 11:41 | W.PN.VS ---
Today's Communication / Plan
-
Discussed with Dr. Vazquez
Assessment/Plan
-
Postop day 1 left lower extremity debridement
Plan:
Daily dressing changes, wet-to-dry and Reid wrap
Will reevaluate if ready for wound VAC Friday
Subjective Data
-
Date of Service: November 19, 2024
Patient seen at bedside this a.m. Patient offers no complaints at this time. No events overnight. Dressing remains dry.
Objective Data
-
Vital Signs
Temp Pulse Resp BP Pulse Ox
97.5 F 86 18 125/70 99
11/19/24 11:00 11/19/24 11:00 11/19/24 11:00 11/19/24 11:00 11/19/24 11:00
Intake and Output
11/18/24 11/19/24 11/20/24
06:59 06:59 06:59
Intake Total 1680 / 1680 1420 / 1420
Output Total 1800 / 1800 1000 / 1000
Balance -120 / -120 420 / 420
Intake:
Oral fluids 1680 / 1680 920 / 920
IV fluids (Total) 500 / 500
Output:
Urine, Voided 1800 / 1800 1000 / 1000
Other:
Number of approximated MODERATE 4 1
amounts of urine
Lab Results
11/19/24 08:18
11/19/24 08:18
Calcium 8.9 mg/dl (8.4-10.2) 11/19/24 08:18
Calcium Cancelled 11/19/24 08:18
Magnesium 2.0 mg/dl (1.6-2.3) 11/16/24 05:18
Total Bilirubin 0.5 mg/dl (0.2-1.3) 11/19/24 08:18
AST 32 U/L (17-59) 11/19/24 08:18
ALT 28 U/L (0-50) 11/19/24 08:18
Alkaline Phosphatase 138 U/L (38-126) H 11/19/24 08:18
Total Protein 7.1 g/dl (6.3-8.2) 11/19/24 08:18
Albumin 3.9 g/dl (3.5-5.0) 11/19/24 08:18
Physical Exam
-
AAO x 3
No tachypnea on room air
No tachycardia
Left leg site undressed at bedside, granulation tissue throughout, mild oozing throughout
Skin edges viable
Redressed with wet-to-dry and Reid
[2024-11-19] MEDS: VIBRAMYCIN 100 MG PO ×2 (11:48→21:41)
--- NOTE | 2024-11-19 12:18 | W.PN.NEPH.PH ---
Today's Communication / Plan
-
cap IVF
Assessment/Plan
-
IMP:
Acute T10, T12 compression Fx with worsening back pain
Acute hyponatremia
JONATHAN onset 11/18
JAIME
Afib, chronic
GERD
HLD
Essential HTN
History Right foot Charcot Arthropathy status post surgery
Recent LLE wound infection with surrounding cellulitis, failed outpt treatment
recent hx LT calf emergent hematoma evacuation with Dr Galvin 09/30/24
completed abx course of linezolid and doxycycline on 11/11
Plan:
cap IVF
maintain FR
follow BMP
-
-
Date of Service: November 19, 2024
CC / HPI / ROS
-
Chief Complaint:
hyponatremia
History of Present Illness:
Na up to 133 samsca 11/16, Normosol overnight
BP stable
K normal
Hgb stable 8.7
s/p LLE debridement 11/18
Review of Systems:
no CP/SOB
pain fair control with meds
Labs
-
Labs:
WBC 13.7 10^3/uL (4.8-10.8) H 11/19/24 08:18
RBC 3.14 10^6/uL (4.70-6.10) L 11/19/24 08:18
Hgb 8.7 g/dL (13.0-18.0) L 11/19/24 08:18
Hct 26.5 % (39.0-52.0) L 11/19/24 08:18
Plt Count 240 10^3/uL (130-400) D 11/19/24 08:18
Sodium 133 mmol/L (135-145) L 11/19/24 08:18
Sodium Cancelled 11/19/24 08:18
Potassium 4.2 mmol/L (3.5-5.1) 11/19/24 08:18
Potassium Cancelled 11/19/24 08:18
Chloride 102 mmol/L (98-107) 11/19/24 08:18
Chloride Cancelled 11/19/24 08:18
Carbon Dioxide 23 mmol/L (22-30) 11/19/24 08:18
Carbon Dioxide Cancelled 11/19/24 08:18
BUN 42 mg/dl (9-20) H 11/19/24 08:18
BUN Cancelled 11/19/24 08:18
Creatinine 1.2 mg/dL (0.7-1.3) 11/19/24 08:18
Creatinine Cancelled 11/19/24 08:18
eGFR > 60.00 11/19/24 08:18
eGFR Cancelled 11/19/24 08:18
Glucose 131 mg/dl (70-99) H 11/19/24 08:18
Glucose Cancelled 11/19/24 08:18
Calcium 8.9 mg/dl (8.4-10.2) 11/19/24 08:18
Calcium Cancelled 11/19/24 08:18
Albumin 3.9 g/dl (3.5-5.0) 11/19/24 08:18
Physical Exam
-
Vital Signs:
Vital Signs
Temp Pulse Resp BP Pulse Ox
97.5 F 86 18 125/70 99
11/19/24 11:00 11/19/24 11:00 11/19/24 11:00 11/19/24 11:00 11/19/24 11:00
Cardiovascular:: Regular rate and rhythm
Respiratory:: Bilateral: Coarse
Lung Excursion:: Normal
Abdomen:: Nontender and Soft
Bowel Sounds:: Normal
Extremity Edema:: None: Bilateral:
--- NOTE | 2024-11-19 12:49 | CM ---
Patient seen at bedside
Postop day 1 left lower extremity debridement
per note will re-eval for wound vac on Friday
Patient current with [facility]
careport updated
updated Libby from [facility]
PLAN: Home, with [facility] when stable
[2024-11-19 15:00] VITALS: BP 117/62
--- NOTE | 2024-11-19 16:30 | PTCARENOTE ---
pt denies complaints, tolerating diet, left calf dressing c/d/i, transfers with assist x1 with rolling walker, vss, will continue to monitor.
[2024-11-19] MEDS: PEPCID 20 MG PO (17:11)
[2024-11-19] MEDS: CARDIZEM CD 120 MG PO (17:11)
[2024-11-19] MEDS: COUMADIN 5 MG PO (17:14)
[2024-11-19] MEDS: ROXICODONE 10 MG PO (17:19)
--- NOTE | 2024-11-19 19:54 | PTCARENOTE ---
PRN Oxycodone effective for pain, will continue to monitor.
[2024-11-19] MEDS: REMOVE LIDOCAINE PATCH REMOVE (21:39)
[2024-11-19 23:10] VITALS: BP 125/69
[2024-11-20 00:05] VITALS: BP 125/69
[2024-11-20] MEDS: TYLENOL PO (04:05)
[2024-11-20 08:01] VITALS: BP 112/69
[2024-11-20] MEDS: NEURONTIN 300 MG PO ×3 (08:49→20:40)
[2024-11-20] MEDS: LIPITOR 20 MG PO (08:49)
[2024-11-20] MEDS: VIBRAMYCIN 100 MG PO (08:49)
[2024-11-20] MEDS: THERAGRAN 1 TABLET PO (08:49)
[2024-11-20] MEDS: OCUVITE SOFTGEL 1 CAP PO (08:49)
[2024-11-20] MEDS: TENORMIN 25 MG PO (08:49)
[2024-11-20] MEDS: LIDOCAINE 4% PATCH TOPICAL (08:54)
[2024-11-20] MEDS: ROXICODONE 10 MG PO ×2 (09:02→22:57)
[2024-11-20 09:51] LABS: Hematocrit 24.0 % (39.0-52.0); Hemoglobin 7.9 g/dL (13.0-18.0); Mean Corp Hgb Conc. 32.9 g/dL (33.0-37.0); Mean Corpuscular Volume 84.5 fL (80.0-94.0); Nucleated Red Blood Cells % 0 % (-); Platelet Count 309 10^3/uL (130-400); Red Cell Dist. Width 15.9 % (11.5-14.5)
[2024-11-20 09:56] LABS: INR 3.08; PT 31.6 Sec (11.4-14.6)
[2024-11-20 10:14] LABS: ALT (SGPT) 40 U/L (0-50); AST (SGOT) 42 U/L (17-59); Albumin 3.9 g/dl (3.5-5.0); Alkaline Phosphatase 123 U/L (38-126); Blood Urea Nitrogen 36 mg/dl (9-20); Calcium 9.2 mg/dl (8.4-10.2); Carbon Dioxide 24 mmol/L (22-30); Chloride 105 mmol/L (98-107); Estimated Creatinine Clearance 67 ml/min; Glucose 105 mg/dl (70-99); Potassium 4.2 mmol/L (3.5-5.1); Sodium 137 mmol/L (135-145); Total Protein 6.9 g/dl (6.3-8.2); eGFR > 60.00
--- NOTE | 2024-11-20 10:59 | W.PN.NEPH.PH ---
Today's Communication / Plan
-
Follow BMP
Assessment/Plan
-
IMP:
Acute T10, T12 compression Fx with worsening back pain
Acute hyponatremia
JONATHAN onset 11/18
JAIME
Afib, chronic
GERD
HLD
Essential HTN
History Right foot Charcot Arthropathy status post surgery
Recent LLE wound infection with surrounding cellulitis, failed outpt treatment
recent hx LT calf emergent hematoma evacuation with Dr Galvin 09/30/24
completed abx course of linezolid and doxycycline on 11/11
Plan:
No IV fluids
maintain FR (currently none)
follow BMP
Follow hemoglobin
-
-
Date of Service: November 20, 2024
CC / HPI / ROS
-
Chief Complaint:
hyponatremia
History of Present Illness:
Na up to 137 last samsca 11/16
BP stable
K normal
Hgb lower at 7.9
s/p LLE debridement 11/18
Review of Systems:
no CP/SOB
pain fair control with meds
Energy level good
Labs
-
Labs:
WBC 12.3 10^3/uL (4.8-10.8) H 11/20/24 08:47
RBC 2.84 10^6/uL (4.70-6.10) L 11/20/24 08:47
Hgb 7.9 g/dL (13.0-18.0) L 11/20/24 08:47
Hct 24.0 % (39.0-52.0) L 11/20/24 08:47
Plt Count 309 10^3/uL (130-400) D 11/20/24 08:47
Sodium 137 mmol/L (135-145) 11/20/24 08:47
Potassium 4.2 mmol/L (3.5-5.1) 11/20/24 08:47
Chloride 105 mmol/L (98-107) 11/20/24 08:47
Carbon Dioxide 24 mmol/L (22-30) 11/20/24 08:47
BUN 36 mg/dl (9-20) H 11/20/24 08:47
Creatinine 1.0 mg/dL (0.7-1.3) 11/20/24 08:47
eGFR > 60.00 11/20/24 08:47
Glucose 105 mg/dl (70-99) H 11/20/24 08:47
Calcium 9.2 mg/dl (8.4-10.2) 11/20/24 08:47
Albumin 3.9 g/dl (3.5-5.0) 11/20/24 08:47
Physical Exam
-
Vital Signs:
Vital Signs
Temp Pulse Resp BP Pulse Ox
98.3 F 86 15 112/69 96
11/20/24 08:01 11/20/24 08:01 11/20/24 08:01 11/20/24 08:01 11/20/24 08:01
Cardiovascular:: Regular rate and rhythm
Respiratory:: Bilateral: Coarse
Lung Excursion:: Normal
Abdomen:: Nontender and Soft
Bowel Sounds:: Normal
Extremity Edema:: None: Bilateral:
[2024-11-20 11:29] VITALS: BP 133/69; PULSE 95; O2SAT 98
--- NOTE | 2024-11-20 12:10 | W.PN.HOSP.TC ---
Addendum entered and electronically signed by Tevin Lubin MD 11/20/24 12:17:
With continued bleed and anemia - holding coumadin
Original Note:
Today's Communication/Plan
-
watch Hgb most likely loss after I&D as bleeding on the dressing. Vascx contacted
cont same unrestricted oral fluid intake as sodium and Cr normalizing
Assessment / Plan
Assessment / Plan
78yo M with PMHx of Afib on Coumadin, HTN, HLD, GERD, charcot foot, recent L calf hematoma s/p evacuation 2 weeks ago in , also fall at that time with acute T10, T12 compression Fx and L4-L5, L5-S1 bone marrow edema came with worsening lower back
pain without new focal neurological deficit. Also found acute hyponatremia
A/P:
#Acute T10, T12 compression Fx with worsening back pain
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
MRI thoracolumbar spine: progressive loss of height with increased edema of the T12 vertebral body and increased associated retropulsion. hyperintense signal and enhancement within the L4-L5 and L5-S1 intervertebral disks which extends into the
adjacent endplates at the L5-S1 level. This is overall similar in appearance to prior and favored to represent edema over discitis/osteomyelitis given the similar appearance and lack of paraspinal soft tissue changes.
NeuroSx consult: eventual vertebroplasty if pain worsens, close interval MRI scan in 4 to 6 weeks for lumbar findings with ESR/CRP trend
TLSO brace
pain mgmt
PT/OT
vit D 0.25 WNL
#mild leukocytosis
#L calf wound
with lumbar disk edema - and recent Hx of L calf infection with persistent wound - ID consult. Started on Doxy pending repeated WoundCx that are growing Citrobacter koseri and Enterococcus species
VascSx s/p I&D of L calf wound on 11/18/24
#Mild hyponatremia
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
nephrology consult: did not improve on 3% saline, s/p Samca on 11/16/24
serial BMP
Sodium improving with better pain control - liberalize fluid intake on 11/19/24
#JONATHAN
resolving
FeNa 0.2% - liberalize fluid intake and as sodium remains in mildly range
might be 2/2 episodes of hypotension and fluid restriction
#JAIME
#Afib, chronic
#GERD
#HLD
#Essential HTN
cont home meds
daily INR
DVT ppx on Coumadin
Full code
I have spent at least 57min reviewing chart, test results, communication with consultants and providing direct patient care
Anticipated Discharge: 24 - 48 hours
Subjective/Interval History
-
Date of Service: November 20, 2024
Objective Data
-
Labs:
Laboratory Results
11/20/24
08:47
WBC 12.3 H
Hgb 7.9 L
Hct 24.0 L
Plt Count 309 D
PT 31.6 H
INR 3.08
Sodium 137
Potassium 4.2
Chloride 105
Carbon Dioxide 24
BUN 36 H
Creatinine 1.0
Glucose 105 H
Calcium 9.2
Total Bilirubin 0.5
AST 42
ALT 40
Alkaline Phosphatase 123
Vital Signs:
Vital Signs
Temp Pulse Resp BP Pulse Ox
98.3 F 86 15 112/69 96
11/20/24 08:01 11/20/24 08:01 11/20/24 08:01 11/20/24 08:01 11/20/24 08:01
I&O
11/19/24 11/20/24 11/21/24
06:59 06:59 06:59
Intake Total 1420 / 1420 1440 / 1440
Output Total 1000 / 1000
Balance 420 / 420 1440 / 1440
Review of Systems
-
History Source: Patient
All other systems: Reviewed and negative
Physical Exam
-
General: No Apparent Distress
HEENT: Normocephalic
GI: Soft, Nontender and Nondistended
Neuro: Awake, Alert, Oriented and AO x 3
Psych: Calm
[2024-11-20] MEDS: TYLENOL 1000 MG PO ×2 (12:53→20:39)
[2024-11-20 14:55] VITALS: BP 118/57
--- NOTE | 2024-11-20 15:01 | W.PN.ID1 ---
Date of Service
Date of Service: November 20, 2024
Today's Communication
Augmentin x 7-10d.
ID will sign off.
Assessment / Plan
# Recent LLE infected hematoma s/p IR drainage of old blood 10/25/24 completed course of abx.
# LLE with necrotic tissue s/p OR I+D to healthy tissue 11/18/24
- Tissue cx: Citrobacter and Enterococcus
- Replace Doxycycline with Augmentin 875mg po bid x 7-10d course
- post-op leukocytosis improved
#Worsening back pain.
- Due to recent fall and now progression of T12 compression fracture with moderate canal stenosis
Lumbar spine MRI stable edema L4-L5 and L5-S1 disks
- Zero to minimal suspicion for infectious discitis.
a. Recent fall explains MRI findings.
b. Recent hospitalization with negative blood cultures and therefore could not have seeded the spine.
c. Pain is positional
d. Afebrile
e. Reactive leukocytosis spontaneously resolved off antibiotic
f. ESR and CRP ARE NOT SPECIFIC tests. Use clinical judgement and correlation.
- Supportive care
ID will sign off.
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
Additional Past Medical History:
Hypertension
Atrial fibrillation on Coumadin
HLD
Left calf hematoma evacuation 09/30/24
Right foot Charcot arthropathy surgeries
Right distal radius ORIF
T10, T12 compression fracture after fall
Chief Complaint
-: Other (leg wound)
Subjective / Review of Systems
No new issues
Vital Signs / Physical Exam
Vital Signs
Vital Signs
Temp Pulse Resp BP Pulse Ox
97.5 F 82 16 118/57 97
11/20/24 14:55 11/20/24 14:55 11/20/24 14:55 11/20/24 14:55 11/20/24 14:55
Physical Exam
Constitutional: No Acute Distress and Comfortable
Cardiovascular: Regular Rate and S1/S2
Pulmonary: Clear
Gastrointestinal: Soft, Non Tender and Non Distended
Musculoskeletal: Negative Spinal Tenderness
Wound: Other (LLE dressing dry)
Neurological: AO x 3
Objective Data
Lab Data
Lab Results
11/20/24 08:47
11/20/24 08:47
ESR 62 mm/hour (0-20) H 11/14/24 15:22
PT 31.6 Sec (11.4-14.6) H 11/20/24 08:47
INR 3.08 11/20/24 08:47
APTT 61.6 Sec (23.4-35.0) H 11/19/24 08:18
Estimated Creat Clear 67 ml/min 11/20/24 08:47
Total Bilirubin 0.5 mg/dl (0.2-1.3) 11/20/24 08:47
AST 42 U/L (17-59) 11/20/24 08:47
ALT 40 U/L (0-50) 11/20/24 08:47
Alkaline Phosphatase 123 U/L (38-126) 11/20/24 08:47
C-Reactive Protein 26.00 mg/L (0.0-10.00) H 11/14/24 15:22
Most recent labs reviewed.
Micro Results:
11/18/24 13:24 Tissue Culture - Preliminary
Leg - Left Citrobacter koseri
Enterococcus species
Gram Stain - Preliminary
11/18/24 13:24 Anaerobic Culture - Preliminary
Leg - Left Culture pending. Anaerobic cultures are examined after 3
days incubation. Additional information to follow.
11/14/24 21:42 MRSA Screen - Final
Nose No Methicillin Resistant Staphylococcus aureus isolated.
11/16/24 MRI thoracic spine: There is progressive loss of height with increased edema of the T12 vertebral body and increased associated retropulsion. There is now moderate canal stenosis at the T12 level secondary to the retropulsion. Mild
compression fracture of the T10 vertebral body, similar to prior.
11/16/24 MRI lumbar spine: There is STIR hyperintense signal and enhancement within the L4-L5 and L5-S1 intervertebral disks which extends into the adjacent endplates at the L5-S1 level. This is overall similar in appearance to prior and favored to
represent edema over discitis/osteomyelitis given the similar appearance and lack of paraspinal soft tissue changes.
[2024-11-20] MEDS: PEPCID 20 MG PO (18:03)
[2024-11-20] MEDS: CARDIZEM CD 120 MG PO (18:03)
[2024-11-20] MEDS: AUGMENTIN 875 MG/125 MG 1 TABLET PO (20:39)
[2024-11-20] MEDS: FEOSOL 325 MG PO (20:39)
[2024-11-20] MEDS: REMOVE LIDOCAINE PATCH REMOVE (20:40)
[2024-11-20 23:00] VITALS: BP 120/69
[2024-11-21] VITALS (9 sets, daily range): BP systolic 124–154; BP diastolic 63–82
[2024-11-21] MEDS: TYLENOL PO (04:56)
[2024-11-21 05:54] LABS: INR 3.09; PT 31.8 Sec (11.4-14.6)
[2024-11-21 06:02] LABS: Hematocrit 22.3 % (39.0-52.0); Hemoglobin 7.3 g/dL (13.0-18.0); Mean Corp Hgb Conc. 32.7 g/dL (33.0-37.0); Mean Corpuscular Volume 86.8 fL (80.0-94.0); Platelet Count 234 10^3/uL (130-400); Red Cell Dist. Width 16.4 % (11.5-14.5)
[2024-11-21 06:08] LABS: ALT (SGPT) 44 U/L (0-50); AST (SGOT) 39 U/L (17-59); Albumin 3.5 g/dl (3.5-5.0); Alkaline Phosphatase 100 U/L (38-126); Blood Urea Nitrogen 34 mg/dl (9-20); Calcium 9.2 mg/dl (8.4-10.2); Carbon Dioxide 24 mmol/L (22-30); Chloride 106 mmol/L (98-107); Estimated Creatinine Clearance 74 ml/min; Glucose 101 mg/dl (70-99); Potassium 4.3 mmol/L (3.5-5.1); Sodium 137 mmol/L (135-145); Total Protein 6.4 g/dl (6.3-8.2); eGFR > 60.00
[2024-11-21] MEDS: MEPHYTON 5 MG PO (06:37)
[2024-11-21 06:50] LABS: Absolute Neutrophils -Man Diff 3.6 10^3/uL (1.4-6.5); Anisocytosis 1+; Normal RBC Morphology No; Platelets Checked Yes
[2024-11-21 06:51] LABS: Total Cells Counted 100
[2024-11-21 08:39] LABS: Reticulocyte Count 2.2 % (0.4-2.8)
[2024-11-21 09:41] LABS: Iron 67 ug/dl (49-181); LDH 188 U/L (120-246)
--- NOTE | 2024-11-21 09:47 | W.PN.HOSP.TC ---
Today's Communication/Plan
-
PRBC, FFP, vit K today
follow INR and H&H
VascSx to reeval
check FOBT
PPI BID
DIscussed with in details
Assessment / Plan
Assessment / Plan
78yo M with PMHx of Afib on Coumadin, HTN, HLD, GERD, charcot foot, recent L calf hematoma s/p evacuation 2 weeks ago in , also fall at that time with acute T10, T12 compression Fx and L4-L5, L5-S1 bone marrow edema came with worsening lower back
pain without new focal neurological deficit. Also found acute hyponatremia. Later developed worsening anemia after L calf debridement. COntinued on Abx for L calf infected wound
A/P:
#Acute on chronic blood loss anemia
blood loss after I&D 2/ COumadin
Coumadin stopped
FOlow CBC
1 unit PRBC and 1 unit FFP on 11/21/24
anemia w/u and check stool FOBT - RN informed. Patient with black stool, but also on PO Iron, low suspicion for GI source, but makes sense to start PPI BID IV and call GI if FOBT positive
#mild leukocytosis
#L calf wound with cellulitis
with lumbar disk edema - and recent Hx of L calf infection with persistent wound - ID consult - start Augmentin. WoundCx that are growing Citrobacter koseri and Enterococcus species
VascSx s/p I&D of L calf wound on 11/18/24
#Acute T10, T12 compression Fx with worsening back pain
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
MRI thoracolumbar spine: progressive loss of height with increased edema of the T12 vertebral body and increased associated retropulsion. hyperintense signal and enhancement within the L4-L5 and L5-S1 intervertebral disks which extends into the
adjacent endplates at the L5-S1 level. This is overall similar in appearance to prior and favored to represent edema over discitis/osteomyelitis given the similar appearance and lack of paraspinal soft tissue changes.
NeuroSx consult: eventual vertebroplasty if pain worsens, close interval MRI scan in 4 to 6 weeks for lumbar findings with ESR/CRP trend
TLSO brace
pain mgmt
PT/OT
vit D 0.25 WNL
#Mild hyponatremia
resolved
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
nephrology consult: did not improve on 3% saline, s/p Samca on 11/16/24
serial BMP
Sodium improving with better pain control - liberalize fluid intake on 11/19/24
#JONATHAN
resolved
FeNa 0.2% - liberalize fluid intake and as sodium remains in mildly range
might be 2/2 episodes of hypotension and fluid restriction
#JAIME
#Afib, chronic
#GERD
#HLD
#Essential HTN
cont home meds
daily INR
DVT ppx on SCDs
Full code
I have spent at least 51min reviewing chart, test results, communication with consultants, family and providing direct patient care
Anticipated Discharge: > 48 hours
Subjective/Interval History
-
Date of Service: November 21, 2024
Objective Data
-
Labs:
Laboratory Results
11/21/24
05:11
WBC 6.1
Hgb 7.3 L
Hct 22.3 L
Plt Count 234 D
PT 31.8 H
INR 3.09
Sodium 137
Potassium 4.3
Chloride 106
Carbon Dioxide 24
BUN 34 H
Creatinine 0.9
Glucose 101 H
Calcium 9.2
Total Bilirubin 0.4
AST 39
ALT 44
Alkaline Phosphatase 100
Vital Signs:
Vital Signs
Temp Pulse Resp BP Pulse Ox
98.0 F 93 18 124/79 98
11/21/24 07:00 11/21/24 07:00 11/21/24 07:00 11/21/24 07:00 11/21/24 07:00
I&O
11/20/24 11/21/24 11/22/24
06:59 06:59 06:59
Intake Total 1440 / 1440 960 / 960
Output Total 700 / 700
Balance 1440 / 1440 260 / 260
Review of Systems
-
History Source: Patient
All other systems: Reviewed and negative
Physical Exam
-
General: No Apparent Distress
HEENT: Normocephalic
Cardiac: Regular Rhythm
GI: Soft, Nontender and Nondistended
Skin: Warm
Neuro: Awake, Alert, Oriented and AO x 3
Psych: Calm
[2024-11-21 09:51] LABS: Total Iron Binding Capacity 251 ug/dl (261-462)
[2024-11-21] MEDS: NEURONTIN 300 MG PO ×3 (10:05→21:13)
[2024-11-21] MEDS: AUGMENTIN 875 MG/125 MG 1 TABLET PO ×2 (10:05→19:58)
[2024-11-21] MEDS: OCUVITE SOFTGEL 1 CAP PO (10:05)
[2024-11-21] MEDS: LIPITOR 20 MG PO (10:05)
[2024-11-21] MEDS: THERAGRAN 1 TABLET PO (10:06)
[2024-11-21] MEDS: TENORMIN 25 MG PO (10:06)
[2024-11-21] MEDS: LIDOCAINE 4% PATCH TOPICAL (10:08)
[2024-11-21 10:18] LABS: Ferritin 226.0 ng/ml (17.9-464.0)
[2024-11-21] MEDS: PROTONIX IV 40 MG IV ×2 (10:20→19:58)
[2024-11-21] MEDS: NSS (PRESERVATIVE FREE) 10 ML IV ×2 (10:20→19:58)
[2024-11-21] MEDS: BenGay-Like 1 APPLIC TOPICAL (10:28)
[2024-11-21 10:50] LABS: Folate 12.7 ng/ml (2.76-20); Vitamin B12 482 pg/ml (239-931)
[2024-11-21] MEDS: ROXICODONE 10 MG PO (11:14)
--- NOTE | 2024-11-21 11:59 | W.PN.NEPH.PH ---
Today's Communication / Plan
-
follow BMP
Assessment/Plan
-
IMP:
Acute T10, T12 compression Fx with worsening back pain
Acute hyponatremia
JONATHAN onset 11/18
JAIME
Afib, chronic
GERD
HLD
Essential HTN
History Right foot Charcot Arthropathy status post surgery
Recent LLE wound infection with surrounding cellulitis, failed outpt treatment
recent hx LT calf emergent hematoma evacuation with Dr Galvin 09/30/24
completed abx course of linezolid and doxycycline on 11/11
Plan:
No IV fluids
no FR
for FFP tx
follow BMP
Follow hemoglobin
-
-
Date of Service: November 21, 2024
CC / HPI / ROS
-
Chief Complaint:
hyponatremia
History of Present Illness:
Na up to 137 and stable
Cr normal
BP stable
K normal
Hgb lower at 7.3
s/p LLE debridement 11/18
Review of Systems:
no CP/SOB
pain fair control with meds
Labs
-
Labs:
WBC 6.1 10^3/uL (4.8-10.8) 11/21/24 05:11
RBC 2.57 10^6/uL (4.70-6.10) L 11/21/24 05:11
Hgb 7.3 g/dL (13.0-18.0) L 11/21/24 05:11
Hct 22.3 % (39.0-52.0) L 11/21/24 05:11
Plt Count 234 10^3/uL (130-400) D 11/21/24 05:11
Sodium 137 mmol/L (135-145) 11/21/24 05:11
Potassium 4.3 mmol/L (3.5-5.1) 11/21/24 05:11
Chloride 106 mmol/L (98-107) 11/21/24 05:11
Carbon Dioxide 24 mmol/L (22-30) 11/21/24 05:11
BUN 34 mg/dl (9-20) H 11/21/24 05:11
Creatinine 0.9 mg/dL (0.7-1.3) 11/21/24 05:11
eGFR > 60.00 11/21/24 05:11
Glucose 101 mg/dl (70-99) H 11/21/24 05:11
Calcium 9.2 mg/dl (8.4-10.2) 11/21/24 05:11
Albumin 3.5 g/dl (3.5-5.0) 11/21/24 05:11
Physical Exam
-
Vital Signs:
Vital Signs
Temp Pulse Resp BP Pulse Ox
97.8 F 89 16 135/77 99
11/21/24 11:34 11/21/24 11:34 11/21/24 11:34 11/21/24 11:34 11/21/24 11:34
Cardiovascular:: Regular rate and rhythm
Respiratory:: Bilateral: CTA
Lung Excursion:: Normal
Abdomen:: Nontender and Soft
Bowel Sounds:: Normal
Extremity Edema:: +1: Bilateral:
[2024-11-21] MEDS: TYLENOL 1000 MG PO ×2 (12:26→19:58)
--- NOTE | 2024-11-21 14:16 | W.PN.UPDATE ---
Update Note
Progress Note Update
FOBT neg stool noted on test y RN
[2024-11-21] MEDS: CARDIZEM CD 120 MG PO (17:48)
[2024-11-21] MEDS: PEPCID 20 MG PO (17:48)
[2024-11-21 19:05] LABS: Hematocrit 25.9 % (39.0-52.0); Hemoglobin 8.6 g/dL (13.0-18.0)
[2024-11-21] MEDS: REMOVE LIDOCAINE PATCH REMOVE (19:58)
[2024-11-22] MEDS: TYLENOL 1000 MG PO ×3 (05:11→20:31)
[2024-11-22 07:43] VITALS: BP 159/88
[2024-11-22 08:02] LABS: INR 1.44; PT 17.8 Sec (11.4-14.6)
[2024-11-22 08:06] LABS: Hematocrit 25.7 % (39.0-52.0); Hemoglobin 8.5 g/dL (13.0-18.0); Mean Corp Hgb Conc. 33.1 g/dL (33.0-37.0); Mean Corpuscular Volume 88.0 fL (80.0-94.0); Platelet Count 224 10^3/uL (130-400); Red Cell Dist. Width 16.0 % (11.5-14.5)
[2024-11-22 08:26] LABS: ALT (SGPT) 37 U/L (0-50); AST (SGOT) 33 U/L (17-59); Albumin 3.5 g/dl (3.5-5.0); Alkaline Phosphatase 104 U/L (38-126); Blood Urea Nitrogen 25 mg/dl (9-20); Calcium 9.1 mg/dl (8.4-10.2); Carbon Dioxide 26 mmol/L (22-30); Chloride 107 mmol/L (98-107); Estimated Creatinine Clearance 84 ml/min; Glucose 102 mg/dl (70-99); Potassium 4.4 mmol/L (3.5-5.1); Sodium 139 mmol/L (135-145); Total Protein 6.2 g/dl (6.3-8.2); eGFR > 60.00
[2024-11-22 08:42] LABS: Absolute Neutrophils -Man Diff 3.0 10^3/uL (1.4-6.5); Platelets Checked Yes
[2024-11-22 08:43] LABS: Anisocytosis Slight; Hypochromasia Slight; Normal RBC Morphology No; Total Cells Counted 100
--- NOTE | 2024-11-22 09:44 | W.PN.HOSP.TC ---
Today's Communication/Plan
-
plan for WoundVac
Wound care and CM for home Wound Vac
cont Abx
Assessment / Plan
Assessment / Plan
78yo M with PMHx of Afib on Coumadin, HTN, HLD, GERD, charcot foot, recent L calf hematoma s/p evacuation 2 weeks ago in , also fall at that time with acute T10, T12 compression Fx and L4-L5, L5-S1 bone marrow edema came with worsening lower back
pain without new focal neurological deficit. Also found acute hyponatremia. Later developed worsening anemia after L calf debridement. COntinued on Abx for L calf infected wound s/p I&D on 11/18/24, developed worsening anemia 2/2 bleeding due to
Coumadin, so it was reverced. Plan for WoundVac and d/c home with eventual plastic Sx follow up for skin graft. Back pain with improved control, so sodium also improved. Advised for weekly bmp upon d/c. Augmentin till 11/30/24 as per ID
A/P:
#Acute on chronic blood loss anemia
blood loss after I&D 2/2 COumadin
Coumadin stopped
FOlow CBC
1 unit PRBC and 1 unit FFP on 11/21/24
anemia w/u and check stool FOBT - RN informed. Patient with black stool, but also on PO Iron, low suspicion for GI source, but makes sense to start PPI BID IV and call GI if FOBT positive
#mild leukocytosis
#L calf wound with cellulitis
with lumbar disk edema - and recent Hx of L calf infection with persistent wound - ID consult - start Augmentin till 11/30/24. WoundCx that are growing Citrobacter koseri and Enterococcus species
VascSx s/p I&D of L calf wound on 11/18/24, plan for WoundVac
Wound care and CM for home Wound Vac
#Acute T10, T12 compression Fx with worsening back pain
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
MRI thoracolumbar spine: progressive loss of height with increased edema of the T12 vertebral body and increased associated retropulsion. hyperintense signal and enhancement within the L4-L5 and L5-S1 intervertebral disks which extends into the
adjacent endplates at the L5-S1 level. This is overall similar in appearance to prior and favored to represent edema over discitis/osteomyelitis given the similar appearance and lack of paraspinal soft tissue changes.
NeuroSx consult: eventual vertebroplasty if pain worsens, close interval MRI scan in 4 to 6 weeks for lumbar findings with ESR/CRP trend
TLSO brace
pain mgmt
PT/OT
vit D 0.25 WNL
#Mild hyponatremia
resolved
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
nephrology consult: did not improve on 3% saline, s/p Samca on 11/16/24
serial BMP
Sodium improving with better pain control - liberalize fluid intake on 11/19/24
#JONATHAN
resolved
FeNa 0.2% - liberalize fluid intake and as sodium remains in mildly range
might be 2/2 episodes of hypotension and fluid restriction
#JAIME
#Afib, chronic
#GERD
#HLD
#Essential HTN
cont home meds
daily INR
DVT ppx on SCDs
Full code
I have spent at least 51min reviewing chart, test results, communication with consultants, family and providing direct patient care
Anticipated Discharge: Within 24 hours
Subjective/Interval History
-
Date of Service: November 22, 2024
Objective Data
-
Labs:
Laboratory Results
11/22/24
07:24
WBC 5.6
Hgb 8.5 L
Hct 25.7 L
Plt Count 224
PT 17.8 H
INR 1.44
Sodium 139
Potassium 4.4
Chloride 107
Carbon Dioxide 26
BUN 25 H
Creatinine 0.8
Glucose 102 H
Calcium 9.1
Total Bilirubin 0.6
AST 33
ALT 37
Alkaline Phosphatase 104
Vital Signs:
Vital Signs
Temp Pulse Resp BP Pulse Ox
97.7 F 83 20 159/88 98
11/22/24 07:43 11/22/24 07:43 11/22/24 07:43 11/22/24 07:43 11/22/24 07:43
I&O
11/21/24 11/22/24 11/23/24
06:59 06:59 06:59
Intake Total 960 / 960 2265 / 2265
Output Total 700 / 700 600 / 600
Balance 260 / 260 1665 / 1665
Review of Systems
-
History Source: Patient
All other systems: Reviewed and negative
Physical Exam
-
General: No Apparent Distress
HEENT: Normocephalic
Respiratory: Clear to Auscultation
GI: Soft, Nontender and Nondistended
Genito-urinary: No Costovertebral Tender
Musculoskeletal: No Clubbing, No Cyanosis and No Edema
Neuro: Awake, Alert, Oriented and AO x 3
Psych: Calm
[2024-11-22] MEDS: AUGMENTIN 875 MG/125 MG 1 TABLET PO ×2 (09:46→20:29)
[2024-11-22] MEDS: TENORMIN 25 MG PO (09:46)
[2024-11-22] MEDS: OCUVITE SOFTGEL 1 CAP PO (09:47)
[2024-11-22] MEDS: THERAGRAN 1 TABLET PO (09:47)
[2024-11-22] MEDS: PROTONIX IV 40 MG IV ×2 (09:47→20:30)
[2024-11-22] MEDS: NSS (PRESERVATIVE FREE) 10 ML IV ×2 (09:48→20:30)
[2024-11-22] MEDS: NEURONTIN 300 MG PO ×3 (09:49→22:26)
[2024-11-22] MEDS: LIPITOR 20 MG PO (09:49)
[2024-11-22] MEDS: LIDOCAINE 4% PATCH TOPICAL (09:50)
--- NOTE | 2024-11-22 10:20 | WOUNDNOTE ---
L CALF (photo taken by Bernie Bullock, Vascular PA).
--- NOTE | 2024-11-22 10:20 | WOUNDNOTE ---
L CALF (photo taken by Bernie Bullock, Vascular PA).
--- NOTE | 2024-11-22 10:20 | W.PN.VS ---
Today's Communication / Plan
-
Discussed with Dr Vazquez
Assessment/Plan
-
Postop day 4 left lower extremity debridement
Plan:
Weekly VAC placed at bedside, pt tolerated well, no leak noted
CM for home care/home vac
Wound care for home vac
Ok to resume coumadin
Ok for DC when home vac/home care set up
Subjective Data
-
Date of Service: November 22, 2024
Pt seen at bedside this am with son present. Pt offers no complaints at this time, no events overnight. Dressing dry
Objective Data
-
Vital Signs
Temp Pulse Resp BP Pulse Ox
97.7 F 83 20 159/88 98
11/22/24 07:43 11/22/24 07:43 11/22/24 07:43 11/22/24 07:43 11/22/24 07:43
Intake and Output
11/21/24 11/22/24 11/23/24
06:59 06:59 06:59
Intake Total 960 / 960 2265 / 2265
Output Total 700 / 700 600 / 600
Balance 260 / 260 1665 / 1665
Intake:
Oral fluids 960 / 960 1800 / 1800
Blood Product Amount Infused ( 465 / 465
mL)
Ffp24 Divided Unit Part 2 Unit 215 / 215
[id number]
Packed Rbc Leukoreduced Unit 250 / 250
[id number]
Output:
Urine, Voided 700 / 700 600 / 600
Other:
Number of approximated MODERATE 2 3
amounts of urine
Number of approximated LARGE 1
amounts of urine
Number of unmeasured liquid
stools
Rectum 3
Lab Results
11/22/24 07:24
11/22/24 07:24
Calcium 9.1 mg/dl (8.4-10.2) 11/22/24 07:24
Magnesium 2.0 mg/dl (1.6-2.3) 11/16/24 05:18
Total Bilirubin 0.6 mg/dl (0.2-1.3) 11/22/24 07:24
AST 33 U/L (17-59) 11/22/24 07:24
ALT 37 U/L (0-50) 11/22/24 07:24
Alkaline Phosphatase 104 U/L (38-126) 11/22/24 07:24
Total Protein 6.2 g/dl (6.3-8.2) L 11/22/24 07:24
Albumin 3.5 g/dl (3.5-5.0) 11/22/24 07:24
Physical Exam
-
AAO x 3
No tachypnea on room air
No tachycardia
Left leg site undressed at bedside, granulation tissue throughout, scant bloody drainage
Skin edges viable
Redressed with weekly VAC
[2024-11-22] MEDS: ROXICODONE 10 MG PO ×2 (10:59→20:31)
--- NOTE | 2024-11-22 12:11 | CM ---
Addendum entered by Kiya Thomas 11/22/24 12:18:
[employer] weekly wound vac
IMM explained & signed. In chart
Original Note:
Patient seen at bedside with
CM consult complete-home vac
[employer] wound vac placed by vascular
spoke with Taylor SANTIZO-will start paperwork
updated Libby from [facility]
referral updated in [facility]
PLAN: home with [facility] health, [employer] place wound vac
[facility] fax #: [phone]
to transport
--- NOTE | 2024-11-22 12:30 | W.PN.NEPH.PH ---
Today's Communication / Plan
-
Sign off
Assessment/Plan
-
IMP:
Acute T10, T12 compression Fx with worsening back pain
Acute hyponatremia
JONATHAN onset 11/18
JAIME
Afib, chronic
GERD
HLD
Essential HTN
History Right foot Charcot Arthropathy status post surgery
Recent LLE wound infection with surrounding cellulitis, failed outpt treatment
recent hx LT calf emergent hematoma evacuation with Dr Galvin 09/30/24
completed abx course of linezolid and doxycycline on 11/11
Plan:
Hyponatremia corrected
JONATHAN corrected
we will sign off
-
-
Date of Service: November 22, 2024
CC / HPI / ROS
-
Chief Complaint:
hyponatremia
History of Present Illness:
Na up to 139 and stable
Cr normal
BP stable
K normal
Hgb at 8.5
s/p LLE debridement 11/18
Review of Systems:
no CP/SOB
pain fair control with meds
Labs
-
Labs:
WBC 5.6 10^3/uL (4.8-10.8) 11/22/24 07:24
RBC 2.92 10^6/uL (4.70-6.10) L 11/22/24 07:24
Hgb 8.5 g/dL (13.0-18.0) L 11/22/24 07:24
Hct 25.7 % (39.0-52.0) L 11/22/24 07:24
Plt Count 224 10^3/uL (130-400) 11/22/24 07:24
Sodium 139 mmol/L (135-145) 11/22/24 07:24
Potassium 4.4 mmol/L (3.5-5.1) 11/22/24 07:24
Chloride 107 mmol/L (98-107) 11/22/24 07:24
Carbon Dioxide 26 mmol/L (22-30) 11/22/24 07:24
BUN 25 mg/dl (9-20) H 11/22/24 07:24
Creatinine 0.8 mg/dL (0.7-1.3) 11/22/24 07:24
eGFR > 60.00 11/22/24 07:24
Glucose 102 mg/dl (70-99) H 11/22/24 07:24
Calcium 9.1 mg/dl (8.4-10.2) 11/22/24 07:24
Albumin 3.5 g/dl (3.5-5.0) 11/22/24 07:24
Physical Exam
-
Vital Signs:
Vital Signs
Temp Pulse Resp BP Pulse Ox
97.7 F 83 20 159/88 100
11/22/24 07:43 11/22/24 07:43 11/22/24 07:43 11/22/24 07:43 11/22/24 11:45
Cardiovascular:: Regular rate and rhythm
--- NOTE | 2024-11-22 13:37 | WOUNDNOTE ---
WO RN Note: Faxed a ready skilled nursing vac request to Ambreen Sanchez from [facility] noting large peel and place dressings to be delivered to patient's home. Spoke with KATIE Jean this morning who will [place]. Next peel and place vac dressing
change is due next Friday11/22/24.
[2024-11-22] MEDS: BenGay-Like 1 APPLIC TOPICAL (13:42)
[2024-11-22 15:00] VITALS: BP 145/80
[2024-11-22 17:00] VITALS: BP 146/75
[2024-11-22] MEDS: PEPCID 20 MG PO (17:03)
[2024-11-22] MEDS: CARDIZEM CD 120 MG PO (17:04)
--- NOTE | 2024-11-22 19:03 | WOUNDNOTE ---
WOC RN note: Patient's ready home care vac has been approved via the wound vac therapy portal. Wound RN to bring up patient's home vac equipment on day of discharge. [employer] to deliver vac large Pe[employer] and [employer] vac dressings to patient's home.
[2024-11-22] MEDS: FEOSOL 325 MG PO (20:30)
[2024-11-22] MEDS: REMOVE LIDOCAINE PATCH REMOVE (20:30)
--- NOTE | 2024-11-22 20:34 | PTCARENOTE ---
During change of shift wound vac began to alarm that it was malfunctioning. Pt was using urinal and the tubing got caught and it disconnected from the disc on dressing. All suction lost. Wound vac was removed and was replaced with a wet to dry
dressing.
[2024-11-22 23:29] VITALS: BP 113/64
[2024-11-23] MEDS: TYLENOL 1000 MG PO ×3 (05:23→19:42)
[2024-11-23 05:57] LABS: Hematocrit 26.2 % (39.0-52.0); Hemoglobin 8.7 g/dL (13.0-18.0)
[2024-11-23 06:22] LABS: INR 1.26; PT 16.0 Sec (11.4-14.6)
[2024-11-23 07:20] LABS: Blood Urea Nitrogen 21 mg/dl (9-20); Calcium 8.6 mg/dl (8.4-10.2); Carbon Dioxide 27 mmol/L (22-30); Chloride 105 mmol/L (98-107); Estimated Creatinine Clearance 84 ml/min; Glucose 94 mg/dl (70-99); Potassium 4.3 mmol/L (3.5-5.1); Sodium 138 mmol/L (135-145); eGFR > 60.00
[2024-11-23 07:42] VITALS: BP 158/97
[2024-11-23] MEDS: TENORMIN 25 MG PO (09:36)
[2024-11-23] MEDS: AUGMENTIN 875 MG/125 MG 1 TABLET PO ×2 (09:36→19:40)
[2024-11-23] MEDS: NSS (PRESERVATIVE FREE) 10 ML IV ×2 (09:37→19:41)
[2024-11-23] MEDS: NEURONTIN 300 MG PO ×3 (09:37→21:45)
[2024-11-23] MEDS: LIPITOR 20 MG PO (09:37)
[2024-11-23] MEDS: OCUVITE SOFTGEL 1 CAP PO (09:37)
[2024-11-23] MEDS: PROTONIX IV 40 MG IV ×2 (09:38→19:41)
[2024-11-23] MEDS: THERAGRAN 1 TABLET PO (09:38)
[2024-11-23] MEDS: LIDOCAINE 4% PATCH TOPICAL (09:52)
--- NOTE | 2024-11-23 10:25 | W.PN.HOSP.TC ---
Today's Communication/Plan
-
Pending home wound vac for d/c
Assessment / Plan
Assessment / Plan
78yo M with PMHx of Afib on Coumadin, HTN, HLD, GERD, charcot foot, recent L calf hematoma s/p evacuation 2 weeks ago in , also fall at that time with acute T10, T12 compression Fx and L4-L5, L5-S1 bone marrow edema came with worsening lower back
pain without new focal neurological deficit. Also found acute hyponatremia. Later developed worsening anemia after L calf debridement. COntinued on Abx for L calf infected wound s/p I&D on 11/18/24, developed worsening anemia 2/2 bleeding due to
Coumadin, so it was reversed. Plan for WoundVac and d/c home with eventual plastic Sx follow up for skin graft. Back pain with improved control, so sodium also improved. Advised for weekly bmp upon d/c. Augmentin till 11/30/24 as per ID. Restart
Coumadin on 11/23/24 with outpatient INR and dosage as per cardiology. Recommended INR in 3 days. Madically stable for d/c after establishing home wound vac
A/P:
#Acute on chronic blood loss anemia
blood loss after I&D 2/2 COumadin
Coumadin stopped
FOlow CBC
1 unit PRBC and 1 unit FFP on 11/21/24
anemia w/u and check stool FOBT - RN informed. Patient with black stool, but also on PO Iron, low suspicion for GI source, but makes sense to start PPI BID IV and call GI if FOBT positive
#mild leukocytosis
#L calf wound with cellulitis
with lumbar disk edema - and recent Hx of L calf infection with persistent wound - ID consult - start Augmentin till 11/30/24. WoundCx that are growing Citrobacter koseri and Enterococcus species
VascSx s/p I&D of L calf wound on 11/18/24, plan for WoundVac
Wound care and CM for home Wound Vac
#Acute T10, T12 compression Fx with worsening back pain
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
MRI thoracolumbar spine: progressive loss of height with increased edema of the T12 vertebral body and increased associated retropulsion. hyperintense signal and enhancement within the L4-L5 and L5-S1 intervertebral disks which extends into the
adjacent endplates at the L5-S1 level. This is overall similar in appearance to prior and favored to represent edema over discitis/osteomyelitis given the similar appearance and lack of paraspinal soft tissue changes.
NeuroSx consult: eventual vertebroplasty if pain worsens, close interval MRI scan in 4 to 6 weeks for lumbar findings with ESR/CRP trend
TLSO brace
pain mgmt
PT/OT
vit D 0.25 WNL
#Mild hyponatremia
recent CT chest in October 2024 without radiology commenting on any pulmonary nodules
resolved
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
nephrology consult: did not improve on 3% saline, s/p Samca on 11/16/24
serial BMP
Sodium improving with better pain control - liberalize fluid intake on 11/19/24
#JONATHAN
resolved
FeNa 0.2% - liberalize fluid intake and as sodium remains in mildly range
might be 2/2 episodes of hypotension and fluid restriction
#JAIME
#Afib, chronic
#GERD
#HLD
#Essential HTN
cont home meds
daily INR
DVT ppx on SCDs
Full code
I have spent at least 51min reviewing chart, test results, communication with consultants, family and providing direct patient care
Anticipated Discharge: Within 24 hours
Subjective/Interval History
-
Date of Service: November 23, 2024
Objective Data
-
Labs:
Laboratory Results
11/23/24
05:43
Hgb 8.7 L
Hct 26.2 L
PT 16.0 H
INR 1.26
Sodium 138
Potassium 4.3
Chloride 105
Carbon Dioxide 27
BUN 21 H
Creatinine 0.8
Glucose 94
Calcium 8.6
Vital Signs:
Vital Signs
Temp Pulse Resp BP Pulse Ox
97.5 F 81 16 158/97 97
11/23/24 07:42 11/23/24 09:36 11/23/24 07:42 11/23/24 09:36 11/23/24 07:42
I&O
11/22/24 11/23/24 11/24/24
06:59 06:59 06:59
Intake Total 2265 / 2265 1919 / 1919
Output Total 600 / 600 1949 / 1949
Balance 1665 / 1665 -30 / -30
Review of Systems
-
History Source: Patient
All other systems: Reviewed and negative
Physical Exam
-
General: No Apparent Distress
HEENT: Normocephalic
Neuro: Awake, Alert, Oriented and AO x 3
Psych: Calm
--- NOTE | 2024-11-23 10:36 | W.DCSUMMARY ---
Documented by User: Tevin Lubin MD 11/23/24 13:55
Discharge Summary
Discharge Data
Date of Admission: 11/14/24
Date of Discharge: 11/23/24
-
Pending Results: No
Hospital Course
78yo M with PMHx of Afib on Coumadin, HTN, HLD, GERD, charcot foot, recent L calf hematoma s/p evacuation 2 weeks ago in , also fall at that time with acute T10, T12 compression Fx and L4-L5, L5-S1 bone marrow edema came with worsening lower back
pain without new focal neurological deficit. Also found acute hyponatremia. Later developed worsening anemia after L calf debridement. COntinued on Abx for L calf infected wound s/p I&D on 11/18/24, developed worsening anemia 2/2 bleeding due to
Coumadin, so it was reversed. Plan for WoundVac and d/c home with eventual plastic Sx follow up for skin graft. Back pain with improved control, so sodium also improved. Advised for weekly bmp upon d/c. Augmentin till 11/30/24 as per ID. Restart
Coumadin on 11/23/24 with outpatient INR and dosage as per cardiology. Recommended INR in 3 days. Madically stable for d/c after establishing home wound vac
I have spent at least 51min reviewing chart, test results, communication with consultants, family and providing direct patient care
Patient was managed for:
#Acute on chronic blood loss anemia
#mild leukocytosis
#Acute T10, T12 compression Fx with worsening back pain
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
#Mild hyponatremia
#JONATHAN
#JAIME
#Afib, chronic
#GERD
#HLD
#Essential HTN
Discharge Plan
-
Patient Disposition: Home with Home Care
Discharge Diagnosis/Procedures: back pain
Diet: Low Cholesterol
Blood Work: weekly ESR, CRP and CBC, BMP with family doctor. INR in 3 days with extract operator
Activity Restrictions/Additional Instructions:
Wound Care Instructions:
L calf-wound vac therapy-Large Peel and Place vac dressing-Change weekly and prn if unable to obtain a seal. Low Intensity, Continuous at 125 mmHg. If Peel and Place dressing not available, use adaptic and black foam and change q 48-72hours until
Vac Peel and Place dressing delivered.
Next peel and place vac dressing change is due next Fri12/01/24.
L knee high Reid with light compression as tolerated; rewrap daily for skin/dressing check.
Right plantar foot ulcer- resume prior wound care as per your edger liner's instructions.
Elevate heels off bed with pillows.
Follow up with Dr. Galvin.
Follow up at wound care center if needed, call for an appointment.
Wear TLSO brace while ambulating
Referrals:
Boo Waite MD [Family Provider, Family Practice]
Darin Higginbotham MD [Active, Plastic Surgery]
Sonya Whatley MD [Active, Neurosurgery] - in two to four weeks
Referral Note: for lumbar disk edema and t12 fracture follow up
Ana Mena CRNP [Specified Professional Personl, Vascular Surgery] - 12/06/24 1:30 pm
Referral Note: Vascular surgery office follow up- BRING YOU WOUND VAC AND SUPPLIES with you
Additional Discharge Medication Instructions: Start Coumadin with 5mg on 11/23/24
Prescriptions:
New
diltiazem HCl 120 mg Capsule,Extended Release 24hr
120 mg PO QPM Qty: 30 0RF
amoxicillin-pot clavulanate 875-125 mg Tablet
1 tab PO Q12 Qty: 14 0RF
oxycodone 10 mg Tablet
10 mg PO Q6HPRN PRN (Reason: severe pain) Qty: 9 0RF
pantoprazole 40 mg tablet,delayed release (DR/EC)
40 mg PO DAILY Qty: 30 0RF
Continued
atorvastatin 20 MG tablet
20 mg PO DAILY
atenolol 50 MG tablet
50 mg PO DAILY
multivitamin Tablet
1 tab PO DAILY
gabapentin 300 mg Capsule
300 mg PO TID
famotidine 20 mg Tablet
20 mg PO QPM
PreserVision AREDS 2,148 mcg-113 mg-45 mg-17.4mg Tablet
1 tab PO BID
warfarin [Jantoven] 5 MG tablet
5 mg PO .SEE BELOW
Patient Comments:
5mg MOWETHFRSASU and 2.5mg TU
Bengay Ultra Strength 4-30-10 % Cream
1 applic TOPICAL DAILY PRN (Reason: mild pain)
Rx Instructions:
apply to middle & lower back
acetaminophen [Tylenol Extra Strength] 500 mg tablet
1,000 mg PO Q8H Qty: 90 0RF
ferrous sulfate 325 mg (65 mg iron) tablet
325 mg PO Q48H Qty: 14 0RF
Discontinued
diltiazem HCl 180 mg Capsule,Extended Release 24 Hr
180 mg PO QPM
polyethylene glycol 3350 17 gram Powder In Packet
17 g PO DAILY Qty: 30 1RF
oxycodone 5 mg Tablet
5 mg PO Q6HPRN PRN (Reason: severe pain) Qty: 10 0RF
Patient Comments:
11/15/24: oxycodone IR 5mg tablets #120/30 day supply filled at [facility][id number] on 11/01/24 [Dr. Stephy Montanez
doxycycline hyclate 100 mg capsule
100 mg PO Q12
Patient Comments:
11/15/24: Patient reported that he had one remaining dose to take prior to hospitalization
linezolid 600 mg tablet
600 mg PO BID
Patient Comments:
11/15/24: Patient reported that he had one remaining dose to take prior to hospitalization
Discharge Orders:
Discharge Patient (As Directed); Ordered 11/24/24
Ordered By: David Vale
Discharge Date and Time
Print Language: GUINEAN

Documented by User: David Vale MD 11/24/24 12:46
Discharge Summary
Discharge Data
Date of Admission: 11/14/24
Date of Discharge: 11/24/24
Discharge Plan
-
Patient Disposition: Home with Home Care
Discharge Diagnosis/Procedures: back pain
Diet: Low Cholesterol
Blood Work: weekly ESR, CRP and CBC, BMP with family doctor. INR in 3 days with extract operator
Activity Restrictions/Additional Instructions:
Wound Care Instructions:
L calf-wound vac therapy-Large Peel and Place vac dressing-Change weekly and prn if unable to obtain a seal. Low Intensity, Continuous at 125 mmHg. If Peel and Place dressing not available, use adaptic and black foam and change q 48-72hours until
Vac Peel and Place dressing delivered.
Next peel and place vac dressing change is due next Fri12/01/24.
L knee high Reid with light compression as tolerated; rewrap daily for skin/dressing check.
Right plantar foot ulcer- resume prior wound care as per your edger liner's instructions.
Elevate heels off bed with pillows.
Follow up with Dr. Galvin.
Follow up at wound care center if needed, call for an appointment.
Wear TLSO brace while ambulating
Referrals:
Boo Waite MD [Family Provider, Family Practice]
Darin Higginbotham MD [Active, Plastic Surgery]
Sonya Whatley MD [Active, Neurosurgery] - in two to four weeks
Referral Note: for lumbar disk edema and t12 fracture follow up
Ana Mena CRNP [Specified Professional Personl, Vascular Surgery] - 12/06/24 1:30 pm
Referral Note: Vascular surgery office follow up- BRING YOU WOUND VAC AND SUPPLIES with you
Additional Discharge Medication Instructions: Start Coumadin with 5mg on 11/23/24
Prescriptions:
New
diltiazem HCl 120 mg Capsule,Extended Release 24hr
120 mg PO QPM Qty: 30 0RF
amoxicillin-pot clavulanate 875-125 mg Tablet
1 tab PO Q12 Qty: 14 0RF
oxycodone 10 mg Tablet
10 mg PO Q6HPRN PRN (Reason: severe pain) Qty: 9 0RF
pantoprazole 40 mg tablet,delayed release (DR/EC)
40 mg PO DAILY Qty: 30 0RF
Continued
atorvastatin 20 MG tablet
20 mg PO DAILY
atenolol 50 MG tablet
50 mg PO DAILY
multivitamin Tablet
1 tab PO DAILY
gabapentin 300 mg Capsule
300 mg PO TID
famotidine 20 mg Tablet
20 mg PO QPM
PreserVision AREDS 2,148 mcg-113 mg-45 mg-17.4mg Tablet
1 tab PO BID
warfarin [Jantoven] 5 MG tablet
5 mg PO .SEE BELOW
Patient Comments:
5mg MOWETHFRSASU and 2.5mg TU
Bengay Ultra Strength 4-30-10 % Cream
1 applic TOPICAL DAILY PRN (Reason: mild pain)
Rx Instructions:
apply to middle & lower back
acetaminophen [Tylenol Extra Strength] 500 mg tablet
1,000 mg PO Q8H Qty: 90 0RF
ferrous sulfate 325 mg (65 mg iron) tablet
325 mg PO Q48H Qty: 14 0RF
Discontinued
diltiazem HCl 180 mg Capsule,Extended Release 24 Hr
180 mg PO QPM
polyethylene glycol 3350 17 gram Powder In Packet
17 g PO DAILY Qty: 30 1RF
oxycodone 5 mg Tablet
5 mg PO Q6HPRN PRN (Reason: severe pain) Qty: 10 0RF
Patient Comments:
11/15/24: oxycodone IR 5mg tablets #120/30 day supply filled at [id number] on 11/01/24 [Dr. Stephy Montanez
doxycycline hyclate 100 mg capsule
100 mg PO Q12
Patient Comments:
11/15/24: Patient reported that he had one remaining dose to take prior to hospitalization
linezolid 600 mg tablet
600 mg PO BID
Patient Comments:
11/15/24: Patient reported that he had one remaining dose to take prior to hospitalization
Discharge Orders:
Discharge Patient (As Directed); Ordered 11/24/24
Ordered By: David Vale
Discharge Date and Time
Print Language: GUINEAN
[2024-11-23 11:34] LABS: C-Reactive Protein 16.80 mg/L (0.0-10.00)
[2024-11-23] MEDS: ROXICODONE 10 MG PO (12:08)
--- NOTE | 2024-11-23 12:26 | CM ---
Patient and seen at bedside
nsg reported peel and place weekly vac came off
will need to be placed
[facility] referral in [facility]
PLAN: Home with [facility] once wound vac placed
[facility] fax #: [phone]
[2024-11-23 15:37] VITALS: BP 109/70
--- NOTE | 2024-11-23 16:00 | PTCARENOTE ---
Wound vac accidentally removed overnight. Dressing changed with wet to dry dressing and samuel wrap at that time. This morning, made aware @bedside. Vascular surgery CREOSOTING ENGINEER notified and instructed to continue with wet to dry dressing and notify them
when home vac arrives. Home wound vac not arrived during shift. Wet to dry dressing intact. POC ongoing.
[2024-11-23] MEDS: CARDIZEM CD 120 MG PO (17:05)
[2024-11-23] MEDS: PEPCID 20 MG PO (17:05)
[2024-11-23] MEDS: COUMADIN 5 MG PO (17:06)
[2024-11-23] MEDS: REMOVE LIDOCAINE PATCH REMOVE (19:42)
[2024-11-24] VITALS: BP 141/69
[2024-11-24] MEDS: ROXICODONE 10 MG PO ×2 (02:02→11:21)
[2024-11-24] MEDS: TYLENOL PO (05:17)
[2024-11-24 07:00] VITALS: BP 157/98
[2024-11-24 07:28] LABS: INR 1.15; PT 15.3 Sec (11.4-14.6)
--- NOTE | 2024-11-24 08:14 | W.PN.HOSP.TC ---
Today's Communication/Plan
-
Discharge home today with home health.
Assessment / Plan
Assessment / Plan
Impression:
78yo M with PMHx of Afib on Coumadin, HTN, HLD, GERD, charcot foot, recent L calf hematoma s/p evacuation 2 weeks ago in , also fall at that time with acute T10, T12 compression Fx and L4-L5, L5-S1 bone marrow edema came with worsening lower back
pain without new focal neurological deficit. Also found acute hyponatremia. Later developed worsening anemia after L calf debridement. Continued on Abx for L calf infected wound s/p I&D on 11/18/24, developed worsening anemia 2/2 bleeding due to
Coumadin, so it was reversed. Plan for Wound Vac and d/c home with eventual plastic Sx follow up for skin graft. Back pain with improved control, so sodium also improved. Advised for weekly bmp upon d/c. Augmentin till 11/30/24 as per ID. Restart
Coumadin on 11/23/24 with outpatient INR and dosage as per cardiology. Recommended INR in 3 days. Madically stable for d/c after establishing home wound vac
A/P:
#Acute on chronic blood loss anemia
blood loss after I&D 2/2 COumadin
Coumadin stopped
FOlow CBC
1 unit PRBC and 1 unit FFP on 11/21/24
anemia w/u and check stool FOBT - RN informed. Patient with black stool, but also on PO Iron, low suspicion for GI source, but makes sense to start PPI BID IV and call GI if FOBT positive
#mild leukocytosis
#L calf wound with cellulitis
with lumbar disk edema - and recent Hx of L calf infection with persistent wound - ID consult - start Augmentin till 11/30/24. WoundCx that are growing Citrobacter koseri and Enterococcus species
VascSx s/p I&D of L calf wound on 11/18/24, plan for WoundVac
Wound care and CM for home Wound Vac
#Acute T10, T12 compression Fx with worsening back pain
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
MRI thoracolumbar spine: progressive loss of height with increased edema of the T12 vertebral body and increased associated retropulsion. hyperintense signal and enhancement within the L4-L5 and L5-S1 intervertebral disks which extends into the
adjacent endplates at the L5-S1 level. This is overall similar in appearance to prior and favored to represent edema over discitis/osteomyelitis given the similar appearance and lack of paraspinal soft tissue changes.
NeuroSx consult: eventual vertebroplasty if pain worsens, close interval MRI scan in 4 to 6 weeks for lumbar findings with ESR/CRP trend
TLSO brace
pain mgmt
PT/OT
vit D 0.25 WNL
#Mild hyponatremia
recent CT chest in October 2024 without radiology commenting on any pulmonary nodules
resolved
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
nephrology consult: did not improve on 3% saline, s/p Samca on 11/16/24
serial BMP
Sodium improving with better pain control - liberalize fluid intake on 11/19/24
#JONATHAN
resolved
FeNa 0.2% - liberalize fluid intake and as sodium remains in mildly range
might be 2/2 episodes of hypotension and fluid restriction
#JAIME
#Afib, chronic
#GERD
#HLD
#Essential HTN
cont home meds
daily INR
CODE STATUS: Full code
DVT prophylaxis: Lovenox
Diet: Regular diet
Communication: Discussed with at bedside.
Disposition: Discharge home today with home health.
Total time spent on today's encounter was 65 minutes which included time spent in counseling the patient/family regarding diagnosis and treatment plan as listed above, goals of care, and symptom management. Case was discussed with nursing staff,
specialists, and care coordinators/case management. All labs and imaging personally reviewed by me. Remainder the time spent in detailed review of previous records, lab data, imaging, and other medical provider documentation.
Anticipated Discharge: Today
Subjective/Interval History
-
Date of Service: November 24, 2024
Patient seen and examined at bedside, denies any chest pain or shortness of breath, no abdominal pain, no nausea, no vomiting, no diarrhea or constipation.
Objective Data
-
Labs:
Laboratory Results
11/24/24
06:53
PT 15.3 H
INR 1.15
Vital Signs:
Vital Signs
Temp Pulse Resp BP Pulse Ox
97.9 F 83 18 157/98 97
11/24/24 07:00 11/24/24 07:00 11/24/24 07:00 11/24/24 07:00 11/24/24 07:00
I&O
11/23/24 11/24/24 11/25/24
06:59 06:59 06:59
Intake Total 1919 / 1919 480 / 480
Output Total 1949
Balance -30 / -30 480 / 480
Physical Exam
-
General: Well Developed, Well Nourished, No Apparent Distress and Comfortable
HEENT: Normocephalic, Atraumatic, Moist Mucous Membranes, No Ptosis, PERRLA and Nose Appears Normal
Respiratory: Clear to Auscultation and Non Labored Respirations
Cardiac: Regular Rhythm and S1/S2
Breast: Deferred by me
GI: Soft, Nontender, Nondistended and Normal Bowel Sounds
Genito-urinary: No Costovertebral Tender
Musculoskeletal: No Clubbing, No Cyanosis, No Edema and Other (Left leg dressing)
Skin: Warm
Neuro: Awake, Alert, Oriented, AO x 3 and No Motor Deficits
Psych: Calm
Data Reviewed
-
Diagnostic Radiology: Image personally visualized and interpreted and Report Reviewed by me
CT Scan: Image personally visualized and interpreted and Report Reviewed by me
Ultrasound: Image personally visualized and interpreted and Report Reviewed by me
MRI: Image personally visualized and interpreted and Report Reviewed by me
Medical Tests (Nuc Med, Echo etc): Image personally visualized and interpreted and Report Reviewed by me
Labs: Labs Reviewed by me
Old Records: Reviewed
[2024-11-24] MEDS: THERAGRAN 1 TABLET PO (09:42)
[2024-11-24] MEDS: TENORMIN 25 MG PO (09:42)
[2024-11-24] MEDS: NEURONTIN 300 MG PO (09:42)
[2024-11-24] MEDS: AUGMENTIN 875 MG/125 MG 1 TABLET PO (09:42)
[2024-11-24] MEDS: LIPITOR 20 MG PO (09:42)
[2024-11-24] MEDS: OCUVITE SOFTGEL 1 CAP PO (09:43)
[2024-11-24] MEDS: PROTONIX IV 40 MG IV (09:44)
[2024-11-24] MEDS: NSS (PRESERVATIVE FREE) 10 ML IV (09:44)
[2024-11-24] MEDS: LIDOCAINE 4% PATCH TOPICAL (09:45)
--- NOTE | 2024-11-24 10:43 | WOUNDNOTE ---
WO RN note: Patient's LLE dressing changed, a new vac peel and place vac dressing applied LLE wound today (size Medium). Updated his wound care instructions in his discharge instructions. His next peel and place dressing change is due 12/01. If he
does not get the peel and place dressings sent to his house on time, VN can use adaptic with regular black vac foam and change it q 48-72hours. He is connected his home vac now for discharge. Instructed patient, son Ernesto and patient's Yasmin how
to turn on/off vac pump, how to change the home vac canister, how to clamp/disconnect and reconnect and unclamp vac tubing, how to patch an air leak, and call [employer] support 04/11 or call VN if having problems with the home vac. Instructed
patient if misael bleeding occurs around the vac dressing, to clamp and disconnect vac tubing, turn of vac pump and call 911. Patient's R plantar foot dressing changed. stated he follows a physicist [facility] and he has an appointment next week with his
physicist [facility]. She stated the current wound care is collagen, Xeroform and foam dressing daily. to resume his R plantar foot wound care at home. Patient has off loading shoe for his R foot at home and surgical shoe for his L foot. Discharge
instructions updated. Emailed Ambreen Sanchez requesting size Medium Peel and Place vac dressing kits to be delivered instead of size large.
--- NOTE | 2024-11-24 11:02 | CM ---
Patient seen at bedside with
WOCN placed new peel & place dressing with home vac
updated careport for [facility]
IMM explained & signed. In chart
DIEGO for Libby at [facility]
PLAN: Home, [facility] wound vac
[facility] fax #: [phone]
[2024-11-24] MEDS: TYLENOL 1000 MG PO (11:21)
--- NOTE | 2024-11-24 11:50 | WOUNDNOTE ---
WO RN note: Faxed patient signed proof of delivery form for home vac equipment to Ambreen Sanchez from [employer]. Notified [facility] via [employer] express portal of [facility] (serial # [id number])rental stop bill date as of today and pump
pickle maker (work order # [id number]).
[2024-11-24 12:27] VITALS: BP 133/86
== END 2024-11-24 13:26 | disposition home health service (06) | DRG 857 ==
LOC: 3 WEST ACU 17:39
PROVIDERS: Internal Medicine; Nurse Practitioner Acute Care; Physician Assistant; Specialist; ADMITTING PHYSICIAN Internal Medicine; ATTENDING PHYSICIAN General Practice; CONSULT PHYSICIAN Internal Medicine; CONSULT PHYSICIAN Internal Medicine Infectious Disease; CONSULT PHYSICIAN Neurological Surgery; CONSULT PHYSICIAN Surgery Vascular Surgery; EMERGENCY PHYSICIAN Emergency Medicine; FAMILY PHYSICIAN Family Medicine
PROC: 0JBP0ZZ Excision of Left Lower Leg Subcutaneous Tissue and Fascia, Open Approach (ICD-10-PCS; 2024-11-18)
PROC: 30233N1 Transfusion of Nonautologous Red Blood Cells into Peripheral Vein, Percutaneous Approach (ICD-10-PCS; 2024-11-21)
PROC: 30233K1 Transfusion of Nonautologous Frozen Plasma into Peripheral Vein, Percutaneous Approach (ICD-10-PCS; 2024-11-21)
DX: T81.41XA Infection following a procedure, superficial incisional surgical site, initial encounter (principal); D62 Acute posthemorrhagic anemia; D68.32 Hemorrhagic disorder due to extrinsic circulating anticoagulants; I48.20 Chronic atrial fibrillation, unspecified; E22.2 Syndrome of inappropriate secretion of antidiuretic hormone; M48.54XA Collapsed vertebra, not elsewhere classified, thoracic region, initial encounter for fracture; N17.9 Acute kidney failure, unspecified; I96 Gangrene, not elsewhere classified; L03.116 Cellulitis of left lower limb; M54.50 Low back pain, unspecified; I10 Essential (primary) hypertension; K21.9 Gastro-esophageal reflux disease without esophagitis; E78.00 Pure hypercholesterolemia, unspecified; E66.9 Obesity, unspecified; I95.9 Hypotension, unspecified; R29.890 Loss of height; M48.04 Spinal stenosis, thoracic region; D72.829 Elevated white blood cell count, unspecified; D50.9 Iron deficiency anemia, unspecified; L08.89 Other specified local infections of the skin and subcutaneous tissue; B96.89 Other specified bacterial agents as the cause of diseases classified elsewhere; Y83.8 Other surgical procedures as the cause of abnormal reaction of the patient, or of later complication, without mention of misadventure at the time of the procedure; Y92.9 Unspecified place or not applicable; Z79.01 Long term (current) use of anticoagulants; Z68.26 Body mass index [BMI] 26.0-26.9, adult; Z86.79 Personal history of other diseases of the circulatory system; Z91.81 History of falling
CPT/HCPCS: 11042; 11045; 72157; 72158; 80048; 80053; 81003; 81015; 82306; 82570; 82607; 82728; 82746; 83540; 83550; 83615; 83735; 83930; 83935; 84295; 84300; 84443; 85014; 85018; 85025; 85027; 85045; 85610; 85652; 85730; 86140; 86850; 86900; 86901; 86920; 87070; 87075; 87077; 87176; 87186; 87205; 93005; 96374; 97116; 97162; 97167; 97530; 97535; 99285; A9575; P9016; P9059

== ENCOUNTER 2024-12-22 06:28 | Day surgery (SDC) | payer OTHER, SELFPAY ==
[2024-12-17 14:08] VITALS: BMI 28.1
[2024-12-17 14:27] LABS: ALT (SGPT) 42 U/L (0-50); AST (SGOT) 39 U/L (17-59); Albumin 4.0 g/dl (3.5-5.0); Alkaline Phosphatase 163 U/L (38-126); Blood Urea Nitrogen 18 mg/dl (9-20); Calcium 9.2 mg/dl (8.4-10.2); Carbon Dioxide 28 mmol/L (22-30); Chloride 106 mmol/L (98-107); Estimated Creatinine Clearance 77 ml/min; Glucose 96 mg/dl (70-99); Potassium 4.2 mmol/L (3.5-5.1); Sodium 139 mmol/L (135-145); Total Protein 6.9 g/dl (6.3-8.2); eGFR > 60.00
[2024-12-17 14:34] LABS: Hematocrit 29.1 % (39.0-52.0); Hemoglobin 9.6 g/dL (13.0-18.0); Mean Corp Hgb Conc. 33.0 g/dL (33.0-37.0); Mean Corpuscular Volume 89.8 fL (80.0-94.0); Platelet Count 222 10^3/uL (130-400); Red Cell Dist. Width 15.9 % (11.5-14.5)
[2024-12-17 20:04] LABS: Absolute Neutrophils -Man Diff 3.3 10^3/uL (1.4-6.5)
[2024-12-17 20:05] LABS: Platelets Checked Yes
[2024-12-17 20:06] LABS: Anisocytosis 1+; Hypochromasia 1+; Normal RBC Morphology No; Total Cells Counted 100
--- NOTE | 2024-12-20 14:53 | PTCARENOTE ---
Abnormal ECG and Hgb 9.6 done 12/17/[address] Lamas, no further interventions required.
--- NOTE | 2024-12-20 15:00 | PTCARENOTE ---
Cherelle at Dr Higginbotham's office notified of Hgb 9.6 drawn 12/17/24.
[2024-12-22 15:00] VITALS: BP 139/70; BMI 28.1
[2024-12-22] MEDS: TYLENOL 1000 MG PO (15:06)
[2024-12-22] MEDS: NORMOSOL-R/PLASMALYTE-A 1000 IV (15:20)
--- NOTE | 2024-12-22 17:26 | W.IMMPOSTOP ---
Surgical Immed Post Op Note
-
Primary Surgeon: GEORGIA Higginbotham MD
Assisting Surgeon:
Pre-op Diagnosis: Left lower extremity wound
Post-op Diagnosis:
Procedure Performed: Wound bed preparation and split thickness skin graft of the left lower extremity
Anesthesia Type: Sedation
Specimen / Cultures: None
Estimated Blood Loss: 3 cc
Complications: None
Operative Findings: As expected
--- NOTE | 2024-12-22 17:26 | OR.RPT ---
Operative Report
Operative Report
Date of service: 12/22/24
Surgeon: GEORGIA Higginbotham MD
Preoperative diagnosis:
1. Left lower extremity wound
2. Hematoma with skin necrosis
Postoperative diagnosis: Same
Procedure:
1. Wound bed prep for graft, left lower extremity, 14x5cm
2. Split thickness skin graft to left lower extremity, 14x5cm
3. Negative pressure wound dressing application, 14 x 5 cm
Anesthesia: General
EBL: 3 cc
Complications: None
Indications for procedure: Patient is a 79-year-old male who suffered trauma to the lower extremity resulting in a large hematoma. The hematoma then caused skin necrosis resulting in a large wound of the left lower extremity. This was managed with
wound care until a granulating wound bed was left. He presented to me to evaluate options for continued wound care versus a grafting procedure. A plan was made for split-thickness skin graft of the left lower extremity. A prior VAC had been
utilized temporarily and was explained that this will be reused for 5 days following the procedure. Risk of the procedure include donor site scar, skin graft failure, infection, bleeding. He understood these risk desire to proceed. A plan was
made for his anticoagulation with his [employer].
Procedure in detail: Patient was identified preoperatively and the surgical site was confirmed to be the left lower extremity. It was marked accordingly. All questions were answered and consents were confirmed. Patient was taken back the
operative room placed supine on the table. Anesthesia was induced and the patient was prepped and draped in the usual sterile fashion using ChloraPrep at the donor and Betadine at the wound. Timeout for patient safety was performed was confirmed
that preoperative antibiotics have been administered and a right SCD was in place. Procedure began with the wound bed prep for grafting of the left lower extremity over an area 14 x 5 cm. A 10 blade was used to tangentially excise any necrotic
tissue as well as dermal plane the granulation bed. Thorough irrigation with normal saline was then performed. The wound was measured and the donor site was marked out on the left thigh. Skin graft was harvested at 13,007 inch using a dermatome.
This was then meshed at a 1-1.5 ratio. It was placed over the left lower extremity wound bed and sutured in place with a series of 4-0 chromic and 5-0 fast. A negative pressure dressing was then applied in addition to bacitracin and Adapt[employer]. A
Tegaderm was placed over the donor site on the thigh. A mixture 1% lidocaine with epinephrine and half percent Marcaine was used to anesthetize the areas. Patient tolerated the procedure well and was performed out complication, all counts were
correct at the end the case. An Reid wrap was placed over the negative pressure bandage on the left lower extremity and was taken to the PACU further care.
[2024-12-22 18:48] VITALS: BP 127/69
[2024-12-22 19:00] VITALS: BP 149/90
[2024-12-22 19:15] VITALS: BP 136/86
== END 2024-12-22 19:40 | disposition home or self-care (01) ==
LOC: SDS 06:28
PROVIDERS: ATTENDING PHYSICIAN Surgery Plastic and Reconstructive Surgery; FAMILY PHYSICIAN Family Medicine
DX: S81.802A Unspecified open wound, left lower leg, initial encounter (principal); X58.XXXA Exposure to other specified factors, initial encounter; I96 Gangrene, not elsewhere classified
CPT/HCPCS: 15120; 97608; 36415; 80053; 85025; 93005

== ENCOUNTER → 2024-12-27 09:47 | Outpatient (REF) | payer OTHER, SELFPAY ==
[2024-12-27 12:34] LABS: INR 1.17; PT 15.2 Sec (11.4-14.6)
== END ==
LOC: HWLAB 09:47
PROVIDERS: ATTENDING PHYSICIAN Student in an Organized Health Care Education/Training Program; FAMILY PHYSICIAN Family Medicine
DX: I48.0 Paroxysmal atrial fibrillation (principal)
CPT/HCPCS: 36415; 85610

== ENCOUNTER → 2024-12-30 09:52 | Outpatient (REF) | payer OTHER, SELFPAY ==
[2024-12-30 12:54] LABS: INR 1.31; PT 16.8 Sec (11.4-14.6)
== END ==
LOC: HWLAB 09:52
PROVIDERS: ATTENDING PHYSICIAN Student in an Organized Health Care Education/Training Program; FAMILY PHYSICIAN Family Medicine
DX: I48.0 Paroxysmal atrial fibrillation (principal)
CPT/HCPCS: 36415; 85610

== ENCOUNTER → 2025-01-04 10:10 | Outpatient (REF) | payer OTHER, SELFPAY ==
[2025-01-04 12:35] LABS: INR 1.85; PT 21.5 Sec (11.4-14.6)
== END ==
LOC: HWLAB 10:10
PROVIDERS: ATTENDING PHYSICIAN Student in an Organized Health Care Education/Training Program; FAMILY PHYSICIAN Family Medicine
DX: I48.0 Paroxysmal atrial fibrillation (principal)
CPT/HCPCS: 36415; 85610

== ENCOUNTER → 2025-01-07 10:38 | Outpatient (REF) | payer OTHER, SELFPAY ==
[2025-01-07 12:04] LABS: INR 2.28; PT 25.2 Sec (11.4-14.6)
== END ==
LOC: HWLAB 10:38
PROVIDERS: ATTENDING PHYSICIAN Student in an Organized Health Care Education/Training Program; FAMILY PHYSICIAN Family Medicine
DX: I48.0 Paroxysmal atrial fibrillation (principal)
CPT/HCPCS: 36415; 85610